=== PATIENT | female | born 1945 | race Caucasian/White ===

== ENCOUNTER → 2018-04-24 07:31 | Outpatient (CLI) | payer MEDICARE, SELFPAY ==
--- NOTE | 2018-04-24 | DI.MG.S_ITS ---
BILATERAL DIGITAL SCREENING MAMMOGRAM 3D/2D WITH CAD: 04/24/2018 CLINICAL: Routine screening. Family history of breast cancer. Comparison is made to exams dated: 02/18/2017 mammogram, 11/20/2015 mammogram, and 10/17/2014 mammogram - [facility]. The tissue of both breasts is heterogeneously dense. This may lower the sensitivity of mammography. Current study was also evaluated with a Computer Aided Detection (CAD) system. There is a mass in the left breast at 3 o'clock anterior depth. No other significant masses, calcifications, or other findings are seen in either breast. IMPRESSION: INCOMPLETE: NEEDS ADDITIONAL IMAGING EVALUATION The mass in the left breast is indeterminate. Additional views with possible ultrasound are recommended. This exam was interpreted at Station ID: [id number]. NOTE: For mammograms, a report in lay terms will be sent to the patient. Approximately 15% of breast malignancies will not be visualized mammographically. In the management of a palpable breast mass, a negative mammogram must not discourage biopsy of a clinically suspicious lesion. Electronically Signed By: Home cano/sushila:04/24/2018 12:40:04 copy to: Brittany Doherty letter sent: Additional Imaging Needed ACR BI-RADS Category 0: Incomplete [id number]
== END ==
PROVIDERS: PCP Family Medicine; Visit Provider Family Medicine
DX: Z12.31 Encounter for screening mammogram for malignant neoplasm of breast (principal); Z80.3 Family history of malignant neoplasm of breast
CPT/HCPCS: 77063; 77067

== ENCOUNTER → 2018-04-28 09:59 | Outpatient (CLI) | payer MEDICARE, SELFPAY ==
--- NOTE | 2018-04-28 10:02 | DI.MG.S_ITS ---
UNILATERAL LEFT DIGITAL DIAGNOSTIC MAMMOGRAM 3D/2D WITH ADDITIONAL VIEWS: 04/28/2018 CLINICAL: Additional evaluation requested from prior study. Comparison is made to exams dated: 04/24/2018 mammogram, 02/18/2017 mammogram, and 11/20/2015 mammogram - [facility]. The tissue of the left breast is heterogeneously dense. This may lower the sensitivity of mammography. There is a 1.2 cm irregular high density mass with a spiculated margin in the left breast at 3 o'clock anterior depth. No other significant masses or calcifications are seen in the breast. IMPRESSION: INCOMPLETE: NEEDS ADDITIONAL IMAGING EVALUATION The 1.2 cm irregular high density mass in the left breast is indeterminate. An ultrasound is recommended. This exam was interpreted at Station ID: [id number]. NOTE: For mammograms, a report in lay terms will be sent to the patient. Approximately 15% of breast malignancies will not be visualized mammographically. In the management of a palpable breast mass, a negative mammogram must not discourage biopsy of a clinically suspicious lesion. Electronically Signed By: Home cano/sushila:04/28/2018 10:47:16 copy to: Brittany Doherty ACR BI-RADS Category 0: Incomplete [id number]
--- NOTE | 2018-04-28 10:02 | DI.US.S_ITS ---
ULTRASOUND OF LEFT BREAST: 04/28/2018 CLINICAL: Patient returns for additional imaging over a suspected mass in the left breast. Comparison is made to exams dated: 04/28/2018 mammogram, 04/24/2018 mammogram, and 02/18/2017 mammogram - [facility]. Color flow ultrasound of the left breast was performed. Hitchcock scale images of the real-time examination were reviewed. There is a 1.5 cm x 1 cm x 1.7 cm irregular mass with a spiculated margin in the left breast at 3 o'clock middle depth 7 cm from the nipple. This correlates with mammography findings. IMPRESSION: HIGHLY SUGGESTIVE OF MALIGNANCY - FOLLOW-UP RECOMMENDED The 1.5 cm x 1 cm x 1.7 cm irregular mass in the left breast is highly suggestive of malignancy. An ultrasound guided biopsy is recommended. Findings discussed in person with the patient by Dr. Dallas of the department of radiology at the time of evaluation. This exam was interpreted at Station ID: [id number]. Electronically Signed By: Home Noland M.D. cj/:04/28/2018 10:49:45 copy to: Brittany Doherty letter sent: Biopsy Required Ultrasound BI-RADS: 5 Highly suggestive of malignancy
== END ==
PROVIDERS: PCP Family Medicine; Visit Provider Family Medicine
DX: R92.8 Other abnormal and inconclusive findings on diagnostic imaging of breast (principal); N63.20 Unspecified lump in the left breast, unspecified quadrant
CPT/HCPCS: 76642; 77065; G0279

== ENCOUNTER → 2018-05-12 14:09 | Outpatient (CLI) | payer MEDICARE, SELFPAY ==
--- NOTE | 2018-05-12 | DI.MG.S_ITS ---
UNILATERAL LEFT DIGITAL DIAGNOSTIC MAMMOGRAM POST-NEEDLE BIOPSY: 05/12/2018 CLINICAL: Post clip placement. Comparison is made to exams dated: 04/28/2018 ultrasound, 04/28/2018 mammogram, and 04/24/2018 mammogram - [facility]. The tissue of the left breast is heterogeneously dense. This may lower the sensitivity of mammography. There is a marker clip in the appropriate position in the left breast at 3 o'clock middle depth. This marker clip placement is at biopsy site. IMPRESSION: POST PROCEDURE MAMMOGRAM FOR MARKER PLACEMENT There was a successful marker clip placement in the left breast middle depth. NOTE: For mammograms, a report in lay terms will be sent to the patient. Approximately 15% of breast malignancies will not be visualized mammographically. In the management of a palpable breast mass, a negative mammogram must not discourage biopsy of a clinically suspicious lesion. Electronically Signed By: Frank morgan/:05/12/2018 16:50:18 copy to: Brittany Doherty ACR BI-RADS Category Post-procedure mammogram for marker placement
--- NOTE | 2018-05-12 | PATH_ITS ---
[facility] Accession Number: [id number] . 01 Material submitted: . LEFT BREAST MASS . 01 Clinical history: . LEFT BREAST MASS 3:00 7CM FROM NIPPLE . 02 Diagnosis: Left Breast Needle Core Biopsy: Infiltrating ductal carcinoma with the following features: 1. Tumor size: Single greatest linear dimension 0.7 cm as measured on the slide (all cores involved with tumor). 2. Tumor grade: William grade 2 of 3 (score 6 of 9). Nuclear score: 2 of 3. Mitotic rate score: 2 of 3. Tubular differentiation score: 2 of 3. 3. In-situ carcinoma: not identified. 4. Vascular/lymphatic invasion: not identified. 5. Hormone receptor studies: pending, to be reported by addendum. . . . . I/05/15/2018 . 02 Electronically signed: . Leonidas Kovacs MD, Pathologist NPI- [id number] . 01 Gross description: . Received one formalin-filled container labeled with the patient's name and designated left breast mass 3 o'clock 7 cm from nipple. The specimen is received with a plastic filter, sample loose in container. The specimen consists of multiple 0.1 cm in diameter, cylindrical-shaped portions of tissue which range in length from 0.1 cm to 0.7 cm. The specimen is filtered and entirely submitted in one cassette. Collection date: 05/12/2018. Collection time per container: 3:32 PM. Total fixation time: 12 hours, up to 24. ([id number]) /FRR . 02 Pathologist provided ICD-10: C50.912 . 02 CPT . 746898, 816932, [id number], [id number] Performed at: 01 [facility] [address] [place] [address], [place], [place] [id number] MD Case Jose MD Phone: [phone] Performed at: 02 [facility] [id number] [place] [id number] MD Prasanth Hubbard MD Phone: [phone]
--- NOTE | 2018-05-12 11:08 | DI.US.S_ITS ---
Patient Name: EILEEN SANTA date: 1945 Sex: F Attending Physician: Link Indications: Date: 05/12/2018 16:06 At the request of: SHARRON HURLEY Procedure: US bx breast perc w vac device ULTRASOUND GUIDED BIOPSY LEFT BREAST USING VACUUM DEVICE WITH MARKING DEVICE INSERTED: 05/12/2018 CLINICAL: Left breast mass. PATIENT CONSENT: Risks (minor bleeding, infection, vasovagal reaction and repeat procedure), benefits and alternatives were explained to the patient and written informed consent was obtained. Correlation is made to exams dated: 05/12/2018 mammogram, 04/28/2018 ultrasound, mammogram, and 04/24/2018 mammogram - [facility]. An ultrasound guided biopsy using real-time ultrasound was performed for the 1.5 cm x 1 cm x 1.7 cm mass located in the left breast at 3 o'clock middle depth 7 cm from the nipple. The skin was prepped in the usual manner. Local anesthetic was administered to the access site. A small incision was made in the breast. The abnormality was approached from the lateral aspect. A biopsy needle was placed adjacent to the abnormality under ultrasound guidance. Once the needle was documented to be in the correct location, five specimens were obtained using the Mammotome biopsy system. A clip was inserted into the biopsy cavity. The specimens were sent to the laboratory for pathological analysis. IMPRESSION: ULTRASOUND GUIDED BIOPSY MALIGNANT Ultrasound guided biopsy of the 1.5 cm x 1 cm x 1.7 cm mass in the left breast at 3 o'clock middle depth 7 cm from the nipple was successful. Pathology results demonstrate infiltrating ductal carcinoma, which is concordant with imaging. Frank morgan,dean/:05/19/2018 09:55:46 copy to: Brittany Doherty
== END ==
PROVIDERS: PCP Family Medicine; Visit Provider Family Medicine
DX: C50.912 Malignant neoplasm of unspecified site of left female breast (principal)
CPT/HCPCS: 19083; 77065; 88305; 88360

== ENCOUNTER → 2018-06-27 07:38 | Outpatient (CLI) | payer MEDICARE, SELFPAY ==
--- NOTE | 2018-06-27 | DI.MG.S_ITS ---
SPECIMEN LEFT BREAST: 06/27/2018 CLINICAL: Left breast cancer. Correlation is made to exams dated: 06/27/2018 localization, 05/12/2018 ultrasound biopsy, and 05/12/2018 mammogram [facility]. A surgical specimen from the left breast at 3 o'clock was imaged. The localizatin wire and biopsy clip are within the surgical specimen. The targed mass itself is not well seen. IMPRESSION: SPECIMEN The imaged specimen includes the targeted abnormality. This exam was interpreted at Station ID: [id number]. Simba Chatman M.D. fx/:06/27/2018 13:48:22 copy to: Brittany Doherty
--- NOTE | 2018-06-27 | DI.MG.S_ITS ---
MAMMOGRAPHY GUIDED WIRE LOCALIZATION LEFT BREAST WITH POST DIGITAL MAMMOGRAPHIC IMAGIN06/27/2018 CLINICAL: Left breast cancer. Correlation is made to exams dated: 05/12/2018 mammogram, 04/28/2018 mammogram, and 04/24/2018 mammogram - [facility]. A wire localization using mammography guidance was performed for the mass located in the left breast at 3 o'clock middle depth. The skin was prepped in the usual manner. Local anesthetic was administered to the access site. The localization was approached from the lateral aspect. A wire was inserted into the targeted area under mammography guidance. Post placement digital mammographic imaging was obtained. IMPRESSION: WIRE LOCALIZATION Wire localization for the mass in the left breast at 3 o'clock middle depth was successful. This exam was interpreted at Station ID: [id number]. Simba Chatman M.D. fx/:06/27/2018 13:38:05 copy to: Brittany Doherty
--- NOTE | 2018-06-27 | DI.NM.S_ITS ---
PROCEDURE: NM SENTINEL NODE W IMAGING RADIOPHARMACEUTICAL: 0.50 mCi Millipore filtered Tc-99m sulfur colloid. INDICATIONS: LEFT BREAST WIRE LOC TECHNIQUE: Written informed consent was obtained. The area around the region of concern on the left was prepped and draped in a sterile fashion. Tc-99m sulfur colloid was injected intra-dermally and subcutaneously around the biopsy scar. Images were obtained approximately 60 minutes after tracer injection. FINDINGS: [place] node identified at the junction of the upper outer left breast and anterior left axilla. IMPRESSION: Administration of subdermal radiotracer around the site of melanoma for intra-operative sentinel lymph node localization. Dictated by: Fani Herr MD, PhD on 06/27/2018 at 8:20 Approved by: Fani Herr MD, PhD on 06/27/2018 at 8:32
== END ==
PROVIDERS: PCP Physician Assistant; Visit Provider Surgery
DX: C50.912 Malignant neoplasm of unspecified site of left female breast (principal)
CPT/HCPCS: 19281; 76098; 78195; A9541

== ENCOUNTER 2018-06-27 07:55 | Day surgery (SDC) | payer MEDICARE, SELFPAY ==
[2018-06-21 10:57] VITALS: BMI 40.7
[2018-06-27] VITALS (11 sets, daily range): BP systolic 105–141; BP diastolic 59–81; PULSE 55–67; RESP 10–16; TEMP 36.1–36.8; O2SAT 92–97; BMI 40.1
--- NOTE | 2018-06-27 | PATH_ITS ---
[facility] Accession Number: [id number] . 01 Material submitted: . PART A: LEFT AXILLARY SENTINEL LYMPH NODE PART B: LEFT AXILLARY SENTINEL LYMPH NODE PART C: LEFT BREAST . 02 Diagnosis: A. Left Axillary [place] Lymph Node, Excisional Biopsy: One lymph node positive for metastatic carcinoma by immunohistochemistry studies (1/). Please see [facility] Cancer Case Summary, below. . B. Left Axillary [place] Lymph Node, Excisional Biopsy: One lymph node negative for metastatic carcinoma by immunohistochemistry studies (0/1). Please see [facility] Cancer Case Summary, below. . C. [facility] CANCER CASE SUMMARY Invasive carcinoma of the breast: . Procedure: Left axillary sentinel lymph excisional biopsies and left breast wire localization lumpectomy. Specimen Laterality: Left. . Tumor site: Central-medial lumpectomy breast tissue, NOS. Tumor size: 2.4 cm (slices 3-10, 0.3 cm in thickness per slice). Histologic type: Infiltrating ductal carcinoma. Histologic grade: William histologic score 7 of 9 Glandular/Tubular differentiation: Score 2 of 3. Nuclear Pleomorphism: Score 3 of 3. Mitotic Rate: Score 2 of 3. Overall Grade: Grade 2 of 3. Tumor focality: Unifocal. Ductal carcinoma in situ: Size (Extent) of DCIS: Overall size 3.0 cm (multiple, patchy foci in slices 2-11, 0.3 cm in thickness per slice). Architectural patterns: Solid, cribriform, micropapillary, and solid papillary. Nuclear grade: Grade 2 of 3. Necrosis: Focally present. Lobular carcinoma in situ: Not identified. . Macroscopic and microscopic extent of tumor Skin: Not applicable. Nipple: Not applicable. Skeletal muscle: Not applicable. . Margins Invasive carcinoma: Anterior: 6 mm. Posterior: 8 mm. Superior: Greater than 10 mm. Inferior: 9 mm. Medial: 6 mm. Lateral: Greater than 10 mm. Ductal carcinoma in situ: Anterior: 8 mm. Posterior: 1 mm. Superior: Greater than 10 mm. Inferior: 2 mm. Medial: 1 mm. Lateral: Greater than 10 mm. . Lymph nodes Total number of lymph nodes examined: 2. Number of sentinel lymph nodes examined: 2. Lymph Node Involvement: Number of lymph nodes with macrometastases: 0. Number of lymph nodes with micrometastases: 1. Number of lymph nodes with isolated tumor cells: 0. Extranodal Extension: Not identified. Method of Evaluation of [place] Lymph Nodes: H/E stained slides and immunohistochemistry studies. . Treatment effect: Response to Presurgical Therapy Breast: Not identified. Lymph nodes: Not applicable/not identified. . Lymph-vascular invasion: Not identified. Dermal lymph-vascular invasion: Not applicable. Pathologic staging: AJCC, 8th ed., 2017 Primary tumor: pT2 Regional lymph nodes: pN1mi . Additional pathologic findings: Microcalcifications are present and are associated with both ductal carcinoma in situ and with benign ductal epithelium; changes consistent with previous instrumentaton are present; biopsy marker present. Fibrocystic changes consisting of cystic dilatation of terminal ductules, apocrine metaplasia, ductal hyperplasia without atypia, and focal papillomatosis. . Ancillary studies: Biomarkers Performed Previously on Case: [facility], [id number]; 05/13/2018. Estrogen Receptor (ER) Status: Positive with 50% of cells staining with strong intensity. Progesterone Receptor (PgR) Status: Positive with approximately 20% of cells staining with strong intensity. HER2 (by immunohistochemistry): Negative, with a few cells showing 1+ staining. HER2 (ERBB2) (by in situ hybridization): Not applicable. [facility]/06/30/2018 . 02 Electronically signed: . Nory Blancas MD, Pathologist NPI- [id number] . 01 Gross description: . (A) Received in formalin, labeled left axillary sentinel lymph node, count 24,796, is a lymph node (1.9 x 1.1 x 0.6 cm). Serially sectioned and entirely submitted in cassettes A1-A2. (B) Received in formalin, labeled left axillary sentinel lymph node with count of 906, is a lymph node (0.9 x 0.7 x 0.4 cm). Serially sectioned and entirely submitted in cassette B1. (C) Received in formalin, labeled L breast lumpectomy, SS superior, LS lateral, D.S.-deep margins, is a piece of breast tissue (2.7 cm AP, 5.5 cm SI, 5.6 cm ML) with no overlying skin. The specimen is oriented with three black sutures (short-superior, long-lateral, double-deep). A localization wire enters the anterior inferomedial aspect. The specimen is serially sectioned ML into seventeen slices with the medial and lateral resection margins as slices #1 and #17, respectively. The breast tissue is fatty and contains a mcpherson-white solid firm irregular mass (1.9 x 1.8 x 1.4 cm) within slices #4-9. The mass is 1.0 cm from the anterior, 0.7 cm from the posterior, 1.4 cm from the superior, 1.5 cm from the inferior, 1.0 cm from the medial, and 2.7 cm from the lateral resection margins. A biopsy marker is identified in the middle of the mass within slice #7. The localization wire ends within the fatty tissue of slice #12. No other nodules, masses or lesions are identified. Ink code: purple-anterior; yellow-posterior; black-superior; orange-inferior; green-medial; blue-lateral. Section code: (C1) medial resection margin, perpendicularly sectioned, entirely submitted; (C2) slice #2, entirely submitted; (C3-C4) slice #3, tissue adjacent to mass, bisected and entirely submitted SI; (C5-C6) slice #4, bisected and entirely submitted SI; (C7-C9) slice #5, trisected and entirely submitted SI; (C10) slice #6, customer service representative; (C11) slice #7, customer service representative; (C12) slice #8, customer service representative; (C13-C14) slice #9, bisected and entirely submitted SI; (C15-C17) slice #10, tissue adjacent to mass, entirely submitted; (C18) slice #11, customer service representative; (C19) slice #16, customer service representative; (C20) lateral resection margin, perpendicularly sectioned, entirely submitted. Note: This specimen has been reviewed by Dr. Monty Obregon. . . Note: Approximate total fixation time in formalin for all specimens-31 hours and 30 minutes calculated using a collection date of 06/27/2018 with no collection time given. ([id number]) /[facility] . 02 Microscopic: . Immunohistochemical stains were performed to further evaluate the cells of interest. Control stains showed appropriate reactivity. . Results: Block C15 p63: Absent in region of interest. SMMS: Absent in region of interest. . The absence of p63 and SMMS immunostaining in the region of interest supports a diagnosis of invasive carcinoma in slice 10. . Block C2 and C18: CK5/6: Diminished, mosaic staining present. ER: Strong, diffuse staining present. . The diminished CK5/6 immunostaining and strong ER nuclear staining supports a diagnosis of ductal carcinoma in situ in the regions of interest. . * This test was developed and its performance characteristics determined by [employer]. It has not been cleared or approved by the U.S. Food and Drug Administration. The FDA has determined that such clearance or approval is not necessary. This test is used for clinical purposes. It should not be regarded as investigational or for research. . 02 Pathologist provided ICD-10: C50.912 . 02 CPT . 858630, [id number], P85393 Performed at: 01 [facility] [address] [id number] MD Case Jose MD Phone: [phone] Performed at: 02 [facility] [id number] [place] [address] [address] [place], [place] [id number] MD Cande Dey MD Phone: [phone]
[2018-06-27] MEDS: LACTATED RINGERS 1,000 ML 21 ML IV ×2 (10:14→13:01)
--- NOTE | 2018-06-27 10:35 | PM.PREOP ---
Pre-operative Note Interval Note Pre-op Check: Yes History & Physical Reviewed by Physician and Yes Exam Performed Changes: No H&P completed within 30 days and has changed as indicated here:: Patient seen and examined in the preoperative area. Surgical site marked. History and physical examination documented within the last 2 weeks approximately has not changed. I have personally reviewed her lymphoscintigraphy and needle localization left breast x-rays today. We will proceed with left breast lumpectomy and left axillary sentinel lymph node biopsy today as planned.
[2018-06-27] MEDS: VANCOMYCIN 1,000 MG/200 ML FROZ.PIGGY 200 MG IV (11:05)
--- NOTE | 2018-06-27 11:57 | SUR.OPER ---
Supine on padded OR bed, head on pillow, arms secured on padded arm boards at <90 degrees abduction, legs uncrossed, safety belt at thigh, tape over blanket over lower legs
[2018-06-27] MEDS: BUPIVACAINE 0.5% (PF) VIAL 30 ML INJ (12:11)
[2018-06-27] MEDS: LIDOCAINE 1% W/EPI INJ 20 ML INJ (12:12)
--- NOTE | 2018-06-27 13:44 | PM.OP.1 ---
Operative Date/Time/Diagnoses Date of procedure: 06/27/18 Time of procedure: 13:44 Pre-op diagnosis: Left breast infiltrating ductal carcinoma Post-op diagnosis: same Procedure & Clinicians Procedure: 1. Left axillary sentinel lymph node excisional biopsies 2. Left breast wire localization lumpectomy Same procedure as scheduled: Yes Indications: 72-year-old female who presented recently with palpable breast mass on the left side. Radiographic analysis revealed suspicious lesion which was confirmed as cancer on needle biopsy. She was recommended to undergo lumpectomy with wire localization and concurrent left axillary sentinel lymph node excisional biopsies. Surgeon: Federico Davis Click Yes if Unassisted: Yes Anesthesia Type: General Operative Notes Findings: 1. Two left axillary sentinel lymph nodes. [place] lymph node 1 had 10 sec radioactive count of 24,796 and sentinel lymph node 2 had 10 sec radioactive count of 906. 2. No evidence of any other residual obvious abnormal lymph nodes or radioactive lymph nodes following excision of the above sentinel lymph nodes. 3. Lumpectomy specimen containing wire localization device in its entirety as well as previously placed biopsy marker clip Closure Type: primary Specimen(s): other (1. Left axillary sentinel lymph node 1 2. Left axillary sentinel lymph node 2 3. Left breast lumpectomy) Implants & Drains: None Estimated Blood Loss (mL): 25 Blood products transfused: none Procedure in detail: After obtaining informed consent the patient was brought to the operating room and placed supine on the table. Preoperative lymphoscintigraphy and wire localization breast images had been reviewed prior to surgery. Axillary bump was placed. The wire localization device was cut to appropriate length with wire cutters in the entire left breast, chest, and axilla were prepped and draped in usual sterile fashion by oh personally. Left axillary oblique skin incision was designed with the skin marker as well as a curvilinear lateral left breast incision parallel to the areola. Areas were infiltrated with a 1-1 mixture 1% lidocaine with 1 :100,000 epinephrine and 0.5% plain Marcaine for postoperative analgesia. Attention was turned initially to the left axillary sentinel lymph node biopsies. Gamma probe was used to identify the maximum radioactive counts at the primary injection site on the breast. Skin incision was created with 15 scalpel blade followed by the Bovie for hemostasis. Self-retaining retractor was used to provide exposure. Bovie was used to carry the dissection through the subcutaneous tissue the left axillary fat pad. Gamma probe was used to direct focused dissection with a combination of the Metzenbaum scissors and Bovie to identify a moderately enlarged lymph node with significant radioactive counts. Lymph node was excised sharply and hemostasis was achieved with hemoclips. Specimen was sent for permanent section. A 2nd sentinel lymph node was identified deeper in the fat pad and excised in a similar fashion. Specimen was sent for permanent section. Further meticulous examination of the axilla with the gamma probe revealed no further radioactive lymph nodes or other activity. Therefore the axillary wound was irrigated with copious amounts of sterile saline solution and noted be hemostatic. Subcutaneous tissue was reapproximated with interrupted 3 0 Vicryl suture. Skin was closed in a running subcuticular fashion with 4 0 Monocryl suture. Attention was then turned to the lumpectomy of the left breast. Skin incision was created with 10 scalpel blade followed by the Bovie for hemostasis. Meticulous sharp dissection along the lateral skin flap revealed the insertion site of the localization wire which was gently brought under the skin flap into the operative field to exit the skin incision. Wire was secured to the underlying breast tissue using an Allis clamp. Generous lumpectomy was then performed with the Bovie. Hemostasis was achieved with a combination of hemoclips, 3 O Vicryl ties, and the Bovie. Specimen was oriented, completely excise, and return to Radiology Department. Specimen radiograph revealed the above findings. Wound was irrigated with copious amount sterile saline solution and hemostasis was achieved with the Bovie. After verifying hemostasis hemoclips were placed around the lumpectomy site for potential targeted radiation to the area. Again hemostasis was verified in the subcutaneous tissue was reapproximated with interrupted 3 0 Vicryl suture. Skin was closed in a running subcuticular fashion with a 4 0 Monocryl suture. Dermal adhesive was applied to the skin of both incisions. Anesthesia was reversed and patient extubated in the operating room. She was taken recovery in stable condition. Complications: none Condition: stable Disposition: PACU Plan for aftercare: 1. Discharge home 2. Follow up in surgery Clinic in 2 weeks 3. Await pathology
[2018-06-27] MEDS: fentaNYL 100 MCG/2 ML INJ 50 MCG IV ×2 (13:49→14:02)
[2018-06-27] MEDS: OXYCODONE IR 5 MG TABLET PO (14:22)
[2018-06-27] MEDS: ONDANSETRON 4 MG/2 ML INJ IV (14:56)
--- NOTE | 2018-06-27 15:00 | SUR.PHASEII ---
patient c/o mild nausea. medicated per orders.
--- NOTE | 2018-06-27 15:12 | SUR.PHASEII ---
patient states she is feeling much better, nausea resolved. pain decreased to tolerable level.
== END 2018-06-27 15:56 | disposition home or self-care (01) ==
PROVIDERS: PCP Physician Assistant; Visit Provider Surgery
PROC: (CPT 19301; principal; 2018-06-27 11:30)
DX: C50.912 Malignant neoplasm of unspecified site of left female breast (principal); E66.9 Obesity, unspecified; E78.5 Hyperlipidemia, unspecified; Z80.3 Family history of malignant neoplasm of breast; I10 Essential (primary) hypertension
CPT/HCPCS: 19301; 38500; 19281; 76098; 78195; 87070; 87075; 87205; 88307; 88341; 88342; A9541; J2250; J2405; J2704; J3010; J3370

== ENCOUNTER 2018-07-17 06:49 | Day surgery (SDC) | payer MEDICARE, SELFPAY ==
--- NOTE | 2018-07-17 | PATH_ITS ---
[facility] Accession Number: [id number] . 01 Material submitted: . PART A: TRANSVERSE COLON POLYP @ 65CM PART B: SIGMOID POLYP @ 25CM . 02 Diagnosis: A. Transverse Colon Polyp at 65 cm: Tubular adenoma. . B. Sigmoid Colon Polyp at 25 cm: Granulation tissue, consistent with inflammatory polyp. Negative for dysplasia or malignancy. MRV/07/19/2018 . 02 Electronically signed: . Dane Stone MD, PhD, Pathologist NPI- [id number] . 01 Gross description: . Received two formalin-filled containers, both labeled with the patient's name: . A. In a container labeled transverse colon polyp at 65 cm, the specimen consists of a 0.3 cm portion of tissue, entirely submitted in cassette A. B. In a container labeled sigmoid polyp at 25 cm, the specimen consists of three less than 0.1 cm to 0.3 cm portions of tissue, entirely submitted in cassette B. ([id number]) /FRR . 02 Pathologist provided ICD-10: D12.3, K51.40 . 02 CPT . 612625, 396207 Performed at: 01 [facility] [address], [place], [place] [id number] MD Case Jose MD Phone: [phone] Performed at: 02 [facility] [address] [place], [place] [id number] MD Cande Dey MD Phone: [phone]
[2018-07-17 07:07] VITALS: BP 139/90; PULSE 88; RESP 16; TEMP 36.8; O2SAT 95; BMI 39.6
[2018-07-17] MEDS: SODIUM CHLORIDE 0.9% 1,000 ML 200 ML IV (07:22)
--- NOTE | 2018-07-17 07:37 | PM.HP.1 ---
History of Present Illness Date Patient Seen: 07/17/18 Time Patient Seen: 07:37 Chief complaint: [id number] Narrative: 72-year-old female well on to me from recent treatment for breast cancer who presents now for colorectal screening. Her last endoscopy was a number of years ago. She is having no current gastrointestinal symptoms such as nausea, vomiting, change in bowel habits, loss of appetite, unexplained weight loss, abdominal pain, diarrhea, constipation, melena, hematochezia, or bright red blood per rectum. Patient History Medical History Family history of breast cancer (Acute) Morbid obesity with BMI of 40.0-44.9, adult (Acute) Herpes (Chronic 1977) Hyperlipemia (Chronic) Hypertension (Chronic) Knee pain (Chronic ~01/2017) Tinnitus of both ears (Chronic 2012) Cataracts, bilateral (Resolved 2012) Chickenpox (Resolved 1946) Colon polyps (Resolved 2014) Foot pain (Resolved 2014) Irregular menstrual cycle (Resolved 1958) Measles (Resolved) Migraines (Resolved 1958) Mumps (Resolved) Ovarian cyst (Resolved 1975) Painful menstrual periods (Resolved 1958) Shoulder pain (Resolved) Stress incontinence (Resolved ~2016) Surgical History Hx of surgical procedure (Resolved 1973) History of cataract removal with insertion of prosthetic lens (2012) History of elective History of tonsillectomy (1966) Status post breast lumpectomy (1994) Status post cholecystectomy (1990) Status post colonoscopy (1996) Status post colonoscopy (2013) Status post ovarian cystectomy (1975) Family & Social History Social History: household members none Tobacco & Substance use: Smoking Status Never smoker alcohol intake current Substance Use Type does not use Meds Home Medications Medication Instructions Recorded Confirmed Type Aleve See Label Instructions .ROUTE 05/08/18 07/13/18 History .COMPLEX acyclovir 400 mg tablet 400 mg PO 5XD #50 tab 05/08/18 07/13/18 Rx acyclovir 400 mg tablet 400 mg PO DIRECTED PRN 05/08/18 07/13/18 History cyanocobalamin (vit B-12) 1,000 1,000 mcg PO Q OTHER DAY 05/08/18 07/13/18 History mcg tablet fish, borage, flaxseed oils-omega 1,000 mg PO Q OTHER DAY 05/08/18 07/13/18 History 3,6,9 comb no.1 1,200 mg capsule docusate sodium [Colace] 100 mg PO BID #14 cap 06/27/18 07/13/18 Rx oxycodone 5 mg PO Q4-6H PRN #20 tab 06/27/18 07/13/18 Rx sennosides [Senokot] 8.6 mg PO BEDTIME #10 tab 06/27/18 07/13/18 Rx lisinopril 20 mg tablet 20 mg PO QDAY #90 tab 07/04/18 07/13/18 Rx Allergies Allergy/AdvReac Type Severity Reaction Status Date / Time iodine [IODINE] Allergy Intermediate Skin rash Verified 07/17/18 07:11 coconut [COCONUT] AdvReac Intermediate Nausea Verified 07/17/18 07:11 and I just felt ill. Sulfa (Sulfonamide AdvReac Intermediate GI upset Verified 07/17/18 07:11 Antibiotics) [SULFA (SULFONAMIDE ANTIBIOTICS)] Penicillins AdvReac Unknown Ill Verified 07/17/18 07:11 physically Review of Systems Review of Systems All systems reviewed & are unremarkable except as noted in HPI and below Exam Vital Signs (past 8 hours): - 07/17/18 07:07 Temperature 98.3 F Pulse Rate 88 Respiratory Rate 16 Blood Pressure 139/90 Pulse Oximetry 95 Oxygen Delivery Method Room Air Narrative Exam Narrative: Well-nourished well-developed female in no acute distress. Alert oriented x3 Sclera nonicteric Chest clear to auscultation bilaterally Abdomen soft, nondistended, nontender, no masses Extremities show no clubbing, cyanosis, or significant edema Objective Labs Labs: Breast cancer pathology is already been reviewed with the patient. She has no other imaging or other abdominal studies for review. Assessment & Plan Plan: Assessment/Plan Narrative: 72-year-old female with recent diagnosis and surgical management of breast cancer now requiring colorectal screening. I recommend colonoscopy. Technical details of the procedure were reviewed. Risks, benefits, alternatives were explained. Risks including but not limited to sedation, aspiration, bleeding, pain, missed lesion, incomplete examination, need for further radiographic studies, colonic perforation, need for major abdominal surgery, and all attendant risks of major surgery were discussed at length. All questions were answered to her satisfaction, and she voiced understanding. Consent was placed on the chart. We will proceed as above.
--- NOTE | 2018-07-17 07:41 | PM.PREOP ---
Pre-operative Note Interval Note Pre-op Check: Yes History & Physical Reviewed by Physician, Yes Exam Performed and Yes History & Physical exam performed today by Physician Changes: No H&P completed within 30 days and has changed as indicated here:: Patient seen and examined today. History and physical examination documented and placed on the chart. Proceed with colonoscopy today as planned. ASA Class (for procedural sedation): II
[2018-07-17] MEDS: fentaNYL 250 MCG/5 ML INJ IV (07:54)
[2018-07-17] MEDS: MIDAZOLAM 5 MG/5 ML VIAL IV (07:55)
--- NOTE | 2018-07-17 08:20 | PM.OP.ENDO ---
Operative Date/Time/Diagnoses Date of procedure: 07/17/18 Time of procedure: 08:20 Pre-op diagnosis: History of colon polyps Post-op diagnosis: other (Colon polyps and pandiverticulosis) Procedure & Clinicians Study performed: 1. Sedation per surgeon 2. Colonoscopy with cold forceps polypectomy and Marisela ink tattoo Same procedure as scheduled: Yes Indications: 72-year-old female who presented for colorectal screening with history of polyps. Colonoscopy is recommended. Surgeon: Federico Davis Procedure Notes SCOAP/Timeout: Yes Procedure in detail: After obtaining informed consent, the patient was brought to the GI suite and placed in the left lateral decubitus position on the examination table. After placement of appropriate monitors, the patient was given incremental doses of Versed and Fentanyl until an appropriate level of sedation was achieved. A time out was held per SCOAP protocol. A digital rectal examination was performed and did not reveal any masses or obstructing lesions. The colonoscope was gently passed into the patient's anus and the entire colon navigated to the level of the cecum with minimal difficulty. Terminal ileum was intubated and noted to be grossly normal. Once in the cecum, the scope was withdrawn being sure to go before and beyond all mucosal folds and prominences and get an excellent examination. The findings are noted above. At the level of the rectal vault, the scope was retroflexed and the internal anal canal was examined. The scope was straightened and air aspirated from the colon. The instrument was removed from the patient's body and the procedure was concluded. The patient was allowed to awaken from sedation without difficulty and taken to the post-anesthesia care unit in good condition. Scope withdrawal time: 18:43 min Sedation minutes: 26 Findings: diverticulosis and polyp Specimen(s): other (1. Transverse colon polyp at 65 cm 2. Sigmoid colon polyp at 25 cm marked with Marisela ink) Complications: none Recommendations: Colonscopy in 5 years (Pending biopsy results), High fiber diet and Will call with biopsy results Plan for aftercare: 1. Discharge to home Follow up: as needed Disposition: PACU
[2018-07-17 09:10] VITALS: BP 121/70; PULSE 77; RESP 16; TEMP 36.7; O2SAT 96
--- NOTE | 2018-07-17 09:23 | SUR.PHASEII ---
pt bypassed pacu due to wakefulness, pt awake on arrival vss, wanted to stay before friend notified, friend arrived, pt ready to go pt left in stable condition
== END 2018-07-17 09:16 ==
LOC: ENDO 06:49
PROVIDERS: PCP Family Medicine; Visit Provider Surgery
PROC: 0DJD8ZZ Inspection of Lower Intestinal Tract, Via Natural or Artificial Opening Endoscopic (ICD-10-PCS; CPT 45378; principal; 2018-07-17 07:45)
DX: Z86.010 Personal history of colon polyps (principal); K57.30 Diverticulosis of large intestine without perforation or abscess without bleeding; E66.9 Obesity, unspecified; Z68.41 Body mass index [BMI] 40.0-44.9, adult; E78.5 Hyperlipidemia, unspecified; I10 Essential (primary) hypertension; D12.3 Benign neoplasm of transverse colon; K51.40 Inflammatory polyps of colon without complications
CPT/HCPCS: 45381; 45380; 88305; 99152; 99153; J2250; J3010

== ENCOUNTER → 2018-08-28 08:15 | Outpatient (CLI) | payer MEDICARE, SELFPAY ==
[2018-08-28 09:03] LABS: Add Manual Diff / Slide Review NO; Basophils Percent Auto 0.3 % (0-2); Eosinophils Percent Auto 1.2 % (2-4); Hematocrit 46.3 % (36-46); Hemoglobin 15.3 g/dL (12.0-16.0); Lymphocytes Percent Auto 27.6 % (25-40); Mean Corpuscular Hemoglobin 27.8 PG (26-34); Mean Corpuscular Volume 84.4 fL (80-100); Monocytes Percent Auto 5.4 % (3-14); Neutrophils Absolute Auto 5000 /uL (1500-7000); Neutrophils Percent Auto 65.5 % (50-75); Platelet Count 234 X10^3/uL (150-400); Red Blood Cell Count 5.49 X10^6/uL (4.0-5.2); Red Cell Distribution Width 15.1 % (11.6-14.8); White Blood Cell Count 7.7 X10^3/uL (4.5-11.0)
[2018-08-28 09:37] LABS: Alanine Aminotransferase 17 IU/L (9-52); Albumin Globulin Ratio 1.2 (1.0-2.8); Alkaline Phosphatase 77 U/L (38-126); Aspartate Aminotransferase 27 IU/L (14-36); BUN Creatinine Ratio 31.4 (6-22); Bilirubin Total 0.6 mg/dL (0.2-1.3); Blood Urea Nitrogen 22 mg/dL (7-17); C-Reactive Protein Quant 1.4 mg/dL (<1.0); Calcium 9.3 mg/dL (8.4-10.2); Carbon Dioxide 26 mmol/L (22-32); Chloride 104 mmol/L (98-107); Estimated Glomerular Filt Rate > 60.0 mL/min (>60); Globulin 3.4 g/dL (1.7-4.1); Glucose 105 mg/dL (80-110); HEMOLYSIS 18 (0-50); Potassium 4.7 mmol/L (3.4-5.1); Sodium 139 mmol/L (137-145); Total Protein 7.4 g/dL (6.3-8.2)
[2018-08-28 09:50] LABS: Free T3, Triiodothyronine Free 3.02 pg/mL (2.77-5.27); Free T4, Direct Thyroxine 1.24 ng/dL (0.78-2.19)
[2018-08-28 10:04] LABS: Thyroid Stimulating Hormone 1.39 uIU/mL (0.47-4.68)
[2018-08-31 13:06] LABS: Thyroid Peroxidase Antibodies < 1 IU/mL (< 9)
[2018-08-31 15:21] LABS: CA 15-3 2 U/mL (< 32); Cancer Antigen 27.29 9 U/mL (< 38)
== END ==
PROVIDERS: Family Provider Naturopath; PCP Physician Assistant; Visit Provider Naturopath
DX: C50.912 Malignant neoplasm of unspecified site of left female breast (principal); E03.9 Hypothyroidism, unspecified; R53.83 Other fatigue; D63.8 Anemia in other chronic diseases classified elsewhere
CPT/HCPCS: 36415; 80053; 84439; 84443; 84481; 85025; 86140; 86300; 86376

== ENCOUNTER → 2018-12-05 07:08 | Outpatient (CLI) | payer MEDICARE, SELFPAY ==
[2018-12-05 09:08] LABS: Add Manual Diff / Slide Review NO; Basophils Absolute Auto 0 /uL (0-100); Basophils Percent Auto 0.5 % (0-2); Eosinophils Absolute Auto 100 /uL (0-450); Eosinophils Percent Auto 1.6 % (2-4); Hematocrit 44.9 % (36-46); Hemoglobin 14.9 g/dL (12.0-16.0); Lymphocytes Absolute Auto 2100 /uL (1100-4500); Lymphocytes Percent Auto 22.9 % (25-40); Mean Corpuscular HGB Conc 33.2 % (30-36); Mean Corpuscular Hemoglobin 27.9 PG (26-34); Monocytes Absolute Auto 600 /uL (0-900); Monocytes Percent Auto 6.4 % (3-14); Neutrophils Absolute Auto 6200 /uL (1500-7000); Neutrophils Percent Auto 68.6 % (50-75); Platelet Count 209 X10^3/uL (150-400); Red Blood Cell Count 5.35 X10^6/uL (4.0-5.2); Red Cell Distribution Width 15.8 % (11.6-14.8)
[2018-12-05 09:31] LABS: Alanine Aminotransferase 25 IU/L (9-52); Albumin 3.9 g/dL (3.5-5.0); Albumin Globulin Ratio 1.3 (1.0-2.8); Alkaline Phosphatase 80 U/L (38-126); Aspartate Aminotransferase 20 IU/L (14-36); BUN Creatinine Ratio 28.6 (6-22); Bilirubin Total 0.5 mg/dL (0.2-1.3); Blood Urea Nitrogen 20 mg/dL (7-17); Calcium 9.1 mg/dL (8.4-10.2); Carbon Dioxide 25 mmol/L (22-32); Chloride 103 mmol/L (98-107); Estimated Glomerular Filt Rate > 60.0 mL/min (>60); Globulin 2.9 g/dL (1.7-4.1); Glucose 95 mg/dL (80-110); HEMOLYSIS < 15 (0-50); Lactate Dehydrogenase 450 U/L (313-618); Potassium 4.2 mmol/L (3.4-5.1); Sodium 139 mmol/L (137-145); Total Protein 6.8 g/dL (6.3-8.2)
[2018-12-05 10:01] LABS: Carcinoembryonic Antigen 2.7 ng/mL (0.1-3.0)
[2018-12-07 16:31] LABS: CA 15-3 3 U/mL (< 32); Cancer Antigen 27.29 < 8 U/mL (< 38)
== END ==
PROVIDERS: Family Provider Naturopath; PCP Family Medicine; Visit Provider Internal Medicine Hematology & Oncology
DX: C50.919 Malignant neoplasm of unspecified site of unspecified female breast (principal)
CPT/HCPCS: 36415; 80053; 82378; 83615; 85025; 86300

== ENCOUNTER 2018-12-22 07:30 | Day surgery (SDC) | payer MEDICARE, SELFPAY ==
[2018-12-11 15:07] VITALS: BMI 37.0
[2018-12-22] VITALS (13 sets, daily range): BP systolic 90–153; BP diastolic 55–88; PULSE 51–68; RESP 12–19; TEMP 35.9–37.1; O2SAT 82–98; BMI 36.5
--- NOTE | 2018-12-22 | PATH_ITS ---
[facility] Accession Number: [id number] . 01 Material submitted: . endometrium - ENDOMETRIAL CURRETINGS . 02 Diagnosis: Endometrial Curettings: Scant portions of endometrial tissue and strips of endometrial glandular epithelium. Please see comment. Small fragments of metaplastic squamous mucosa; negative for squamous dysplasia and malignancy. [facility]/12/25/2018 . 02 Comment: Due to the scant nature of this biopsy, it may not be entirely sales utility representative of this patient's endometrium. Additional sampling could be considered, if clinically appropriate. There is no evidence of atypia or malignancy in these very small tissue fragments. . 02 Electronically signed: . Nory Blancas MD, Pathologist NPI- [id number] . 01 Gross description: . ENDOMETRIAL CURRETINGS: Received in formalin are minute fragments of mucoid and hemorrhagic material measuring 0.5 x 0.5 x 0.2 cm in aggregate. Submitted in toto in 1 cassette. /DM /DM . 02 Pathologist provided ICD-10: N85.00 . 02 CPT . 296397 Performed at: 01 [facility] [address], [place], [place] [id number] MD Case Jose MD Phone: [phone] Performed at: 02 [facility] [address] [place], [place] [id number] MD Cande Dey MD Phone: [phone]
[2018-12-22] MEDS: LACTATED RINGERS 1,000 ML 42 ML IV (08:18)
--- NOTE | 2018-12-22 09:02 | SUR.OPER ---
Lithotomy on padded OR bed, head on pillow, arms secured on padded arm boards at <90 degrees abduction. Legs secured in padded yellow fins stirrups.
--- NOTE | 2018-12-22 09:13 | PM.PREOP ---
Pre-operative Note Interval Note History & Physical reviewed/Exam performed by Physician: Yes Changes to H&P: No
--- NOTE | 2018-12-22 09:17 | PM.HP.1 ---
History of Present Illness Date Patient Seen: 12/22/18 Time Patient Seen: 09:17 Chief complaint: [id number] D&C Hysteroscopy Narrative: Patient is a 73-year-old 4 para 3 with postmenopausal bleeding here for a D&C hysteroscopy Patient History Medical History (Updated 12/04/18 @ 11:34 by Liane Weiner MD) Obesity (BMI 30-39.9) (Chronic) Breast cancer (Acute) Essential hypertension (Chronic 09/05/15) Hyperlipidemia, unspecified (Chronic 08/31/04) Essential tremor (Chronic 09/20/17) Peripheral edema (Chronic 12/30/03) Chronic venous insufficiency (Chronic 09/20/17) Iron deficiency anemia, unspecified (Inactive 04/13/02) Vitamin B12 deficiency (Chronic 04/19/02) Chronic pain of right knee (Chronic 10/19/16) Stress incontinence of urine (Chronic 10/19/16) Menopause present (Inactive 09/11/02) History of adenomatous polyp of colon (Inactive) Herpes (Chronic 1977) Tinnitus of both ears (Chronic 2012) Cataracts, bilateral (Resolved 2012) Chickenpox (Resolved 1946) Colon polyps (Resolved 2014) Foot pain (Resolved 2014) Irregular menstrual cycle (Resolved 1958) Knee pain (Resolved ~01/2017) Measles (Resolved) Migraines (Resolved 1958) Morbid obesity with BMI of 40.0-44.9, adult (Resolved) Mumps (Resolved) Ovarian cyst (Resolved 1975) Painful menstrual periods (Resolved 1958) Shoulder pain (Resolved) Stress incontinence (Resolved ~2016) Surgical History (Updated 12/04/18 @ 11:34 by Liane Weiner MD) Anesthesia (Resolved) Hx of surgical procedure (Resolved 1973) History of cataract removal with insertion of prosthetic lens (Inactive 2012) History of elective (Inactive) History of tonsillectomy (Inactive 1966) Status post breast lumpectomy (Inactive 1994) Status post cholecystectomy (Inactive 1990) Status post colonoscopy (Inactive 1996) Status post colonoscopy (Inactive 2013) Status post ovarian cystectomy (Inactive 1975) Family History Father Parkinson's disease Mother Cancer Brother Parkinson's disease Grandfather No problems noted. Grandmother Cancer Grandfather No problems noted. Grandmother No problems noted. 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.) alcohol intake: current substance use type: does not use Family & Social History Social History: household members none Tobacco & Substance use: Smoking Status Never smoker alcohol intake current Substance Use Type does not use Meds Home Medications Medication Instructions Recorded Confirmed Type acyclovir 400 mg tablet 400 mg PO 5XD #50 tab 05/08/18 12/22/18 Rx acyclovir 400 mg tablet 400 mg PO DIRECTED PRN 05/08/18 12/22/18 History cyanocobalamin (vit B-12) 1,000 1,000 mcg PO DAILY 05/08/18 12/22/18 History mcg tablet naproxen sodium 220 mg capsule 220 mg PO BID #0 05/08/18 12/22/18 History Artemisinin 400 mg PO DAILY 11/16/18 11/23/18 History Boswellia 800 mg PO DAILY 11/16/18 11/23/18 History DIM Complex 1 tab PO DAILY 11/16/18 11/23/18 History Glucosamine Chondoilin w/MSM 3,600 mg PO DAILY 11/16/18 11/23/18 History Green Tea Extract 800 mg PO DAILY 11/16/18 11/23/18 History Modified Stanley Pectin 1.5 mg PO DAILY 11/16/18 11/23/18 History coenzyme Q10 100 mg capsule 100 mg PO BID 11/16/18 12/22/18 History grape seed extract 100 mg capsule 1 tab PO DAILY cap 11/16/18 12/22/18 History omega-3 fatty acids capsule See Rx Instructions PO DAILY cap 11/16/18 12/22/18 History turmeric root extract 1,053 mg See Rx Instructions PO .COMPLEX 11/16/18 12/22/18 History tablet tab Mistletoe Injections 2XW 12/04/18 History Allergies Allergy/AdvReac Type Severity Reaction Status Date / Time iodine [IODINE] Allergy Intermediate Skin rash Verified 12/22/18 07:58 coconut [COCONUT] AdvReac Intermediate Nausea Verified 12/22/18 07:58 and I just felt ill. Sulfa (Sulfonamide AdvReac Intermediate GI upset Verified 12/22/18 07:58 Antibiotics) [SULFA (SULFONAMIDE ANTIBIOTICS)] Penicillins AdvReac Unknown Ill Verified 12/22/18 07:58 physically Exam Vital Signs (past 8 hours): - 12/22/18 08:15 Temperature 96.8 F L Pulse Rate 68 Respiratory Rate 15 Blood Pressure 153/88 H Pulse Oximetry 95 Oxygen Delivery Method Room Air Narrative Exam Narrative: HEENT: No thyromegaly, no anterior cervical or supraclavicular lymphadenopathy. Lungs:Clear to auscultation bilaterally, no wheezes. Cardiovascular: Regular rate and rhythm, no murmurs, rubs, or gallops. Abdomen: No scars. No hepatosplenomegaly. No masses palpable. External genitalia: Normal Vagina: Normal Cervix: Normal Bimanual exam: 7 Week size uterus. Mobile. Rectal: No masses. Assessment & Plan Assessment & Plan narrative: Assessment: 73-year-old 4 para 3 with postmenopausal bleeding Active breast cancer Plan: D&C hysteroscopy The risks, benefits, and alternatives to the procedure were explained to the patient. The risks including bleeding, infection, and uterine perforation. She understands these risks and agrees to proceed. A full PAR-Q was held and consent form was signed. Time Spent With Patient Time with patient: 15-24 minutes
[2018-12-22] MEDS: ACETAMINOPHEN IV 1,000 MG/100 ML VIAL 400 MG IV (09:42)
--- NOTE | 2018-12-22 10:24 | PM.GYNOP.1 ---
Operative Date/Time/Diagnoses Date of procedure: 12/22/18 Time of procedure: 10:24 Pre-op diagnosis: Postmenopausal bleeding Active breast cancer Post-op diagnosis: same Procedure: Procedures Operation Date: 12/22/18 08:45 Actual Procedures Side Surgeon p Hysteroscopy D&C Winnie Simpson MD Indications: Postmenopausal bleeding Active breast cancer Surgeon: Winnie Simpson Anesthesia Type: General (LMA) Operative Notes Findings: 7 week size anteverted uterus Both fallopian tube ostia observed No polyps, fibroids, or intrauterine masses observed Closure Type: not applicable Specimen(s): endometrial curettings Applied: catheter (In and out) Estimated blood loss (mL): 10 Blood products transfused: none Procedure in detail: After informed consent was obtained, the patient was taken to the operating room where she was placed in the dorsal supine position. After adequate LMA general anesthesia was achieved, she was placed in the dorsal lithotomy position, and prepped and draped in the usual sterile fashion. A time-out was performed. A bivalve speculum was placed into the vagina, and the anterior lip of the cervix grasped with a single-tooth tenaculum. Cervical os was sequentially dilated to the # 8 Hegar dilator. The hysteroscope passed easily into the endometrial cavity. Both fallopian tube ostia were observed. There were no polyps, fibroids, or intrauterine masses. The hysteroscope was removed. gentle sharp curettage was performed yielding small amount of endometrial curettings. The instruments were removed from the uterus. The single-tooth tenaculum was removed from the anterior lip of the cervix. The bivalve speculum was removed from the vagina. Sponge, lap, and instrument counts were correct x2. The patient tolerated the procedure well, and was taken to PACU in stable condition. Complications: none Post-operative Condition: stable Disposition: PACU Plan for aftercare: Home after recovery
== END 2018-12-22 11:34 | disposition home or self-care (01) ==
PROVIDERS: Family Provider Naturopath; PCP Internal Medicine; Visit Provider Obstetrics & Gynecology
PROC: 0UDB8ZZ Extraction of Endometrium, Via Natural or Artificial Opening Endoscopic (ICD-10-PCS; CPT 58558; principal; 2018-12-22 08:45)
DX: N85.00 Endometrial hyperplasia, unspecified (principal); C50.919 Malignant neoplasm of unspecified site of unspecified female breast
CPT/HCPCS: 58558; 88305; J0131; J1100; J1885; J2250; J2405; J2704; J3010

== ENCOUNTER 2019-02-13 05:32 | Emergency (ER) | payer MEDICARE, SELFPAY ==
[2019-02-13 05:38] VITALS: BP 156/100; PULSE 65; RESP 17; TEMP 36.3; O2SAT 100
--- NOTE | 2019-02-13 05:38 | DI.RAD.S_ITS ---
PROCEDURE: XR KNEE RT 3V INDICATIONS: fall, right knee pain TECHNIQUE: 3 views of the knee were acquired. COMPARISON: [facility], , KNEE 3V RIGHT, 02/14/2017, 14:33. FINDINGS: Bones: No fractures or dislocations. No suspicious bony lesions. Severe right knee joint degeneration with [id number] appearance in the medial compartment. Scattered degenerative subchondral sclerosis and spurring. Soft tissues: No joint effusion. No suspicious soft tissue calcifications. IMPRESSION: No fracture. If the patient's pain or other symptoms persist, consider further evaluation with MRI Severe right knee joint degeneration. Dictated by: Frank Rosales M.D. on 02/13/2019 at 9:05 Approved by: Frank Rosales M.D. on 02/13/2019 at 9:06
--- NOTE | 2019-02-13 05:38 | DI.RAD.S_ITS ---
PROCEDURE: XR SHOULDER RT MIN 2V INDICATIONS: Fall, right shoulder pain TECHNIQUE: 2 views of the shoulder were acquired. COMPARISON: None. FINDINGS: Bones: Acute comminuted and impacted proximal humeral shaft/neck fracture is seen with fracture lines extending to greater tuberosity of humeral head. Moderate to severe glenohumeral joint osteophytic changes are seen. Moderate acromioclavicular joint osteoarthritis is also noted. No dislocation. No suspicious bony lesions. Visualized ribs appear intact. Soft tissues: No suspicious soft tissue calcifications. IMPRESSION: Acute comminuted and impacted right humeral neck fracture extending to involve greater tuberosity. 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 No dislocation. Dictated by: Fidel Jaimes M.D. on 02/13/2019 at 8:43 Approved by: Fidel Jaimes M.D. on 02/13/2019 at 8:44
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
--- NOTE | 2019-02-13 06:11 | DI.RAD.S_ITS ---
PROCEDURE: XR ELBOW RT MIN 3V INDICATIONS: pain, humerus head fracture TECHNIQUE: 3 views of the elbow were acquired. COMPARISON: None. FINDINGS: Bones: No fractures or dislocations. No suspicious bony lesions. Soft tissues: No elbow joint effusion. No suspicious soft tissue calcifications. IMPRESSION: No gross acute elbow fracture or dislocation. Dictated by: Fidel Jaimes M.D. on 02/13/2019 at 8:44 Approved by: Fidel Jaimes M.D. on 02/13/2019 at 8:45
[2019-02-13] MEDS: IBUPROFEN 400 MG TABLET 800 MG PO (06:21)
[2019-02-13] MEDS: HYDROMORPHONE 1 MG INJ 0.5 MG IM (06:51)
[2019-02-13 06:59] VITALS: BP 143/71; PULSE 62; RESP 17; O2SAT 98
[2019-02-13 07:52] VITALS: BP 154/93; PULSE 63; RESP 16; O2SAT 98
== END 2019-02-13 07:55 | disposition home or self-care (01) ==
PROVIDERS: Emergency Provider Emergency Medicine; Family Provider Naturopath; PCP Internal Medicine
DX: S42.291A Other displaced fracture of upper end of right humerus, initial encounter for closed fracture (principal); M25.561 Pain in right knee; W18.39XA Other fall on same level, initial encounter; Y93.79 Activity, other specified sports and athletics
CPT/HCPCS: 73030; 73080; 73562; 96372; 99282; 99283; J1170

== ENCOUNTER 2019-03-11 10:14 | Emergency (ER) | payer MEDICARE, SELFPAY ==
[2019-03-11 10:21] VITALS: BP 156/79; PULSE 69; RESP 16; TEMP 36.7; O2SAT 95; BMI 42.0
--- NOTE | 2019-03-11 10:54 | ED_ITS ---
HPI - Wound/Laceration General Chief Complaint: Wound/Laceration Stated Complaint: cellulitis Time Seen by Provider: 03/11/19 10:15 Source: patient Mode of arrival: ambulatory Limitations: no limitations History of Present Illness HPI narrative: Patient comes emergency department complaining of swelling and erythema of her bilateral lower extremities for somewhere between a week in 10 days. Patient states she is recovering from shoulder surgery, and has not been pain much attention to the rest of her body. Patient states her head has ?felt warm? and she thinks she may have had a fever. Patient denies chills. No body aches. Patient is not a diabetic. She has had cellulitis on her elbow once before, and states that this feels similar. Patient does not have any wounds on her feet. She states she does get periodic swelling in her lower extremities, which does go away after a night of laying down. However, she has never been diagnosed with congestive heart failure or kidney failure, and states that her physicians have not actually addressed why her swelling is occurring. Patient states that she has a primary care physician and a dolly driver, and that her dolly driver has treated her for cancer and also, has given her antibiotics for cellulitis in the past. She states that Dr. Márquez, her primary care physician, treats her for everything else. No other complaints at this time. Related Data Home Medications Medication Instructions Recorded Confirmed acyclovir 400 mg tablet 400 mg PO DIRECTED PRN 05/08/18 01/17/19 cyanocobalamin (vit B-12) 1,000 1,000 mcg PO DAILY 05/08/18 01/17/19 mcg tablet Artemisinin 400 mg PO DAILY 11/16/18 01/17/19 [place]wellia 800 mg PO DAILY 11/16/18 01/17/19 DIM Complex 1 tab PO DAILY 11/16/18 01/17/19 Glucosamine Chondoilin w/MSM 3,600 mg PO DAILY 11/16/18 01/17/19 Green Tea Extract 800 mg PO DAILY 11/16/18 01/17/19 Modified [place] Pectin 1.5 mg PO DAILY 11/16/18 01/17/19 coenzyme Q10 100 mg capsule 100 mg PO BID 11/16/18 01/17/19 grape seed extract 100 mg capsule 1 tab PO DAILY cap 11/16/18 01/17/19 omega-3 fatty acids capsule See Rx Instructions PO DAILY cap 11/16/18 01/17/19 turmeric root extract 1,053 mg See Rx Instructions PO .COMPLEX 11/16/18 01/17/19 tablet tab [place] Injections 2XW 12/04/18 01/17/19 Previous Rx's Medication Instructions Recorded hydrocodone 5 mg-acetaminophen 325 1 tab PO Q4-6H PRN #15 tab 03/05/19 mg tablet clindamycin HCl 300 mg PO Q6H #28 cap 03/11/19 Allergies Allergy/AdvReac Type Severity Reaction Status Date / Time iodine [IODINE] Allergy Intermediate Skin rash Verified 01/09/19 10:31 coconut [COCONUT] AdvReac Intermediate Nausea Verified 01/09/19 10:31 and I just felt ill. Sulfa (Sulfonamide AdvReac Intermediate GI upset Verified 01/09/19 10:31 Antibiotics) [SULFA (SULFONAMIDE ANTIBIOTICS)] Penicillins AdvReac Unknown Ill Verified 01/09/19 10:31 physically Review of Systems Constitutional Denies chills, Denies fever(s), Denies lethargy and Denies weakness Eyes Denies change in vision, Denies eye discharge, Denies irritation and Denies loss of vision ENT Ears, Nose, Mouth, and Throat: Denies change in voice, Denies neck pain and Denies sore throat Cardiovascular Denies chest pain, Denies irregular heart rhythm, Denies lightheadedness, Denies palpitations, Denies dyspnea, Denies dyspnea on exertion and Denies orthopnea Respiratory Denies cough, Denies dyspnea, Denies dyspnea on exertion and Denies wheezing Gastrointestinal Gastrointestinal: Denies abdominal pain, Denies change in bowel habits, Denies diarrhea, Denies nausea and Denies vomiting Genitourinary Denies hematuria, Denies flank pain, Denies urinary incontinence and Denies urinary urgency Musculoskeletal Denies neck pain Comments: Edema lower extremities Integumentary/Breasts Denies pruritus, Reports erythema, Denies rash and Denies wounds Neurologic Denies confusion, Denies loss of vision and Denies weakness Psychiatric Denies anxiety, Denies confusion, Denies depression, Denies homicidal ideation and Denies suicidal ideation Endocrine Denies palpitations Hematologic/Lymphatic Denies easy bruising Allergic/Immunologic Denies wheezing [employer] Medical History Obesity (BMI 30-39.9) (Chronic) Breast cancer (Chronic) Essential hypertension (Chronic 09/05/15) Hyperlipidemia, unspecified (Chronic 08/31/04) Essential tremor (Chronic 09/20/17) Peripheral edema (Chronic 12/30/03) Chronic venous insufficiency (Chronic 09/20/17) Iron deficiency anemia, unspecified (Inactive 04/13/02) Vitamin B12 deficiency (Chronic 04/19/02) Chronic pain of right knee (Chronic 10/19/16) Stress incontinence of urine (Chronic 10/19/16) Menopause present (Inactive 09/11/02) History of adenomatous polyp of colon (Inactive) Herpes (Chronic 1977) Tinnitus of both ears (Chronic 2012) Cataracts, bilateral (Resolved 2012) Chickenpox (Resolved 1946) Colon polyps (Resolved 2014) Foot pain (Resolved 2014) Irregular menstrual cycle (Resolved 1958) Knee pain (Resolved ~01/2017) Measles (Resolved) Migraines (Resolved 1958) Morbid obesity with BMI of 40.0-44.9, adult (Resolved) Mumps (Resolved) Ovarian cyst (Resolved 1975) Painful menstrual periods (Resolved 1958) Shoulder pain (Resolved) Status post hysteroscopy (Resolved 12/22/18) Stress incontinence (Resolved ~2016) Surgical History Anesthesia (Resolved) Hx of surgical procedure (Resolved 1973) History of cataract removal with insertion of prosthetic lens (Inactive 2012) History of elective (Inactive) History of tonsillectomy (Inactive 1966) Status post breast lumpectomy (Inactive 1994) Status post cholecystectomy (Inactive 1990) Status post colonoscopy (Inactive 1996) Status post colonoscopy (Inactive 2013) Status post ovarian cystectomy (Inactive 1975) Family History Father Parkinson's disease Mother Cancer Brother Parkinson's disease Grandfather No problems noted. Grandmother Cancer Grandfather No problems noted. Grandmother No problems noted. 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 Grandmother Cancer Grandfather No problems noted. Grandmother No problems noted. 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.) alcohol intake: current substance use type: does not use Exam Initial Vital Signs Initial Vital Signs: Vital Signs Temperature 98.1 F 03/11/19 10:21 Pulse Rate 69 03/11/19 10:21 Respiratory Rate 16 03/11/19 10:21 Blood Pressure 156/79 H 03/11/19 10:21 Pulse Oximetry 95 03/11/19 10:21 Const General: cooperative and well developed Nutritional Appearance: well nourished Orientation: alert, awake, oriented x3 and not confused HENOK Head: normocephalic and atraumatic Ears: external ears normal and TM's normal bilaterally Nose: external nose normal and No nasal discharge Face and sinus: sinuses nontender, face symmetric, no sinus tenderness and No dry mucous membranes Mouth: oral mucosae normal and moist mucous membranes Teeth and gingiva: dentition normal Throat: tonsils normal and uvula midline Eyes General: appearance normal, both eyes and all related structures Eyelids: eyelids normal Conjunctivae: conjunctivae normal Sclera: sclerae normal Pupils: PERRL EOM: EOM intact bilaterally Neck Neck: normal visual inspection, trachea midline, No lymphadenopathy, No midline deformity and No JVD Lymphatic: No lymphedema Chest Chest: normal inspection of the chest Resp Effort & Inspection: normal respiratory effort, able to speak in complete sentences, no respiratory distress and no use of accessory muscles Auscultation: clear to auscultation bilaterally, no rales, no rhonchi and no wheezes Cardio Rate: regular rate Rhythm: regular rhythm Heart Sounds: no click, no gallops, no murmurs and no rubs Pulses: normal peripheral pulses GI Inspection: non-distended Palpation: soft, no hepatosplenomegaly, No guarding, No pulsatile mass and No tender Auscultation: normal bowel sounds Back/Spine/Pelvis Back: No CVA tenderness Cervical Spine: cervical ROM normal and No pain with cervical ROM Thoracic/Lumbar Spine: thoracic and lumbar spine normal to inspection Skin General: no rashes or lesions noted, No jaundice and No petechiae Other: Mild erythema noted of patient's bilateral feet and symmetrically over bilateral lower legs, without clear demarcation. Faint erythema fades very gradually to normal coloration the skin around the knees. Neuro General: alert, oriented x3, gait normal and no focal motor deficits Speech: speech normal Extrem General: full ROM and edema (2+, bilateral lower extremities) Psych Appearance: well kempt Mental Status: mental status grossly normal Attitude: cooperative Thought Content: normal and suicidality Judgment: judgment good Course Course Narrative: Patient was worked up with a BNP. I discussed with her that it is possible she could have a cellulitis, although I would be very atypical to see the cellulitis arise symmetrically in 2 completely separate body parts. The patient is allergic to sulfa. Patient's BNP was normal. She was given a dose of clindamycin the emergency department and discharged with a prescription for the same. Patient instructed to help her primary care physician and has been given the usual indications for return. Orders Ordered: ED Orders 03/11/19 11:30 B Type Natriuretic Peptide Stat Discontinued Medications Clindamycin HCl (Cleocin) 300 mg PO NOW ONE Stop: 03/11/19 10:51 Last Admin: 03/11/19 11:11 Dose: 300 mg Vital Signs - 8 hr 03/11/19 12:28 Pulse Rate 67 Respiratory Rate 16 Blood Pressure [Left Arm] 156/77 H Pulse Oximetry 98 MDM - Wound/Laceration Medical Records Attestation: I reviewed the patient's medical records. Lab Data Attestation: I reviewed the patient's lab results. Lab Results 03/11/19 Range/Units 11:30 B-Natriuretic Peptide < 100 (<100) Discharge Plan Departure Patient Disposition: Home Clinical Impression: Peripheral edema Cellulitis Qualifiers: Site of cellulitis: extremity Site of cellulitis of extremity: lower extremity Laterality: unspecified laterality Qualified Code(s): L03.119 - Cellulitis of unspecified part of limb Discharge Date/Time: 03/11/19 13:18 Interventions: ED Discharge Assessment Last Done: 03/11/19 13:17 Instructions: DI for Cellulitis -- Adult, DI for Dependent Edema Activity Restrictions/Additional Instructions: Your heart lab looks good. Your symptoms are not typical of cellulitis, particularly since you have very faint redness and it is completely symmetrical in both legs. This may simply be some inflammation from the swelling itself. There is a small possibility that there is an infection, given that you do not have other risk factors, such as diabetes or wounds on your feet and legs, this is less likely. If the antibiotics do not resolve the symptoms for you, then there is most likely another cause of your symptoms. In the meantime, please be sure to elevate your legs whenever you sit down or lay down, and also, use the pressure stocking to help work the swelling out of your legs. Take all of your antibiotics, as directed. Prescriptions: New clindamycin HCl 300 mg capsule 300 mg PO Q6H Qty: 28 RF: 0 No Action cyanocobalamin (vitamin B-12) [Vitamin B-12] 1,000 mcg Tablet 1,000 mcg PO DAILY RF: 0 acyclovir 400 mg Tablet 400 mg PO DIRECTED PRN (Reason: Breakouts) RF: 0 hydrocodone-acetaminophen [[place]] 5-325 mg tablet 1 tab PO Q4-6H PRN (Reason: pain) Qty: 15 RF: 0 grape seed extract 100 mg capsule 1 tab PO DAILY RF: 0 Modified [place] Pectin 1.5 mg PO DAILY RF: 0 Artemisinin 400 mg PO DAILY RF: 0 Green Tea Extract 800 mg PO DAILY RF: 0 [place] 800 mg PO DAILY RF: 0 Glucosamine Chondoilin w/MSM 3,600 mg PO DAILY RF: 0 coenzyme Q10 100 mg capsule 100 mg PO BID RF: 0 omega-3 fatty acids capsule See Patient Comments PO DAILY RF: 0 turmeric root extract 1,053 mg tablet See Patient Comments PO .COMPLEX RF: 0 DIM Complex 1 tab PO DAILY RF: 0 [place] Injections 2XW RF: 0 Referrals: Alvarez Márquez MD [Primary Care Provider] -
[2019-03-11] MEDS: CLINDAMYCIN 150 MG CAPSULE 300 MG PO (11:11)
--- NOTE | 2019-03-11 11:18 | PC.NURSE ---
Pt with swelling and erythemia to ble. Reports feels pain in ankles up through calves and into knees
[2019-03-11 11:52] LABS: B Type Natriuretic Peptide < 100 (<100)
[2019-03-11 12:28] VITALS: BP 156/77; PULSE 67; RESP 16; O2SAT 98
== END 2019-03-11 13:18 | disposition home or self-care (01) ==
PROVIDERS: Emergency Provider Emergency Medicine; Family Provider Naturopath; PCP Internal Medicine
DX: R60.9 Edema, unspecified (principal); L03.115 Cellulitis of right lower limb; L03.116 Cellulitis of left lower limb
CPT/HCPCS: 83880; 99282; 99283

== ENCOUNTER → 2019-03-27 14:46 | Outpatient (CLI) | payer MEDICARE, SELFPAY ==
[2019-03-27 16:12] LABS: BUN Creatinine Ratio 27.1 (6-22); Blood Urea Nitrogen 19 mg/dL (7-17); Calcium 9.8 mg/dL (8.4-10.2); Carbon Dioxide 26 mmol/L (22-32); Chloride 103 mmol/L (98-107); Estimated Glomerular Filt Rate > 60.0 mL/min (>60); Glucose 105 mg/dL (80-110); HEMOLYSIS < 15 (0-50); Potassium 4.4 mmol/L (3.4-5.1); Sodium 139 mmol/L (137-145)
== END ==
PROVIDERS: Family Provider Internal Medicine; PCP Internal Medicine; Visit Provider Family Medicine
DX: E78.5 Hyperlipidemia, unspecified (principal); I10 Essential (primary) hypertension; I87.2 Venous insufficiency (chronic) (peripheral); R60.9 Edema, unspecified
CPT/HCPCS: 36415; 80048

== ENCOUNTER → 2019-06-20 12:53 | Outpatient (CLI) | payer MEDICARE, SELFPAY ==
--- NOTE | 2019-06-20 12:57 | DI.MG.S_ITS ---
BILATERAL DIGITAL DIAGNOSTIC MAMMOGRAM 3D/2D POST LUMPECTOMY: 06/20/2019 CLINICAL: New left breast mass. Comparison is made to exams dated: 10/17/2014 mammogram, 11/20/2015 mammogram, 02/18/2017 mammogram, 04/24/2018 mammogram, and 04/28/2018 mammogram - [facility]. The tissue of both breasts is heterogeneously dense. This may lower the sensitivity of mammography. There are benign post operative findings in the left breast. There is an irregular high density asymmetry in the left breast anterior depth lateral region seen on the craniocaudal view only. This likely correlates as palpated. No other significant masses, calcifications, or other findings are seen in either breast. IMPRESSION: INCOMPLETE: NEEDS ADDITIONAL IMAGING EVALUATION The irregular high density asymmetry in the left breast is indeterminate. A targeted ultrasound of the left breast is recommended and will be performed immediately following this exam. This exam was interpreted at Station ID: [id number]. NOTE: For mammograms, a report in lay terms will be sent to the patient. Approximately 15% of breast malignancies will not be visualized mammographically. In the management of a palpable breast mass, a negative mammogram must not discourage biopsy of a clinically suspicious lesion. Electronically Signed By: Patrizia Solorio M.D. lk/:06/20/2019 15:30:27 copy to: MIRNA MAURO copy to: JENNYFER Bernard LEAH, ph: [phone] copy to: LUIS ALFREDO WEST [place], [facility], ph: [phone], fax: [phone] ACR BI-RADS Category 0: Incomplete 3340F
--- NOTE | 2019-06-20 12:57 | DI.US.S_ITS ---
ULTRASOUND OF LEFT BREAST: 06/20/2019 CLINICAL: Palpable left breast lump. Comparison is made to exams dated: 06/20/2019 mammogram, 05/12/2018 mammogram, 04/28/2018 ultrasound, 04/28/2018 mammogram, 04/24/2018 mammogram, and 02/18/2017 mammogram - [facility]. Color flow and real-time ultrasound of the left breast were performed on the areas of interest. Hitchcock scale images of the real-time examination were reviewed. There is a 0.9 x 0.7 x 0.9 cm lobulated, solid mass within a duct or within a cyst at 4:00, 3 cm from the nipple which likely corresponds as palpated and with the mammography finding. Multiple small dilated ducts are located around this lobulated mass. IMPRESSION: SUSPICIOUS OF MALIGNANCY The mass in the left breast is at a low suspicion for malignancy. An ultrasound guided biopsy is recommended. This exam was interpreted at Station ID: [id number]. SUMMARY: This was discussed with the patient by the radiologist Dr Lam at the time of the exam. Electronically Signed By: Patrizia Solorio M.D. lk/:06/20/2019 15:33:58 copy to: MIRNA MAURO copy to: JENNYFER Bernard LEAH, ph: [phone] copy to: LUIS ALFREDO WEST [place], [facility], ph: [phone], fax: [phone] letter sent: Biopsy Required Ultrasound BI-RADS: 4a Low suspicion for malignancy
== END ==
PROVIDERS: PCP Internal Medicine; Visit Provider Physician Assistant
DX: R92.8 Other abnormal and inconclusive findings on diagnostic imaging of breast (principal); N63.23 Unspecified lump in the left breast, lower outer quadrant; Z85.3 Personal history of malignant neoplasm of breast
CPT/HCPCS: 76642; 77066; G0279

== ENCOUNTER 2019-06-24 07:18 | Emergency (ER) | payer MEDICARE, SELFPAY ==
[2019-06-24 07:25] VITALS: BP 143/76; PULSE 70; RESP 14; TEMP 35.8; O2SAT 96
--- NOTE | 2019-06-24 07:27 | ED_ITS ---
HPI - Extremity Problem General Chief complaint: Extremity Problem,Nontraumatic Stated complaint: Left foot pain,can barely walk Time Seen by Provider: 06/24/19 07:27 Source: patient Mode of arrival: Ambulatory Limitations: no limitations History of Present Illness HPI Narrative: This is a 73-year-old female who comes to the emergency department with complaint of foot pain. Patient states it started yesterday. S he sort sort of the ball of her foot radiating over the medial side. States it is worse with weight-bearing. Patient describes is 04/07. She did take a Tylenol last night about 1:00 a.m. in morning which allowed her to sleep. Patient states it feels warm to her. She has not noticed any redness or other skin color changes. She denies any trauma, no injuries or other potential causes that she is aware of. She states she does normally have numbness in her feet that is intermittent. She denies any diabetes. She states that is been going on for several years. Patient states she is on a diuretic, she also states she has breast cancer but she has got any nature past thick route and is only taking supplementation. Patient does typically see a litigation specialist for her feet. Related Data Home Medications Medication Instructions Recorded Confirmed acyclovir 400 mg tablet 400 mg PO DIRECTED PRN 05/08/18 06/04/19 Artemisinin 400 mg PO DAILY 11/16/18 06/04/19 Boswellia 800 mg PO DAILY 11/16/18 06/04/19 DIM Complex 1 tab PO DAILY 11/16/18 06/04/19 Glucosamine Chondoilin w/MSM 3,600 mg PO DAILY 11/16/18 06/04/19 Green Tea Extract 800 mg PO DAILY 11/16/18 06/04/19 Modified [place] Pectin 1.5 mg PO DAILY 11/16/18 06/04/19 coenzyme Q10 100 mg capsule 100 mg PO BID 11/16/18 06/04/19 grape seed extract 100 mg capsule 1 tab PO DAILY cap 11/16/18 06/04/19 omega-3 fatty acids See Rx Instructions PO DAILY cap 11/16/18 06/04/19 [place] Injections 2XW 12/04/18 06/04/19 [place] Mushroom Extract See Rx Instructions .ROUTE .COMPLEX 06/04/19 Vitamin B12 See Rx Instructions .ROUTE .COMPLEX 06/04/19 Previous Rx's Medication Instructions Recorded clindamycin HCl 300 mg PO Q6H #28 cap 03/11/19 hydrochlorothiazide 12.5 mg tablet 12.5 mg PO DAILY #90 tab 03/28/19 Allergies Allergy/AdvReac Type Severity Reaction Status Date / Time iodine [IODINE] Allergy Intermediate Skin rash Verified 06/04/19 08:46 coconut [COCONUT] AdvReac Intermediate (Processed) Verified 06/04/19 08:46 Nausea and I just felt ill. Sulfa (Sulfonamide AdvReac Intermediate GI upset Verified 06/04/19 08:46 Antibiotics) [SULFA (SULFONAMIDE ANTIBIOTICS)] Penicillins AdvReac Unknown Ill Verified 06/04/19 08:46 physically Review of Systems Review of Systems ROS Unobtainable: All systems reviewed & are unremarkable except as noted in HPI and below Patient History Medical History Breast cancer (Chronic) Cataracts, bilateral (Resolved 2012) Chickenpox (Resolved 1946) Chronic pain of right knee (Chronic 10/19/16) Chronic venous insufficiency (Chronic 09/20/17) Colon polyps (Resolved 2014) Essential hypertension (Chronic 09/05/15) Essential tremor (Chronic 09/20/17) Foot pain (Resolved 2014) Herpes (Chronic 1977) History of adenomatous polyp of colon (Inactive) Hyperlipidemia, unspecified (Chronic 08/31/04) Iron deficiency anemia, unspecified (Inactive 04/13/02) Irregular menstrual cycle (Resolved 1958) Knee pain (Resolved ~01/2017) Measles (Resolved) Menopause present (Inactive 09/11/02) Migraines (Resolved 1958) Morbid obesity with BMI of 40.0-44.9, adult (Resolved) Mumps (Resolved) Obesity (BMI 30-39.9) (Chronic) Ovarian cyst (Resolved 1975) Painful menstrual periods (Resolved 1958) Peripheral edema (Chronic 12/30/03) Shoulder pain (Resolved) Status post hysteroscopy (Resolved 12/22/18) Stress incontinence (Resolved ~2016) Stress incontinence of urine (Chronic 10/19/16) Tinnitus of both ears (Chronic 2012) Vitamin B12 deficiency (Chronic 04/19/02) Surgical History Anesthesia (Resolved) History of cataract removal with insertion of prosthetic lens (Inactive 2012) History of elective (Inactive) History of tonsillectomy (Inactive 1966) Hx of surgical procedure (Resolved 1973) Status post breast lumpectomy (Inactive 1994) Status post cholecystectomy (Inactive 1990) Status post colonoscopy (Inactive 1996) Status post colonoscopy (Inactive 2013) Status post ovarian cystectomy (Inactive 1975) Family History Father Parkinson's disease Mother Cancer Brother Parkinson's disease Grandfather No problems noted. Grandmother Cancer Grandfather No problems noted. Grandmother No problems noted. 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 RESPIRATORY: Breath sounds equal bilaterally, no wheezes rales or rhonchi. ABDOMEN: Soft, nontender. Normoactive bowel sounds all 4 quadrants. No guarding or rebound, rigidity, no mass EXTREMITIES: Normal range of motion, no clubbing or edema. Neurovascularly intact. nontender to palpation. No erythema. No cuts or laceration. Patient has calluses on the 2nd and 3rd toes in the distal and. Cap refills less 2 seconds. Patient was ambulating without much issue. Patient tenderness does not seem to be exacerbated with palpation. normal ligament testing. NEUROLOGICAL: Cranial nerves II through XII grossly intact. Moving all extremities SKIN: Warm, dry, no petechiae, no rashes or lesions. Initial Vital Signs Initial Vital Signs: Vital Signs Temperature 96.5 F L 06/24/19 07:25 Pulse Rate 70 06/24/19 07:25 Respiratory Rate 14 06/24/19 07:25 Blood Pressure 143/76 H 06/24/19 07:25 Pulse Oximetry 96 06/24/19 07:25 Course Orders Ordered: ED Orders 06/24/19 07:27 XR foot LT min 3V Stat Vital Signs Vital signs: Vital Signs - 8 hr 06/24/19 07:25 06/24/19 08:11 Temperature 96.5 F L Pulse Rate 70 59 L Respiratory Rate 14 16 Blood Pressure 143/76 H 131/71 Pulse Oximetry 96 95 MDM - Extremity (Nontraumatic) Imaging Data left foot xray: Radiologist's impression: [address] [address] XRay Report Signed Patient: May Blanca EMR#: [id number] : [id number]:[id number] Age/Sex: 73 / FDate of Service: 06/24/19 Loc: ED Accession Number: [id number] Procedure: XR foot LT min 3V Ordering Provider: Roxy Mccoy D.O. PROCEDURE: XR FOOT LT MIN 3V INDICATIONS: foot pain, denies trauma. ball along medial side TECHNIQUE: 3 views of the foot were acquired. COMPARISON: [facility], , FOOT 3V RIGHT, 01/16/2011, 10:27. FINDINGS: Bones: No fractures or dislocations. No suspicious bony lesions. Moderate hallux valgus deformity is seen, with associated focal degenerative change of the 1st metatarsophalangeal joint. Milder degenerative changes are seen elsewhere. A plantar calcaneal spur is seen. Incidental note is made of an accessory ossicle, an os tibiale externum. Toe alignment abnormalities are seen. Soft tissues: No tibiotalar joint effusion. Achilles tendon appears normal. IMPRESSION: Moderate hallux valgus deformity with associated degenerative changes. Dictated by: Benjamin Schrader M.D. on 06/24/2019 at 7:02 Approved by: Benjamin Schrader M.D. on 06/24/2019 at 7:04 [facility] Narrative Medical decision making narrative: Patient does not have any fractures, she does have some degenerative changes but nothing acute that would explain her pain exactly. Patient does not have any signs of cellulitis, her skin is normal, coloration of her foot is normal with normal cap refill and pulse. Patient I discussed plan for watchful waiting. She could potentially have a strain or even a plantar fasciitis although it is a little bit more medial than I would expect. Potentially neuropathy could be her symptoms 2. She does have a litigation specialist and I encouraged her to follow-up. Discharge Plan Departure Patient Disposition: Home Clinical Impression: Foot pain Discharge Date/Time: 06/24/19 08:13 Instructions: DI for Foot Pain Activity Restrictions/Additional Instructions: Follow up with your physician in the next 3-5 days if symptoms are not improving. Call for an appointment. Your imaging today does not show any acute changes. You may continue to take Tylenol up to 1000mg every 8 hours as needed. Return to the ER for fevers greater than 100.4F, new swelling, redness, new weakness, loss of sensation, cyanosis or pallor or other new or concerning symptoms. Prescriptions: No Action acyclovir 400 mg Tablet 400 mg PO DIRECTED PRN (Reason: Breakouts) RF: 0 hydrochlorothiazide 12.5 mg tablet 12.5 mg PO DAILY Qty: 90 RF: 1 grape seed extract 100 mg capsule 1 tab PO DAILY RF: 0 Modified [place] Pectin 1.5 mg PO DAILY RF: 0 Artemisinin 400 mg PO DAILY RF: 0 Green Tea Extract 800 mg PO DAILY RF: 0 Boswell[place] 800 mg PO DAILY RF: 0 Glucosamine Chondoilin w/MSM 3,600 mg PO DAILY RF: 0 coenzyme Q10 100 mg capsule 100 mg PO BID RF: 0 omega-3 fatty acids capsule See Rx Instructions PO DAILY RF: 0 DIM Complex 1 tab PO DAILY RF: 0 [place] Mushroom Extract See Rx Instructions .ROUTE .COMPLEX RF: 0 Vitamin B12 See Rx Instructions .ROUTE .COMPLEX RF: 0 [place] Injections 2XW RF: 0 clindamycin HCl 300 mg capsule 300 mg PO Q6H Qty: 28 RF: 0 Referrals: Dion Garcia MD [Primary Care Provider] -
[2019-06-24 08:11] VITALS: BP 131/71; PULSE 59; RESP 16; O2SAT 95
== END 2019-06-24 08:13 | disposition home or self-care (01) ==
PROVIDERS: Emergency Provider Emergency Medicine; PCP Internal Medicine
DX: M79.672 Pain in left foot (principal)
CPT/HCPCS: 73630; 99282; 99283

== ENCOUNTER → 2019-07-05 07:07 | Oncology outpatient (ONC) | payer MEDICARE, SELFPAY ==
[2018-06-02 10:33] VITALS: BP 147/80; PULSE 64; RESP 18; TEMP 36.7; O2SAT 95
--- NOTE | 2018-06-02 10:39 | ONC.CONS ---
History of Present Illness - Data of Consult Patient: new to practice (year) Consult date: 06/02/18 Requesting Physician: Regino Lezama MD Primary Care Provider: Regino Lezama MD - Consult Narrative Reason for consult: Newly diagnosed left breast ER positive NH positive HER2 negative breast ca Narrative: May Blanca is a 72 year old female with medical problems notable only for high blood pressure. Patient has been undergoing screening mammogram since her 50s. The mammogram has been fine until most recent mammogram on April 24, 2018. The mammogram showed a mass in the left breast at 3 o'clock anterior depth. On retrospective, patient said she actually felt a lump in the right breast even before the screening mammogram. It was non-tender. On November 26, 2017, the patient underwent unilateral left digital diagnostic mammogram. A 1.2 cm irregular high density mass with a spiculated margin in the left breast at 3 o'clock anterior depth was noted. Same day ultrasound study showed the 1.5 x 1 x 1.7 cm irregular mass in the left breast. On May 12, 2018 patient underwent ultrasound-guided left breast lesion biopsy. The pathology showed infiltrating ductal carcinoma, with single greatest linear dimension 0.7 cm, [place] grade 2 of 3 (score 6 of 9), without in-situ carcinoma, and without vascular/lymphatic invasion. IHC study showed ER pos ((50% of the cells staining with strong intensity), NH pos (approximately 20% of the cells staining with strong intensity) and HER2/justyna Negative (a few cells showing 1+ staining). Therefore patient was referred to here for further evaluation. Patient reported good energy good appetite. Denies any weight changes. Patient denies any musculoskeletal pain. Pain denies any nausea vomiting diarrhea or constipation. Denies any shortness of breath or chest pain. CC: Liane Weiner MD Patient reports pain?: No Home Medications and Allergies Home Medications Medication Instructions Recorded Confirmed Type lisinopril 20 mg tablet 20 mg PO QDAY #90 tab 04/13/18 05/08/18 Rx Acyclovir See Label Instructions .ROUTE 05/08/18 05/08/18 History .COMPLEX Aleve See Label Instructions .ROUTE 05/08/18 05/08/18 History .COMPLEX [place] 3-6-9 See Label Instructions .ROUTE 05/08/18 05/08/18 History .COMPLEX Vitamin B-12 See Label Instructions .ROUTE 05/08/18 05/08/18 History .COMPLEX acyclovir 400 mg tablet 400 mg PO 5XD #50 tab 05/08/18 Rx Allergies Allergy/AdvReac Type Severity Reaction Status Date / Time iodine [IODINE] Allergy Intermediate Skin rash Unverified 05/08/18 10:48 Sulfa (Sulfonamide Allergy Intermediate GI upset Unverified 05/08/18 10:48 Antibiotics) [SULFA (SULFONAMIDE ANTIBIOTICS)] Penicillins Allergy Unknown Patient Verified 05/08/18 10:48 can't remember coconut [COCONUT] AdvReac Intermediate Nausea Unverified 05/08/18 10:48 and I just felt ill. Medical History - Medical, Surgical, Family History Medical History: Medical History (Last Updated 05/04/18 @ 14:56 by Linda Vazquez LPN) Herpes Onset Date: 1977 Hyperlipemia Hypertension Knee pain Onset Date: ~01/2017 Tinnitus of both ears Onset Date: 2012 Cataracts, bilateral Onset Date: 2012 Chickenpox Onset Date: 1945 Colon polyps Onset Date: 2014 Foot pain Onset Date: 2014 Irregular menstrual cycle Onset Date: 1958 Measles Migraines Onset Date: 1958 Mumps Ovarian cyst Onset Date: 1975 Painful menstrual periods Onset Date: 1958 Shoulder pain Stress incontinence Onset Date: ~2016 Surgical History: Surgical History (Last Updated 05/04/18 @ 14:56 by Linda Vazquez LPN) Hx of surgical procedure Onset Date: 1973 History of cataract removal with insertion of prosthetic lens Onset Date: 2012 History of elective History of tonsillectomy Onset Date: 1966 Status post breast lumpectomy Onset Date: 1994 Status post cholecystectomy Onset Date: 1990 Status post colonoscopy Onset Date: 1996 Status post colonoscopy Onset Date: 2013 Status post ovarian cystectomy Onset Date: 1975 Family History: Family History Father Parkinson's disease Mother Cancer Brother Parkinson's disease Grandfather No problems noted. Grandmother Cancer Grandfather No problems noted. Grandmother No problems noted. - Social History Smoking Status: Never smoker Review of Systems - Patient Self-Reported Symptoms SR Constitution: Chills SR Cardiovascular issues: Extreme swelling SR Neuro issues: Numbness or tingling All systems PM: reviewed and no additional remarkable complaints except as stated Exam Vital signs: Temp 98.1 F 06/02/18 10:33 Pulse 64 06/02/18 10:33 Resp 18 06/02/18 10:33 BP 147/80 H 06/02/18 10:33 Pulse Ox 95 06/02/18 10:33 ECOG 1 Narrative: Constitutional: Well developed, well nourished, obese, not in any acute respiratory distress, average body habitus, well groomed, pleasant and cooperative. Accompanied by her friend to the clinic. HEENT: Normocephalic atraumatic. Extraocular muscle movement intact. Pupils are round, equal and reactive to light and accommodations. Anicteric sclera. No hearing difficulty; Oral mucus membrane moist and without ulcers. Neck: Supple, symmetrical, and tracheal midline; No palpable thyromegaly and no palpable lymph nodes. Respiratory: No use of accessory muscles. Clear to auscultation, and no wheezes or rales or rubs. Cardiovascular: Regular rate and rhythm, S1 and S2 normal, no murmurs gallops or rubs. No JVD. No pitting edema of lower extremities. Abdomen: Soft, nontender, non-distended, bowel sounds normal, no palpable organomegaly, no hernia, no palpable masses. Lower extremities: No palpable pedal edema. Lymphatic: no palpable lymph nodes in the neck, axillae, or groins. Musculoskeletal: normal gait and station, no clubbing, no cyanosis, no pitting edema. Skin: no rashes, no ulcers, no petechiae Neurological: Awake and alert and oriented x3. CN II-XII grossly intact. No focal motor or sensory deficit. Psychiatric: Good judgment, good insight, normal affect, normal thought process, cooperative, no depression, no anxiety. Breast exams: Right breast: No nipple retraction, no skin changes, no palpable masses, no palpable lymph nodes in the right axilla; left breast: No nipple retraction. At about 3 o'clock there is a palpable 1-2 cm movable nodule nontender. No palpable lymph nodes in the left axilla. All physical examinations were chaperoned. Results - Labs All the lab results were reviewed. - Imaging Additional studies: Procedures Endoscopic destruction of other lesion or tissue of large intestine (09/21/13) Endoscopic polypectomy of large intestine (09/21/13) Insertion of intraocular lens prosthesis at time of cataract extraction, one-stage (10/24/12) Phacoemulsification and aspiration of cataract (10/24/12) Assessment and Plan (1) Breast cancer, left Patient was recently diagnosed with left breast ER positive NH positive HER2 negative breast cancer. It is a screening mammographically identified. Based on the mammogram and ultrasound study, the clinical stage at this moment T1c N0 M0. I talked with the patient that for early stage invasive breast cancer, the treatment options would include surgery, w/wo chemotherapy and w/wo adjuvant radiation treatment. I talked with the patient that depending on the type of surgery, patient may not need radiation treatment. Depending on the recurrence risk, patient may not need chemotherapy. To evaluate the recurrence risk, we will send off the surgical sample after the surgery for evaluation of the 21 gene recurrence score. I have tentatively scheduled patient to come back to see me in about 4 weeks for follow-up visit and for further discussion. I will refer the patient to Dr. Alejo Davis. (2) Essential hypertension Managed by her primary care provider Jaclyn Maza. (3) Obesity Patient is aware of the issue of obesity. We will continue education.
--- NOTE | 2018-06-02 11:15 | P.CONONC_ITS ---
History of Present Illness - Data of Consult Patient: new to practice (year) Consult date: 06/02/18 Requesting Physician: Regino Lezama MD Primary Care Provider: Regino Lezama MD - Consult Narrative Reason for consult: Newly diagnosed left breast ER positive SD positive HER2 negative breast ca Narrative: May Blanca is a 72 year old female with medical problems notable only for high blood pressure. Patient has been undergoing screening mammogram since her 50s. The mammogram has been fine until most recent mammogram on April 24, 2018. The mammogram showed a mass in the left breast at 3 o'clock anterior depth. On retrospective, patient said she actually felt a lump in the right breast even before the screening mammogram. It was non-tender. On November 26, 2017, the patient underwent unilateral left digital diagnostic mammogram. A 1.2 cm irregular high density mass with a spiculated margin in the left breast at 3 o'clock anterior depth was noted. Same day ultrasound study showed the 1.5 x 1 x 1.7 cm irregular mass in the left breast. On May 12, 2018 patient underwent ultrasound-guided left breast lesion biopsy. The pathology showed infiltrating ductal carcinoma, with single greatest linear dimension 0.7 cm, [place] grade 2 of 3 (score 6 of 9), without in-situ carcinoma, and without vascular/lymphatic invasion. IHC study showed ER pos ((50% of the cells staining with strong intensity), SD pos (approximately 20% of the cells staining with strong intensity) and HER2/justyna Negative (a few cells showing 1+ staining). Therefore patient was referred to here for further evaluation. Patient reported good energy good appetite. Denies any weight changes. Patient denies any musculoskeletal pain. Pain denies any nausea vomiting diarrhea or constipation. Denies any shortness of breath or chest pain. CC: Liane Weiner MD Patient reports pain?: No Home Medications and Allergies Home Medications Medication Instructions Recorded Confirmed Type lisinopril 20 mg tablet 20 mg PO QDAY #90 tab 04/13/18 05/08/18 Rx Acyclovir See Label Instructions .ROUTE 05/08/18 05/08/18 History .COMPLEX Aleve See Label Instructions .ROUTE 05/08/18 05/08/18 History .COMPLEX [place] 3-6-9 See Label Instructions .ROUTE 05/08/18 05/08/18 History .COMPLEX Vitamin B-12 See Label Instructions .ROUTE 05/08/18 05/08/18 History .COMPLEX acyclovir 400 mg tablet 400 mg PO 5XD #50 tab 05/08/18 Rx Allergies Allergy/AdvReac Type Severity Reaction Status Date / Time iodine [IODINE] Allergy Intermediate Skin rash Unverified 05/08/18 10:48 Sulfa (Sulfonamide Allergy Intermediate GI upset Unverified 05/08/18 10:48 Antibiotics) [SULFA (SULFONAMIDE ANTIBIOTICS)] Penicillins Allergy Unknown Patient Verified 05/08/18 10:48 can't remember coconut [COCONUT] AdvReac Intermediate Nausea Unverified 05/08/18 10:48 and I just felt ill. Medical History - Medical, Surgical, Family History Medical History: Medical History (Last Updated 05/04/18 @ 14:56 by Linda Vazquez LPN) Herpes Onset Date: 1977 Hyperlipemia Hypertension Knee pain Onset Date: ~01/2017 Tinnitus of both ears Onset Date: 2012 Cataracts, bilateral Onset Date: 2012 Chickenpox Onset Date: 1945 Colon polyps Onset Date: 2014 Foot pain Onset Date: 2014 Irregular menstrual cycle Onset Date: 1958 Measles Migraines Onset Date: 1958 Mumps Ovarian cyst Onset Date: 1975 Painful menstrual periods Onset Date: 1958 Shoulder pain Stress incontinence Onset Date: ~2016 Surgical History: Surgical History (Last Updated 05/04/18 @ 14:56 by Linda Vazquez LPN) Hx of surgical procedure Onset Date: 1973 History of cataract removal with insertion of prosthetic lens Onset Date: 2012 History of elective History of tonsillectomy Onset Date: 1966 Status post breast lumpectomy Onset Date: 1994 Status post cholecystectomy Onset Date: 1990 Status post colonoscopy Onset Date: 1996 Status post colonoscopy Onset Date: 2013 Status post ovarian cystectomy Onset Date: 1975 Family History: Family History Father Parkinson's disease Mother Cancer Brother Parkinson's disease Grandfather No problems noted. Grandmother Cancer Grandfather No problems noted. Grandmother No problems noted. - Social History Smoking Status: Never smoker Review of Systems - Patient Self-Reported Symptoms SR Constitution: Chills SR Cardiovascular issues: Extreme swelling SR Neuro issues: Numbness or tingling All systems PM: reviewed and no additional remarkable complaints except as stated Exam Vital signs: 3 Temp 98.1 F 06/02/18 10:33 Pulse 64 06/02/18 10:33 Resp 18 06/02/18 10:33 BP 147/80 H 06/02/18 10:33 Pulse Ox 95 06/02/18 10:33 ECOG 1 Narrative: Constitutional: Well developed, well nourished, obese, not in any acute respiratory distress, average body habitus, well groomed, pleasant and cooperative. Accompanied by her friend to the clinic. HEENT: Normocephalic atraumatic. Extraocular muscle movement intact. Pupils are round, equal and reactive to light and accommodations. Anicteric sclera. No hearing difficulty; Oral mucus membrane moist and without ulcers. Neck: Supple, symmetrical, and tracheal midline; No palpable thyromegaly and no palpable lymph nodes. Respiratory: No use of accessory muscles. Clear to auscultation, and no wheezes or rales or rubs. Cardiovascular: Regular rate and rhythm, S1 and S2 normal, no murmurs gallops or rubs. No JVD. No pitting edema of lower extremities. Abdomen: Soft, nontender, non-distended, bowel sounds normal, no palpable organomegaly, no hernia, no palpable masses. Lower extremities: No palpable pedal edema. Lymphatic: no palpable lymph nodes in the neck, axillae, or groins. Musculoskeletal: normal gait and station, no clubbing, no cyanosis, no pitting edema. Skin: no rashes, no ulcers, no petechiae Neurological: Awake and alert and oriented x3. CN II-XII grossly intact. No focal motor or sensory deficit. Psychiatric: Good judgment, good insight, normal affect, normal thought process , cooperative, no depression, no anxiety. Breast exams: Right breast: No nipple retraction, no skin changes, no palpable masses, no palpable lymph nodes in the right axilla; left breast: No nipple retraction. At about 3 o'clock there is a palpable 1-2 cm movable nodule nontender. No palpable lymph nodes in the left axilla. All physical examinations were chaperoned. Results - Labs All the lab results were reviewed. - Imaging Additional studies: Procedures Endoscopic destruction of other lesion or tissue of large intestine (09/21/13) Endoscopic polypectomy of large intestine (09/21/13) Insertion of intraocular lens prosthesis at time of cataract extraction, one- stage (10/24/12) Phacoemulsification and aspiration of cataract (10/24/12) Assessment and Plan (1) Breast cancer, left Patient was recently diagnosed with left breast ER positive SD positive HER2 negative breast cancer. It is a screening mammographically identified. Based on the mammogram and ultrasound study, the clinical stage at this moment T1c N0 M0. I talked with the patient that for early stage invasive breast cancer, the treatment options would include surgery, w/wo chemotherapy and w/wo adjuvant radiation treatment. I talked with the patient that depending on the type of surgery, patient may not need radiation treatment. Depending on the recurrence risk, patient may not need chemotherapy. To evaluate the recurrence risk, we will send off the surgical sample after the surgery for evaluation of the 21 gene recurrence score. I have tentatively scheduled patient to come back to see me in about 4 weeks for follow-up visit and for further discussion. I will refer the patient to Dr. Alejo Davis. (2) Essential hypertension Managed by her primary care provider Jaclyn Maza. (3) Obesity Patient is aware of the issue of obesity. We will continue education.
--- NOTE | 2018-06-02 14:44 | ONC.NAV ---
Description: New Pt Intro Activity: Met with pt and her friend to introduce myself as the Pt Yogesh/BASS SINGER, offer services card, and establish initial rapport. Pt did not indicate any needs on her initial distress screen. BASS SINGER discussed the availability of resources and support, including the [employer], the [employer], and informational resources as needed. She identifies no immediate needs at this time. Plan: Will f/u with pt once a treatment plan is established, and pt returns to clinic. Ongoing assessment, assistance and support as needed.
[2018-07-10 08:41] LABS: Add Manual Diff / Slide Review NO; Basophils Percent Auto 1.5 % (0-2); Hematocrit 46.3 % (36-46); Hemoglobin 15.4 g/dL (12.0-16.0); Lymphocytes Percent Auto 27.4 % (25-40); Mean Corpuscular HGB Conc 33.3 % (30-36); Monocytes Percent Auto 6.4 % (3-14); Neutrophils Absolute Auto 5200 /uL (3000-5900); Neutrophils Percent Auto 63.7 % (50-75); Platelet Count 245 X10^3/uL (150-400); Red Blood Cell Count 5.52 X10^6/uL (4.0-5.2); Red Cell Distribution Width 14.5 % (11.6-14.8); White Blood Cell Count 8.1 X10^3/uL (4.5-11.0)
[2018-07-10 12:55] LABS: Alanine Aminotransferase 26 IU/L (9-52); Albumin 4.2 g/dL (3.5-5.0); Albumin Globulin Ratio 1.2 (1.0-2.8); Alkaline Phosphatase 79 U/L (38-126); Aspartate Aminotransferase 31 IU/L (14-36); BUN Creatinine Ratio 21.3 (6-22); Bilirubin Total 0.7 mg/dL (0.2-1.3); Blood Urea Nitrogen 17 mg/dL (7-17); Carbon Dioxide 22 mmol/L (22-32); Chloride 105 mmol/L (98-107); Estimated Glomerular Filt Rate > 60.0 mL/min (>60); Globulin 3.4 g/dL (1.7-4.1); Glucose 112 mg/dL (80-110); HEMOLYSIS 32 (0-50); Potassium 4.4 mmol/L (3.4-5.1); Sodium 138 mmol/L (137-145); Total Protein 7.6 g/dL (6.3-8.2)
--- NOTE | 2018-07-13 16:24 | P.PNONC_ITS ---
PN -Subjective Interval history: Patient underwent left breast wire localization lumpectomy, and sentinel lymph node excisional biopsy by Federico Manning on 06/27/2018. The pathology showed infiltrating ductal carcinoma, 2.4 cm in size, [place] grade 7/9, unifocal. 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 The margins were negative for invasive carcinoma. However the margins were 1 mm posteriorly and 1 mm medially as far as DCIS is concerned. Two of the excised sentinel lymph nodes were removed, one of which contains micrometastasis. No LVI. The final pathology staging was pT2 pN1mi. And she presents here today for scheduled follow-up. Postoperatively, patient was evaluated in for follow-up by Dr. Davis. Per Dr. Davis, no further surgery either for the primary tumor or for the axillary micrometastasis are necessary. Based on available data, specifically echo cycles E 0011, the patient has no indications for completion axillary lymph node dissection. Patient will need radiation treatment as well as evaluation for possible chemotherapy. Patient will need endocrine therapy. Oncology History: May Blanca is a 72 year old female with medical problems notable only for high blood pressure. Patient has been undergoing screening mammogram since her 50s. The mammogram has been fine until most recent mammogram on April 24, 2018. The mammogram showed a mass in the left breast at 3 o'clock anterior depth. On retrospective, patient said she actually felt a lump in the right breast even before the screening mammogram. It was non-tender. On November 26, 2017, the patient underwent unilateral left digital diagnostic mammogram. A 1.2 cm irregular high density mass with a spiculated margin in the left breast at 3 o'clock anterior depth was noted. Same day ultrasound study showed the 1.5 x 1 x 1.7 cm irregular mass in the left breast. On May 12, 2018 patient underwent ultrasound-guided left breast lesion biopsy. The pathology showed infiltrating ductal carcinoma, with single greatest linear dimension 0.7 cm, [place] grade 2 of 3 (score 6 of 9), without in-situ carcinoma, and without vascular/lymphatic invasion. IHC study showed ER pos ((50% of the cells staining with strong intensity), NC pos (approximately 20% of the cells staining with strong intensity) and HER2/justyna Negative (a few cells showing 1+ staining). Therefore patient was referred to here for further evaluation. Patient reported good energy good appetite. Denies any weight changes. Patient denies any musculoskeletal pain. Pain denies any nausea vomiting diarrhea or constipation. Denies any shortness of breath or chest pain. - Patient Self-Reported Symptoms SR Constitution: Chills SR Cardiovascular issues: Extreme swelling SR Neuro issues: Numbness or tingling - Additional ROS All systems PM: reviewed and no additional remarkable complaints except as stated Home Medications and Allergies Home Medications Medication Instructions Recorded Confirmed Type Aleve See Label Instructions .ROUTE 05/08/18 07/13/18 History .COMPLEX acyclovir 400 mg tablet 400 mg PO 5XD #50 tab 05/08/18 07/13/18 Rx acyclovir 400 mg tablet 400 mg PO DIRECTED PRN 05/08/18 07/13/18 History cyanocobalamin (vit B-12) 1,000 1,000 mcg PO Q OTHER DAY 05/08/18 07/13/18 History mcg tablet fish, borage, flaxseed oils-omega 1,000 mg PO Q OTHER DAY 05/08/18 07/13/18 History 3,6,9 comb no.1 1,200 mg capsule docusate sodium [Colace] 100 mg PO BID #14 cap 06/27/18 07/13/18 Rx oxycodone 5 mg PO Q4-6H PRN #20 tab 06/27/18 07/13/18 Rx sennosides [Senokot] 8.6 mg PO BEDTIME #10 tab 06/27/18 07/13/18 Rx lisinopril 20 mg tablet 20 mg PO QDAY #90 tab 07/04/18 07/13/18 Rx Allergies Allergy/AdvReac Type Severity Reaction Status Date / Time iodine [IODINE] Allergy Intermediate Skin rash Verified 07/12/18 11:10 coconut [COCONUT] AdvReac Intermediate Nausea Verified 07/12/18 11:10 and I just felt ill. Sulfa (Sulfonamide AdvReac Intermediate GI upset Verified 07/12/18 11:10 Antibiotics) [SULFA (SULFONAMIDE ANTIBIOTICS)] Penicillins AdvReac Unknown Ill Verified 07/12/18 11:10 physically Exam Vital signs: Last Vital Signs Temp 99.4 F 11/15/18 17:07 Pulse 82 07/13/18 17:07 Resp 18 07/13/18 17:07 BP 141/74 H 07/13/18 17:07 Pulse Ox 96 07/13/18 17:07 ECOG 1 - Constitutional positive no acute distress, positive obese, positive cooperative - Routine HEENT Exam Head: Present: normocephalic, atraumatic Eye: Present: EOMI, PERRL, normal accommodation. Absent: conjunctival icterus ENT: Present: mucous membranes moist - Routine Neck Exam Present: supple. Absent: lymphadenopathy, thyromegaly - Routine Respiratory Exam Present: Clear to auscultation bilaterally. Absent: wheezes - Routine Cardiovascular Exam Present: RRR, S1, S2. Absent: murmur, gallop, rubs, S3 - Routine Abdominal Exam Present: soft, normoactive bowel sounds. Absent: tenderness, distended, organomegaly, mass, hernia - Routine Extremities Exam Absent: edema - Routine Neurological Exam Present: alert, oriented X3, CN II-XII intact, normal reflexes, normal speech. Absent: sensory deficit, motor deficit - Routine Psychiatric Exam Present: normal affect, normal thought process, cooperative, good insight, good judgment Results - Labs Laboratory Last Values WBC 8.1 X10^3/uL (4.5-11.0) 07/10/18 08:24 RBC 5.52 X10^6/uL (4.0-5.2) H 07/10/18 08:24 Hgb 15.4 g/dL (12.0-16.0) 07/10/18 08:24 Hct 46.3 % (36-46) H 07/10/18 08:24 MCV 84.0 fL (80-100) 07/10/18 08:24 MCH 28.0 PG (26-34) 07/10/18 08:24 MCHC 33.3 % (30-36) 07/10/18 08:24 RDW 14.5 % (11.6-14.8) 07/10/18 08:24 Plt Count 245 X10^3/uL (150-400) 07/10/18 08:24 Neut % (Auto) 63.7 % (50-75) 07/10/18 08:24 Lymph % (Auto) 27.4 % (25-40) 07/10/18 08:24 [place] % (Auto) 6.4 % (3-14) 07/10/18 08:24 Eos % (Auto) 1.0 % (2-4) L 07/10/18 08:24 Baso % (Auto) 1.5 % (0-2) 07/10/18 08:24 Neut # (Auto) 5200 /uL (4734-1182) 07/10/18 08:24 Sodium 138 mmol/L (137-145) 07/10/18 08:24 Potassium 4.4 mmol/L (3.4-5.1) 07/10/18 08:24 Chloride 105 mmol/L (98-107) 07/10/18 08:24 Carbon Dioxide 22 mmol/L (22-32) 07/10/18 08:24 BUN 17 mg/dL (7-17) 07/10/18 08:24 Creatinine 0.80 mg/dL (0.52-1.04) 07/10/18 08:24 Estimated GFR > 60.0 mL/min (>60) 07/10/18 08:24 BUN/Creatinine Ratio 21.3 (6-22) 07/10/18 08:24 Glucose 112 mg/dL (80-110) H 07/10/18 08:24 Calcium 9.0 mg/dL (8.4-10.2) 07/10/18 08:24 Total Bilirubin 0.7 mg/dL (0.2-1.3) 07/10/18 08:24 AST 31 IU/L (14-36) 07/10/18 08:24 ALT 26 IU/L (9-52) 07/10/18 08:24 Alkaline Phosphatase 79 U/L (38-126) 07/10/18 08:24 Total Protein 7.6 g/dL (6.3-8.2) 07/10/18 08:24 Albumin 4.2 g/dL (3.5-5.0) 07/10/18 08:24 Globulin 3.4 g/dL (1.7-4.1) 07/10/18 08:24 Albumin/Globulin Ratio 1.2 (1.0-2.8) 07/10/18 08:24 - Imaging Additional studies: Procedures Endoscopic destruction of other lesion or tissue of large intestine (09/21/13) Endoscopic polypectomy of large intestine (09/21/13) Insertion of intraocular lens prosthesis at time of cataract extraction, one- stage (10/24/12) Phacoemulsification and aspiration of cataract (10/24/12) Assessment and Plan (1) Breast cancer, left Recently diagnosed left breast ER positive NC positive HER2 negative cancer. It is a screening mammographically identified. She underwent left breast lumpectomy and sn LN excisional biopsy on 06/27/2018. Path: pT2 pNmi. I had a long discussion with the patient. I agree with Dr. Davis that patient will need radiation treatment. Question at present is whether she will need chemotherapy or not. Given the positive lymph nodes and the size of the tumor, patient most likely will need adjuvant chemotherapy. I will send off the surgical sample for Oncotype DX study. I talked with the patient that if the score is higher than 25, she will need chemotherapy; otherwise I think chemotherapy may be not necessary. I talked with the patient that I will bring her back in about 2-3 weeks to review the results. We also discussed about the need for endocrine therapy with aromatase inhibitor for 5 years. Patient voiced understanding. Plan: 1. OncoType Dx study of surgical sample 2. RTC in 2 weeks for follow up of the result. (2) Essential hypertension Managed by her primary care provider Jaclyn Maza. (3) Obesity Patient is aware of the issue of obesity. We will continue education.
[2018-07-13 17:07] VITALS: BP 141/74; PULSE 82; RESP 18; TEMP 37.4; O2SAT 96
--- NOTE | 2018-07-14 09:24 | ONC.SCHED ---
Addendum entered by Jenn Laboy 07/14/18 09:43: Original Note: 07/14/18 Oncotype DX order faxed to [employer]. Items faxed include: requisition form, face sheet, copy of insurance card, pathology report for designated specimen, physician's order, and physician's dictated note referencing need for OncoType DX. Jenn Laboy,CTR
--- NOTE | 2018-07-14 09:46 | ONC.SCHED ---
OncoType DX: Faxed the following to [employer]: [facility] requisition form, patient face sheet, copy of insurance card, [facility] pathology report for designated specimen, physician order, and physician's dictated note referencing OncoType order.
--- NOTE | 2018-07-27 16:10 | ONC.SCHED ---
OncoType DX: The pathology specimen was received by [employer] on 07/24/18 and the report should be completed by 08/07/18.
--- NOTE | 2018-08-04 11:42 | ONC.NAV ---
Description: Advanced Directives, Financial Assistance Activity: Met with pt to discuss advanced directives, durable power of commercial litigation attorney and living may. Assisted pt in completing both the General DPOA and the Healthcare DPOA forms; arranged for a notary from medical records who notarized both. Pt had a POLST form already with her, however it had never been signed. Obtained signature from RAQUEL Gold. Pt also provided several receipts for reimbursement from the [facility] Medical Relief Fund. 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 No further needs indicated at this time.
--- NOTE | 2018-08-11 15:38 | ONC.PN ---
PN -Subjective Interval history: The breast cancer sample was tested for Oncotype DX. And the results showed that the DX score was 17. Patient accompanied by her friend presents today today to discuss the results and to discuss further treatment strategies. Patient during the meantime was also evaluated by Dr. Alvarez Blanco at [facility] Radiation Oncology Department. Dr. Blanco recommended adjuvant radiation treatment. Patient however has not decided yet. She came here today for further discussion. Oncology History: Mammogram-identified left breast mass 04/24/2018. US-guided left breast lesion biopsy 05/12/2018: infiltrating ductal carcinoma, NG 2/3, DCIS(-), LVI (-), ER pos ((50% of the cells staining with strong intensity), [place] pos (approximately 20% of the cells staining with strong intensity) and HER2 negative (a few cells showing 1+ staining). Patient underwent left breast wire localization lumpectomy, and sentinel lymph node excisional biopsy by Federico Manning on 06/27/2018. The pathology showed infiltrating ductal carcinoma, 2.4 cm in size, [place] grade 7/9, unifocal. 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 The margins were negative for invasive carcinoma. However the margins were 1 mm posteriorly and 1 mm medially as far as DCIS is concerned. Two of the excised sentinel lymph nodes were removed, one of which contains micrometastasis. No LVI. - Patient Self-Reported Symptoms SR Neuro issues: Numbness or tingling - Additional ROS All systems PM: reviewed and no additional remarkable complaints except as stated Home Medications and Allergies Home Medications Medication Instructions Recorded Confirmed Type Aleve See Label Instructions .ROUTE 05/08/18 07/13/18 History .COMPLEX acyclovir 400 mg tablet 400 mg PO 5XD #50 tab 05/08/18 07/13/18 Rx acyclovir 400 mg tablet 400 mg PO DIRECTED PRN 05/08/18 07/13/18 History cyanocobalamin (vit B-12) 1,000 1,000 mcg PO Q OTHER DAY 05/08/18 07/13/18 History mcg tablet fish, borage, flaxseed oils-omega 1,000 mg PO Q OTHER DAY 05/08/18 07/13/18 History 3,6,9 comb no.1 1,200 mg capsule docusate sodium [Colace] 100 mg PO BID #14 cap 06/27/18 07/13/18 Rx oxycodone 5 mg PO Q4-6H PRN #20 tab 06/27/18 07/13/18 Rx sennosides [Senokot] 8.6 mg PO BEDTIME #10 tab 06/27/18 07/13/18 Rx lisinopril 20 mg tablet 20 mg PO QDAY #90 tab 07/04/18 07/13/18 Rx Allergies Allergy/AdvReac Type Severity Reaction Status Date / Time iodine [IODINE] Allergy Intermediate Skin rash Verified 07/17/18 07:11 coconut [COCONUT] AdvReac Intermediate Nausea Verified 07/17/18 07:11 and I just felt ill. Sulfa (Sulfonamide AdvReac Intermediate GI upset Verified 07/17/18 07:11 Antibiotics) [SULFA (SULFONAMIDE ANTIBIOTICS)] Penicillins AdvReac Unknown Ill Verified 07/17/18 07:11 physically Exam Vital signs: Last Vital Signs Temp 98.2 F 08/11/18 15:47 Pulse 69 08/11/18 15:47 Resp 18 08/11/18 15:47 BP 137/69 08/11/18 15:47 Pulse Ox 98 08/11/18 15:47 ECOG 1 Narrative: - Constitutional positive no acute distress, positive obese, positive cooperative - Routine HEENT Exam Head: Present: normocephalic, atraumatic Eye: Present: EOMI, PERRL, normal accommodation. Absent: conjunctival icterus ENT: Present: mucous membranes moist - Routine Neck Exam Present: supple. Absent: lymphadenopathy, thyromegaly - Routine Respiratory Exam Present: Clear to auscultation bilaterally. Absent: wheezes - Routine Cardiovascular Exam Present: RRR, S1, S2. Absent: murmur, gallop, rubs, S3 - Routine Abdominal Exam Present: soft, normoactive bowel sounds. Absent: tenderness, distended, organomegaly, mass, hernia - Routine Extremities Exam Absent: edema - Routine Neurological Exam Present: alert, oriented X3, CN II-XII intact, normal reflexes, normal speech. Absent: sensory deficit, motor deficit - Routine Psychiatric Exam Present: normal affect, normal thought process, cooperative, good insight, good judgment Results - Labs Laboratory Last Values WBC 8.1 X10^3/uL (4.5-11.0) 07/10/18 08:24 RBC 5.52 X10^6/uL (4.0-5.2) H 07/10/18 08:24 Hgb 15.4 g/dL (12.0-16.0) 07/10/18 08:24 Hct 46.3 % (36-46) H 07/10/18 08:24 MCV 84.0 fL (80-100) 07/10/18 08:24 MCH 28.0 PG (26-34) 07/10/18 08:24 MCHC 33.3 % (30-36) 07/10/18 08:24 RDW 14.5 % (11.6-14.8) 07/10/18 08:24 Plt Count 245 X10^3/uL (150-400) 07/10/18 08:24 Neut % (Auto) 63.7 % (50-75) 07/10/18 08:24 Lymph % (Auto) 27.4 % (25-40) 07/10/18 08:24 [place] % (Auto) 6.4 % (3-14) 07/10/18 08:24 Eos % (Auto) 1.0 % (2-4) L 07/10/18 08:24 Baso % (Auto) 1.5 % (0-2) 07/10/18 08:24 Neut # (Auto) 5200 /uL (7562-8141) 07/10/18 08:24 Sodium 138 mmol/L (137-145) 07/10/18 08:24 Potassium 4.4 mmol/L (3.4-5.1) 07/10/18 08:24 Chloride 105 mmol/L (98-107) 07/10/18 08:24 Carbon Dioxide 22 mmol/L (22-32) 07/10/18 08:24 BUN 17 mg/dL (7-17) 07/10/18 08:24 Creatinine 0.80 mg/dL (0.52-1.04) 07/10/18 08:24 Estimated GFR > 60.0 mL/min (>60) 07/10/18 08:24 BUN/Creatinine Ratio 21.3 (6-22) 07/10/18 08:24 Glucose 112 mg/dL (80-110) H 07/10/18 08:24 Calcium 9.0 mg/dL (8.4-10.2) 07/10/18 08:24 Total Bilirubin 0.7 mg/dL (0.2-1.3) 07/10/18 08:24 AST 31 IU/L (14-36) 07/10/18 08:24 ALT 26 IU/L (9-52) 07/10/18 08:24 Alkaline Phosphatase 79 U/L (38-126) 07/10/18 08:24 Total Protein 7.6 g/dL (6.3-8.2) 07/10/18 08:24 Albumin 4.2 g/dL (3.5-5.0) 07/10/18 08:24 Globulin 3.4 g/dL (1.7-4.1) 07/10/18 08:24 Albumin/Globulin Ratio 1.2 (1.0-2.8) 07/10/18 08:24 - Imaging Additional studies: Procedures Endoscopic destruction of other lesion or tissue of large intestine (09/21/13) Endoscopic polypectomy of large intestine (09/21/13) Insertion of intraocular lens prosthesis at time of cataract extraction, one-stage (10/24/12) Phacoemulsification and aspiration of cataract (10/24/12) Assessment and Plan (1) Breast cancer, left Left breast ER positive, WV positive, HER2 negative cancer. It is a screening mammographically identified. She underwent left breast lumpectomy and sn LN excisional biopsy on 06/27/2018. Path: pT2 pNmi. OncoType Dx: 17. I had a long and detailed discussion with the patient. I talked with her that her cancer is T2 which means more than 2 cm in diameter, and there is 1 lymph node which was positive for micrometastasis. In addition patient has a DCIS component. I agree with Dr. Alvarez Blanco that radiation treatment is indicated in her situation. Her cancer is also hormone receptor positive. Given the low Oncotype DX score, I would not recommend adjuvant chemotherapy. However endocrine therapy is recommended. I discussed with her about aromatase inhibitor. I discussed about the potential side effects including postmenopausal like syndrome, musculoskeletal joint pain, as well as osteoporosis. I talked with her that endocrine therapy can reduce the risk of her breast cancer coming back by about 50%. I also explained to her that breast cancer comes back in different locations including from the primary location or distantly. And the distant invasive metastatic recurrence are usually fatal. Patient and patient's friend both voiced understanding. However patient said that she cannot make up her mind. I also offered her a second opinion at [facility]. However patient refused. She said she will call us with her decision. Plan: 1. Patient will call for follow up
[2018-08-11 15:47] VITALS: BP 137/69; PULSE 69; RESP 18; TEMP 36.8; O2SAT 98
--- NOTE | 2018-08-11 15:51 | P.PNONC_ITS ---
PN -Subjective Interval history: The breast cancer sample was tested for Oncotype DX. And the results showed that the DX score was 17. Patient accompanied by her friend presents today today to discuss the results and to discuss further treatment strategies. Patient during the meantime was also evaluated by Dr. Alvarez Blanco at [facility] Radiation Oncology Department. Dr. Blanco recommended adjuvant radiation treatment. Patient however has not decided yet. She came here today for further discussion. Oncology History: Mammogram-identified left breast mass 04/24/2018. US-guided left breast lesion biopsy 05/12/2018: infiltrating ductal carcinoma, NG 2/3, DCIS(-), LVI (-), ER pos ((50% of the cells staining with strong intensity), [place] pos (approximately 20 % of the cells staining with strong intensity) and HER2 negative (a few cells showing 1+ staining). Patient underwent left breast wire localization lumpectomy, and sentinel lymph node excisional biopsy by Federico Manning on 06/27/2018. The pathology showed infiltrating ductal carcinoma, 2.4 cm in size, [place] grade 7/9, unifocal. 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 The margins were negative for invasive carcinoma. However the margins were 1 mm posteriorly and 1 mm medially as far as DCIS is concerned. Two of the excised sentinel lymph nodes were removed, one of which contains micrometastasis. No LVI. - Patient Self-Reported Symptoms SR Neuro issues: Numbness or tingling - Additional ROS All systems PM: reviewed and no additional remarkable complaints except as stated Home Medications and Allergies Home Medications Medication Instructions Recorded Confirmed Type Aleve See Label Instructions .ROUTE 05/08/18 07/13/18 History .COMPLEX acyclovir 400 mg tablet 400 mg PO 5XD #50 tab 05/08/18 07/13/18 Rx acyclovir 400 mg tablet 400 mg PO DIRECTED PRN 05/08/18 07/13/18 History cyanocobalamin (vit B-12) 1,000 1,000 mcg PO Q OTHER DAY 05/08/18 07/13/18 History mcg tablet fish, borage, flaxseed oils-omega 1,000 mg PO Q OTHER DAY 05/08/18 07/13/18 History 3,6,9 comb no.1 1,200 mg capsule docusate sodium [Colace] 100 mg PO BID #14 cap 06/27/18 07/13/18 Rx oxycodone 5 mg PO Q4-6H PRN #20 tab 06/27/18 07/13/18 Rx sennosides [Senokot] 8.6 mg PO BEDTIME #10 tab 06/27/18 07/13/18 Rx lisinopril 20 mg tablet 20 mg PO QDAY #90 tab 07/04/18 07/13/18 Rx Allergies Allergy/AdvReac Type Severity Reaction Status Date / Time iodine [IODINE] Allergy Intermediate Skin rash Verified 07/17/18 07:11 coconut [COCONUT] AdvReac Intermediate Nausea Verified 07/17/18 07:11 and I just felt ill. Sulfa (Sulfonamide AdvReac Intermediate GI upset Verified 07/17/18 07:11 Antibiotics) [SULFA (SULFONAMIDE ANTIBIOTICS)] Penicillins AdvReac Unknown Ill Verified 07/17/18 07:11 physically Exam Vital signs: Last Vital Signs Temp 98.2 F 08/11/18 15:47 Pulse 69 08/11/18 15:47 Resp 18 08/11/18 15:47 BP 137/69 08/11/18 15:47 Pulse Ox 98 08/11/18 15:47 ECOG 1 Narrative: - Constitutional positive no acute distress, positive obese, positive cooperative - Routine HEENT Exam Head: Present: normocephalic, atraumatic Eye: Present: EOMI, PERRL, normal accommodation. Absent: conjunctival icterus ENT: Present: mucous membranes moist - Routine Neck Exam Present: supple. Absent: lymphadenopathy, thyromegaly - Routine Respiratory Exam Present: Clear to auscultation bilaterally. Absent: wheezes - Routine Cardiovascular Exam Present: RRR, S1, S2. Absent: murmur, gallop, rubs, S3 - Routine Abdominal Exam Present: soft, normoactive bowel sounds. Absent: tenderness, distended, organomegaly, mass, hernia - Routine Extremities Exam Absent: edema - Routine Neurological Exam Present: alert, oriented X3, CN II-XII intact, normal reflexes, normal speech. Absent: sensory deficit, motor deficit - Routine Psychiatric Exam Present: normal affect, normal thought process, cooperative, good insight, good judgment Results - Labs Laboratory Last Values WBC 8.1 X10^3/uL (4.5-11.0) 07/10/18 08:24 RBC 5.52 X10^6/uL (4.0-5.2) H 07/10/18 08:24 Hgb 15.4 g/dL (12.0-16.0) 07/10/18 08:24 Hct 46.3 % (36-46) H 07/10/18 08:24 MCV 84.0 fL (80-100) 07/10/18 08:24 MCH 28.0 PG (26-34) 07/10/18 08:24 MCHC 33.3 % (30-36) 07/10/18 08:24 RDW 14.5 % (11.6-14.8) 07/10/18 08:24 Plt Count 245 X10^3/uL (150-400) 07/10/18 08:24 Neut % (Auto) 63.7 % (50-75) 07/10/18 08:24 Lymph % (Auto) 27.4 % (25-40) 07/10/18 08:24 [place] % (Auto) 6.4 % (3-14) 07/10/18 08:24 Eos % (Auto) 1.0 % (2-4) L 07/10/18 08:24 Baso % (Auto) 1.5 % (0-2) 07/10/18 08:24 Neut # (Auto) 5200 /uL (1588-3725) 07/10/18 08:24 Sodium 138 mmol/L (137-145) 07/10/18 08:24 Potassium 4.4 mmol/L (3.4-5.1) 07/10/18 08:24 Chloride 105 mmol/L (98-107) 07/10/18 08:24 Carbon Dioxide 22 mmol/L (22-32) 07/10/18 08:24 BUN 17 mg/dL (7-17) 07/10/18 08:24 Creatinine 0.80 mg/dL (0.52-1.04) 07/10/18 08:24 Estimated GFR > 60.0 mL/min (>60) 07/10/18 08:24 BUN/Creatinine Ratio 21.3 (6-22) 07/10/18 08:24 Glucose 112 mg/dL (80-110) H 07/10/18 08:24 Calcium 9.0 mg/dL (8.4-10.2) 07/10/18 08:24 Total Bilirubin 0.7 mg/dL (0.2-1.3) 07/10/18 08:24 AST 31 IU/L (14-36) 07/10/18 08:24 ALT 26 IU/L (9-52) 07/10/18 08:24 Alkaline Phosphatase 79 U/L (38-126) 07/10/18 08:24 Total Protein 7.6 g/dL (6.3-8.2) 07/10/18 08:24 Albumin 4.2 g/dL (3.5-5.0) 07/10/18 08:24 Globulin 3.4 g/dL (1.7-4.1) 07/10/18 08:24 Albumin/Globulin Ratio 1.2 (1.0-2.8) 07/10/18 08:24 - Imaging Additional studies: Procedures Endoscopic destruction of other lesion or tissue of large intestine (09/21/13) Endoscopic polypectomy of large intestine (09/21/13) Insertion of intraocular lens prosthesis at time of cataract extraction, one- stage (10/24/12) Phacoemulsification and aspiration of cataract (10/24/12) Assessment and Plan (1) Breast cancer, left Left breast ER positive, [place] positive, HER2 negative cancer. It is a screening mammographically identified. She underwent left breast lumpectomy and sn LN excisional biopsy on 06/27/2018. Path: pT2 pNmi. OncoType Dx: 17. I had a long and detailed discussion with the patient. I talked with her that her cancer is T2 which means more than 2 cm in diameter, and there is 1 lymph node which was positive for micrometastasis. In addition patient has a DCIS component. I agree with Dr. Alvarez Blanco that radiation treatment is indicated in her situation. Her cancer is also hormone receptor positive. Given the low Oncotype DX score, I would not recommend adjuvant chemotherapy. However endocrine therapy is recommended. I discussed with her about aromatase inhibitor. I discussed about the potential side effects including postmenopausal like syndrome, musculoskeletal joint pain, as well as osteoporosis. I talked with her that endocrine therapy can reduce the risk of her breast cancer coming back by about 50%. I also explained to her that breast cancer comes back in different locations including from the primary location or distantly. And the distant invasive metastatic recurrence are usually fatal. Patient and patient's friend both voiced understanding. However patient said that she cannot make up her mind. I also offered her a second opinion at [facility]. However patient refused. She said she will call us with her decision. Plan: 1. Patient will call for follow up
--- NOTE | 2018-09-08 10:56 | ONC.NAV ---
Description: Financial Assistance, Resources, Care Coordination Activity: Met wit patient to discuss questions that she had re: the [employer] Fund and resources that she is exploring to support herself nutritionally. She has decided not to pursue endocrine therapy and radiation. She feels that her risk of recurrence is low, and that she wants instead to focus on quality of life, travelling and spending time with family. ANIMAL ECOLOGIST offered support and encouragement in her decisions and choices. Will f/u with obtaining signature for a check reimbursement from the [facility] for $39.00, which will then be sent to pt once this is ready. Pt is planning to attend the upcoming Women's Cancer Support Group starting next week. No further needs indicated at this time.
[2018-12-04 10:45] VITALS: BP 133/74; PULSE 60; RESP 16; TEMP 36.2; O2SAT 98
--- NOTE | 2018-12-04 10:55 | P.PNONC_ITS ---
PN -Subjective Interval history: During her previous visit, we discussed about adjuvant radiotherapy as well as adjuvant endocrine therapy. Patient ultimately opted not to receive radiation and not to receive endocrine therapy. Instead patient pursue alternative medicine and is under the care of Sakina Hobson. Patient said that she is now getting subQ mistletoe twice weekly. She is also taking other natural medicines. She feels good. She feels only knees and shoulder joint pain both of them are bone on bone. She is getting shots once a year. No new bone pain. No shortness of breath, no chest pain. No nausea. She has healthy appetite. Her weight is going down intentionally. She is on an eating program. She has appointment with Dr. Villafuerte in 3 months. She is going to call at the end of December to set it up. She presents here today for scheduled follow-up visit and to discuss about scans to find out if the alternative medicines are helpful. Oncology History: Mammogram-identified left breast mass 04/24/2018. US-guided left breast lesion biopsy 05/12/2018: infiltrating ductal carcinoma, NG 2/3, DCIS(-), LVI (-), ER pos ((50% of the cells staining with strong intensity), NE pos (approximately 20% of the cells staining with strong intensity) and HER2 negative (a few cells showing 1+ staining). Patient underwent left breast wire localization lumpectomy, and sentinel lymph node excisional biopsy by Federico Manning on 06/27/2018. The pathology showed infiltrating ductal carcinoma, 2.4 cm in size, [place] grade 7/9, unifocal. 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 The margins were negative for invasive carcinoma. However the margins were 1 mm posteriorly and 1 mm medially as far as DCIS is concerned. Two of the excised sentinel lymph nodes were removed, one of which contains micrometastasis. No LVI. The breast cancer sample was tested for Oncotype DX. And the results showed that the DX score was 17. Patient accompanied by her friend presents today today to discuss the results and to discuss further treatment strategies. Patient during the meantime was also evaluated by Dr. Alvarez Blanco at [facility] Radiation Oncology Department. Dr. Blanco recommended adjuvant radiation treatment. - Patient Self-Reported Symptoms SR Constitution: Chills SR Cardiovascular issues: Extreme swelling SR Neuro issues: Numbness or tingling - Additional ROS All systems PM: reviewed and no additional remarkable complaints except as stated Home Medications and Allergies Home Medications Medication Instructions Recorded Confirmed Type Aleve See Rx Instructions .ROUTE .COMPLEX 05/08/18 11/23/18 History acyclovir 400 mg tablet 400 mg PO 5XD #50 tab 05/08/18 11/23/18 Rx acyclovir 400 mg tablet 400 mg PO DIRECTED PRN 05/08/18 11/23/18 History cyanocobalamin (vit B-12) 1,000 1,000 mcg PO Q OTHER DAY 05/08/18 11/23/18 Hi story mcg tablet fish, borage, flaxseed oils-omega 1,000 mg PO Q OTHER DAY 05/08/18 11/23/18 History 3,6,9 comb no.1 1,200 mg capsule Artemisinin 400 mg PO 11/16/18 11/23/18 History Boswellia 800 mg PO 11/16/18 11/23/18 History DIM Complex PO 11/16/18 11/23/18 History Glucosamine Chondoilin w/MSM 3,600 mg PO 11/16/18 11/23/18 History Green Tea Extract 800 mg PO 11/16/18 11/23/18 History Modified Alcorn Pectin 1.5 mg PO 11/16/18 11/23/18 History coenzyme Q10 100 mg capsule 100 mg PO DAILY 11/16/18 11/23/18 History grape seed extract 100 mg capsule mg PO cap 11/16/18 11/23/18 History omega-3 fatty acids capsule See Rx Instructions PO DAILY cap 11/16/18 11/23/18 History turmeric root extract 1,053 mg See Rx Instructions PO .COMPLEX 11/16/18 11/23/18 History tablet tab Mistletoe Injections 2XW 12/04/18 History Allergies Allergy/AdvReac Type Severity Reaction Status Date / Time iodine [IODINE] Allergy Intermediate Skin rash Verified 11/23/18 09:05 coconut [COCONUT] AdvReac Intermediate Nausea Verified 11/23/18 09:05 and I just felt ill. Sulfa (Sulfonamide AdvReac Intermediate GI upset Verified 11/23/18 09:05 Antibiotics) [SULFA (SULFONAMIDE ANTIBIOTICS)] Penicillins AdvReac Unknown Ill Verified 11/23/18 09:05 physically Exam Vital signs: Last Vital Signs Temp 97.2 F L 12/04/18 10:45 Pulse 60 12/04/18 10:45 Resp 16 12/04/18 10:45 BP 133/74 12/04/18 10:45 Pulse Ox 98 12/04/18 10:45 ECOG 1 Narrative: Gen: WDWN, NAD, pleasant and cooperative. accompanied by her friend. HEENT: NCAT, EOMI, PERRLA, anicteric sclera. Neck: Supple, No palpable thyromegaly or lymphadenopathy. Respiratory: CTAB, no wheezes audible. No JVD Cardiovascular: RRR, S1 and S2 normal, no M/G/R. Abdomen: Soft, NTND, BS normal, no palpable organomegaly Extremities: No LE pitting edema. Lymphatic: no palpable lymph nodes in the neck, axillae, or groins. Neurological: AOx3, CN II-XII grossly intact. No focal motor or sensory deficit. Psychiatric: Good judgment and insight; normal affect; normal thought process; cooperative, no depression, no anxiety. Breast Exams: deferred. Results - Labs Laboratory Last Values WBC 8.1 X10^3/uL (4.5-11.0) 07/10/18 08:24 RBC 5.52 X10^6/uL (4.0-5.2) H 07/10/18 08:24 Hgb 15.4 g/dL (12.0-16.0) 07/10/18 08:24 Hct 46.3 % (36-46) H 07/10/18 08:24 MCV 84.0 fL (80-100) 07/10/18 08:24 MCH 28.0 PG (26-34) 07/10/18 08:24 MCHC 33.3 % (30-36) 07/10/18 08:24 RDW 14.5 % (11.6-14.8) 07/10/18 08:24 Plt Count 245 X10^3/uL (150-400) 07/10/18 08:24 Neut % (Auto) 63.7 % (50-75) 07/10/18 08:24 Lymph % (Auto) 27.4 % (25-40) 07/10/18 08:24 Cannon % (Auto) 6.4 % (3-14) 07/10/18 08:24 Eos % (Auto) 1.0 % (2-4) L 07/10/18 08:24 Baso % (Auto) 1.5 % (0-2) 07/10/18 08:24 Neut # (Auto) 5200 /uL (1108-1394) 07/10/18 08:24 Sodium 138 mmol/L (137-145) 07/10/18 08:24 Potassium 4.4 mmol/L (3.4-5.1) 07/10/18 08:24 Chloride 105 mmol/L (98-107) 07/10/18 08:24 Carbon Dioxide 22 mmol/L (22-32) 07/10/18 08:24 BUN 17 mg/dL (7-17) 07/10/18 08:24 Creatinine 0.80 mg/dL (0.52-1.04) 07/10/18 08:24 Estimated GFR > 60.0 mL/min (>60) 07/10/18 08:24 BUN/Creatinine Ratio 21.3 (6-22) 07/10/18 08:24 Glucose 112 mg/dL (80-110) H 07/10/18 08:24 Calcium 9.0 mg/dL (8.4-10.2) 07/10/18 08:24 Total Bilirubin 0.7 mg/dL (0.2-1.3) 07/10/18 08:24 AST 31 IU/L (14-36) 07/10/18 08:24 ALT 26 IU/L (9-52) 07/10/18 08:24 Alkaline Phosphatase 79 U/L (38-126) 07/10/18 08:24 Total Protein 7.6 g/dL (6.3-8.2) 07/10/18 08:24 Albumin 4.2 g/dL (3.5-5.0) 07/10/18 08:24 Globulin 3.4 g/dL (1.7-4.1) 07/10/18 08:24 Albumin/Globulin Ratio 1.2 (1.0-2.8) 07/10/18 08:24 - Imaging Additional studies: Procedures Endoscopic destruction of other lesion or tissue of large intestine (09/21/13) Endoscopic polypectomy of large intestine (09/21/13) Insertion of intraocular lens prosthesis at time of cataract extraction, one- stage (10/24/12) Phacoemulsification and aspiration of cataract (10/24/12) Assessment and Plan (1) Breast cancer, left Left breast ER positive, NE positive, HER2 negative cancer. It is a screening mammographically identified. She underwent left breast lumpectomy and sn LN excisional biopsy on 06/27/2018. Path: pT2 pNmi. OncoType Dx: 17. During her previous visit in end of last year, we discussed about the need adjuvant radiotherapy and adjuvant endocrine therapy. However patient decided and refused adjuvant radiotherapy and refused adjuvant endocrine therapy. She went on and is currently under the care of Sakina Hobson. Patient said that she is now getting subQ mistletoe twice weekly. Today I talked with her that I do not know naturopathic or alternative medicine that well. And I do not know if the treatments are effective or not. There have been no clinical trials that have examined the effect of naturopathic medicines. It may or may not be working. I do not think that anyone can tell for sure. Patient said that she understands and she said that she feels good and the quality of life is better than traditional treatments. Today once again I talked with the patient that for stage T2 disease, I highly recommend that patient undergo radiation therapy as well as endocrine therapy. White once again I emphasized that the treatments can reduce the risk of recurrence significantly. I told the patient that for T2 disease, I estimated that the distant and long-term recurrence of her underlying breast cancer probably is about 20-30%. And the endocrine therapy can reduce the risk by 50%. In addition the radiation treatment probably also can reduce the risk by 50%. However patient is adamant that she will not receive any radiotherapy or endocrine therapy. Then I talked with the patient that for follow-up, we usually do not recommend CT scan as a routine unless patient clinically presents with signs or symptoms. We usually do physical examination as well as laboratory tests. We also usually would do mammogram once a year. Patient voiced understanding. Plan: 1. CBC CMP, CA125, CA15-3, CA27-29, LDH, and will follow up on the results. 2. Mammogram screening in Apr 2019 3. RTC after mammogram, and I will repeat the above labs.
[2019-07-05 08:20] LABS: Add Manual Diff / Slide Review NO; Basophils Absolute Auto 100 /uL (0-100); Basophils Percent Auto 1.1 % (0-2); Eosinophils Absolute Auto 200 /uL (0-450); Eosinophils Percent Auto 2.2 % (2-4); Hematocrit 44.7 % (36-46); Hemoglobin 14.9 g/dL (12.0-16.0); Lymphocytes Absolute Auto 1800 /uL (1100-4500); Mean Corpuscular HGB Conc 33.2 % (30-36); Mean Corpuscular Hemoglobin 28.5 PG (26-34); Mean Corpuscular Volume 85.8 fL (80-100); Monocytes Absolute Auto 500 /uL (0-900); Monocytes Percent Auto 7.2 % (3-14); Neutrophils Absolute Auto 4700 /uL (1500-7000); Neutrophils Percent Auto 64.5 % (50-75); Platelet Count 199 X10^3/uL (150-400); Red Blood Cell Count 5.21 X10^6/uL (4.0-5.2); Red Cell Distribution Width 15.9 % (11.6-14.8); White Blood Cell Count 7.4 X10^3/uL (4.5-11.0)
[2019-07-05 08:34] LABS: Alanine Aminotransferase 19 IU/L (<35); Albumin 3.8 g/dL (3.5-5.0); Albumin Globulin Ratio 1.4 (1.0-2.8); Alkaline Phosphatase 65 U/L (38-126); Aspartate Aminotransferase 22 IU/L (14-36); Bilirubin Total 0.5 mg/dL (0.2-1.3); Blood Urea Nitrogen 21 mg/dL (7-17); Calcium 8.9 mg/dL (8.4-10.2); Carbon Dioxide 27 mmol/L (22-32); Chloride 104 mmol/L (98-107); Estimated Glomerular Filt Rate > 60.0 mL/min (>60); Globulin 2.7 g/dL (1.7-4.1); Glucose 87 mg/dL (80-110); HEMOLYSIS < 15 (0-50); Potassium 3.8 mmol/L (3.4-5.1); Sodium 140 mmol/L (137-145); Total Protein 6.5 g/dL (6.3-8.2)
[2019-07-05 09:02] LABS: Carcinoembryonic Antigen 2.8 ng/mL (0.1-3.0)
[2019-07-07 17:54] LABS: Cancer Antigen 27.29 < 8 U/mL (< 38)
[2019-07-07 18:21] LABS: CA 15-3 1 U/mL (< 32)
--- NOTE | 2020-07-02 10:27 | ONC.MSW ---
Description: New Referral Navigation T/C Reason for Referral: Metastatic Breast Cancer-new recurrence Activity: Called pt to confirm that we've received her referral from [facility], assessed medical status/acuity/immediate needs. Pt is a former pt of Dr. Weiner, last seen here in 2019. She had localized breast cancer at the time, had a lumpectomy, but refused radiation and endocrine therapy due to feeling that her chance of recurrence was low. She now has a lesion on her right central parietal scalp that pathology identified as metastatic breast cancer. She is firmly requesting Dr. Whipple. [facility] confirmed her appt. time for Sunday 07/15 at 11:00am. No immediate needs were identified at this time.
== END ==
PROVIDERS: Internal Medicine Hematology & Oncology; PCP Family Medicine; Visit Provider Internal Medicine
DX: C50.812 Malignant neoplasm of overlapping sites of left female breast (principal); Z17.0 Estrogen receptor positive status [ER+]
CPT/HCPCS: 36415; 80053; 82378; 85025; 86300; 99205; 99214; 99215

== ENCOUNTER → 2020-02-13 14:04 | Outpatient (CLI) | payer MEDICARE, SELFPAY ==
[2020-02-13 15:07] LABS: Add Manual Diff / Slide Review NO; Basophils Absolute Auto 0 /uL (0-100); Basophils Percent Auto 0.2 % (0-2); Eosinophils Absolute Auto 200 /uL (0-450); Eosinophils Percent Auto 2.3 % (2-4); Hematocrit 44.7 % (36-46); Lymphocytes Absolute Auto 2400 /uL (1100-4500); Lymphocytes Percent Auto 26.2 % (25-40); Mean Corpuscular HGB Conc 33.5 % (30-36); Mean Corpuscular Hemoglobin 28.3 PG (26-34); Mean Corpuscular Volume 84.5 fL (80-100); Monocytes Absolute Auto 400 /uL (0-900); Monocytes Percent Auto 4.4 % (3-14); Neutrophils Absolute Auto 6000 /uL (1500-7000); Neutrophils Percent Auto 66.9 % (50-75); Platelet Count 278 X10^3/uL (150-400); Red Blood Cell Count 5.29 X10^6/uL (4.0-5.2); Red Cell Distribution Width 15.9 % (11.6-14.8)
[2020-02-13 15:44] LABS: Alanine Aminotransferase 26 IU/L (<35); Albumin 4.2 g/dL (3.5-5.0); Albumin Globulin Ratio 1.3 (1.0-2.8); Alkaline Phosphatase 106 U/L (38-126); Aspartate Aminotransferase 33 IU/L (14-36); BUN Creatinine Ratio 25.4 (6-22); Bilirubin Total 0.5 mg/dL (0.2-1.3); Blood Urea Nitrogen 17 mg/dL (7-17); Calcium 9.4 mg/dL (8.4-10.2); Carbon Dioxide 24 mmol/L (22-32); Chloride 107 mmol/L (98-107); Estimated Glomerular Filt Rate > 60.0 mL/min (>60); Globulin 3.3 g/dL (1.7-4.1); Glucose 137 mg/dL (80-110); HEMOLYSIS 37 (0-50); Sodium 139 mmol/L (137-145); Total Protein 7.5 g/dL (6.3-8.2); Uric Acid 7.1 mg/dL (2.5-6.2)
== END ==
PROVIDERS: PCP Internal Medicine; Referring Provider Internal Medicine; Visit Provider Internal Medicine
DX: I10 Essential (primary) hypertension (principal); M10.9 Gout, unspecified; Z85.3 Personal history of malignant neoplasm of breast
CPT/HCPCS: 36415; 80053; 84550; 85025

== ENCOUNTER 2020-06-06 09:43 | Emergency (ER) | payer MEDICARE, SELFPAY ==
--- NOTE | 2020-06-06 09:50 | DI.RAD.S_ITS ---
PROCEDURE: XR SHOULDER LT MIN 2V INDICATIONS: FALL TECHNIQUE: 3 views of the shoulder were acquired. COMPARISON: [facility], CR, XR SHOULDER RT MIN 2V, 02/13/2019, 5:41. FINDINGS: Bones: There is severe humeral head deformity secondary to advanced osteoarthritis. A comminuted, displaced fracture is present at left humeral head. This likely involves the surgical neck. There is moderate degenerative change of acromioclavicular joint. Soft tissues: No suspicious soft tissue calcifications. IMPRESSION: 1. Comminuted displaced humeral head fracture. 2. Severe glenohumeral osteoarthritis. Dictated by: Patrizia Solorio M.D. on 06/06/2020 at 10:37 Approved by: Patrizia Solorio M.D. on 06/06/2020 at 10:38
[2020-06-06 10:15] VITALS: BP 161/74; PULSE 66; RESP 20; TEMP 36.3; O2SAT 96
--- NOTE | 2020-06-06 10:19 | ED.FALL ---
HPI - Fall General Chief Complaint: Fall Stated Complaint: GLF Time Seen by Provider: 06/06/20 09:57 Source: EMS Mode of arrival: Wheelchair Limitations: no limitations History of Present Illness HPI Narrative: Patient is 74-year-old female. Not on anticoagulation who was walking into the hospital today and tripped over a crack on the sidewalk. She fell forward. Landing on her left shoulder and also hitting left side of her head. There was no loss of consciousness. She was coming to the hospital today to have a ophthalmology appointment for some redness in her left eye. She reports left shoulder pain. No other injuries from the event except for a small abrasion to her left forehead. Denies any headaches. EMS was called and the patient was brought to the emergency department by wheelchair. She was also in a triangle sling for her left arm. Related Data Home Medications Medication Instructions Recorded Confirmed acyclovir 400 mg tablet 400 mg PO DIRECTED PRN 05/08/18 06/04/19 Artemisinin 400 mg PO DAILY 11/16/18 06/04/19 Boswellia 800 mg PO DAILY 11/16/18 06/04/19 DIM Complex 1 tab PO DAILY 11/16/18 06/04/19 Glucosamine Chondoilin w/MSM 3,600 mg PO DAILY 11/16/18 06/04/19 Green Tea Extract 800 mg PO DAILY 11/16/18 06/04/19 Modified Bogard Pectin 1.5 mg PO DAILY 11/16/18 06/04/19 coenzyme Q10 100 mg capsule 100 mg PO BID 11/16/18 06/04/19 grape seed extract 100 mg capsule 1 tab PO DAILY cap 11/16/18 06/04/19 omega-3 fatty acids See Rx Instructions PO DAILY cap 11/16/18 06/04/19 [place] Injections 2XW 12/04/18 06/04/19 [place] Tail Mushroom Extract See Rx Instructions .ROUTE .COMPLEX 06/04/19 Vitamin B12 See Rx Instructions .ROUTE .COMPLEX 06/04/19 Previous Rx's Medication Instructions Recorded clindamycin HCl 300 mg PO Q6H #28 cap 03/11/19 hydrochlorothiazide 12.5 mg tablet 12.5 mg PO DAILY #90 tab 03/28/19 hydrocodone-acetaminophen [[place]] 1 tab PO Q4-6H PRN #14 tab 06/06/20 Allergies Allergy/AdvReac Type Severity Reaction Status Date / Time iodine [IODINE] Allergy Intermediate Skin rash Verified 06/04/19 08:46 coconut [COCONUT] AdvReac Intermediate (Processed) Verified 06/04/19 08:46 Nausea and I just felt ill. Sulfa (Sulfonamide AdvReac Intermediate GI upset Verified 06/04/19 08:46 Antibiotics) [SULFA (SULFONAMIDE ANTIBIOTICS)] Penicillins AdvReac Unknown Ill Verified 06/04/19 08:46 physically Review of Systems Constitutional Constitutional: Denies fever(s) and Denies headache(s) Eyes Comments: Redness in her left eye which is why she was coming to the hospital ENT Ears, Nose, Mouth, and Throat: Denies headache(s) Comments: Contusion of forehead Cardiovascular Cardiovascular: Denies chest pain and Denies dyspnea Respiratory Respiratory: Denies dyspnea Gastrointestinal Gastrointestinal: Denies abdominal pain, Denies nausea and Denies vomiting Musculoskeletal Comments: Left shoulder pain Integumentary/Breasts Comments: Contusion of forehead Neurologic Neurologic: Denies behavioral changes and Denies headache(s) Psychiatric Psychiatric: Denies behavioral changes Hematologic/Lymphatic Hematologic/Lymphatic: Denies easy bleeding and Denies easy bruising Allergic/Immunologic Allergic/Immunologic: Denies urticaria Patient History Medical History Breast cancer (Chronic) Cataracts, bilateral (Resolved 2012) Chickenpox (Resolved 1946) Chronic pain of right knee (Chronic 10/19/16) Chronic venous insufficiency (Chronic 09/20/17) Colon polyps (Resolved 2014) Essential hypertension (Chronic 09/05/15) Essential tremor (Chronic 09/20/17) Foot pain (Resolved 2014) Herpes (Chronic 1977) History of adenomatous polyp of colon (Inactive) Hyperlipidemia, unspecified (Chronic 08/31/04) Iron deficiency anemia, unspecified (Inactive 04/13/02) Irregular menstrual cycle (Resolved 1958) Knee pain (Resolved ~01/2017) Measles (Resolved) Menopause present (Inactive 09/11/02) Migraines (Resolved 1958) Morbid obesity with BMI of 40.0-44.9, adult (Resolved) Mumps (Resolved) Obesity (BMI 30-39.9) (Chronic) Ovarian cyst (Resolved 1975) Painful menstrual periods (Resolved 1958) Peripheral edema (Chronic 12/30/03) Shoulder pain (Resolved) Status post hysteroscopy (Resolved 12/22/18) Stress incontinence (Resolved ~2016) Stress incontinence of urine (Chronic 10/19/16) Tinnitus of both ears (Chronic 2012) Vitamin B12 deficiency (Chronic 04/19/02) Surgical History Anesthesia (Resolved) History of cataract removal with insertion of prosthetic lens (Inactive 2012) History of elective (Inactive) History of tonsillectomy (Inactive 1966) Hx of surgical procedure (Resolved 1973) Status post breast lumpectomy (Inactive 1994) Status post cholecystectomy (Inactive 1990) Status post colonoscopy (Inactive 1996) Status post colonoscopy (Inactive 2013) Status post ovarian cystectomy (Inactive 1975) Family History Father Parkinson's disease Mother Cancer Brother Parkinson's disease Grandfather No problems noted. Grandmother Cancer Grandfather No problems noted. Grandmother No problems noted. 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.) alcohol intake: current substance use type: does not use Smoking Status: Never smoker alcohol intake frequency: 0-2 drinks per day Substance Use Type: does not use Exam Initial Vital Signs Initial Vital Signs: Vital Signs Temperature 97.3 F L 06/06/20 10:15 Pulse Rate 66 06/06/20 10:15 Respiratory Rate 20 06/06/20 10:15 Blood Pressure 161/74 H 06/06/20 10:15 Pulse Oximetry 96 06/06/20 10:15 Const General: cooperative and comfortable Limitations: mental status not altered HENIL Head: contusion (2 cm contusion left for and no active bleeding) Eyes Alignment and Position: alignment normal Periorbital: periorbital findings normal Eyelids: eyelids normal Sclera: scleral abnormality left hemorrhage Cornea: corneas normal Pupils: PERRL EOM: EOM intact bilaterally Chest Chest: No tenderness Resp Effort & Inspection: normal respiratory effort Auscultation: clear to auscultation bilaterally Cardio Rate: regular rate Rhythm: regular rhythm Pulses: radial pulses present on the left Back/Spine/Pelvis Cervical Spine: No collar present and No cervical spinal tenderness Thoracic/Lumbar Spine: No thoracic spinal tenderness Skin Other: 2 cm contusion left forehead Neuro General: patient alert, patient awake and patient oriented x3 Cranial Nerves: CN's II-XI intact bilaterally Cognition: normal cognition Speech: speech normal Sensory Exam: no sensory deficits noted Extrem Other: Left wrist and left elbow unremarkable. Patient tender to palpation proximal left humerus/shoulder. Unable to move secondary to pain Psych Appearance: grossly normal and well kempt Procedures Orthopedic Splinting/Casting Injury #1: Side: left Upper Extremity Injury Location: upper arm Upper Extremity Immobilizer: sling/shoulder immobilizer Post splinting neuro exam: no change Post splinting vascular exam: no change Placed by: Nursing Scores GCS [place] coma scale eye opening: Spontaneous [place]aina coma scale verbal response: Orientated Faina coma scale motor response: Obey commands [place] coma scale total score: 15 Nexus Score for C-Spine Focal Neurologic deficit present: No Midline spinal tenderness present: No Altered level of conciousness present: No Intoxication present: No Distracting Injury Present: No (I do not feel the left shoulder injury is distracting) Nexus Criteria for C-spine: 0 Course Orders Ordered: ED Orders 06/06/20 09:50 XR shoulder LT min 2V Stat Discontinued Medications Acetaminophen (Tylenol) 650 mg PO NOW ONE Stop: 06/06/20 10:32 Last Admin: 06/06/20 10:35 Dose: 650 mg Documented by: LILY Vital Signs Vital signs: Vital Signs - 8 hr 06/06/20 10:15 06/06/20 10:43 06/06/20 11:57 Temperature 97.3 F L Pulse Rate 66 78 78 Respiratory Rate 20 18 18 Blood Pressure 161/74 H 161/74 H 163/89 H Pulse Oximetry 96 99 97 MDM - Fall Imaging Data Extremity x-ray #1: Radiologist's Impression: [address] [address] XRay Report Signed Patient: May Blanca EMR#: [id number] : 6Acct:[id number] Age/Sex: 74 / FDate of Service: 06/06/20 Loc: ED Accession Number: [id number] Procedure: XR shoulder LT min 2V Ordering Provider: Ralph Garcia D.O. PROCEDURE: XR SHOULDER LT MIN 2V INDICATIONS: FALL TECHNIQUE: 3 views of the shoulder were acquired. COMPARISON: [facility], CR, XR SHOULDER RT MIN 2V, 02/13/2019, 5:41. FINDINGS: Bones: There is severe humeral head deformity secondary to advanced osteoarthritis. A comminuted, displaced fracture is present at left humeral head. This likely involves the surgical neck. There is moderate degenerative change of acromioclavicular joint. Soft tissues: No suspicious soft tissue calcifications. IMPRESSION: 1. Comminuted displaced humeral head fracture. 2. Severe glenohumeral osteoarthritis. Dictated by: Patrizia Solorio M.D. on 06/06/2020 at 10:37 Approved by: Patrizia Solorio M.D. on 06/06/2020 at 10:38 MDM Narrative Medical decision making narrative: Patient is neurovascularly intact distal. She has a left proximal humerus fracture. She was placed in a sling. Other than the contusion on her left forehead which needs no intervention no other injuries reported or found on the exam. She is not on anticoagulation. We can hold on further imaging studies for now. She already has a orthopedic provider that she sees and has a scheduled appointment with him next week for her knees. She stated that she would just talk with him about her left shoulder at that time. She had a very similar injury to her right shoulder in the past. We did discuss the injury. Discussed use the sling. She expressed understanding and agreement. Discharge Plan Departure Patient Disposition: Home Clinical Impression: Hx of subconjunctival hemorrhage Fall Qualifiers: Encounter type: initial encounter Qualified Code(s): W19.XXXA - Unspecified fall, initial encounter Contusion of forehead Qualifiers: Encounter type: initial encounter Qualified Code(s): S00.83XA - Contusion of other part of head, initial encounter Fracture of proximal end of humerus Qualifiers: Encounter type: initial encounter Fracture type: closed Fracture morphology: other fracture Fracture alignment: displaced Laterality: left Qualified Code(s): S42.292A - Other displaced fracture of upper end of left humerus, initial encounter for closed fracture Discharge Date/Time: 06/06/20 11:58 Instructions: How to Use a Sling, DI for Subconjunctival Hemorrhage, Humeral Shaft Fracture Activity Restrictions/Additional Instructions: The sling is for your comfort. You can take it off to dress and to wash your hands in to take a shower. Recommend you contact your orthopedic provider at the beginning of next week to state that during your visit you would like to discuss your shoulder injury. The subconjunctival hemorrhage in your left eye should resolve on its own. Sometimes this can take several days to occur. If you start to have vision changes or pain in that eye then you do need to be re-evaluated. Return to the emergency department for any new or worsening symptoms Prescriptions: New hydrocodone-acetaminophen [[place]] 5-325 mg tablet 1 tab PO Q4-6H PRN (Reason: pain) Qty: 14 RF: 0 No Action acyclovir 400 mg Tablet 400 mg PO DIRECTED PRN (Reason: Breakouts) RF: 0 hydrochlorothiazide 12.5 mg tablet 12.5 mg PO DAILY Qty: 90 RF: 1 grape seed extract 100 mg capsule 1 tab PO DAILY RF: 0 Modified [place] Pectin 1.5 mg PO DAILY RF: 0 Artemisinin 400 mg PO DAILY RF: 0 Green Tea Extract 800 mg PO DAILY RF: 0 [place] 800 mg PO DAILY RF: 0 Glucosamine Chondoilin w/MSM 3,600 mg PO DAILY RF: 0 coenzyme Q10 100 mg capsule 100 mg PO BID RF: 0 omega-3 fatty acids capsule See Rx Instructions PO DAILY RF: 0 DIM Complex 1 tab PO DAILY RF: 0 [place] Tail Mushroom Extract See Rx Instructions .ROUTE .COMPLEX RF: 0 Vitamin B12 See Rx Instructions .ROUTE .COMPLEX RF: 0 [place] Injections 2XW RF: 0 clindamycin HCl 300 mg capsule 300 mg PO Q6H Qty: 28 RF: 0 Referrals: Dion Garcia MD [Primary Care Provider] -
[2020-06-06] MEDS: ACETAMINOPHEN 325 MG TABLET 650 MG PO (10:35)
[2020-06-06 10:43] VITALS: BP 161/74; PULSE 78; RESP 18; O2SAT 99
[2020-06-06 11:57] VITALS: BP 163/89; PULSE 78; RESP 18; O2SAT 97
== END 2020-06-06 11:58 | disposition home or self-care (01) ==
PROVIDERS: Emergency Provider Emergency Medicine; PCP Internal Medicine; Referring Provider Emergency Medicine
DX: S00.83XA Contusion of other part of head, initial encounter (principal); S42.292A Other displaced fracture of upper end of left humerus, initial encounter for closed fracture; W19.XXXA Unspecified fall, initial encounter; Z86.69 Personal history of other diseases of the nervous system and sense organs
CPT/HCPCS: 73030; 99283; 99284

== ENCOUNTER 2020-06-08 13:42 | Emergency (ER) | payer MEDICARE, SELFPAY ==
[2020-06-08 13:47] VITALS: BMI 38.3
[2020-06-08 13:53] VITALS: BP 178/86; PULSE 76; RESP 14; TEMP 36.8; O2SAT 96; BMI 38.3
[2020-06-08 15:44] VITALS: BP 163/81; PULSE 67; RESP 14; O2SAT 97
--- NOTE | 2020-06-09 01:14 | ED.RECABL ---
HPI - Recheck/Abnormal Lab/Rx <RAQUEL Rincon - Last Filed: 06/09/20 01:31> General Chief Complaint: Recheck/Abnormal Lab/Rx Stated Complaint: Broken shoulder, out of oxycodone Time Seen by Provider: 06/08/20 13:59 Source: patient Mode of arrival: Wheelchair Limitations: no limitations History of Present Illness HPI narrative: General appearance: well developed, well nourished, in no acute distress. Head: normocephalic, atraumatic, no scalp lesions, non-tender. ENT: Bilateral auditory canals and tympanic membranes clear. Hearing grossly intact. Nose without bleeding, purulent discharge, septal hematoma or deviation. Turbinate without erythema or swelling. Facial sinuses nontender to palpate. Mucous membrane moist, no mucosal lesion. Throat without erythema, tonsillar hypertrophy or exudate. Uvula in midline, airway patent. Neck/Thyroid: neck supple, full range of motion, no visible masses or meningeal signs. No JVD, non-tender without lymphadenopathy. Skin: no suspicious rashes, lesions over visible areas. Warm and dry and appropriate color for ethnicity. Heart: no clubbing, no cyanosis, no edema. S1 and S2 normal. RRR w/o murmurs, clicks, or bruits. Lungs: Breathing even and unlabored. No stridor. No accessory muscles used. Able to speak in full sentences. Chest: normal shape and expansion. Abdomen: non-obese, non-distended. Neurologic: alert and oriented. Cognitive exam, [employer] and PNS grossly intact on informal exam. Psych: good eye contact, normal affect. This is a 74-year-old female, nonsmoker, who was diagnosed with a severe humeral head comminuted displaced fracture with severe glenohumeral arthritis from a fall 2 days ago presents to ED with a friend with request of pain medication refill. Patient right dominant hand. Patient reports intact sensation and mobility distally. Patient reports she has been taking 1 [place] every 4 hours mild to relieve for about 2 hours and she has 2 pills left. She has not taken additional Tylenol or ibuprofen for pain. She has been using a shoulder immobilizer for fracture stabilization. Patient reports pain as 8/10 most of the time. Patient denies problem with constipation. Patient reports she actually has a follow-up appointment with Dr. Ardon tomorrow to follow-up on knee and she will discuss of her new fracture on left humerus. Related Data Home Medications Medication Instructions Recorded Confirmed acyclovir 400 mg tablet 400 mg PO DIRECTED PRN 05/08/18 06/04/19 Artemisinin 400 mg PO DAILY 11/16/18 06/04/19 Boswellia 800 mg PO DAILY 11/16/18 06/04/19 DIM Complex 1 tab PO DAILY 11/16/18 06/04/19 Glucosamine Chondoilin w/MSM 3,600 mg PO DAILY 11/16/18 06/04/19 Green Tea Extract 800 mg PO DAILY 11/16/18 06/04/19 Modified Juab Pectin 1.5 mg PO DAILY 11/16/18 06/04/19 coenzyme Q10 100 mg capsule 100 mg PO BID 11/16/18 06/04/19 grape seed extract 100 mg capsule 1 tab PO DAILY cap 11/16/18 06/04/19 omega-3 fatty acids See Rx Instructions PO DAILY cap 11/16/18 06/04/19 [place] Injections 2XW 12/04/18 06/04/19 [place] Tail Mushroom Extract See Rx Instructions .ROUTE .COMPLEX 06/04/19 Vitamin B12 See Rx Instructions .ROUTE .COMPLEX 06/04/19 Previous Rx's Medication Instructions Recorded clindamycin HCl 300 mg PO Q6H #28 cap 03/11/19 hydrochlorothiazide 12.5 mg tablet 12.5 mg PO DAILY #90 tab 03/28/19 hydrocodone-acetaminophen [[place]] 1 tab PO Q4-6H PRN #14 tab 06/06/20 hydrocodone-acetaminophen [[place]] 1 tab PO Q6H PRN #14 tab 06/08/20 Allergies Allergy/AdvReac Type Severity Reaction Status Date / Time iodine [IODINE] Allergy Intermediate Skin rash Verified 06/04/19 08:46 coconut [COCONUT] AdvReac Intermediate (Processed) Verified 06/04/19 08:46 Nausea and I just felt ill. Sulfa (Sulfonamide AdvReac Intermediate GI upset Verified 06/04/19 08:46 Antibiotics) [SULFA (SULFONAMIDE ANTIBIOTICS)] Penicillins AdvReac Unknown Ill Verified 06/04/19 08:46 physically Review of Systems <Akira RAQUEL Ortiz - Last Filed: 06/09/20 01:31> Review of Systems Narrative: General: Denies fever, chills, fatigue, malaise, sweats. Respiratory: Denies dyspnea, cough, wheezing, hemoptysis, sputum. Cardiovascular: Denies chest pain, palpitations, orthopnea, edema. Gastrointestinal: Denies nausea, vomiting, abdominal pain, diarrhea, constipation, melena. Musculoskeletal: See HPI Patient History <RAQUEL Rincon - Last Filed: 06/09/20 01:31> Medical History Breast cancer (Chronic) Cataracts, bilateral (Resolved 2012) Chickenpox (Resolved 1946) Chronic pain of right knee (Chronic 10/19/16) Chronic venous insufficiency (Chronic 09/20/17) Colon polyps (Resolved 2014) Essential hypertension (Chronic 09/05/15) Essential tremor (Chronic 09/20/17) Foot pain (Resolved 2014) Herpes (Chronic 1977) History of adenomatous polyp of colon (Inactive) Hyperlipidemia, unspecified (Chronic 08/31/04) Iron deficiency anemia, unspecified (Inactive 04/13/02) Irregular menstrual cycle (Resolved 1958) Knee pain (Resolved ~01/2017) Measles (Resolved) Menopause present (Inactive 09/11/02) Migraines (Resolved 1958) Morbid obesity with BMI of 40.0-44.9, adult (Resolved) Mumps (Resolved) Obesity (BMI 30-39.9) (Chronic) Ovarian cyst (Resolved 1975) Painful menstrual periods (Resolved 1958) Peripheral edema (Chronic 12/30/03) Shoulder pain (Resolved) Status post hysteroscopy (Resolved 12/22/18) Stress incontinence (Resolved ~2016) Stress incontinence of urine (Chronic 10/19/16) Tinnitus of both ears (Chronic 2012) Vitamin B12 deficiency (Chronic 04/19/02) Surgical History Anesthesia (Resolved) History of cataract removal with insertion of prosthetic lens (Inactive 2012) History of elective (Inactive) History of tonsillectomy (Inactive 1966) Hx of surgical procedure (Resolved 1973) Status post breast lumpectomy (Inactive 1994) Status post cholecystectomy (Inactive 1990) Status post colonoscopy (Inactive 1996) Status post colonoscopy (Inactive 2013) Status post ovarian cystectomy (Inactive 1975) Family History Father Parkinson's disease Mother Cancer Brother Parkinson's disease Grandfather No problems noted. Grandmother Cancer Grandfather No problems noted. Grandmother No problems noted. 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 Head: normocephalic, atraumatic, no scalp lesions, non-tender. ENT: Hearing grossly intact. Airway patent. Neck/Thyroid: neck supple, full range of motion, no visible masses or meningeal signs. No JVD, non-tender without lymphadenopathy. Skin: no suspicious rashes, lesions over visible areas. Warm and dry and appropriate color for ethnicity. Heart: no clubbing, no cyanosis, no edema. Lungs: Breathing even and unlabored. No stridor. No accessory muscles used. Able to speak in full sentences. Chest: normal shape and expansion. Abdomen: non-obese, non-distended. Neurologic: alert and oriented. Cognitive exam, [employer] and PNS grossly intact on informal exam. Psych: good eye contact, normal affect. Initial Vital Signs Initial Vital Signs: Vital Signs Temperature 98.3 F 06/08/20 13:53 Pulse Rate 76 06/08/20 13:53 Respiratory Rate 14 06/08/20 13:53 Blood Pressure 178/86 H 06/08/20 13:53 Pulse Oximetry 96 06/08/20 13:53 Extrem Left upper extremity: shoulder/upper arm Details: abnormal to inspection (Has a shoulder immobilizer on affected arm), tenderness Location: of the proximal humerus and abnormal ROM Details: held in an abnormal fashion Details: in internal rotation (In a sling) and pain with passive ROM and hand Details: normal to inspection, normal capillary refill, neuromotor exam normal, neurosensory exam normal, vascular exam Details: radial pulse present and normal capillary refill and normal ROM of fingers <Roxy Mccoy DO - Last Filed: 06/14/20 17:24> Initial Vital Signs Initial Vital Signs: Vital Signs Temperature 98.3 F 06/08/20 13:53 Pulse Rate 76 06/08/20 13:53 Respiratory Rate 14 06/08/20 13:53 Blood Pressure 178/86 H 06/08/20 13:53 Pulse Oximetry 96 06/08/20 13:53 Scores <RAQUEL Rincon - Last Filed: 06/09/20 01:31> GCS Serafina coma scale eye opening: Spontaneous Faina coma scale verbal response: Orientated Faina coma scale motor response: Obey commands Faina coma scale total score: 15 MDM - Recheck/Abnormal Lab/Rx <RAQUEL Rincon - Last Filed: 06/09/20 01:31> Differential Diagnosis Differential diagnosis: Likely encounter for medication refill Medical Records Attestation: I reviewed the patient's medical records. [facility] Narrative Medical decision making narrative: This is a 74-year-old female who has left proximal humeral head comminuted displaced fracture from a fall 2 days ago presents to ED with request for pain medication refill. Patient states she has been taking [place] 1 tab every 4 hours without additional Tylenol or Motrin use and has only 2 tabs left. She has a follow-up appointment with orthopedist Dr. Ardon tomorrow. Patient reports intact sensation and mobility distally. Pain is mildly improved after the pain medication for good 2 hours. Considered sending patient home with 7.5 mg hydrocodone with Tylenol but patient states she is afraid of fall and current strength/dose keeps her mildly drowsy and relaxed. Will renew 5 mg hydrocodone/APAP 325mg strength and advised to follow up with orthopedist tomorrow as scheduled. Patient advised to take [id number] Motrin to prolonged medication effect of hydrocodone. Patient declined taking additional Tylenol with San [place] stating is difficulty calculating total allowed Tyelenol product usage per 24 hr period. Return precautions were discussed with patient and patient verbalized understanding and agreement with the treatment plan. Discharge Plan Departure Patient Disposition: Home Clinical Impression: Encounter for medication refill Fracture, humerus closed Qualifiers: Encounter type: subsequent encounter Humerus Location: proximal Fracture morphology: other fracture Fracture alignment: displaced Laterality: left Fracture healing: with routine healing Qualified Code(s): S42.292D - Other displaced fracture of upper end of left humerus, subsequent encounter for fracture with routine healing Discharge Date/Time: 06/08/20 15:48 Instructions: DI for Humeral Fracture Activity Restrictions/Additional Instructions: You have been diagnosed with [known left humerus fracture and encounter for pain medication refill today]. What to do: *Take your medications as directed. You can take [place] 1 tab every 6 hours as needed for discomfort. Add Aleve as needed for pain with food to decrease GI irritation. This may help you spacing San Juan little longer. San Juan has been transmitted to [facility] in [facility]. *Follow up with your Dr. Ardon tomorrow as scheduled. Let them know you were seen in the ED and that we asked you to be seen in follow up. *Return to ED if you have any new, worsening, or concerning symptoms, such as [worsening pain, breathing difficulty, chest pain, unable to tolerate fluids, tingling/numbness on affected hand or any acute concerns]. Prescriptions: New hydrocodone-acetaminophen [[place]] 5-325 mg tablet 1 tab PO Q6H PRN (Reason: pain) Qty: 14 RF: 0 No Action acyclovir 400 mg Tablet 400 mg PO DIRECTED PRN (Reason: Breakouts) RF: 0 hydrochlorothiazide 12.5 mg tablet 12.5 mg PO DAILY Qty: 90 RF: 1 grape seed extract 100 mg capsule 1 tab PO DAILY RF: 0 Modified Juab Pectin 1.5 mg PO DAILY RF: 0 Artemisinin 400 mg PO DAILY RF: 0 Green Tea Extract 800 mg PO DAILY RF: 0 Boswellia 800 mg PO DAILY RF: 0 Glucosamine Chondoilin w/MSM 3,600 mg PO DAILY RF: 0 coenzyme Q10 100 mg capsule 100 mg PO BID RF: 0 omega-3 fatty acids capsule See Rx Instructions PO DAILY RF: 0 DIM Complex 1 tab PO DAILY RF: 0 [place] Tail Mushroom Extract See Rx Instructions .ROUTE .COMPLEX RF: 0 Vitamin B12 See Rx Instructions .ROUTE .COMPLEX RF: 0 [place] Injections 2XW RF: 0 hydrocodone-acetaminophen [[place]] 5-325 mg tablet 1 tab PO Q4-6H PRN (Reason: pain) Qty: 14 RF: 0 clindamycin HCl 300 mg capsule 300 mg PO Q6H Qty: 28 RF: 0 Referrals: [facility] [Provider Group]
== END 2020-06-08 15:48 | disposition home or self-care (01) ==
PROVIDERS: Emergency Provider Nurse Practitioner Family
DX: Z76.0 Encounter for issue of repeat prescription (principal); S42.292D Other displaced fracture of upper end of left humerus, subsequent encounter for fracture with routine healing; W19.XXXA Unspecified fall, initial encounter
CPT/HCPCS: 99281

== ENCOUNTER → 2020-07-30 07:08 | Outpatient (CLI) | payer MEDICARE, OTHER, SELFPAY ==
[2020-07-30 07:56] LABS: Alanine Aminotransferase 24 IU/L (<35); Albumin 4.1 g/dL (3.5-5.0); Albumin Globulin Ratio 1.3 (1.0-2.8); Alkaline Phosphatase 93 U/L (38-126); Aspartate Aminotransferase 29 IU/L (14-36); BUN Creatinine Ratio 33.3 (6-22); Bilirubin Total 0.6 mg/dL (0.2-1.3); Blood Urea Nitrogen 21 mg/dL (7-17); Calcium 9.1 mg/dL (8.4-10.2); Carbon Dioxide 26 mmol/L (22-32); Chloride 107 mmol/L (98-107); Cholesterol 236 mg/dL (140-199); Estimated Glomerular Filt Rate > 60.0 mL/min (>60); Globulin 3.2 g/dL (1.7-4.1); Glucose 105 mg/dL (80-110); HDL Cholesterol 48 mg/dL (40-60); HEMOLYSIS 22 (0-50); LDL Cholesterol Calculated 133 mg/dL (<100); Potassium 4.4 mmol/L (3.4-5.1); Sodium 138 mmol/L (137-145); Total Protein 7.3 g/dL (6.3-8.2); Triglycerides 277 mg/dL (35-150)
[2020-07-30 09:02] LABS: Creatinine Urine Random 136.6 mg/dL
[2020-07-30 09:04] LABS: Microalbumi Creatinin Ratio Ur 5.8 ug/mg CR (<30); Microalbumin Urine Random 0.8 mg/dL (0-1.6)
== END ==
PROVIDERS: PCP Family Medicine; Referring Provider Family Medicine; Visit Provider Family Medicine
DX: E78.5 Hyperlipidemia, unspecified (principal); R73.9 Hyperglycemia, unspecified; I10 Essential (primary) hypertension
CPT/HCPCS: 36415; 80053; 80061; 82043; 82570; 83036

== ENCOUNTER → 2021-08-20 11:40 | Outpatient (CLI) | payer MEDICARE, OTHER, SELFPAY ==
[2021-08-20 13:22] LABS: Add Manual Diff / Slide Review NO; Basophils Absolute Auto 100 /uL (0-100); Basophils Percent Auto 1.2 % (0-2); Eosinophils Absolute Auto 0 /uL (0-450); Eosinophils Percent Auto 0.5 % (2-4); Hematocrit 41.9 % (36-46); Hemoglobin 14.3 g/dL (12.0-16.0); Lymphocytes Absolute Auto 1300 /uL (1100-4500); Lymphocytes Percent Auto 30.4 % (25-40); Mean Corpuscular HGB Conc 34.1 % (30-36); Mean Corpuscular Hemoglobin 32.5 PG (26-34); Mean Corpuscular Volume 95.4 fL (80-100); Monocytes Absolute Auto 300 /uL (0-900); Monocytes Percent Auto 6.2 % (3-14); Neutrophils Absolute Auto 2500 /uL (1500-7000); Neutrophils Percent Auto 61.7 % (50-75); Platelet Count 174 X10^3/uL (150-400); Red Cell Distribution Width 15.6 % (11.6-14.8); White Blood Cell Count 4.1 X10^3/uL (4.5-11.0)
[2021-08-20 13:34] LABS: BUN Creatinine Ratio 19.4 (6-22); Blood Urea Nitrogen 18 mg/dL (7-17); Calcium 9.4 mg/dL (8.4-10.2); Carbon Dioxide 23 mmol/L (22-32); Chloride 107 mmol/L (98-107); Estimated Glomerular Filt Rate 58.9 mL/min (>60); Glucose 97 mg/dL (80-110); HEMOLYSIS < 15 (0-50); Hemoglobin A1C% w Est Avg Glu 5.5 % (4.0-6.0); Potassium 4.4 mmol/L (3.4-5.1); Sodium 138 mmol/L (137-145)
== END ==
PROVIDERS: PCP Family Medicine; Referring Provider Orthopaedic Surgery; Visit Provider Orthopaedic Surgery
DX: Z01.818 Encounter for other preprocedural examination (principal); R73.9 Hyperglycemia, unspecified; Z01.812 Encounter for preprocedural laboratory examination
CPT/HCPCS: 36415; 80048; 83036; 85025; 93005

== ENCOUNTER → 2021-09-14 11:35 | Outpatient (CLI) | payer MEDICARE, OTHER, SELFPAY ==
[2021-09-14 14:11] LABS: COVID19 -Nasal RAPID Negative (Negative)
== END ==
PROVIDERS: PCP Family Medicine; Visit Provider Orthopaedic Surgery
DX: Z20.822 Contact with and (suspected) exposure to COVID-19 (principal)
CPT/HCPCS: 87635; C9803

== ENCOUNTER → 2021-10-16 11:33 | Outpatient (CLI) | payer MEDICARE, OTHER, SELFPAY ==
[2021-10-16 12:49] LABS: COVID19 -Nasal RAPID Negative (Negative)
== END ==
PROVIDERS: PCP Family Medicine; Visit Provider Family Medicine Sleep Medicine
DX: Z20.822 Contact with and (suspected) exposure to COVID-19 (principal)
CPT/HCPCS: 87635; C9803

== ENCOUNTER 2021-10-20 15:23 | Observation (INO) | payer MEDICARE, OTHER, SELFPAY ==
[2021-09-09 13:35] VITALS: BMI 37.0
[2021-10-19] VITALS (11 sets, daily range): BP systolic 106–178; BP diastolic 52–82; PULSE 54–74; RESP 13–72; TEMP 36.2–36.6; O2SAT 91–96; BMI 37.0
--- NOTE | 2021-10-19 06:00 | DI.RAD.S_ITS ---
PROCEDURE: XR KNEE LT 1TO2V INDICATIONS: tka TECHNIQUE: 2 view(s) of the knee acquired. COMPARISON: [facility], CR, XR KNEE RT 3V, 02/13/2019, 5:41. FINDINGS: Bones: Patient is status post knee joint arthroplasty. Hardware components are in expected positions. Visualized bony structures are intact. Soft tissues: Overlying postoperative changes are noted. IMPRESSION: Expected immediate postoperative appearance, status post total left knee arthroplasty. Dictated by: Everett Hernandez M.D. on 10/19/2021 at 21:17 Approved by: Everett Hernandez M.D. on 10/19/2021 at 21:18
[2021-10-19] MEDS: LACTATED RINGERS 1,000 ML 84 ML IV ×2 (12:10→16:25)
[2021-10-19] MEDS: ACETAMINOPHEN 325 MG TABLET 975 MG PO (12:11)
[2021-10-19] MEDS: CELECOXIB 200 MG CAPSULE PO (12:16)
[2021-10-19] MEDS: PREGABALIN 75 MG CAPSULE PO (12:18)
--- NOTE | 2021-10-19 14:25 | PM.HP.1 ---
History of Present Illness History of Present Illness Date Patient Seen: 10/19/21 Time Patient Seen: 14:25 Chief complaint: LT TKA *OPB* Narrative: The patient is a 76-year-old woman who was planned to have total knee replacement on the left in August however this was delayed by the [place] [id number] mandate. There is a complete history and physical in the chart but it has outdated this is an interim history and physical. The patient reports no new medical problems and no major changes in the symptoms in her left knee. Patient History Medical History Bilateral primary osteoarthritis of knee Breast cancer (~2017) Cataracts, bilateral (2012) Chickenpox (194) Chronic pain of right knee (10/19/16) Chronic venous insufficiency (09/20/17) Colon polyps (2014) Essential hypertension (09/05/15) Essential tremor (09/20/17) Foot pain (2014) Fractures Herpes (1977) History of adenomatous polyp of colon Hyperglycemia Hyperlipidemia, unspecified (08/31/04) Iron deficiency anemia, unspecified (04/13/02) Irregular menstrual cycle (1958) Knee pain (~01/2017) Large mass of left breast Measles Menopause present (09/11/02) Migraines (1958) Morbid obesity with BMI of 40.0-44.9, adult Mumps Obesity (BMI 30-39.9) Ovarian cyst (1975) Painful menstrual periods (1958) Peripheral edema (12/30/03) Shoulder fracture, left (05/2020) Shoulder fracture, right (2018) Shoulder pain Status post hysteroscopy (12/22/18) Stress incontinence (~2016) Stress incontinence of urine (10/19/16) Tinnitus of both ears (2012) Vitamin B12 deficiency (04/19/02) Surgical History Anesthesia History of cataract removal with insertion of prosthetic lens (2012) History of elective History of hysteroscopy (12/22/18) History of lumpectomy of left breast (06/27/18) History of tonsillectomy (1966) Hx of surgical procedure (1973) Status post breast lumpectomy (1994) Status post cholecystectomy (1990) Status post colonoscopy (1996) Status post colonoscopy (2013) Status post ovarian cystectomy (1975) Family & Social History Family History Father Parkinson's disease Mother Cancer Brother Parkinson's disease Grandfather No problems noted. Grandmother Cancer Grandfather No problems noted. Grandmother No problems noted. Social History: household members none Prior Living Arrangements House Safety & Behavioral: Feels Safe in Current Yes Environment Been Physically Hurt or No Threatened By a Person Suicidal Ideation Description None Suicide Plan Description No Plan Tobacco & Substance use: Smoking Status Never smoker alcohol intake current alcohol intake frequency holiday/special occasion Substance Use Type does not use Meds Home Medications and Allergies Home Medications Medication Instructions Recorded Confirmed Type acyclovir 400 mg tablet 200 mg PO DIRECTED PRN 05/08/18 09/09/21 History Modified Laura Pectin 1.5 mg PO DAILY 11/16/18 09/09/21 History Vitamin B12 See Rx Instructions .ROUTE .COMPLEX 06/04/19 09/09/21 History anastrozole 1 mg tablet 1 mg PO DAILY 07/28/20 09/09/21 History palbociclib 100 mg capsule 100 mg PO DAILY 07/28/20 09/09/21 History (Ibrance) calcium carb,cit 300 mg-D3 200 1 tab PO DAILY 06/08/21 09/09/21 History unit-min no.34-genistein 13.5 mg tablet (Citracal Plus Bone Density Builder) cholecalciferol (vitamin D3) 25 10,000 unit PO DAILY 06/08/21 09/09/21 History mcg (1,000 unit) capsule C2C [employer] 06/08/21 History hydrocodone 5 mg-acetaminophen 325 1 tab PO Q4-6H PRN 06/08/21 09/09/21 History mg tablet magnesium glycinate-mag oxide 120 mg PO DAILY 06/08/21 09/09/21 History melatonin 5 mg-pyridoxine (vitamin 1 tab PO BEDTIME PRN 06/08/21 09/09/21 History B6) 1 mg tablet methylsulfonylmethane 1,000 mg 1,000 mg PO BID tab 06/08/21 09/09/21 History tablet naproxen sodium 220 mg tablet 220 mg PO BID PRN 06/08/21 09/09/21 History (Flanax (naproxen)) zinc amino acid chelate 50 mg 50 mg PO DAILY 06/08/21 09/09/21 History tablet acyclovir 200 mg capsule 200 mg PO QID PRN 09/09/21 09/09/21 History Allergies Allergy/AdvReac Type Severity Reaction Status Date / Time adhesive tape Allergy Severe Rash, Verified 10/19/21 12:09 pulls my skin off iodine [IODINE] Allergy Intermediate Skin rash Verified 10/19/21 12:09 coconut [COCONUT] AdvReac Intermediate (Processed) Verified 10/19/21 12:09 Nausea and I just felt ill. Sulfa (Sulfonamide AdvReac Intermediate GI upset Verified 10/19/21 12:09 Antibiotics) [SULFA (SULFONAMIDE ANTIBIOTICS)] Penicillins AdvReac Unknown Ill Verified 10/19/21 12:09 physically Review of Systems Review of Systems Narrative: The patient reports she has been in her normal state of health. Exam Vital Signs (past 8 hours): - 10/19/21 12:21 Temperature 97.4 F L Pulse Rate 64 Respiratory Rate 16 Blood Pressure 178/82 H Pulse Oximetry 96 Oxygen Delivery Method Room Air Narrative Exam Narrative: Chest is clear to auscultation. Cardiac is regular rate rhythm abdomen is obese soft nontender. Left knee examination is as noted in history and physical previously dictated. Assessment & Plan Assessment & Plan narrative: The patient has left knee osteoarthritis that has not responded to non operative measures. After discussion the risks benefits and alternatives she has agreed to total knee replacement. Risks discussed included but were not limited to: Failure to improve, stiffness, infection, nerve damage, deep venous thrombosis, pulmonary embolism, stroke, myocardial infarction, permanent paralysis, aspiration pneumonia and . COVID-19 COVID-19 status: Negative Result date/Date tested (Pos, Neg/Pending): 10/16/21 Time Spent With Patient Critical Care time: I spent a total of [] minutes of critical care time on this patient's care today; this time is exclusive of procedural time.
--- NOTE | 2021-10-19 14:39 | P.OP_ITS ---
Operative Date/Time/Diagnoses Date of procedure: 10/19/21 Time of procedure: 16:36 Pre-op diagnosis: Left knee osteoarthritis Post-op diagnosis: same Procedure & Clinicians Procedure: Left total knee replacement Same procedure as scheduled: Yes Indications: The patient has had progressively worsening left knee pain with radiographic changes consistent with arthritis. Non-operative management has failed and the patient has requested total knee replacement. The risks, benefits and alternatives to surgery were discussed with the patient prior to proceeding. Risks discussed included, but were not limited to, failure to relieve pain, stiffness, infection, nerve damage, deep venous thrombosis, pulmonary embolism, stroke, coma, heart attack, permanent paralysis and , as well as the potential need for eventual revision of the prosthetic. Surgeon: Silvino Mohr Claims Service Adjustor: Antoine Hernandez Click Yes if Unassisted: No Anesthesia Type: General, Spinal and Local Operative Notes Findings: Severe tricompartmental osteoarthritis Closure Type: primary Specimen(s): none sent Prosthetic devices, grafts, tissues, transplants, or devices: Implants used in this procedure were manufactured by the [employer] and [employer] and included the BCS II Journey total knee replacement with a size 4 left cobalt chromium femur, a size 3 non porous tibial base plate, and 11 m cross-linked polyethylene tibial insert and a 32 mm oval Cheri II patella. Applied: implant(s) Estimated Blood Loss (mL): 25 Blood products transfused: none Tourniquet time (min): 51 Procedure in detail: The patient was seen in the pre-operative area, where the left knee was identified as the operative site and this was marked with my initials. The patient received pre-operative antibiotics, and was taken to the operating room and placed on the operative table in the supine position. After satisfactory anesthesia, a full time staff interpreter out was performed. The left leg was encircled with a tourniquet about the proximal thigh, and the leg was prepared from the toes to the tourniquet with ChloroPrep in the usual fashion and draped through sterile drapes. The leg was elevated and exsanguinated with Eschmark bandage and the tourniquet inflated to 250 mmHg pressure. The knee was approached through an approximately 18 cm incision centered over the patella and carried into the knee through a medial parapatellar arthrotomy. The anterior osteophytes and soft tissues were removed. The rotational landmarks of [place]'s line and the transepicondylar axis were marked on the femur with electrocautery, and intramedullary guide holes for the femur and tibia were created. The distal femoral cut was made in 6 degrees of valgus using the intramedullary guide at the primary cut setting. The proximal tibial cut was then made using the intramedullary guide, taking 9 mm of bone off the less involved side. The extension gap was checked and the rotation of the femoral component confirmed with the gap balancing blocks. The anterior, posterior and chamfer cuts were then made. The posterior osteophytes and soft tissues were then removed. The posterior capsule was injected with part of a mixture of 60 ml 0.25% Marcaine mixed with 20 ml Exparel and 4 mg of morphine for post-operative pain control. The remainder of this mixture was injected into the capsule and gaines bcutaneous tissues during cement curing. The tibia was prepared with the rotation set by an extra medullary guide. Trial tibial and femoral components were then placed and the intercondylar notch cut through the femoral trial. Range of motion was 0-130 degrees, with good stability throughout the range. The patella was then cut to accommodate the patellar prosthetic. There was no need for a lateral release. The trials were then removed, and the femoral hole plugged with a bone plug. The bone was prepared with pulsatile lavage, and dried with a sponge. Cement was applied and the final prosthetics placed. Excess cement was removed during and after cement curing. After confirming there was no extruded cement posteriorly, the final tibial insert was placed. The knee was copiously irrigated and the tourniquet deflated. Hemostasis was obtained. The capsule was closed with interrupted # 2 polyester sutures. The subcutaneous layer was closed with 3-0 Vicryl, and the skin with a running 3-0 V-Lock suture and Dermabond. An Aquacel Ag dressing was applied and the patient was taken to recovery having tolerated the procedure well. Complications: none Post-operative Condition: stable Disposition: PACU Plan for aftercare: The patient will be maintained on a standard total knee replacement protocol with weight bearing as tolerated. The patient will receive aspirin and sequential compression devices for DVT prophylaxis. The patient will be disch arged home when safe for the home environment.
[2021-10-19] MEDS: CEFAZOLIN 2 GM/20 ML SYRINGE IV (15:15)
[2021-10-19] MEDS: TRANEXAMIC ACID 1,000 MG VIAL 2000 MG INJ ×2 (15:20→16:17)
--- NOTE | 2021-10-19 15:28 | SUR.OPER ---
Supine on padded OR bed. Pillow under head, arms secured on padded armboards <90 degree abduction. Safety belt across torso. Non-operative leg secured with tape over blanket over lower leg. Operative leg secured in [place].
[2021-10-19] MEDS: MORPHINE 4 MG/ML INJ INJ (15:32)
[2021-10-19] MEDS: BUPIVACAINE 0.25% W/ EPI 30 ML VIAL 60 ML INJ (15:34)
[2021-10-19] MEDS: BUPIVACAINE LIPOSOME 266 MG/20 ML VIAL INJ (15:35)
[2021-10-19] MEDS: LACTATED RINGERS 1,000 ML 100 ML IV (18:30)
[2021-10-19] MEDS: ASPIRIN EC 81 MG TABLET PO (21:03)
[2021-10-19] MEDS: ACETAMINOPHEN 325 MG TABLET 650 MG PO (21:03)
[2021-10-19] MEDS: OXYCODONE IR 5 MG TABLET PO (21:03)
[2021-10-20] VITALS: BP 112/52; PULSE 57; RESP 18; TEMP 36.6; O2SAT 93
[2021-10-20] MEDS: OXYCODONE IR 5 MG TABLET PO ×2 (01:02→06:01)
[2021-10-20 04:00] VITALS: BP 113/51; PULSE 50; RESP 18; TEMP 37.1; O2SAT 93
[2021-10-20 05:24] LABS: Hematocrit 39.2 % (36-46); Hemoglobin 12.9 g/dL (12.0-16.0)
--- NOTE | 2021-10-20 07:32 | P.DS_ITS ---
History of Present Illness History of Present Illness Date Patient Seen: 10/20/21 Time Patient Seen: 07:32 Chief complaint: LT TKA *OPB* Narrative: The patient is a 76-year-old woman who was planned to have total knee replacement on the left in August however this was delayed by the [place] [id number] mandate. There is a complete history and physical in the chart but it has outdated this is an interim history and physical. The patient reports no new medical problems and no major changes in the symptoms in her left knee. Discharge Providers Provider Date of admission: October 19, 2021 Discharge Date: 10/20/21 Primary care physician: Taco Garcia MD Consults: 10/19/21 17:45 Consult to Discharge Planning Routine Comment: Consult to Physical Therapy Evaluate & Treat Comment: Physician Instructions: postop TKA protocol Discharge provider: Silvino Mohr MD Summary Hospital Course Discharge Diagnosis: 1. Left knee osteoarthritis Hospital Course: The patient was admitted to the hospital and taken directly to the operating room on October 19, 2021 where she underwent a left total knee replacement without complication. She was able to get out of bed independently several times on the night of surgery. She is walker dependent preoperatively and has good experience using a walker. At this time it is felt she will likely be ready for discharge home in the same condition. Status at Discharge Cognitive/behavioral status at discharge: at baseline, oriented Functional status at discharge: uses cane/walker Overall status at discharge: patient is progressing back to baseline Time Spent with Patient Time spent: Less than 30 minutes Exam Vital Signs (past 8 hours): - 10/20/21 00:00 10/20/21 04:00 Temperature 97.8 F 98.7 F Pulse Rate 57 L 50 L Respiratory Rate 18 18 Blood Pressure 112/52 L 113/51 L Pulse Oximetry 93 93 Oxygen Delivery Method Room Air Oxygen Flow Rate 0 Narrative Exam Narrative: Left knee wound is dressed with no drainage on the bandage. Calf is soft. Light touch and motion are intact in the left lower extremity. Objective Labs Result Diagrams: 10/20/21 05:12 Labs: Laboratory Results - last 24 hr 10/20/21 05:12 Hgb 12.9 Hct 39.2 PFSH Medical History Bilateral primary osteoarthritis of knee Breast cancer (~2018) Cataracts, bilateral (2012) Chickenpox (194) Chronic pain of right knee (10/19/16) Chronic venous insufficiency (09/20/17) Colon polyps (2014) Essential hypertension (09/05/15) Essential tremor (09/20/17) Foot pain (2014) Fractures Herpes (1977) History of adenomatous polyp of colon Hyperglycemia Hyperlipidemia, unspecified (08/31/04) Iron deficiency anemia, unspecified (04/13/02) Irregular menstrual cycle (1958) Knee pain (~01/2017) Large mass of left breast Measles Menopause present (09/11/02) Migraines (1958) Morbid obesity with BMI of 40.0-44.9, adult [place] Obesity (BMI 30-39.9) Ovarian cyst (1975) Painful menstrual periods (1958) Peripheral edema (12/30/03) Shoulder fracture, left (05/2020) Shoulder fracture, right (2018) Shoulder pain Status post hysteroscopy (12/22/18) Stress incontinence (~2016) Stress incontinence of urine (10/19/16) Tinnitus of both ears (2012) Vitamin B12 deficiency (04/19/02) Surgical History Anesthesia History of cataract removal with insertion of prosthetic lens (2012) History of elective History of hysteroscopy (12/22/18) History of lumpectomy of left breast (06/27/18) History of tonsillectomy (1966) Hx of surgical procedure (1973) Status post breast lumpectomy (1994) Status post cholecystectomy (1990) Status post colonoscopy (1996) Status post colonoscopy (2013) Status post ovarian cystectomy (1975) Family History Father Parkinson's disease Mother Cancer Brother Parkinson's disease Grandfather No problems noted. Grandmother Cancer Grandfather No problems noted. Grandmother No problems noted. 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 As noted above she uses a walker at baseline. She is independently been able to get in and out of bed several times over the evening. It is possible she will be able to go home today. Plan of Treatment: Discharge home provided she satisfactorily passes physical therapy. She will be admitted to the hospital if she does not clear therapy requirements. Follow-up in my office in 10-14 days. Discharge prescription for oxycodone has been ca lled in. She uses Naprosyn as needed for pain relief as well and has been instructed to use Tylenol for additional pain relief and low-dose aspirin for DVT prophylaxis. Discharge Plan Discharge Plan Patient Disposition: Home Discharge orders & Medications Discharge Orders: Discharge (Order); Ordered 10/20/21 Ordered By: Silvino Mohr Prescriptions: New acetaminophen 325 mg Tablet 650 mg PO TID 30 Days Qty: 180 0RF aspirin 81 mg Tablet,Delayed Release (Dr/Ec) 81 mg PO BID 42 Days Qty: 84 0RF oxycodone 5 mg Tablet 5 mg PO Q4H PRN (Reason: Pain, Moderate (4-6)) Qty: 40 0RF Continued Citracal Plus Bone Density 300-200-13.5 mg-unit-mg tablet 1 tab PO DAILY 0RF cholecalciferol (vitamin D3) 25 mcg (1,000 unit) capsule 10,000 unit PO DAILY 0RF (DME) community mushrooms 0 .ROUTE .MEDSUPPLY 0RF Label Comments: Pt states takes pill form for health, not pain and last taken 7 days ago magnesium glycinate-mag oxide 120 mg magnesium capsule 120 mg PO DAILY 0RF melatonin-pyridoxine (vit B6) 5-1 mg tablet 1 tab PO BEDTIME PRN (Reason: Sleep) 0RF methylsulfonylmethane 1,000 mg tablet 1,000 mg PO BID 0RF naproxen sodium [Flanax (naproxen)] 220 mg tablet 220 mg PO BID PRN (Reason: Pain) 0RF Label Comments: pt states she does not take it with the hydrocodone zinc amino acid chelate 50 mg tablet 50 mg PO DAILY 0RF hydrocodone-acetaminophen 5-325 mg tablet 1 tab PO Q4-6H PRN (Reason: Pain) 0RF Modified Ziebach Pectin 1.5 mg PO DAILY 0RF Vitamin B12 See Rx Instructions .ROUTE .COMPLEX 0RF Rx Instructions: 1 dropperful PO DAILY Ibrance 100 mg capsule 100 mg PO DAILY 0RF Label Comments: 09/09/21 Pt states currently not taking prior to surgery but plans to restart after surgery Rx Instructions: administer on days 1 through 21 of a 28-day treatment cycle anastrozole 1 mg tablet 1 mg PO DAILY 0RF acyclovir 200 mg Capsule 200 mg PO QID PRN (Reason: Herpes flare) 0RF Follow up/Referrals: Taco Garcia MD [Primary Care Provider] - Silvino Mohr MD [Physician] - 2 Weeks Diet/Activity/Treatments Diet: Diet as Tolerated and Regular Activity: You may bear weight as tolerated on your left leg. Cold/Heat Therapy: You may apply ice to the left knee for 15 minutes every hour as needed for pain control. Skin/Wound/Dressing Care Report to your healthcare provider any signs of infection, such as:: chills, fever, night sweats, increased pain, unusual drainage and unusual redness Dressing: You may remove the Tim wrap 3 days after surgery and shower normally with the deeper dressing in place. If the central strip of the deeper dressing becomes saturated with either water or blood, please call the office to have it evaluated. Visit Report/Discharge Packet Instructions: DI for Knee Replacement Stand Alone Forms: Surgery Discharge Discharge Data Primary Care Provider: Taco Garcia Attending Provider: Silvino Mohr
[2021-10-20 09:09] VITALS: BP 136/61; PULSE 65; RESP 14; TEMP 36.3; O2SAT 94
--- NOTE | 2021-10-20 09:31 | CM.DANOTE ---
Discharge Assessment Note: Patient is 76yo Female admitted overnight post knee replacement performed by Dr. Mohr. Patient is pending PT evaluation. Patient is noted in EMR as having fair mobility in/out of bed and to bathroom post surgery. Patient has breast cancer and [facility]. Patient, depending on PT evaluation, would like HH PT to transition to outpatient PT as she can. Patient reported her bathroom is 15ft from her bed and she would like to be able to ambulate that distance prior to discharge. Patient resides at home alone in [place]. Patient has 6 steps from her home into garage and a slanted/angled driveway that may pose fall risk. Patient has a son who resides locally who helps her with garbage cans and cat litter clean up. Patient has no history with SNF, HH. Patient has 4WW with seat available for use as needed. Patient does not use home O2. Patient reported she is fully independent at baseline with exception of what her son assists with. INS: Medicare PCP: Radha Plan: Patient is anticipated to discharge home to outpatient PT or HH PT (pending PT eval). Patient has friend and [id number] arranged to be home with her for the six days post discharge. Care management will continue to follow throughout clinical course of admission for discharge planning needs. Kai HEBERTSW Discharge Planning/Care Management CM Discharge Assessment Start: 10/20/21 09:26 Freq: Status: Active Protocol: Document 10/20/21 09:26 SHERRY (Rec: 10/20/21 09:31 FJ [id number]) Discharge Planning Assessment Assigned Heel Coverer Kai Corcoran [facility] Advance Directives? Yes: POLST Advance Directives on File No History Provided By Patient,Medical Record Has Patient been admitted in last 30 No days? Prior Living Arrangements House Household Members none Comment has local son that assists with garbage cans and cat litter Type of transporation used prior to Drives own vehicle admit Independent with ADL's Yes Is patient alert and oriented? Yes Comment independent at baseline Caregiver for Another No Community Services used prior to IV Therapy admission: [facility] [place] ([facility]), needs to restart now that surgery has occurred DME Already Rented / Owned FWW / Walker,Cane Patient/Family Preference Home with Home Health,OP PT Therapy Barriers to Discharge No Discharge Plan Home with Home Health Community Services Physical Therapy Transportation Arrangement patient's friend Gina Referrals Initiated Home Health Additional Comment if necessary If patient plan is home with home health Yes : Has signed face to face form been completed? Whiteboard Updated in Patient Room with Yes name and ext. # of Heel Coverer Review Status In Process Next Review Type Continued Stay Review Pre-Anesthesia Assessment Start: 09/09/21 13:35 Freq: Status: Active Protocol: Document 09/09/21 13:35 CAB (Rec: 09/09/21 14:34 CAB [id number]) Pre-Anesthesia Assessment Patient Information Reviewed Via Phone Assessment Assessment Completed With Patient Diagnostic Results BMP/CMP,CBC,EKG Comment Labs/EKG @ [facility] 08/20/21, COVID screen @ 09/14 Primary Care Provider Taco Garcia Seen Specialist in Last 12 Months Yes Specialist Seen Database Operator,Emergency, Oncologist,Orthopedist Primary Language Georgian Office Assistant Required No Height 170.18 cm Weight 107.501 kg Body Mass Index (BMI) 37.0 Hearing Ability Normal Visual Assist Magnifying Glass Dentition Type Teeth, Natural Present Barriers to Learning None Hx Anesthesia Reactions No Hx Family Anesthesia Reaction No Hx Malignant Hyperthermia No Hx Blood Transfusions No Hx Blood Transfusion Reaction No Anesthesia Review Requested Yes: PAC courtesy re: Abnormal pre-op EKG. Automobile Dealer No alcohol intake current alcohol intake frequency holidays/special occasions only Smoking Status Never smoker Substance Use Type does not use Pain Present Pain Reported Musculoskeletal Symptoms Abnormal Gait,Difficulty Walking,Joint Pain History of Falling (Recent or History of Yes ) Patient is completely paralyzed or No completely immobile Prosthesis or Orthotic Device Cane,Front Wheel Walker Mental Status Oriented to own ability Is patient on oxygen? No Does patient have HOFFMANN/SOB No Hx Sleep Apnea No CPAP/BIPAP use not prescribed Suspected Sleep Apnea No Currently Taking a Beta Shawna No Can You Climb a Flight of Stairs Without No SOB Hx Chest Pain No Hx SOB No Hx Syncope or Dizziness No Anti-Coagulant Therapy No Has a Rehabilitation Therapy Technician No Cardiac Testing No Hx Pacemaker/ICD No Pacemaker Rep Required? No Diet Type At Home Regular dysphagia No Bladder Pattern Incontinent Urinary Catheter Present No Hx Urinary Self Catheterization No Diabetes No HgbA1C 5.5 Date 08/20/21 Patient No Lactating No Hx Drug Resistant Organism No Presence of External or Internal Medical Yes: Bilat eye IOLs Devices Have you had any close contact with No someone diagnosed with COVID-19? Received a COVID vaccine? No Marital Status Single Lives With none Prior Living Arrangements House Number of Floors (Floors) Two Floors Support System Child/Children,Friend(s) Does the Patient Have Assistance After Yes: Son will check on pt, Surgery friend will stay w/pt at DC Patient Discharge Plan Description Return Home Comment Pt advised 2 day length of stay per surgeon Feels Safe in Current Environment Yes Been Physically Hurt or Threatened By a No Person in Current Environment Do you have thoughts of harming yourself None or others? Are you currently considering suicide? No Do you have a plan to hurt yourself or No Plan others? Do You Have Any Spiritual Beliefs That No May Affect Your HC Choices? Do You Have Any Cultural Practices That No May Affect Your HC Choices? Comment Ramsey Who Can We Speak to About Patient's Care Family, friends Identifying Code for Release of Patient Declines to issue Information Health Care Proxy/Next of Kin Gina (friend) Health Care Proxy Emergency Contact Name Alvarez (son) Emergency Contact Advance Directives? Yes: POLST Advance Directives on File No Requested Patient Bring Advanced Yes Directives DOS Power of Hotel Staff Member No PAC Instructions Do not shave/clip surgical site,Durable medical equipment ,Medications to take/avoid, Nasal antibiotic,No ETOH/ petroleum product on skin DOS, NPO,Pre-surgical wash,Sturdy shoes/comfortable clothes,Do not bring valuables and remove jewelry
[2021-10-20] MEDS: CHOLECALCIFEROL (VITAMIN D3) 5,000 UNIT TABLET 10000 UNIT PO (09:47)
[2021-10-20] MEDS: ASPIRIN EC 81 MG TABLET PO ×2 (09:47→20:26)
[2021-10-20] MEDS: ANASTROZOLE 1 MG TABLET PO (09:47)
[2021-10-20] MEDS: OXYCODONE IR 10 MG TABLET PO ×3 (09:47→20:27)
[2021-10-20] MEDS: ACETAMINOPHEN 325 MG TABLET 650 MG PO ×3 (09:51→20:26)
--- NOTE | 2021-10-20 10:30 | PT.IIE ---
Current Diagnoses Unilateral primary osteoarthritis, left knee (10/19/21) Surgery Performed Operation Date: 10/19/21 14:30 Actual Procedures p Total Knee Arthroplasty(Left) - Silvino Mohr MD Surgical History (Last Reviewed 10/19/21 @ 14:26 by Silvino Mohr MD) Anesthesia History of cataract removal with insertion of prosthetic lens (2012) History of elective History of tonsillectomy (1966) Status post breast lumpectomy (1994) Status post cholecystectomy (1990) Status post colonoscopy (1996) Status post colonoscopy (2013) Status post ovarian cystectomy (1975) Medical History (Last Reviewed 10/19/21 @ 14:26 by Silvino Mohr MD) Bilateral primary osteoarthritis of knee Breast cancer (~2017) Cataracts, bilateral (2012) Chickenpox (194) Chronic pain of right knee (10/19/16) Chronic venous insufficiency (09/20/17) Colon polyps (2014) Essential hypertension (09/05/15) Essential tremor (09/20/17) Foot pain (2014) Fractures Herpes (1977) History of adenomatous polyp of colon Hyperglycemia Hyperlipidemia, unspecified (08/31/04) Iron deficiency anemia, unspecified (04/13/02) Irregular menstrual cycle (1958) Knee pain (~01/2017) Large mass of left breast Measles Menopause present (09/11/02) Migraines (1958) Morbid obesity with BMI of 40.0-44.9, adult Mumps Obesity (BMI 30-39.9) Ovarian cyst (1975) Painful menstrual periods (1958) Peripheral edema (12/30/03) Shoulder fracture, left (05/2020) Shoulder fracture, right (2018) Shoulder pain Status post hysteroscopy (12/22/18) Stress incontinence (~2017) Stress incontinence of urine (10/19/16) Tinnitus of both ears (2012) Vitamin B12 deficiency (04/19/02) Physical Therapy Inpatient Evaluation/Re-Eval M1 PT/OT-IP Prior Functional Status Start: 10/20/21 12:36 Freq: NEEDED Status: Active Protocol: Document 10/20/21 10:30 AB (Rec: 10/20/21 12:51 AB [email or web address]) Medical Review Prior Functional Status Medical History Reviewed Yes Communication able to make needs known Mobility and Gait pt stated that she is modified independent with all mobilities and ambulation using a4WW indoors and 2 hurrycanes for outdoor mobility Social History Household Members none Living Arrangements House Number of Floors (Floors) Two Floors Number of Stairs To Enter/Railing? 6 steps B rails from the garage pt stays on main level of the house Home Environment High Toilet,Tub/Shower Doors Home Equipment Four Wheel Walker,Bedside Commode,Raised Toilet Seat w/ Armrests,Shower Seat with Backrest,Hand Held Shower,Grab Bars In Shower Additional Social History Comment pt stated that she has a caregiver Gina who will stay with her for the first 2 days and then her sister-in- law will then stay with her afterwards for 4 days. has 2 hurrycanes pt has an adjustable bed M2 PT-IP Current Condition Start: 10/20/21 12:36 Freq: NEEDED Status: Active Protocol: Document 10/20/21 10:30 AB (Rec: 10/20/21 12:51 AB [email or web address]) Physical Therapy Current Condition Current Condition Evaluation Date 10/20/21 Treatment Diagnosis s/p L TKA; difficulty in walking Onset Date 10/19/21 M3 PT-IP Subjective Start: 10/20/21 12:36 Freq: NEEDED Status: Active Protocol: Document 10/20/21 10:30 AB (Rec: 10/20/21 12:51 AB [id number]) Subjective Physical Therapy Visit Type Type Initial Evaluation Visit Start Time 10:30 Visit Stop Time 11:20 Total Visit Minutes 50 Number of MULTI DISCIPLINED LANGUAGE ANALYST Visits 0 Physical Therapy Visit Comments Patient Comments initially stated that she is not ready but then after education agreed to do PT Therapy Pain Assessment Pain When Pain Assessed At Rest Pain Present Pain Present Pain Reported Location Left Knee Intensity 5 Scale Used Numeric (0 - 10) Pain Behaviors Guarding Pain Management Techniques Apply Cold,Elevation, Modification of Treatment,Re- positioning,Timing of Activity with Medications M4 PT-IP Mobility and Gait Start: 10/20/21 12:36 Freq: NEEDED Status: Active Protocol: Document 10/20/21 10:30 AB (Rec: 10/20/21 12:51 AB [email or web address]) PT-Bed Mobility Assessment Supine to Sit Supine to Sit Standby Assistance Sit to Supine Sit to Supine Minimal Assistance,1 Person Assistance PT-Transfer Assessment Sit to and From Stand Sit to and from Stand Minimal Assistance,1 Person Assistance,Use of Upper Extremities Equipment Transfer Assistive Device Gait Belt,Front Wheeled Walker Orthotic/Prosthetic Devices or Brace: No Transfers Transfer Destination Toilet Transfer Technique ambulated Transfer Ability Level of Assist Minimal Assistance,1 Person Assistance,Use of Upper Extremities Comments Mobility Comments pt completed supine to sit SBA . requires increase time to complete task. completed sit to stand min A and cues. pt requested to use the toilet and ambulated using fWW min A and cues. completed toileting SBA. completed sit to stand from the toilet using grab bar min A and cues. pt ambulated in room ~ 40 ft using FWW and requested to go back to bed. stated that she did not sleep last night. pt refused to do stair climbing training and stated that she is not ready to go home. pt completed sit to supine min A for LE elevation. positioned in bed. call light and table placed within reach. informed pt to obtain a FWW and stated that her friend works for the [employer] and will be able to get her one. caregiver training set up for tomorrow at ~ 1030 am. pt stated that she will inform her caregiver. will f/u. Gait Assessment Gait Gait Assistance Required: Minimum Assistance Distance (Feet) 40 Able to Maintain Weight Bearing Status Yes During Gait Assistive Devices Assistive Device Gait Belt,Front Wheeled Walker Orthotic/Prosthetic Devices or Brace: No Gait Deviations General Gait Pattern Antalgic,Decreased Stride Length,Decreased Feet Clearance,Step-to Gait Factors Limiting Gait Function Factors Limiting Gait Function Decreased Activity Tolerance, Decreased Strength,Limited Range of Motion,Pain,Poor Balance,Poor Safety Awareness PT-Balance Assessment Sitting Balance and Reactions Static Sitting Balance Ability Good Dynamic Sitting Balance Ability Good Standing Balance and Reactions Static Standing Balance Ability Fair Dynamic Standing Balance Ability Fair Device Used FWW M5 PT-IP Objective Assessments Start: 10/20/21 12:36 Freq: NEEDED Status: Active Protocol: Document 10/20/21 10:30 AB (Rec: 10/20/21 12:51 AB [email or web address]) Orientation Orientation/Cognition Level of Alertness Alert Orientation Name,Place,Situation Language Function Ability No Deficits Noted Safety Awareness Decreased Safety Awareness Memory Description No Deficits Noted Gross Range of Motion Lower Extremity ROM Impairments L knee flexion: ~70 deg L knee extension: ~20 deg less to 0 Strength Lower Extremity Strength Assessment Left Impaired Hip 4-/5 Knee 3+/5 Coordination Assessment Gross Coordination Gross Coordination WNL Sensation Assessment Sensation Gross Sensation WNL Muscle Tone Muscle Tone WNL Yes M6 PT-IP Treatment Start: 10/20/21 12:36 Freq: NEEDED Status: Active Protocol: Document 10/20/21 10:30 AB (Rec: 10/20/21 12:51 AB [email or web address]) Physical Therapy Treatment Exercises Exercises Quad Sets,Passive Knee Extension Hang Education Education Provided Precautions,Weight Bearing Status,Post-Op Packet,Safety M7 PT-IP Assessment and Plan Start: 10/20/21 12:36 Freq: NEEDED Status: Active Protocol: Document 10/20/21 10:30 AB (Rec: 10/20/21 12:51 AB [email or web address]) PT Summary Assessment and Plan Potential Rehabilitation Potential Good Status of Condition at Evaluation Stable Summary Impairments Pain,ROM,Strength,Balance, Coordination,Sensation,Tone, Cognition,Bed Mobility, Transfers,Gait,Activity Tolerance Assessment Summary pt requiring min A with mobility. Pt lives alone but will have somebody to assist her for ~ 1 weeks and she will be by herself afterwards. caregiver training set up and pt will call her caregiver if she can come in tomorrow at 1030 am. will f/u. pt has 6 steps to enter the house and needs to complete stair climbing training prior to d/c . will continue to assess progress. Goals Bed Mobility Goal Independent Transfer Goal Independent,Front Wheeled Walker Gait Goal Independent,Front Wheel Walker Gait Distance 150 Other Goals up/down 6 steps B rails SBA Days to Meet Goals 5 Frequency of Treatment Frequency Of Treatment Twice a Day Treatment Plan Physical Therapy Treatment Plan Bed Mobility Training,Transfer Training,Gait Training, Therapeutic Exercise,Balance Retraining,Post Op Education, Discharge Planning,Hot or Cold Pack,Neuromuscular Re-ed, Coordination Retraining,Manual Therapy Other Recommendations and Next Treatment Caregiver trainin/23 Wed: Focus 1030 am Weight Bearing Status Weight Bearing Status Weight Bear as Tolerated Allowed Weight Bearing Amount (enter % LLE WBAT or #) (%) Recommendations To Nursing Amount of Assist Needed 1 Person Assist Discharge Recommendations PT Discharge Recommendations Home with 21/03 Assist Available,Home Health Equipment Needed for Home Before FWW Discharge Transportation Needs at Discharge Private Vehicle
[2021-10-20 11:35] VITALS: BP 116/46; PULSE 58; RESP 16; TEMP 36.4; O2SAT 95
--- NOTE | 2021-10-20 13:50 | PT.IPTN ---
Current Diagnoses Unilateral primary osteoarthritis, left knee (10/19/21) Surgery Performed Operation Date: 10/19/21 14:30 Actual Procedures p Total Knee Arthroplasty(Left) - Silvino Mohr MD Physical Therapy Treatment Note M2 PT-IP Current Condition Start: 10/20/21 12:36 Freq: NEEDED Status: Active Protocol: Document 10/20/21 10:30 AB (Rec: 10/20/21 12:51 AB [email or web address]) Physical Therapy Current Condition Current Condition Evaluation Date 10/20/21 Treatment Diagnosis s/p L TKA; difficulty in walking Onset Date 10/19/21 M3 PT-IP Subjective Start: 10/20/21 12:36 Freq: NEEDED Status: Active Protocol: Document 10/20/21 13:19 KS (Rec: 10/20/21 14:06 KS [id number]) Subjective Physical Therapy Visit Type Type Treatment Note Visit Start Time 13:19 Visit Stop Time 13:50 Total Visit Minutes 31 Number of BUTTER LIQUEFIER Visits 1 Physical Therapy Visit Comments Patient Comments Pt agreeable to work w/ therapy. Therapy Pain Assessment Pain When Pain Assessed During Mobility Pain Present Pain Present Pain Reported M4 PT-IP Mobility and Gait Start: 10/20/21 12:36 Freq: NEEDED Status: Active Protocol: Document 10/20/21 13:19 KS (Rec: 10/20/21 14:06 KS [id number]) PT-Bed Mobility Assessment Supine to Sit Supine to Sit Standby Assistance Sit to Supine Sit to Supine Standby Assistance PT-Transfer Assessment Sit to and From Stand Sit to and from Stand Contact Guard Assistance,1 Person Assistance,Use of Upper Extremities Equipment Transfer Assistive Device Gait Belt,Front Wheeled Walker Orthotic/Prosthetic Devices or Brace: No Transfers Transfer Destination Bed,Toilet Transfer Technique ambulated w/ FWW Transfer Ability Level of Assist Contact Guard Assistance,1 Person Assistance,Use of Upper Extremities Comments Mobility Comments Pt in bed upon arrival from therapy and requesting to use toilet. SBA for sup<>sit from flat bed however pt reports adjustable bed at home. SBA for scooting EOB, CGA and cues for sit<>stand w/ FWW. Pt then ambulated ~10 ft to bathroom, CGA for stand<>sit on toilet, pt able to perform her own pericare and then ambulated additional 35 ft around room and back to bed. CGA and cues for hand placement and controlled descent when sitting. SBA for sit<>sup. Pt reports doing exercises in bed throughout the day. Left in bed w/ SCDs on and all needs in reach. Gait Assessment Gait Gait Assistance Required: Minimum Assistance Distance (Feet) 45 Able to Maintain Weight Bearing Status Yes During Gait Assistive Devices Assistive Device Gait Belt,Front Wheeled Walker Orthotic/Prosthetic Devices or Brace: No Gait Deviations General Gait Pattern Antalgic,Decreased Stride Length,Decreased Feet Clearance,Step-to Gait Factors Limiting Gait Function Factors Limiting Gait Function Decreased Activity Tolerance, Decreased Strength,Limited Range of Motion,Pain,Poor Balance,Poor Safety Awareness Comments Gait Comments Pt w/ step to pattern using FWW SBA to CGA w/ cues. Able to tolerate 45 ft total, but reports fatgiue following. PT-Balance Assessment Sitting Balance and Reactions Static Sitting Balance Ability Good Dynamic Sitting Balance Ability Good Standing Balance and Reactions Static Standing Balance Ability Fair Dynamic Standing Balance Ability Fair Device Used FWW M5 PT-IP Objective Assessments Start: 10/20/21 12:36 Freq: NEEDED Status: Active Protocol: Document 10/20/21 10:30 AB (Rec: 10/20/21 12:51 AB [email or web address]) Orientation Orientation/Cognition Level of Alertness Alert Orientation Name,Place,Situation Language Function Ability No Deficits Noted Safety Awareness Decreased Safety Awareness Memory Description No Deficits Noted Gross Range of Motion Lower Extremity ROM Impairments L knee flexion: ~70 deg L knee extension: ~20 deg less to 0 Strength Lower Extremity Strength Assessment Left Impaired Hip 4-/5 Knee 3+/5 Coordination Assessment Gross Coordination Gross Coordination WNL Sensation Assessment Sensation Gross Sensation WNL Muscle Tone Muscle Tone WNL Yes M6 PT-IP Treatment Start: 10/20/21 12:36 Freq: NEEDED Status: Active Protocol: Document 10/20/21 13:19 KS (Rec: 10/20/21 14:06 KS [id number]) Physical Therapy Treatment Exercises Exercises Ankle Pumps,Passive Knee Extension Hang Education Education Provided Precautions,Weight Bearing Status,Post-Op Packet,Safety Other Treatments Other Treatment Performed Caregiver training 10:30 tomorrow M7 PT-IP Assessment and Plan Start: 10/20/21 12:36 Freq: NEEDED Status: Active Protocol: Document 10/20/21 13:19 KS (Rec: 10/20/21 14:06 KS [id number]) PT Summary Assessment and Plan Potential Rehabilitation Potential Good Status of Condition at Evaluation Stable Summary Impairments Pain,ROM,Strength,Balance, Coordination,Sensation,Tone, Cognition,Bed Mobility, Transfers,Gait,Activity Tolerance Assessment Summary Pt showed improvement w/ mobility this PM, bed mobility SBA, transfers and ambulation CGA. Remains limited by low activity tolerance and weakness, but able to ambulate 45 ft total w/ FWW. Poor eccentric control when sitting , however improved w/ cues for hand placement and weight shift. She will need to ascend /descend 6 steps and complete caregiver training prior to d/ c if going home. Caregiver training scheduled for 10:30 tomorrow AM 10/21. Goals Bed Mobility Goal Independent Transfer Goal Independent,Front Wheeled Walker Gait Goal Independent,Front Wheel Walker Gait Distance 150 Other Goals up/down 6 steps B rails SBA Days to Meet Goals 5 Frequency of Treatment Frequency Of Treatment Twice a Day Treatment Plan Physical Therapy Treatment Plan Bed Mobility Training,Transfer Training,Gait Training, Therapeutic Exercise,Balance Retraining,Post Op Education, Discharge Planning,Hot or Cold Pack,Neuromuscular Re-ed, Coordination Retraining,Manual Therapy Other Recommendations and Next Treatment Caregiver trainin/23 Wed: Focus 1030 am Weight Bearing Status Weight Bearing Status Weight Bear as Tolerated Allowed Weight Bearing Amount (enter % LLE WBAT or #) (%) Recommendations To Nursing Amount of Assist Needed 1 Person Assist Discharge Recommendations PT Discharge Recommendations Home with 21/03 Assist Available,Home Health Equipment Needed for Home Before FWW - pts friend may be [facility] Transportation Needs at Discharge Private Vehicle
[2021-10-20 15:35] VITALS: BP 127/53; PULSE 68; RESP 14; TEMP 36.6; O2SAT 94
[2021-10-20] MEDS: HYDROMORPHONE 2 MG TABLET PO (16:36)
[2021-10-20 19:55] VITALS: BP 129/55; PULSE 60; RESP 18; TEMP 36.2; O2SAT 95
[2021-10-20] MEDS: SODIUM CHLORIDE 0.9% FLUSH 10 ML IV (20:26)
--- NOTE | 2021-10-20 22:20 | PC.NURSE ---
Patient is alert and oriented. Breath sounds CTA with RA sat of 95%. HRR. Denied nausea. BT present and is passing flatus. Denied dysuria, frequency or urgency with urination. Is able to move self in bed. Gait not assessed as not out of bed yet this shift but reportedly gets up with walker and 1 assist. Aquacel dressing to left knee is CDI; dressing is covered with katina bandage. Complained earlier of 7/10 left knee pain and was medicated with oxycodone and ice packs applied and is currently asleep. Is only able to lift left leg slightly off bed and states she has intermittent numbness in bilateral feet. Wearing bilateral calf SCD's. Fall risk score is moderate but patient calls appropriately and verbalizes understanding to call for assistance when needing to get out of bed so alarm is not currently activated.
[2021-10-21] VITALS (7 sets, daily range): BP systolic 129–151; BP diastolic 64–90; PULSE 57–65; RESP 16–18; TEMP 35.8–36.9; O2SAT 93–98
[2021-10-21] MEDS: OXYCODONE IR 10 MG TABLET PO ×5 (00:14→19:20)
--- NOTE | 2021-10-21 07:36 | PM.PNPO.1 ---
Subjective Subjective Date Patient Seen: 10/21/21 Time Patient Seen: 07:36 Interval history: Pain 7.5/10. No fever or chills. No nausea or vomiting. Exam Vital Signs (past 8 hours): - 10/21/21 00:18 10/21/21 04:45 Temperature 97.4 F L 97.2 F L Pulse Rate 59 L 58 L Respiratory Rate 18 18 Blood Pressure 139/69 149/68 H Pulse Oximetry 95 95 Oxygen Delivery Method Room Air Oxygen Flow Rate 0 Narrative Exam Narrative: 76-year-old female resting comfortably in bed in no apparent distress. BMI 37. Dressing is intact. Motor functions intact bilateral lower extremities. Sensation grossly intact to light touch bilateral lower extremities. Const General: cooperative Nutritional Appearance: obese Orientation: alert Objective Labs Result Diagrams: 10/20/21 05:12 [facility] Medical History Bilateral primary osteoarthritis of knee Breast cancer (~2017) Cataracts, bilateral (2012) Chickenpox (194) Chronic pain of right knee (10/19/16) Chronic venous insufficiency (09/20/17) Colon polyps (2014) Essential hypertension (09/05/15) Essential tremor (09/20/17) Foot pain (2014) Fractures Herpes (1977) History of adenomatous polyp of colon Hyperglycemia Hyperlipidemia, unspecified (08/31/04) Iron deficiency anemia, unspecified (04/13/02) Irregular menstrual cycle (1958) Knee pain (~01/2017) Large mass of left breast Measles Menopause present (09/11/02) Migraines (1958) Morbid obesity with BMI of 40.0-44.9, adult [place] Obesity (BMI 30-39.9) Ovarian cyst (1975) Painful menstrual periods (1958) Peripheral edema (12/30/03) Shoulder fracture, left (05/2020) Shoulder fracture, right (2018) Shoulder pain Status post hysteroscopy (12/22/18) Stress incontinence (~2016) Stress incontinence of urine (10/19/16) Tinnitus of both ears (2012) Vitamin B12 deficiency (04/19/02) Surgical History Anesthesia History of cataract removal with insertion of prosthetic lens (2012) History of elective History of hysteroscopy (12/22/18) History of lumpectomy of left breast (06/27/18) History of tonsillectomy (1966) Hx of surgical procedure (1973) Status post breast lumpectomy (1994) Status post cholecystectomy (1990) Status post colonoscopy (1996) Status post colonoscopy (2013) Status post ovarian cystectomy (1975) Family History Father Parkinson's disease Mother Cancer Brother Parkinson's disease Grandfather No problems noted. Grandmother Cancer Grandfather No problems noted. Grandmother No problems noted. 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 Patient will be maintained on standard total knee replacement protocol with weight-bearing as tolerated Multimodal pain management Aspirin and SCDs for DVT prophylaxis Disposition likely home today physical therapy if safe for home environment.
[2021-10-21] MEDS: CHOLECALCIFEROL (VITAMIN D3) 5,000 UNIT TABLET 10000 UNIT PO (09:07)
[2021-10-21] MEDS: ACETAMINOPHEN 325 MG TABLET 650 MG PO ×3 (09:07→20:30)
[2021-10-21] MEDS: ASPIRIN EC 81 MG TABLET PO ×2 (09:07→20:30)
[2021-10-21] MEDS: ANASTROZOLE 1 MG TABLET PO (09:08)
[2021-10-21] MEDS: HYDROMORPHONE 2 MG TABLET PO ×3 (10:59→17:13)
[2021-10-21] MEDS: SODIUM CHLORIDE 0.9% FLUSH 10 ML IV ×2 (11:00→20:30)
--- NOTE | 2021-10-21 11:12 | PT.IPTN ---
Current Diagnoses Unilateral primary osteoarthritis, left knee (10/20/21) Surgery Performed Operation Date: 10/19/21 14:30 Actual Procedures p Total Knee Arthroplasty(Left) - Silvino Mohr MD Physical Therapy Treatment Note M2 PT-IP Current Condition Start: 10/20/21 12:36 Freq: NEEDED Status: Active Protocol: Document 10/21/21 10:40 SP (Rec: 10/21/21 13:06 SP [id number]) Physical Therapy Current Condition Current Condition Evaluation Date 10/20/21 Treatment Diagnosis s/p L TKA; difficulty in walking Onset Date 10/19/21 M3 PT-IP Subjective Start: 10/20/21 12:36 Freq: NEEDED Status: Active Protocol: Document 10/21/21 10:40 SP (Rec: 10/21/21 13:06 SP [id number]) Subjective Physical Therapy Visit Type Type Treatment Note Visit Start Time 10:40 Visit Stop Time 11:12 Total Visit Minutes 32 Notes Friend was in room when arrived for caregiver training , was able to get FWW from Soroptomist in room to use: unable to assist due to pt in amt pain, observed tx only. AUDITOR MEDICAL CLAIMS provided 2nd person assist needed throughout tx. VItals taken during tx: seated in chair: BP 148/70 HR 65 SaO2 98% on RA. supine, +SOB: BP 198/89 HR 59 8/10 pain -premedicated. Number of DIGITAL FORENSIC EXAMINER Visits 2 Physical Therapy Visit Comments Patient Comments Pt reported in alot of pain seated in chair when arrived. Pt stated I am not going to be able to do stairs and get into my house. Patient Goals Agreeable to going to SNF to get stronger before going home . Pt stated and friend varified: has 1 curb step onto uneven grass 25 ft then 30 ft sidewalk to front 3 step porch or 6 stairs in garage B HR. Also elevated bed needs to get onto at home. Therapy Pain Assessment Pain When Pain Assessed At Rest Pain Present Pain Present Pain Reported Location Left Knee Intensity 8 Scale Used at rest reclined in chair Description Acute,Pressure Pain Behaviors Facial Grimacing,Holding Area, Moaning,Restlessness,Wincing Pain Management Techniques Apply Cold,Distraction, Modification of Treatment,Re- positioning,Timing of Activity with Medications M4 PT-IP Mobility and Gait Start: 02/22/22 12:36 Freq: NEEDED Status: Active Protocol: Document 10/21/21 10:40 SP (Rec: 10/21/21 13:06 SP [id number]) PT-Bed Mobility Assessment Sit to Supine Sit to Supine Standby Assistance PT-Transfer Assessment Sit to and From Stand Sit to and from Stand Contact Guard Assistance, Maximum Assistance,2 Person Assistance,Use of Upper Extremities Equipment Transfer Assistive Device Gait Belt,Front Wheeled Walker Orthotic/Prosthetic Devices or Brace: No Transfers Transfer Destination Bed Transfer Technique ambulated w/ FWW Transfer Ability Level of Assist Moderate Assistance,1 Person Assistance,Use of Upper Extremities Comments Mobility Comments Pt reclined in chair increased L knee pain unable to bed only AP able to perform. DIGITAL FORENSIC EXAMINER assisted lower leg rest of chair with full support LLE to floor, unable to support self . Scoot to EOchair CGA. Sit> stand Max A x1, CGA x1 of AUDITOR MEDICAL CLAIMS for safety, Heavy WB BUE on FWW, cued L quad facilitation during midstance for safety. step pivot cued each LE and FWW sequencing, spacial awareness back up to bed, Stand>sit cued reaching back slow descent. Mod A x1. Sit> Supine SBA with support of strap on LLE, strap placement by DIGITAL FORENSIC EXAMINER, able get self into bed and scoot up via BUE and RLE scooting. Reminded nothing under L knee to allow extension ROM. Donned SCDs, armed bed and provided call light and all needs before left. DIGITAL FORENSIC EXAMINER discussed decrease in mobility, recommending SNF due to not ableto walk and mange stairs at this time, pt agreed. Nurse was notified of pain and stated will consult physician regarding medication assist if needed. Will assess pm tx progress. Gait Assessment Comments Gait Comments SPT only chair>bed, see details, step to 2 ft, heavy BUE WB on FWW, cued L quad facilitation during WB prevent buckling, not tolerate full WB on LLE with UE support. Stair Climbing Assessment Comments Stair Climbing Comments Unable at this time, decrease WB on LLE and elevated pain and BP. Will need to assess 1 curb onto uneven grass 25 ft then 30 ft sidewalk w/ fWW to front enterance vs 6 stairs B HR for garage enterance. PT-Balance Assessment Sitting Balance and Reactions Static Sitting Balance Ability Good Dynamic Sitting Balance Ability Fair Standing Balance and Reactions Static Standing Balance Ability Fair Dynamic Standing Balance Ability Poor Device Used FWW M5 PT-IP Objective Assessments Start: 10/20/21 12:36 Freq: NEEDED Status: Active Protocol: Document 10/20/21 10:30 AB (Rec: 10/20/21 12:51 AB [id number]) Orientation Orientation/Cognition Level of Alertness Alert Orientation Name,Place,Situation Language Function Ability No Deficits Noted Safety Awareness Decreased Safety Awareness Memory Description No Deficits Noted Gross Range of Motion Lower Extremity ROM Impairments L knee flexion: ~70 deg L knee extension: ~20 deg less to 0 Strength Lower Extremity Strength Assessment Left Impaired Hip 4-/5 Knee 3+/5 Coordination Assessment Gross Coordination Gross Coordination WNL Sensation Assessment Sensation Gross Sensation WNL Muscle Tone Muscle Tone WNL Yes M6 PT-IP Treatment Start: 10/20/21 12:36 Freq: NEEDED Status: Active Protocol: Document 10/21/21 10:40 SP (Rec: 10/21/21 13:06 SP [id number]) Physical Therapy Treatment Exercises Exercises Ankle Pumps,Quad Sets Education Education Provided Precautions,Weight Bearing Status,Post-Op Packet,Safety M7 PT-IP Assessment and Plan Start: 10/20/21 12:36 Freq: NEEDED Status: Active Protocol: Document 10/21/21 10:40 SP (Rec: 10/21/21 13:06 SP [id number]) PT Summary Assessment and Plan Potential Rehabilitation Potential Good Status of Condition at Evaluation Stable Summary Impairments Pain,ROM,Strength,Balance, Coordination,Sensation,Tone, Cognition,Bed Mobility, Transfers,Gait,Activity Tolerance Progress Towards Goals Slow Progress due to Pain,Slow Progress due to Activity Tolerance,Slow Progress - Other Assessment Summary Pt unable to complete caregiver training due to pain and increased assist required Max x1, CGA x1 w/ FWW SPT chair> bed decrease LLE WB and knee pain elevated 8/10 premedicated. sit>supine SBA with strap on LLE self mob. Nursing assisting pain control . At this time recommending SNF for progress strength and WB w/ FWW progression in functional mobility vs HHPT due to increase support required. Will assess progress in pm. If improved, can revisit CGT. Goals Bed Mobility Goal Independent Transfer Goal Independent,Front Wheeled Walker Gait Goal Independent,Front Wheel Walker Gait Distance 150 Other Goals up/down 6 steps B rails SBA Days to Meet Goals 5 Frequency of Treatment Frequency Of Treatment Twice a Day Treatment Plan Physical Therapy Treatment Plan Bed Mobility Training,Transfer Training,Gait Training, Therapeutic Exercise,Balance Retraining,Post Op Education, Discharge Planning,Hot or Cold Pack,Neuromuscular Re-ed, Coordination Retraining,Manual Therapy Other Recommendations and Next Treatment transfers, distance gait w/ Focus fWW, stair mgt, CGT when safe and able. Weight Bearing Status Weight Bearing Status Weight Bear as Tolerated Allowed Weight Bearing Amount (enter % LLE WBAT or #) (%) Recommendations To Nursing Amount of Assist Needed 2 Person Assist Discharge Recommendations PT Discharge Recommendations Home with 21/03 Assist Available,Home Health,SNF Rehab,Home vs SNF Equipment Needed for Home Before Friend acquired FWW from Discharge Soroptomist, in hospital room/ labeled. Transportation Needs at Discharge Private Vehicle
--- NOTE | 2021-10-21 13:55 | CM.DPC ---
SNF vs HH Per Ortho PA, pt may be stable for d/c home with friend today after PT. Per PT, CG training was set up for 1030 and attempted to work with pt but due to Orthostatics pt was dizzy, nauseous and unable to ambulate or complete stairs for safe d/c home today and discharge was cancelled when RN updated Ortho. Per SWING TENDER, if pt does not improve and cannot complete stairs then recommend SNF and pt would be agreeable. SW met bedside with pt and explained role and pt laying in bed with eyes closed and sweaty and clearly not feeling well or able to sit up at this time. SW discussed options of home with friend to stay and HH vs SNF. Pt currently feels SNF is needed and SW explained that currently she is OBS Status and would need to be Skillable for SNF for Medicare to cover and would need COVID waiver for SNF. Pt agreeable currently to referral to any SNF that could accept and if improves would be agreeable to HH. Pt confirms that she was getting Chemo for breast cancer but has been off her oral chemo since Aug 23 2021 while awaiting her knee surgery and plan is to remain off oral chemo Ibrance for at least 2 weeks post op but has remained on her oral hormone medication that she has a 90 day supply of at home that should could bring to SNF if needed. Pt also is UNVACCINATED for COVID due to Oncologist recommendation at this time. SW updated her that she would likely be in quarantine/isolation for at least a few days at SNF and pt acknowledges understanding and still agreeable. [facility] unfortunately cannot accept pt at this time as they do not have space to accommodate a private room for isolation at admission. CAMMY called [facility] and they could likely accommodate unvaccinated admission and updated on oral chemo plan and info above and willing to review and MALIHA Tuttle kindly faxed referral. CAMMY also called [facility] admissions and left [facility] and requested [facility] Marry fax referral. Plan: SW to follow closely for further PT to determine home with friend assist and new HH referral vs SNF tomorrow. ARNALDO Chun
--- NOTE | 2021-10-21 14:16 | CM.DPNOTE ---
Emailed snf referral per Sandi to [facility] & Petros at [place]. Marry Pimentel CM Assist.
--- NOTE | 2021-10-21 15:05 | PT.IPTN ---
Current Diagnoses Unilateral primary osteoarthritis, left knee (10/20/21) Surgery Performed Operation Date: 10/19/21 14:30 Actual Procedures p Total Knee Arthroplasty(Left) - Silvino Mohr MD Physical Therapy Treatment Note M2 PT-IP Current Condition Start: 10/20/21 12:36 Freq: NEEDED Status: Active Protocol: Document 10/21/21 10:40 SP (Rec: 10/21/21 13:06 SP [id number]) Physical Therapy Current Condition Current Condition Evaluation Date 10/20/21 Treatment Diagnosis s/p L TKA; difficulty in walking Onset Date 10/19/21 M3 PT-IP Subjective Start: 10/20/21 12:36 Freq: NEEDED Status: Active Protocol: Document 10/21/21 14:42 SP (Rec: 10/21/21 17:26 SP [id number]) Subjective Physical Therapy Visit Type Type Treatment Note Visit Start Time 14:42 Visit Stop Time 15:05 Total Visit Minutes 23 Notes ROTARY SOIL STABILIZER OPERATOR in room when arrived, assisting pt back to bed from use of bathroom. Number of MANAGER INVENTORY CONTROL Visits 3 Physical Therapy Visit Comments Patient Comments Pt reported in pain but agreeable to working with therapy. Patient Goals Agreeable to going to SNF to get stronger before going home . Therapy Pain Assessment Pain When Pain Assessed At Rest Pain Present Pain Present Pain Reported Location Left Knee Intensity 6 Scale Used at rest in bed, 7/10 with mobility Description Aching Pain Behaviors Facial Grimacing,Moaning, Restlessness,Wincing Pain Management Techniques Apply Cold,Distraction, Modification of Treatment,Re- positioning,Timing of Activity with Medications M4 PT-IP Mobility and Gait Start: 10/20/21 12:36 Freq: NEEDED Status: Active Protocol: Document 10/21/21 14:42 SP (Rec: 10/21/21 17:26 SP [id number]) PT-Bed Mobility Assessment Supine to Sit Supine to Sit Contact Guard Assistance, Minimal Assistance,1 Person Assistance,Head of Bed Elevated,Bedrails Sit to Supine Sit to Supine Contact Guard Assistance, Minimal Assistance,1 Person Assistance,Bedrails Scooting Scooting to Edge of Bed Contact Guard Assistance PT-Transfer Assessment Sit to and From Stand Sit to and from Stand Minimal Assistance,1 Person Assistance,Use of Upper Extremities Equipment Transfer Assistive Device Gait Belt,Front Wheeled Walker Orthotic/Prosthetic Devices or Brace: No Transfers Transfer Destination Bed Transfer Technique ambulated w/ FWW Transfer Ability Level of Assist Minimal Assistance,1 Person Assistance,Use of Upper Extremities Comments Mobility Comments Pt supine in bed when arrived. Instructed post op ex: Heel slide AAROM Mod A approx 40 degree flexion. Discussed use of strap on foot for self assist for progression in ROM. Elevated supine>sit w/ bed rail, min A for LLE support to EOB, CGA to scoot to EOB. Pt Sit>stand and forward gait Min A w/ FWW to room bench and back step to patterning heavy BUE WB on FWW, cued L quad facilitation. Pt returned to bed, Min A slow descent and LE support into bed. Pt able self lateral scoot using LLE and BUE onbed rails. Pt had CP and SCDs donned, all needs including call light in reach before left. Will continue to assess progress in am. Gait Assessment Gait Gait Assistance Required: Minimum Assistance Distance (Feet) 20 Able to Maintain Weight Bearing Status Yes During Gait Assistive Devices Assistive Device Gait Belt,Front Wheeled Walker Orthotic/Prosthetic Devices or Brace: No Gait Deviations General Gait Pattern Antalgic,Decreased Stride Length,Decreased Feet Clearance,Step-to Gait Factors Limiting Gait Function Factors Limiting Gait Function Decreased Activity Tolerance, Decreased Strength,Limited Range of Motion,Pain,Poor Balance,Poor Safety Awareness Comments Gait Comments see mobility comments Stair Climbing Assessment Comments Stair Climbing Comments Unable to assess due to pain, decrease LLE WB stancet time, Heavy BUE WB on FWW, not safe at this time. PT-Balance Assessment Sitting Balance and Reactions Static Sitting Balance Ability Good Dynamic Sitting Balance Ability Fair Standing Balance and Reactions Static Standing Balance Ability Fair Dynamic Standing Balance Ability Poor Device Used FWW M5 PT-IP Objective Assessments Start: 10/20/21 12:36 Freq: NEEDED Status: Active Protocol: Document 10/20/21 10:30 AB (Rec: 10/20/21 12:51 AB [id number]) Orientation Orientation/Cognition Level of Alertness Alert Orientation Name,Place,Situation Language Function Ability No Deficits Noted Safety Awareness Decreased Safety Awareness Memory Description No Deficits Noted Gross Range of Motion Lower Extremity ROM Impairments L knee flexion: ~70 deg L knee extension: ~20 deg less to 0 Strength Lower Extremity Strength Assessment Left Impaired Hip 4-/5 Knee 3+/5 Coordination Assessment Gross Coordination Gross Coordination WNL Sensation Assessment Sensation Gross Sensation WNL Muscle Tone Muscle Tone WNL Yes M6 PT-IP Treatment Start: 10/20/21 12:36 Freq: NEEDED Status: Active Protocol: Document 10/21/21 14:42 SP (Rec: 10/21/21 17:26 SP [id number]) Physical Therapy Treatment Exercises Exercises Ankle Pumps,Quad Sets,Heel Slides,Supine Hip Abduction Knee ROM Measurement approx 40 deg L knee flexion Education Education Provided Precautions,Weight Bearing Status,Post-Op Packet,Safety M7 PT-IP Assessment and Plan Start: 10/20/21 12:36 Freq: NEEDED Status: Active Protocol: Document 10/21/21 14:42 SP (Rec: 10/21/21 17:26 SP [id number]) PT Summary Assessment and Plan Potential Rehabilitation Potential Good Status of Condition at Evaluation Stable Summary Impairments Pain,ROM,Strength,Balance, Coordination,Sensation,Tone, Cognition,Bed Mobility, Transfers,Gait,Activity Tolerance Progress Towards Goals Slow Progress due to Pain,Slow Progress due to Activity Tolerance,Slow Progress - Other Assessment Summary Pt is motivated, requires Min A for most of mobility with bed support for transfers and FWW BUE heavily support in standing due to pain (with premedication) and decrease LLE stability in standing using FWW. Pt would benefit from skilled PT to progress ROM, strength for functional mobility before returning home . She lives alone and unsure if cargiver and sister can provide assiste needed at this time. Goals Bed Mobility Goal Independent Transfer Goal Independent,Front Wheeled Walker Gait Goal Independent,Front Wheel Walker Gait Distance 150 Other Goals up/down 6 steps B rails SBA Days to Meet Goals 5 Frequency of Treatment Frequency Of Treatment Twice a Day Treatment Plan Physical Therapy Treatment Plan Bed Mobility Training,Transfer Training,Gait Training, Therapeutic Exercise,Balance Retraining,Post Op Education, Discharge Planning,Hot or Cold Pack,Neuromuscular Re-ed, Coordination Retraining,Manual Therapy Other Recommendations and Next Treatment transfers, distance gait w/ Focus fWW, stair mgt if able, CGT for safe DC home. Weight Bearing Status Weight Bearing Status Weight Bear as Tolerated Allowed Weight Bearing Amount (enter % LLE WBAT or #) (%) Recommendations To Nursing Amount of Assist Needed 1 Person Assist Discharge Recommendations PT Discharge Recommendations SNF Rehab Equipment Needed for Home Before Friend acquired FWW from Discharge Soroptomist, in hospital room/ labeled. Transportation Needs at Discharge Private Vehicle
--- NOTE | 2021-10-21 22:02 | PC.NURSE ---
Patient is alert and oriented. Breath sounds CTA with RA sat of 97%. HRR but bradycardic with rate of 57 bpm. Denies nausea. BT present and is passing flatus but reports only a very small stool earlier this morning. Denies dysuria, frequency or urgency with urination. Is getting out of bed with walker and 1 assist to BSC to void. Having lots of pain with movement so is using prn Dilaudid and oxycodone as well as scheduled Tylenol; ice packs also in use. Aquacel dressing to left knee intact and covered with katina wrap. Left LE is swollen. Intermittent, chronic numbness in bilateral feet. Is unable to lift left leg off bed tonight. Wearing bilateral calf SCD's. Fall risk score is moderate but patient is oriented and calls for assistance appropriately so bed alarm is not activated at this time.
[2021-10-21] MEDS: OXYCODONE IR 5 MG TABLET PO (23:43)
[2021-10-22] MEDS: OXYCODONE IR 5 MG TABLET PO (03:08)
[2021-10-22] MEDS: HYDROMORPHONE 2 MG TABLET PO ×3 (04:26→11:26)
[2021-10-22 04:27] VITALS: BP 145/74; PULSE 58; RESP 17; TEMP 36.2; O2SAT 95
[2021-10-22] MEDS: CHOLECALCIFEROL (VITAMIN D3) 5,000 UNIT TABLET 10000 UNIT PO (08:12)
[2021-10-22] MEDS: ACETAMINOPHEN 325 MG TABLET 650 MG PO (08:12)
[2021-10-22] MEDS: ANASTROZOLE 1 MG TABLET PO (08:13)
[2021-10-22] MEDS: DOCUSATE 100 MG CAPSULE PO (08:13)
[2021-10-22] MEDS: ASPIRIN EC 81 MG TABLET PO (08:13)
--- NOTE | 2021-10-22 08:44 | DI.RAD.S_ITS ---
PROCEDURE: XR KNEE LT 1TO2V INDICATIONS: Severe knee pain w WB s/p left TKA TECHNIQUE: 2 views of the knee were acquired. COMPARISON: [facility], [facility], XR KNEE ARTHRITIC SERIES BI, 06/22/2021, 14:57. [facility], [facility], XR KNEE LT 1TO2V, 10/19/2021, 16:46. [facility], [facility], XR KNEE RT 3V, 02/13/2019, 5:41. FINDINGS: Bones: The left knee arthroplasty is unchanged. No periprosthetic lucency to suggest loosening or infection. No fractures or dislocations. No suspicious bony lesions. Soft tissues: No joint effusion. No suspicious soft tissue calcifications. IMPRESSION: Stable appearance of the left knee arthroplasty. Dictated by: Osmani Baird M.D. on 10/22/2021 at 9:04 Approved by: Osmani Baird M.D. on 10/22/2021 at 9:06
--- NOTE | 2021-10-22 08:51 | PM.DS.1 ---
History of Present Illness History of Present Illness Date Patient Seen: 10/22/21 Time Patient Seen: 08:52 Chief complaint: Left knee pain s/p left TKA Narrative: Patient is complaining of severe to excruciating pain when not at rest, especially with weight-bearing. She denies any chest pain or shortness of breath, no new numbness or tingling. The patient feels she is unable to unsafe to go home as she has multiple stairs and lives alone. She has generalized deconditioning and is morbidly obese. She is a good candidate for an SNF today. Discharge Providers Provider Date of admission: 10/20/21 15:23 Discharge Date: 10/22/21 Primary care physician: Taco Garcia MD Consults: 10/19/21 17:45 Consult to Discharge Planning Routine Comment: Consult to Physical Therapy Evaluate & Treat Comment: Physician Instructions: postop TKA protocol Discharge provider: Petra Calvert PA-C Summary Hospital Course Discharge Diagnosis: -left knee osteoarthritis -morbid obesity -generalized deconditioning, history of cancer Hospital Course: Operative Date/Time/Diagnoses Date of procedure: 10/19/21 Time of procedure: 16:36 Procedure & Clinicians Procedure: Left total knee replacement Same procedure as scheduled: Yes Indications: The patient has had progressively worsening left knee pain with radiographic changes consistent with arthritis. Non-operative management has failed and the patient has requested total knee replacement. The risks, benefits and alternatives to surgery were discussed with the patient prior to proceeding. Risks discussed included, but were not limited to, failure to relieve pain, stiffness, infection, nerve damage, deep venous thrombosis, pulmonary embolism, stroke, coma, heart attack, permanent paralysis and , as well as the potential need for eventual revision of the prosthetic. Surgeon: Silvino Mohr Councilor: Antoine Hernandez Click Yes if Unassisted: No Anesthesia Type: General, Spinal and Local Operative Notes Findings: Severe tricompartmental osteoarthritis Closure Type: primary Specimen(s): none sent Prosthetic devices, grafts, tissues, transplants, or devices: Implants used in this procedure were manufactured by the [employer] and [employer] and included the BCS II Journey total knee replacement with a size 4 left cobalt chromium femur, a size 3 non porous tibial base plate, and 11 m cross-linked polyethylene tibial insert and a 32 mm oval Cheri II patella. Applied: implant(s) Estimated Blood Loss (mL): 25 Blood products transfused: none Tourniquet time (min): 51 Status at Discharge Cognitive/behavioral status at discharge: oriented Functional status at discharge: uses cane/walker Overall status at discharge: patient is progressing back to baseline Exam Vital Signs (past 8 hours): - 10/22/21 04:27 Temperature 97.1 F L Pulse Rate 58 L Respiratory Rate 17 Blood Pressure 145/74 H Pulse Oximetry 95 Oxygen Delivery Method Room Air Oxygen Flow Rate 0 Narrative Exam Narrative: Pleasant 76-year-old female, resting comfortably in her chair, no acute distress. Dressing is clean, dry, intact. Lower extremity: Motor functions are grossly intact, sensation is grossly intact to light touch, calves are soft and nontender to palpation. Objective Labs Result Diagrams: 10/20/21 05:12 PENDING SALE TO [facility] Medical History Bilateral primary osteoarthritis of knee Breast cancer (~2017) Cataracts, bilateral (2012) Chickenpox (194) Chronic pain of right knee (10/19/16) Chronic venous insufficiency (09/20/17) Colon polyps (2014) Essential hypertension (09/05/15) Essential tremor (09/20/17) Foot pain (2014) Fractures Herpes (1977) History of adenomatous polyp of colon Hyperglycemia Hyperlipidemia, unspecified (08/31/04) Iron deficiency anemia, unspecified (04/13/02) Irregular menstrual cycle (1958) Knee pain (~01/2017) Large mass of left breast Measles Menopause present (09/11/02) Migraines (1958) Morbid obesity with BMI of 40.0-44.9, adult [place] Obesity (BMI 30-39.9) Ovarian cyst (1975) Painful menstrual periods (1958) Peripheral edema (12/30/03) Shoulder fracture, left (05/2020) Shoulder fracture, right (2018) Shoulder pain Status post hysteroscopy (12/22/18) Stress incontinence (~2016) Stress incontinence of urine (10/19/16) Tinnitus of both ears (2012) Vitamin B12 deficiency (04/19/02) Surgical History Anesthesia History of cataract removal with insertion of prosthetic lens (2012) History of elective History of hysteroscopy (12/22/18) History of lumpectomy of left breast (06/27/18) History of tonsillectomy (1966) Hx of surgical procedure (1973) Status post breast lumpectomy (1994) Status post cholecystectomy (1990) Status post colonoscopy (1996) Status post colonoscopy (2013) Status post ovarian cystectomy (1975) Family History Father Parkinson's disease Mother Cancer Brother Parkinson's disease Grandfather No problems noted. Grandmother Cancer Grandfather No problems noted. Grandmother No problems noted. 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 As noted above she uses a walker at baseline. She is independently been able to get in and out of bed several times over the evening. Plan of Treatment: -mobilize with PT. Weightbearing as tolerated with front wheel walker -AP lateral left knee x-ray was ordered today, and given her severe pain with weight-bearing. I suspect this pain is likely due to dependent edema and have educated her about ankle pumps and elevating toes above the nose. -aspirin 81 mg twice daily x6 weeks for DVT prophylaxis -multimodal pain management, including oral Dilaudid for severe pain, oxy code own 5-10 mg for moderate pain, and Tylenol 500 mg q.4 hours -DC to SNF today, as long as x-rays within normal limits. The Patient is unsafe to do stairs alone and has generalized deconditioning, with a history of cancer. She is also having issues with pain management Discharge Plan Discharge Plan Patient Disposition: SNF I certify the postop hospital chcf care is medically necessary on a continuing basis for any conditions for which he/ she received care during this hospitalization.: Yes The receiving facility has agreed to accept transfer and provide medical treatment.: Yes Discharge orders & Medications Prescriptions: New acetaminophen 325 mg Tablet 650 mg PO TID 30 Days Qty: 180 0RF aspirin 81 mg Tablet,Delayed Release (Dr/Ec) 81 mg PO BID 42 Days Qty: 84 0RF hydromorphone 2 mg Tablet 2 mg PO Q3H PRN (Reason: Pain, Severe (7-10)) Qty: 20 0RF polyethylene glycol 3350 17 gram Powder In Packet 17 g PO DAILY PRN (Reason: Constipation) Qty: 30 0RF oxycodone 5 mg tablet 5 mg PO Q4H PRN (Reason: Moderate postop pain) Qty: 40 0RF Continued Citracal Plus Bone Density 300-200-13.5 mg-unit-mg tablet 1 tab PO DAILY 0RF cholecalciferol (vitamin D3) 25 mcg (1,000 unit) capsule 10,000 unit PO DAILY 0RF (DME) community mushrooms 0 .ROUTE .MEDSUPPLY 0RF Label Comments: Pt states takes pill form for health, not pain and last taken 7 days ago magnesium glycinate-mag oxide 120 mg magnesium capsule 120 mg PO DAILY 0RF melatonin-pyridoxine (vit B6) 5-1 mg tablet 1 tab PO BEDTIME PRN (Reason: Sleep) 0RF methylsulfonylmethane 1,000 mg tablet 1,000 mg PO BID 0RF naproxen sodium [Flanax (naproxen)] 220 mg tablet 220 mg PO BID PRN (Reason: Pain) 0RF Label Comments: pt states she does not take it with the hydrocodone zinc amino acid chelate 50 mg tablet 50 mg PO DAILY 0RF Modified Dixie Pectin 1.5 mg PO DAILY 0RF Vitamin B12 See Rx Instructions .ROUTE .COMPLEX 0RF Rx Instructions: 1 dropperful PO DAILY Ibrance 100 mg capsule 100 mg PO DAILY 0RF Label Comments: 09/09/21 Pt states currently not taking prior to surgery but plans to restart after surgery Rx Instructions: administer on days 1 through 21 of a 28-day treatment cycle anastrozole 1 mg tablet 1 mg PO DAILY 0RF acyclovir 200 mg Capsule 200 mg PO QID PRN (Reason: Herpes flare) 0RF Discontinued hydrocodone-acetaminophen 5-325 mg tablet 1 tab PO Q4-6H PRN (Reason: Pain) 0RF Follow up/Referrals: Taco Garcia MD [Primary Care Provider] - Silvino Mohr MD [Physician] - 2 Weeks Diet/Activity/Treatments Diet: Diet as Tolerated and Regular Activity: You may bear weight as tolerated on your left leg. Cold/Heat Therapy: You may apply ice to the left knee for 15 minutes every hour as needed for pain control. Other treatments: Dressing/Wound care: -Keep Aquacell dressing in place until postoperative follow-up office visit. -Okay to shower. Keep wound out of direct water stream. No soaking or submerging until all the scabs fall off (approximately 6 weeks). -Please call the office if dressing becomes wet, soiled, or saturated. Activities: -Weight-bearing as tolerated. Use front wheeled walker, and progress to cane when safe. -Continue with home exercises as directed by your physical therapist. -Elevate ?toes above the nose if you have significant swelling in your lower leg. (A wedge pillow is easiest.) -Ice your incision as needed for pain/inflammation/swelling. Protect your skin with a folded pillowcase. Follow-up: -Follow-up with your surgeon or PA in the office in 10-14 days after surgery. -Follow-up with your surgeon 6 weeks postoperatively. Call the office if you have chest pain, shortness of breath, significant swelling that will not resolve with elevating, fever over 101?, significantly worsening pain. [facility]: [phone] Skin/Wound/Dressing Care Report to your healthcare provider any signs of infection, such as:: chills, fever, night sweats, increased pain, unusual drainage and unusual redness Dressing: You may remove the Tim wrap 3 days after surgery and shower normally with the deeper dressing in place. If the central strip of the deeper dressing becomes saturated with either water or blood, please call the office to have it evaluated. [facility] Reason for rehabilitation: Post-operative therapy Rehab type: Physical therapy and Occupational therapy Visit Report/Discharge Packet Instructions: DI for Knee Replacement, DI for Prescription Opioid Use Stand Alone Forms: Surgery Discharge Discharge Data Primary Care Provider: Taco Garcia Attending Provider: Silvino Mohr
[2021-10-22 09:15] VITALS: BP 134/60; PULSE 67; RESP 16; TEMP 36.3; O2SAT 98
--- NOTE | 2021-10-22 09:30 | CM.DPC ---
Addendum entered by Haley Subramanian R.N. 10/22/21 11:20: Marie at [facility] confirmed that they can accept patient today, and can pharmacy picking tech patient at noon. Updated nurse, Chel and Alejo, and updated white board. All orders have already been faxed over to [facility]. Original Note: DCP Cont: Patient has discharge orders for [facility]. Marlena Soliz had been sent referral. Spoke to Susy, let her know ankit this would be a COVID waiver, and patient is unvaccinated, would need to be quarantined. Susy indicated, she can't accept today, possibly tomorrow, has to move some beds around. Her concern also is the cost of her chemo meds, unless she can supply. Confirmed with patient that she does have her medications, but will be off of them for the next 2 weeks, post surgery. Called Marie at [facility]. She indicated, she may be able to accept patient today, they have beds. Having Marry fax [facility], completed waiver, had Petra Calvert sign them, she already signed medication sheets. Patient is ok with being quarantined, and aware that [facility] may be able to accept today. Nurse, Chel, will get rapid COVID on her. P: Patient has discharge orders for today. Will follow up with Marie at [facility] after she reviews, sent referral, also sending DC Summary, PASSR, and signed med sheets. Haley Subramanian RN/Deputy Sheriff Lieutenant
--- NOTE | 2021-10-22 09:38 | PT.IPTN ---
Current Diagnoses Unilateral primary osteoarthritis, left knee (10/20/21) Surgery Performed Operation Date: 10/19/21 14:30 Actual Procedures p Total Knee Arthroplasty(Left) - Silvino Mohr MD Physical Therapy Treatment Note M2 PT-IP Current Condition Start: 10/20/21 12:36 Freq: NEEDED Status: Active Protocol: Document 10/22/21 09:08 SP (Rec: 10/22/21 10:28 SP [id number]) Physical Therapy Current Condition Current Condition Evaluation Date 10/20/21 Treatment Diagnosis s/p L TKA; difficulty in walking Onset Date 10/19/21 M3 PT-IP Subjective Start: 10/20/21 12:36 Freq: NEEDED Status: Active Protocol: Document 10/22/21 09:08 SP (Rec: 10/22/21 10:28 SP [id number]) Subjective Physical Therapy Visit Type Type Treatment Note Visit Start Time 09:03 Visit Stop Time 09:38 Total Visit Minutes 35 Number of POT PUNCHER Visits 4 Physical Therapy Visit Comments Patient Comments Pt reported in pain but agreeable to working with therapy. Patient Goals Use toilet and possible get to sink wash hands. Self motivated to go to SNF to get stronger before going home. Therapy Pain Assessment Pain When Pain Assessed At Rest Pain Present Pain Present Pain Reported Location Left Knee Intensity 6 Scale Used Numeric (0 - 10) Description Aching,Pressure,Spasm,With Movement Pain Behaviors Facial Grimacing,Moaning, Restlessness Pain Management Techniques Apply Cold,Distraction, Modification of Treatment,Re- positioning,Timing of Activity with Medications M4 PT-IP Mobility and Gait Start: 10/20/21 12:36 Freq: NEEDED Status: Active Protocol: Document 10/22/21 09:08 SP (Rec: 10/22/21 10:28 SP [id number]) PT-Transfer Assessment Sit to and From Stand Sit to and from Stand Minimal Assistance,Moderate Assistance,1 Person Assistance ,Use of Upper Extremities Equipment Transfer Assistive Device Gait Belt,Front Wheeled Walker Orthotic/Prosthetic Devices or Brace: No Transfers Transfer Destination Chair,Toilet Transfer Technique ambulated w/ FWW Transfer Ability Level of Assist Minimal Assistance,Moderate Assistance,1 Person Assistance ,Use of Upper Extremities Comments Mobility Comments Pt up in chair when arrived. Instructed post op exercises seated and discussed supine w/ strap as needed over LLE self assist ROM. Scoot to EOchair, sit>stand Mod A x1 to FWW. Ambulated to toilet 10 ft Min A w/ FWW step to patterning. Min A for under garment mgt in standing 1 side, pt did other while holding grab bar. Mod A slowly decent toilet w/ L grab bar and RUE on toilet. Self pericare sitting. Sit> stand Mod A BUE on L grab bar assimulate at home, LLE positioned out front. Self undergarment mgt CGA w/ fWW. Ambulated to sink 1 stop rest CG- Min A 15 ft, good FWW facing sink, Mod UE support on sink CG- Min A trunk balance . Ambulated back to chair CG- Min A, Min- Mod A slow descent to chair with UE support. Reviewed seated LLE knee flexion/ext with RLE assist, provided covered bench cushion under LLE for support and able to push out front to do exercises and able RLE reposition back under LLE. Discussed calling nursing for assist elevated chair leg rest as needed for extension support and circulation with verbal understanding. Will continue to assess progress. Gait Assessment Gait Gait Assistance Required: Contact Guard Assist,Minimum Assistance,1 Person Assist Distance (Feet) 25 Able to Maintain Weight Bearing Status Yes During Gait Assistive Devices Assistive Device Gait Belt,Front Wheeled Walker Orthotic/Prosthetic Devices or Brace: No Gait Deviations General Gait Pattern Antalgic,Decreased Stride Length,Decreased Feet Clearance,Step-to Gait Factors Limiting Gait Function Factors Limiting Gait Function Decreased Activity Tolerance, Decreased Strength,Limited Range of Motion,Pain,Poor Balance Comments Gait Comments Step to gait patterning, cued L knee flexion to allow foot clearance during swing through and encourage ROM, quad facilitation during WB and allow WBAT. Stair Climbing Assessment Comments Stair Climbing Comments Unable to assess due to pain, decrease LLE WB stancet time, Heavy BUE WB on FWW, not safe at this time. PT-Balance Assessment Sitting Balance and Reactions Static Sitting Balance Ability Good Dynamic Sitting Balance Ability Fair Standing Balance and Reactions Static Standing Balance Ability Fair Dynamic Standing Balance Ability Poor Device Used FWW M5 PT-IP Objective Assessments Start: 10/20/21 12:36 Freq: NEEDED Status: Active Protocol: Document 10/20/21 10:30 AB (Rec: 10/20/21 12:51 AB [id number]) Orientation Orientation/Cognition Level of Alertness Alert Orientation Name,Place,Situation Language Function Ability No Deficits Noted Safety Awareness Decreased Safety Awareness Memory Description No Deficits Noted Gross Range of Motion Lower Extremity ROM Impairments L knee flexion: ~70 deg L knee extension: ~20 deg less to 0 Strength Lower Extremity Strength Assessment Left Impaired Hip 4-/5 Knee 3+/5 Coordination Assessment Gross Coordination Gross Coordination WNL Sensation Assessment Sensation Gross Sensation WNL Muscle Tone Muscle Tone WNL Yes M6 PT-IP Treatment Start: 10/20/21 12:36 Freq: NEEDED Status: Active Protocol: Document 10/22/21 09:08 SP (Rec: 10/22/21 10:28 SP [id number]) Physical Therapy Treatment Exercises Exercises Ankle Pumps,Quad Sets,Seated Knee Flexion/Extension Education Education Provided Precautions,Weight Bearing Status,Post-Op Packet,Safety M7 PT-IP Assessment and Plan Start: 10/20/21 12:36 Freq: NEEDED Status: Active Protocol: Document 10/22/21 09:08 SP (Rec: 10/22/21 10:28 SP [id number]) PT Summary Assessment and Plan Potential Rehabilitation Potential Good Status of Condition at Evaluation Stable Summary Impairments Pain,ROM,Strength,Balance, Coordination,Sensation,Tone, Cognition,Bed Mobility, Transfers,Gait,Activity Tolerance Progress Towards Goals Progressing Toward Goals,Slow Progress due to Pain,Slow Progress due to Activity Tolerance Assessment Summary Pt motiviated to work with therapy with improved pain control premedicated). Min- Mod STS from chair/ toilet w/ armrests/ BUE on grab bar. Mod >Min<> CGA during gait w/ FWW approx 15 ft furthest distance this tx. Pt still limited due to pain, encouraged ROM self between PT tx, better understanding. Goals Bed Mobility Goal Independent Transfer Goal Independent,Front Wheeled Walker Gait Goal Independent,Front Wheel Walker Gait Distance 150 Other Goals up/down 6 steps B rails SBA Days to Meet Goals 5 Frequency of Treatment Frequency Of Treatment Twice a Day Treatment Plan Physical Therapy Treatment Plan Bed Mobility Training,Transfer Training,Gait Training, Therapeutic Exercise,Balance Retraining,Post Op Education, Discharge Planning,Hot or Cold Pack,Neuromuscular Re-ed, Coordination Retraining,Manual Therapy Other Recommendations and Next Treatment transfers, gait distance w/ Focus FWW, ROM, postop ex. Weight Bearing Status Weight Bearing Status Weight Bear as Tolerated Allowed Weight Bearing Amount (enter % LLE WBAT or #) (%) Recommendations To Nursing Amount of Assist Needed 1 Person Assist Discharge Recommendations PT Discharge Recommendations SNF Rehab Equipment Needed for Home Before Friend acquired FWW from Discharge Soroptomist, in hospital room/ labeled. Transportation Needs at Discharge Private Vehicle
[2021-10-22 10:26] LABS: COVID19 -Nasal RAPID Negative (Negative)
--- NOTE | 2021-10-22 11:31 | CM.DPNOTE ---
[facility] and final[facility] per Priscilla and received conf. Marry Pimentel CM Assist.
--- NOTE | 2021-10-22 12:35 | PC.NURSE ---
Day Shift - Pt left unit via SNF personnel w/ all belongings. Pt was 2mg dilaudid prior to departure and she vocalized her pain being lowered and 4/10. Pt was peing well and had good output as well as a BM today on 10/22. D/C INFO WAS PUT IN PACKET FOR SNF. Pt was calm and understanding of where she was going and what was happening. O took IV out and all looked well.
== END 2021-10-22 12:00 ==
LOC: OR 10-21 06:45 → AC 10-21 06:45
PROVIDERS: Physician Assistant; Admitting Provider Orthopaedic Surgery; PCP Family Medicine; Referring Provider Orthopaedic Surgery; Visit Provider Orthopaedic Surgery
PROC: 0SRD0JZ Replacement of Left Knee Joint with Synthetic Substitute, Open Approach (ICD-10-PCS; CPT 27447; principal; 2021-10-19 14:30)
DX: M17.12 Unilateral primary osteoarthritis, left knee (principal); C50.919 Malignant neoplasm of unspecified site of unspecified female breast; I10 Essential (primary) hypertension; E66.9 Obesity, unspecified; Z68.38 Body mass index [BMI] 38.0-38.9, adult; Z20.822 Contact with and (suspected) exposure to COVID-19
CPT/HCPCS: 27447; 36415; 73560; 85014; 85018; 87635; 97110; 97116; 97161; 97530; C1776; C9803; G0378; C9290; J0690; J1100; J2250; J2270; J2274; J2405; J2704; J3010

== ENCOUNTER → 2022-05-13 10:27 | Outpatient (CLI) | payer MEDICARE, OTHER, SELFPAY ==
[2021-10-19 18:12] VITALS: BMI 37.0
[2022-05-13 12:32] LABS: Add Manual Diff / Slide Review NO; Basophils Absolute Auto 100 /uL (0-100); Basophils Percent Auto 1.9 % (0-2); Eosinophils Absolute Auto 0 /uL (0-450); Eosinophils Percent Auto 1.1 % (2-4); Hematocrit 39.1 % (36-46); Hemoglobin 13.5 g/dL (12.0-16.0); Lymphocytes Absolute Auto 1200 /uL (1100-4500); Lymphocytes Percent Auto 42.6 % (25-40); Mean Corpuscular HGB Conc 34.6 % (30-36); Mean Corpuscular Hemoglobin 33.9 PG (26-34); Monocytes Absolute Auto 200 /uL (0-900); Monocytes Percent Auto 5.2 % (3-14); Neutrophils Absolute Auto 1400 /uL (1500-7000); Neutrophils Percent Auto 49.2 % (50-75); Platelet Count 163 X10^3/uL (150-400); Red Blood Cell Count 3.99 X10^6/uL (4.0-5.2); Red Cell Distribution Width 14.8 % (11.6-14.8); White Blood Cell Count 2.9 X10^3/uL (4.5-11.0)
[2022-05-13 12:36] LABS: Hemoglobin A1C% w Est Avg Glu 5.3 % (4.0-6.0)
[2022-05-13 13:03] LABS: BUN Creatinine Ratio 23.5 (6-22); Blood Urea Nitrogen 20 mg/dL (7-17); Calcium 9.1 mg/dL (8.4-10.2); Carbon Dioxide 21 mmol/L (22-32); Chloride 106 mmol/L (98-107); Estimated Glomerular Filt Rate > 60 mL/min (>60); Glucose 92 mg/dL (80-110); HEMOLYSIS < 15 (0-50); Potassium 4.1 mmol/L (3.4-5.1); Sodium 140 mmol/L (137-145)
== END ==
PROVIDERS: PCP Family Medicine; Referring Provider Orthopaedic Surgery; Visit Provider Orthopaedic Surgery
DX: Z01.818 Encounter for other preprocedural examination (principal); R73.9 Hyperglycemia, unspecified; Z01.812 Encounter for preprocedural laboratory examination
CPT/HCPCS: 36415; 80048; 83036; 85025; 93005

== ENCOUNTER 2022-05-22 00:01 | Emergency (ER) | payer MEDICARE, OTHER, SELFPAY ==
[2021-10-19 18:12] VITALS: BMI 37.0
[2022-05-22] VITALS (13 sets, daily range): BP systolic 144–158; BP diastolic 69–95; PULSE 51–57; RESP 17–22; TEMP 36.9; O2SAT 95–98; BMI 35.5
--- NOTE | 2022-05-22 00:36 | ED_ITS ---
HPI - Syncope General Chief Complaint: Dizziness Stated Complaint: DEHYDRATED, DIZZY, HEADACHE Time Seen by Provider: 05/22/22 00:25 Source: patient Mode of arrival: Ambulatory Limitations: no limitations History of Present Illness HPI narrative: Patient is a 76-year-old female with history of breast cancer and renal cancer on anastrozole, presenting with dizziness and lightheadedness. She says every time she stands up she is very dizzy and lightheaded. She denies chest pain or palpitations no shortness of breath. Denies any fever chills. Has been going on for about the last 2 days. She thought about going to the grocery store today to get Gatorade however she was worried about passing out. She denies fever or chills. She has no abdominal pain nausea vomiting. She has chronic ongoing knee pain. Related Data Home Medications Medication Instructions Recorded Confirmed Modified [place] Pectin 1.5 mg PO DAILY 11/16/18 09/09/21 Vitamin B12 See Rx Instructions .Route .COMPLEX 06/04/19 10/19/21 anastrozole 1 mg tablet 1 mg PO DAILY 07/28/20 10/19/21 palbociclib 100 mg capsule 100 mg PO DAILY 07/28/20 09/09/21 (Ibrance) calcium carb,cit 300 mg-D3 200 1 tab PO DAILY 06/08/21 10/19/21 unit-min no.34-genistein 13.5 mg tablet (Citracal Plus Bone Density Builder) cholecalciferol (vitamin D3) 25 10,000 unit PO DAILY 06/08/21 10/19/21 mcg (1,000 unit) capsule Zilikos 06/08/21 10/19/21 magnesium glycinate-mag oxide 120 mg PO DAILY 06/08/21 10/19/21 melatonin 5 mg-pyridoxine (vitamin 1 tab PO BEDTIME PRN Sleep 06/08/21 10/19/21 B6) 1 mg tablet methylsulfonylmethane 1,000 mg 1,000 mg PO BID 06/08/21 09/09/21 tablet naproxen sodium 220 mg tablet 220 mg PO BID PRN Pain 06/08/21 10/19/21 (Flanax (naproxen)) zinc amino acid chelate 50 mg 50 mg PO DAILY 06/08/21 10/19/21 tablet acyclovir 200 mg capsule 200 mg PO QID PRN Herpes flare 09/09/21 09/09/21 Previous Rx's Medication Instructions Recorded hydromorphone 2 mg tablet 2 mg PO Q3H PRN Pain, Severe 10/22/21 (7-10) #20 tabs oxycodone 5 mg tablet 5 mg PO Q4H PRN Moderate postop 10/22/21 pain #40 tabs polyethylene glycol 3350 17 gram 17 g PO DAILY PRN Constipation #30 10/22/21 oral powder packet ea Allergies Allergy/AdvReac Type Severity Reaction Status Date / Time adhesive tape Allergy Severe Rash, Verified 10/19/21 12:09 pulls my skin off iodine [IODINE] Allergy Intermediate Skin rash Verified 10/19/21 12:09 coconut [COCONUT] AdvReac Intermediate (Processed) Verified 10/19/21 12:09 Nausea and I just felt ill. Sulfa (Sulfonamide AdvReac Intermediate GI upset Verified 10/19/21 12:09 Antibiotics) [SULFA (SULFONAMIDE ANTIBIOTICS)] Penicillins AdvReac Unknown Ill Verified 10/19/21 12:09 physically Review of Systems Review of Systems Narrative: GENERAL: Denies chills, fatigue, malaise, fever, sweats, travel HEENT: Denies sinus pain, ear pain, sore throat, difficulty swallowing, neck pain RESPIRATORY: Denies dyspnea, cough, wheezing, hemoptysis, sputum. CARDIOVASCULAR: Denies chest pain, palpitations, orthopnea, edema GASTROINTESTINAL: Denies nausea, vomiting, abdominal pain, diarrhea, constipation, melena. : Denies dysuria, frequency, incontinence, hematuria, urinary retention, flank pain. MUSCULOSKELETAL: Denies weakness, joint pain, or bony pain SKIN: No rash, no erythema, no pruritus NEUROLOGIC: See HPI PSYCHIATRIC: No concerning psychosocial issues. 12 point review of systems is negative except for those stated above and HPI Patient History Medical History Bilateral primary osteoarthritis of knee Breast cancer (~2018) Cataracts, bilateral (2012) Chickenpox (1947) Chronic pain of right knee (10/19/16) Chronic venous insufficiency (09/20/17) Colon polyps (2014) Essential hypertension (09/05/15) Essential tremor (09/20/17) Foot pain (2014) Fractures Herpes (1977) History of adenomatous polyp of colon Hyperglycemia Hyperlipidemia, unspecified (08/31/04) Iron deficiency anemia, unspecified (04/13/02) Irregular menstrual cycle (1958) Knee pain (~01/2017) Large mass of left breast Measles Menopause present (09/11/02) Migraines (1958) Morbid obesity with BMI of 40.0-44.9, adult [place] Obesity (BMI 30-39.9) Ovarian cyst (1975) Painful menstrual periods (1958) Peripheral edema (12/30/03) Shoulder fracture, left (05/2020) Shoulder fracture, right (2018) Shoulder pain Status post hysteroscopy (12/22/18) Stress incontinence (~2016) Stress incontinence of urine (10/19/16) Tinnitus of both ears (2012) Vitamin B12 deficiency (04/19/02) Surgical History Anesthesia History of cataract removal with insertion of prosthetic lens (2012) History of elective History of hysteroscopy (12/22/18) History of lumpectomy of left breast (06/27/18) History of tonsillectomy (1966) Hx of surgical procedure (1973) Status post breast lumpectomy (1994) Status post cholecystectomy (1990) Status post colonoscopy (1996) Status post colonoscopy (2013) Status post ovarian cystectomy (1975) Family History Father Parkinson's disease Mother Cancer Brother Parkinson's disease Grandfather No problems noted. Grandmother Cancer Grandfather No problems noted. Grandmother No problems noted. 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 HEENT: Head atraumatic,EOMI, pupils reactive, face symmetric, moist mucous membranes CARDIOVASCULAR: Regular rate and rhythm without murmurs, rubs or gallops. RESPIRATORY: Breath sounds equal bilaterally, no wheezes rales or rhonchi. ABDOMEN: Soft, nontender. Normoactive bowel sounds all 4 quadrants. No guarding or rebound. EXTREMITIES: Normal range of motion, no clubbing or edema. Neurovascularly intact NEUROLOGICAL: Alert and oriented x4.Normal gait and speech. 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 Course Orders Ordered: ED Orders 05/22/22 00:43 XR chest 1V Stat EKG-12 Lead Stat 05/22/22 00:50 COVID19 -Nasal RAPID/Pre-Proc Stat 05/22/22 01:20 Urinalysis and Microscopic Stat Urine Culture Stat 05/22/22 01:30 Complete Blood Count AUTO DIFF Stat Comprehensive Metabolic Panel Stat D Dimer Stat Lipase Stat Troponin & CK Cardiac Panel Stat 05/22/22 02:04 CT angio chest PE protocol Stat Discontinued Medications Sodium Chloride (Normal Saline 0.9%) 1,000 mls @ 1,000 mls/hr IV CONT GIO Last Infusion: 05/22/22 02:58 Dose: 0 mls/hr Documented By: Admin: 05/22/22 01:44 Dose: 1,000 mls/hr Documented By: RUDDY Vital Signs Vital signs: Vital Signs - 8 hr 05/22/22 00:15 05/22/22 00:21 05/22/22 00:29 Temperature 98.4 F Pulse Rate 56 L 51 L Respiratory Rate 17 Blood Pressure 156/95 H 144/75 H Pulse Oximetry 95 96 Oxygen Delivery Method Room Air 05/22/22 00:29 05/22/22 00:30 05/22/22 01:00 Temperature Pulse Rate 55 L 55 L Respiratory Rate Blood Pressure 144/69 H Pulse Oximetry 95 97 Oxygen Delivery Method 05/22/22 01:00 05/22/22 01:30 05/22/22 02:00 Temperature Pulse Rate 52 L 52 L 52 L Respiratory Rate 22 Blood Pressure Pulse Oximetry 97 98 96 Oxygen Delivery Method 05/22/22 02:54 05/22/22 02:56 05/22/22 02:56 Temperature Pulse Rate 53 L Respiratory Rate Blood Pressure 153/70 H Pulse Oximetry 98 97 Oxygen Delivery Method 05/22/22 03:00 05/22/22 03:30 05/22/22 04:00 Temperature Pulse Rate 54 L 57 L 53 L Respiratory Rate Blood Pressure Pulse Oximetry 98 97 97 Oxygen Delivery Method 05/22/22 04:15 Temperature 98.5 F Pulse Rate 54 L Respiratory Rate 18 Blood Pressure 158/70 H Pulse Oximetry 96 Oxygen Delivery Method Room Air MDM - Syncope Differential Diagnosis Differential diagnosis: Likely syncope due to orthostatic hypotension, vasovagal syncope and other (sepsis, cva) Lab Data Result diagrams: 05/22/22 01:30 05/22/22 01:30 Labs: Lab Results 05/22/22 05/22/22 05/22/22 Range/Units 00:50 01:20 01:30 WBC (4.5-11.0) X10^3/uL RBC (4.0-5.2) X10^6/uL Hgb (12.0-16.0) g/dL Hct (36-46) % MCV (80-100) fL MCH (26-34) PG MCHC (30-36) % RDW (11.6-14.8) % Plt Count (150-400) X10^3/uL Neut % (Auto) (50-75) % Lymph % (Auto) (25-40) % Dawson % (Auto) (3-14) % Eos % (Auto) (2-4) % Baso % (Auto) (0-2) % Neut # (Auto) (7160-3038) /uL Lymph # (Auto) (8148-2820) /uL Dawson # (Auto) (0-900) /uL Eos # (Auto) (0-450) /uL Baso # (Auto) (0-100) /uL D-Dimer 1539 H (<500) ng/ml Sodium (137-145) mmol/L Potassium (3.4-5.1) mmol/L Chloride (98-107) mmol/L Carbon Dioxide (22-32) mmol/L BUN (7-17) mg/dL Creatinine (0.52-1.04) mg/dL Estimated GFR (>60) mL/min BUN/Creatinine Ratio (6-22) Glucose (80-110) mg/dL Calcium (8.4-10.2) mg/dL Total Bilirubin (0.2-1.3) mg/dL AST (14-36) IU/L ALT (<35) IU/L Alkaline Phosphatase (38-126) U/L Total Creatine Kinase (30-135) U/L CK-MB (CK-2) CK-MB (CK-2) Rel Index Troponin I (0.01-0.034) ng/mL Total Protein (6.3-8.2) g/dL Albumin (3.5-5.0) g/dL Globulin (1.7-4.1) g/dL Albumin/Globulin Ratio (1.0-2.8) Lipase (23-300) U/L Urine Color Yellow Urine Appearance Clear Urine pH 6.5 (4.5-8.0) Ur Specific [place] <=1.005 (1.000-1.035) Urine Protein Negative (Negative) Urine Glucose (UA) Negative (Negative) g/dL Urine Ketones Negative (NEGATIVE) Urine Occult Blood Negative (Negative) Urine Nitrate Negative (Negative) Urine Bilirubin Negative (NEGATIVE) Urine Urobilinogen 0.2 (0.2) E.U./dL Ur Leukocyte Esterase 1+ H (NEGATIVE) Urine RBC None seen (0-5/HPF) Urine WBC 0-1/hpf (0-5/HPF) Urine Bacteria None seen (None) Ur Culture Indicated? Specimen cultured SARS-CoV-2 (PCR) Negative (Negative) 05/22/22 05/22/22 Range/Units 01:30 01:30 WBC 3.4 L (4.5-11.0) X10^3/uL RBC 4.11 (4.0-5.2) X10^6/uL Hgb 13.7 (12.0-16.0) g/dL Hct 40.6 (36-46) % MCV 98.8 (80-100) fL MCH 33.3 (26-34) PG MCHC 33.7 (30-36) % RDW 14.8 (11.6-14.8) % Plt Count 185 (150-400) X10^3/uL Neut % (Auto) 43.9 L (50-75) % Lymph % (Auto) 46.9 H (25-40) % Dawson % (Auto) 5.8 (3-14) % Eos % (Auto) 1.7 L (2-4) % Baso % (Auto) 1.7 (0-2) % Neut # (Auto) 1500 (8498-2825) /uL Lymph # (Auto) 1600 (9462-1485) /uL Dawson # (Auto) 200 (0-900) /uL Eos # (Auto) 100 (0-450) /uL Baso # (Auto) 100 (0-100) /uL D-Dimer (<500) ng/ml Sodium 138 (137-145) mmol/L Potassium 4.0 (3.4-5.1) mmol/L Chloride 106 (98-107) mmol/L Carbon Dioxide 25 (22-32) mmol/L BUN 17 (7-17) mg/dL Creatinine 0.76 (0.52-1.04) mg/dL Estimated GFR > 60 (>60) mL/min BUN/Creatinine Ratio 22.4 H (6-22) Glucose 103 (80-110) mg/dL Calcium 8.8 (8.4-10.2) mg/dL Total Bilirubin 0.7 (0.2-1.3) mg/dL AST 24 (14-36) IU/L ALT 15 (<35) IU/L Alkaline Phosphatase 69 (38-126) U/L Total Creatine Kinase 44 (30-135) U/L CK-MB (CK-2) TNP CK-MB (CK-2) Rel Index TNP Troponin I < 0.012 (0.01-0.034) ng/mL Total Protein 7.2 (6.3-8.2) g/dL Albumin 4.1 (3.5-5.0) g/dL Globulin 3.1 (1.7-4.1) g/dL Albumin/Globulin Ratio 1.3 (1.0-2.8) Lipase 106 (23-300) U/L Urine Color Urine Appearance Urine pH (4.5-8.0) Ur Specific [place] (1.000-1.035) Urine Protein (Negative) Urine Glucose (UA) (Negative) g/dL Urine Ketones (NEGATIVE) Urine Occult Blood (Negative) Urine Nitrate (Negative) Urine Bilirubin (NEGATIVE) Urine Urobilinogen (0.2) E.U./dL Ur Leukocyte Esterase (NEGATIVE) Urine RBC (0-5/HPF) Urine WBC (0-5/HPF) Urine Bacteria (None) Ur Culture Indicated? SARS-CoV-2 (PCR) (Negative) Imaging Data CT scan - chest: Radiologist's Impression: Preliminary report no pulmonary embolism. In large right pulmonary artery which can be seen with pulmonary arterial hypertension. Small right pulmonary nodules are scattered of atelectasis or scarring. Indeterminate mixed sclerotic and lytic lesion of T10 ECG Data Interpretation: Normal sinus rhythm rate 53 KS interval 142 QRS [address] changes no T- wave inversions Q-wave noted in lead 3 V2, AVF similar to prior MDM Narrative Medical decision making narrative: Patient is found to be dizzy and lightheaded every time she stands up. However she has gone to the restroom at least 3 times in the emergency department by herself unassisted without any and she is. Blood work is over reassuring. D- dimer was elevated at 1500 she does have cancer CT angio is negative. Urine does show 1+ leukocytes, but asymptomatic will wait for culture and sensitivity. Overall patient feels better and ready and able to go home Discharge Plan Departure Patient Disposition: Home Clinical Impression: Dizziness Activity Restrictions/Additional Instructions: *You have been diagnosed with dizzy *What to do: At this time blood work is overall reassuring. He has been up to the restroom multiple times. CT is negative *Continue to take medications as directed *Follow up with your primary care provider in 2-3 days or call [phone] *Return to ER if you should have increased dizziness lightheadedness passing out or any new, worsening or concerning symptoms Prescriptions: No Action Citracal Plus Bone Density 300-200-13.5 mg-unit-mg tablet 1 tab PO DAILY cholecalciferol (vitamin D3) 25 mcg (1,000 unit) capsule 10,000 unit PO DAILY (DME) community mushrooms 0 .ROUTE .MEDSUPPLY Label Comments: Pt states takes pill form for health, not pain and last taken 7 days ago magnesium glycinate-mag oxide 120 mg magnesium capsule 120 mg PO DAILY melatonin-pyridoxine (vit B6) 5-1 mg tablet 1 tab PO BEDTIME PRN (Reason: Sleep) methylsulfonylmethane 1,000 mg tablet 1,000 mg PO BID naproxen sodium [Flanax (naproxen)] 220 mg tablet 220 mg PO BID PRN (Reason: Pain) Label Comments: pt states she does not take it with the hydrocodone zinc amino acid chelate 50 mg tablet 50 mg PO DAILY Modified [place] Pectin 1.5 mg PO DAILY Vitamin B12 See Rx Instructions .ROUTE .COMPLEX Rx Instructions: 1 dropperful PO DAILY Ibrance 100 mg capsule 100 mg PO DAILY Label Comments: 09/09/21 Pt states currently not taking prior to surgery but plans to restart after surgery Rx Instructions: administer on days 1 through 21 of a 28-day treatment cycle anastrozole 1 mg tablet 1 mg PO DAILY acyclovir 200 mg Capsule 200 mg PO QID PRN (Reason: Herpes flare) hydromorphone 2 mg Tablet 2 mg PO Q3H PRN (Reason: Pain, Severe (7-10)) Qty: 20 0RF polyethylene glycol 3350 17 gram Powder In Packet 17 g PO DAILY PRN (Reason: Constipation) Qty: 30 0RF oxycodone 5 mg tablet 5 mg PO Q4H PRN (Reason: Moderate postop pain) Qty: 40 0RF Referrals: Taco Garcia MD [Primary Care Provider] - Visit Report Forms: Patient Portal/API
--- NOTE | 2022-05-22 00:43 | DI.RAD.S_ITS ---
PROCEDURE: XR CHEST 1V INDICATIONS: syncope TECHNIQUE: One view of the chest was acquired. COMPARISON: Outside Film, CT, CT CHEST WITH CONTRAST, 07/17/2021, 11:12. FINDINGS: Surgical changes and devices: None. Lungs and pleura: Lungs are clear. No pleural effusions or pneumothorax. Mediastinum: Mediastinal contours appear normal. Heart size is borderline enlarged. Bones and chest wall: No suspicious bony lesions. Overlying soft tissues appear unremarkable. IMPRESSION: 1. No acute cardiopulmonary disease. Dictated by: Case Lopes M.D. on 05/22/2022 at 1:11 Approved by: Case Lopes M.D. on 05/22/2022 at 1:12
[2022-05-22 01:28] LABS: COVID19 -Nasal RAPID Negative (Negative)
[2022-05-22] MEDS: SODIUM CHLORIDE 0.9% 1,000 ML 1000 ML IV (01:44)
[2022-05-22 01:49] LABS: Add Manual Diff / Slide Review NO; Basophils Absolute Auto 100 /uL (0-100); Basophils Percent Auto 1.7 % (0-2); Eosinophils Absolute Auto 100 /uL (0-450); Eosinophils Percent Auto 1.7 % (2-4); Hematocrit 40.6 % (36-46); Hemoglobin 13.7 g/dL (12.0-16.0); Lymphocytes Absolute Auto 1600 /uL (1100-4500); Lymphocytes Percent Auto 46.9 % (25-40); Mean Corpuscular HGB Conc 33.7 % (30-36); Mean Corpuscular Hemoglobin 33.3 PG (26-34); Mean Corpuscular Volume 98.8 fL (80-100); Monocytes Absolute Auto 200 /uL (0-900); Monocytes Percent Auto 5.8 % (3-14); Neutrophils Absolute Auto 1500 /uL (1500-7000); Neutrophils Percent Auto 43.9 % (50-75); Platelet Count 185 X10^3/uL (150-400); Red Blood Cell Count 4.11 X10^6/uL (4.0-5.2); Red Cell Distribution Width 14.8 % (11.6-14.8); White Blood Cell Count 3.4 X10^3/uL (4.5-11.0)
--- NOTE | 2022-05-22 01:52 | PC.NURSE ---
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 The longer they stay on the more they hurt. Explained to patient that we are watching her heart. Wants them off.
[2022-05-22 01:55] LABS: D Dimer 1539 ng/ml (<500)
[2022-05-22 01:57] LABS: Alanine Aminotransferase 15 IU/L (<35); Albumin 4.1 g/dL (3.5-5.0); Albumin Globulin Ratio 1.3 (1.0-2.8); Alkaline Phosphatase 69 U/L (38-126); Aspartate Aminotransferase 24 IU/L (14-36); BUN Creatinine Ratio 22.4 (6-22); Bilirubin Total 0.7 mg/dL (0.2-1.3); Blood Urea Nitrogen 17 mg/dL (7-17); Calcium 8.8 mg/dL (8.4-10.2); Carbon Dioxide 25 mmol/L (22-32); Chloride 106 mmol/L (98-107); Creatine Kinase 44 U/L (30-135); Estimated Glomerular Filt Rate > 60 mL/min (>60); Globulin 3.1 g/dL (1.7-4.1); Glucose 103 mg/dL (80-110); HEMOLYSIS 25 (0-50); Lipase 106 U/L (23-300); Sodium 138 mmol/L (137-145); Total Protein 7.2 g/dL (6.3-8.2)
--- NOTE | 2022-05-22 02:04 | DI.CT.S_ITS ---
PROCEDURE: CT ANGIO CHEST PE PROTOCOL INDICATIONS: dizzy with high dimer and cancer TECHNIQUE: After the administration of intravenous contrast, 2 mm thick sections acquired from the pulmonary apices to the posterior costophrenic angles. 3-dimensional maximum intensity projection (MIP) coronal and sagittal reformats were then acquired through the thorax. For radiation dose reduction, the following was used: automated exposure control, adjustment of mA and/or kV according to patient size. COMPARISON: Outside Film, CT, CT CHEST WITH CONTRAST, 07/17/2021, 11:12 (images only, no report). [facility], CR, XR CHEST 1V, 05/22/2022, 0:58. FINDINGS: Image quality: Excellent. Pulmonary arteries: Pulmonary arteries are normal in size, and demonstrate no intraluminal filling defects to suggest central pulmonary embolism. Lungs and pleura: No focal infiltrates are seen. Tiny right lung nodules are seen that measure up to 4 mm. No pleural effusions or pneumothorax. Central and peripheral airways are patent. Mediastinum: Heart size is normal, without pericardial effusion. No mediastinal or hilar adenopathy. Thoracic aorta is normal in caliber and enhancement. Esophagus is normal in caliber. There is a small hiatal hernia. Incidental note is made of medialization of the common carotid arteries, as on series 4, image 5 and on series 6, image 48. Bones and chest wall: There is a faintly seen sclerotic lesion within the posterior superior aspect of T6, as on series 7, image 75. Within T12, there is an irregular lesion, which is largely sclerotic. These foci are similar to the 07/17/2021 examination. Accentuated thoracic kyphosis is seen. Ribs and thoracic spine appear intact throughout. Thyroid gland demonstrates no significant abnormality. No axillary or supraclavicular adenopathy. Abdomen: Cholecystectomy clips are seen. Visualized upper abdominal solid organs appear normal in the early arterial phase of enhancement. IMPRESSION: Negative for pulmonary embolism. Stable T6 and T12 sclerotic lesions are seen, which are attributed to metastatic disease. Tiny non-specific right lung nodules are seen that measure up to 4 mm Incidental note is made of: Medialized common carotid arteries Small hiatal hernia Cholecystectomy Note: No significant discrepancy from the preliminary report. Dictated by: Benjamin Schrader M.D. on 05/22/2022 at 7:12 Approved by: Benjamin Schrader M.D. on 05/22/2022 at 7:18
[2022-05-22 02:08] LABS: Troponin I < 0.012 ng/mL (0.01-0.034)
[2022-05-22 03:41] LABS: Appearance Urine UA CLEAR; Bilirubin Urine UA NEGATIVE (NEGATIVE); Color Urine UA YELLOW; Glucose Urine UA NEGATIVE (Negative); Ketones Urine UA NEGATIVE (NEGATIVE); Leukocyte Esterase Urine UA 1+ (NEGATIVE); Nitrite Urine UA NEGATIVE (Negative); Occult Blood Urine UA NEGATIVE (Negative); Protein Urine UA NEGATIVE (Negative); Specific Gravity Urine UA <=1.005 (1.000-1.035); Urobilinogen Urine UA 0.2 E.U./dL (0.2)
[2022-05-22 03:43] LABS: pH Urine UA 6.5 (4.5-8.0)
[2022-05-22 04:02] LABS: Bacteria Urine None Seen; Culture Indicated Urine Specimen Cultured; RBC Urine None Seen (0-5/HPF); WBC Urine 0-1/HPF (0-5/HPF)
== END 2022-05-22 04:23 | disposition home or self-care (01) ==
PROVIDERS: Emergency Provider Emergency Medicine; PCP Family Medicine
DX: R42 Dizziness and giddiness (principal); Z20.822 Contact with and (suspected) exposure to COVID-19
CPT/HCPCS: 36415; 71045; 71275; 80053; 81001; 82550; 83690; 84484; 85025; 85379; 87086; 87635; 93005; 96360; 99284; C9803; Q9967

== ENCOUNTER → 2022-06-21 10:22 | Outpatient (CLI) | payer MEDICARE, OTHER, SELFPAY ==
[2021-10-19 18:12] VITALS: BMI 37.0
[2022-06-21 11:53] LABS: COVID19 -Nasal RAPID Negative (Negative)
== END ==
PROVIDERS: PCP Family Medicine; Referring Provider Orthopaedic Surgery; Visit Provider Orthopaedic Surgery
DX: Z20.822 Contact with and (suspected) exposure to COVID-19 (principal)
CPT/HCPCS: 87635; C9803

== ENCOUNTER 2022-06-24 10:30 | Observation (INO) | payer MEDICARE, OTHER, SELFPAY ==
[2021-10-19 18:12] VITALS: BMI 37.0
[2022-06-14 09:52] VITALS: BMI 35.5
[2022-06-23] VITALS (12 sets, daily range): BP systolic 105–155; BP diastolic 52–73; PULSE 57–81; RESP 12–22; TEMP 35.9–36.4; O2SAT 90–96; BMI 35.0
--- NOTE | 2022-06-23 06:00 | DI.RAD.S_ITS ---
PROCEDURE: XR KNEE RT 1TO2V INDICATIONS: Prosthesis placement TECHNIQUE: 2 view(s) of the knee acquired. COMPARISON: [facility], CR, XR KNEE LT 1TO2V, 10/22/2021, 8:46. FINDINGS: Bones: Patient is status post knee joint arthroplasty. Hardware components are in expected positions. Visualized bony structures are intact. Soft tissues: Overlying postoperative changes are noted. IMPRESSION: Expected immediate postoperative appearance, status post total right knee arthroplasty. Dictated by: Everett Hernandez M.D. on 06/23/2022 at 10:03 Approved by: Everett Hernandez M.D. on 06/23/2022 at 10:03
[2022-06-23] MEDS: LACTATED RINGERS 1,000 ML 42 ML IV (07:22)
[2022-06-23] MEDS: PREGABALIN 75 MG CAPSULE PO (07:23)
[2022-06-23] MEDS: CELECOXIB 200 MG CAPSULE PO (07:23)
[2022-06-23] MEDS: ACETAMINOPHEN 325 MG TABLET 975 MG PO (07:23)
--- NOTE | 2022-06-23 07:32 | PM.PREOP ---
Pre-operative Note COVID-19 COVID-19 status: Negative Result date/Date tested (Pos, Neg/Pending): 06/21/22 Interval Note History & Physical reviewed/Exam performed by Physician: Yes Changes to H&P: No
[2022-06-23] MEDS: CEFAZOLIN 2 GM/100 ML PREMIX 100 ML IV ×2 (08:00→15:44)
--- NOTE | 2022-06-23 08:26 | SUR.OPER ---
Supine on padded OR bed. Pillow under head, arms secured on padded armboards <90 degree abduction. Safety belt across torso. Non-operative leg secured with tape over blanket over lower leg. Operative leg secured in [employer] positioner.
[2022-06-23] MEDS: BUPIVACAINE 0.25% (PF) 60 ML, EPINEPHrine 0.3 MG INJ (08:34)
[2022-06-23] MEDS: BUPIVACAINE LIPOSOME 266 MG/20 ML VIAL INJ (08:34)
[2022-06-23] MEDS: MORPHINE 4 MG/ML INJ INJ (08:35)
--- NOTE | 2022-06-23 09:49 | P.OP_ITS ---
Operative Date/Time/Diagnoses Date of procedure: 06/23/22 Time of procedure: 09:15 Pre-op diagnosis: Right knee osteoarthritis Post-op diagnosis: same Procedure & Clinicians Procedure: Right total knee replacement Same procedure as scheduled: Yes Indications: The patient has had progressively worsening right knee pain with radiographic changes consistent with arthritis. Non-operative management has failed and the patient has requested total knee replacement. The risks, benefits and alternatives to surgery were discussed with the patient prior to proceeding. Risks discussed included, but were not limited to, failure to relieve pain, stiffness, infection, nerve damage, deep venous thrombosis, pulmonary embolism, stroke, coma, heart attack, permanent paralysis and , as well as the potential need for eventual revision of the prosthetic. Surgeon: Silvino Mohr Nursing Informatics Clinical Analyst: Linda Ayala Yes if Unassisted: Yes Anesthesia Type: General, Spinal and Local Operative Notes Findings: Severe medial and significant patellofemoral osteoarthritis with relative preservation of the lateral compartment. Closure Type: primary Specimen(s): none sent Prosthetic devices, grafts, tissues, transplants, or devices: Implants used in this procedure were manufactured by the [employer] and [employer] and included the BCS II Journey total knee replacement with a size 4 cobalt chromium femoral component, size 3 non porous tibial base plate, a 12 mm cross-linked polyethylene tibial insert and a 32 mm oval Cheri II patellar component. Applied: implant(s) Estimated Blood Loss (mL): 25 Blood products transfused: none Tourniquet time (min): 50 Procedure in detail: The patient was seen in the pre-operative area, where the patient identified the right knee as the operative site and this was marked with my initials. The patient received pre-operative antibiotics, and was taken to the operating room and placed on the operative table in the supine position. After satisfactory anesthesia, a real time trader out was performed. The right leg was encircled with a tourniquet about the proximal thigh, and the leg was prepared from the toes to the tourniquet with ChloroPrep in the usual fashion and draped through sterile drapes. The leg was elevated and exsanguinated with Eschmark bandage and the tourniquet inflated to 250 mmHg pressure. The knee was approached through an approximately 18 cm incision centered over the patella and carried into the knee through a medial parapatellar arthrotomy. The anterior osteophytes and soft tissues were removed. The rotational landmarks of Sonoma's line and the transepicondylar axis were marked on the femur with electrocautery, and intramedullary guide holes for the femur and tibia were created. The distal femoral cut was made in 6 degrees of valgus using the intramedullary guide at the primary cut setting. The proximal tibial cut was then made using the intramedullary guide, taking 9 mm of bone off the less involved side. The extension gap was checked and the rotation of the femoral component confirmed with the gap balancing system. The anterior, posterior and chamfer cuts were then made. The posterior osteophytes and soft tissues were then removed. The posterior capsule was injected with part of a mixture of 60 ml 0.25% Marcaine mixed with 20 ml Exparel and 4 mg of morphine for post-operative pain control. The remainder of this mixture was injected into the capsule and subcutaneous tissues during cement curing. The tibia was prepared with the rotation set by an extra medullary guide. Trial tibial and femoral components were then placed and the intercondylar notch cut through the femoral trial. Range of motion was 0-135 degrees, with good stability throughout the range. The patella was then cut to accommodate the patellar prosthetic. There was no need for a lateral release. The trials were then removed, and the femoral hole plugged with a bone plug. The bone was prepared with pulsatile lavage, and dried with a sponge. Cement was applied and the final prosthetics placed. Excess cement was removed during and after cement curing. After confirming there was no extruded cement posteriorly, the final tibial insert was placed. The knee was copiously irrigated and the tourniquet deflated. Hemostasis was obtained. The capsule was closed with interrupted # 2 polyester suture. The subcutaneous layer was closed with 3-0 Vicryl, and the skin with a running 3-0 V-Lock suture and Dermabond. An Aquacel Ag dressing was applied and the patient was taken to recovery having tolerated the procedure well. The services of a skilled investment sales assistant were necessary during this procedure to provide appropriate retraction, suction and positioning of the limb to facilitate expedient surgical care. The surgery could not proceeded in an expedient manner without the services of Ms. Pena. Complications: none Post-operative Condition: stable Disposition: PACU Plan for aftercare: The patient will be maintained on a standard total knee replacement protocol with weight bearing as tolerated. The patient will receive aspirin and sequential compression devices for DVT prophylaxis. The patient will be discharged home when safe for the home environment.
[2022-06-23] MEDS: LACTATED RINGERS 1,000 ML 100 ML IV ×2 (11:50→23:02)
[2022-06-23] MEDS: ACETAMINOPHEN 325 MG TABLET 650 MG PO ×2 (11:59→19:13)
[2022-06-23] MEDS: IBUPROFEN 400 MG TABLET PO ×2 (13:06→19:14)
--- NOTE | 2022-06-23 14:15 | PT.IIE ---
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) Hx of surgical procedure (1973) Status post breast lumpectomy (1994) Status post cholecystectomy (1990) Status post colonoscopy (1996) Status post colonoscopy (2013) Status post ovarian cystectomy (1975) Medical History (Last Reviewed 05/22/22 @ 00:50 by Juany Bird DO) Bilateral primary osteoarthritis of knee Breast cancer (~2017) Cataracts, bilateral (2012) Chickenpox (194) Chronic pain of right knee (10/19/16) Chronic venous insufficiency (09/20/17) Colon polyps (2014) Essential hypertension (09/05/15) Essential tremor (09/20/17) Foot pain (2014) Fractures Herpes (1977) History of adenomatous polyp of colon Hyperglycemia Hyperlipidemia, unspecified (08/31/04) Iron deficiency anemia, unspecified (04/13/02) Irregular menstrual cycle (1958) Knee pain (~01/2017) Large mass of left breast Measles Menopause present (09/11/02) Migraines (1958) Morbid obesity with BMI of 40.0-44.9, adult Mumps Obesity (BMI 30-39.9) Ovarian cyst (1975) Painful menstrual periods (1958) Peripheral edema (12/30/03) Shoulder fracture, left (05/2020) Shoulder fracture, right (2018) Shoulder pain Status post hysteroscopy (12/22/18) Stress incontinence (~2016) Stress incontinence of urine (10/19/16) Tinnitus of both ears (2012) Vitamin B12 deficiency (04/19/02) Physical Therapy Inpatient Evaluation/Re-Eval M1 PT/OT-IP Prior Functional Status Start: 06/23/22 15:05 Freq: NEEDED Status: Active Protocol: Document 06/23/22 14:15 AB (Rec: 06/23/22 15:18 AB [id number]) Medical Review Prior Functional Status Medical History Reviewed Yes Communication able to make needs known Mobility and Gait pt stated that she is modified indepednent with all mobilities and ambulation using a hurrycane Social History Household Members none Living Arrangements House Number of Floors (Floors) Two Floors Number of Stairs To Enter/Railing? pt stays on the main level of the house 6 steps with B rails from the garage 3 steps B rails from the front door Home Environment High Toilet,Walk in Shower Home Equipment Front Wheel Walker,Four Wheel Walker,Raised Toilet Seat w/ Armrests,Shower Seat with Backrest,Hand Held Shower,Grab Bars In Shower Additional Social History Comment pt has a hurrycane M2 PT-IP Current Condition Start: 06/23/22 15:05 Freq: NEEDED Status: Active Protocol: Document 06/23/22 14:15 AB (Rec: 06/23/22 15:18 AB [id number]) Physical Therapy Current Condition Current Condition Evaluation Date 06/23/22 Treatment Diagnosis s/p R TKA; difficulty in walking Onset Date 06/23/22 M3 PT-IP Subjective Start: 06/23/22 15:05 Freq: NEEDED Status: Active Protocol: Document 06/23/22 14:15 AB (Rec: 06/23/22 15:18 AB [id number]) Subjective Physical Therapy Visit Type Type Initial Evaluation Visit Start Time 14:15 Visit Stop Time 15:02 Total Visit Minutes 47 Number of KITCHEN WORKER Visits 0 Physical Therapy Visit Comments Patient Comments agreeable to do PT Therapy Pain Assessment Pain When Pain Assessed At Rest Pain Present Pain Present Pain Reported Location right knee Intensity 2 Scale Used increases to 5/10 with mobility Pain Management Techniques Apply Cold,Distraction, Modification of Treatment,Re- positioning,Timing of Activity with Medications M4 PT-IP Mobility and Gait Start: 06/23/22 15:05 Freq: NEEDED Status: Active Protocol: Document 06/23/22 14:15 AB (Rec: 06/23/22 15:18 AB [id number]) PT-Bed Mobility Assessment Supine to Sit Supine to Sit Standby Assistance,Head of Bed Elevated,Bedrails Sit to Supine Sit to Supine Standby Assistance,Bedrails PT-Transfer Assessment Sit to and From Stand Sit to and from Stand Maximum Assistance,1 Person Assistance,Use of Upper Extremities Equipment Transfer Assistive Device Gait Belt,Front Wheeled Walker Orthotic/Prosthetic Devices or Brace: No Transfers Transfer Destination Toilet Transfer Technique ambulated Transfer Ability Level of Assist Minimal Assistance,Moderate Assistance,1 Person Assistance ,Use of Upper Extremities Comments Mobility Comments completed supine to sit SBA with use of bedrail and HOB elevated. pt requesting to use the toilet. pt completed sit to stand x 2 attempts requiring max a and max cues. max A for initial standing balance using FWW. pt ambulated to the toilet using FWW mod A and cues for R quads activation. slight knee buckling during late stance. pt needs assistance with brief management. completed sit to stand from the toilet using grab bar max A and max cues. pt ambulated back to bed using fWW min to mod A and cues for R quads activiation. max A for controlled descent. completed sit to supine SBa with use of bed rail. positioned pt in bed. call light and table placed within reach. ice pack provided. Gait Assessment Gait Gait Assistance Required: Minimum Assistance,Moderate Assistance Distance (Feet) 10 Able to Maintain Weight Bearing Status Yes During Gait Assistive Devices Assistive Device Gait Belt,Front Wheeled Walker Orthotic/Prosthetic Devices or Brace: No Gait Deviations General Gait Pattern Antalgic,Decreased Stride Length,Decreased Feet Clearance,Step-to Gait Factors Limiting Gait Function Factors Limiting Gait Function Decreased Activity Tolerance, Decreased Strength,Difficulty Following Directions,Limited Range of Motion,Pain,Poor Balance,Poor Safety Awareness PT-Balance Assessment Sitting Balance and Reactions Static Sitting Balance Ability Normal Dynamic Sitting Balance Ability Good Standing Balance and Reactions Static Standing Balance Ability Fair Dynamic Standing Balance Ability Poor Device Used FWW M5 PT-IP Objective Assessments Start: 06/23/22 15:05 Freq: NEEDED Status: Active Protocol: Document 06/23/22 14:15 AB (Rec: 06/23/22 15:18 AB [id number]) Orientation Orientation/Cognition Level of Alertness Alert Orientation Name,Place,Situation Language Function Ability No Deficits Noted Safety Awareness Understands Safety Issues Memory Description No Deficits Noted Gross Range of Motion Lower Extremity ROM Impairments R knee flexion: ~ 40 deg Strength Lower Extremity Strength Assessment Right Impaired Hip 4-/5 Knee 3+/5 Coordination Assessment Gross Coordination Gross Coordination WNL Sensation Assessment Sensation Gross Sensation WNL Muscle Tone Muscle Tone WNL Yes M6 PT-IP Treatment Start: 06/23/22 15:05 Freq: NEEDED Status: Active Protocol: Document 06/23/22 14:15 AB (Rec: 06/23/22 15:18 AB [id number]) Physical Therapy Treatment Education Education Provided Precautions,Weight Bearing Status,Post-Op Packet,Safety M7 PT-IP Assessment and Plan Start: 06/23/22 15:05 Freq: NEEDED Status: Active Protocol: Document 06/23/22 14:15 AB (Rec: 06/23/22 15:18 AB [email or web address]) PT Summary Assessment and Plan Potential Rehabilitation Potential Fair Status of Condition at Evaluation Evolving Summary Impairments Pain,ROM,Strength,Balance, Coordination,Sensation,Tone, Cognition,Bed Mobility, Transfers,Gait,Activity Tolerance Assessment Summary pt requiring max A for sit to stand and min to mod A for ambulation using FWW. pt will need to be more independent to safely go home and at this time will require SNF rehab to improve functional mobility. Goals Bed Mobility Goal Independent Transfer Goal Independent,Front Wheeled Walker Gait Goal Independent,Front Wheel Walker Gait Distance 150 Other Goals up/down 3 steps B rails SBA Days to Meet Goals 5 Frequency of Treatment Frequency Of Treatment Twice a Day Treatment Plan Physical Therapy Treatment Plan Bed Mobility Training,Transfer Training,Gait Training, Therapeutic Exercise,Balance Retraining,Post Op Education, Discharge Planning,Hot or Cold Pack,Neuromuscular Re-ed, Coordination Retraining,Manual Therapy Weight Bearing Status Weight Bearing Status Weight Bear as Tolerated Allowed Weight Bearing Amount (enter % RLE WBAT or #) (%) Recommendations To Nursing Amount of Assist Needed 1 Person Assist Discharge Recommendations PT Discharge Recommendations SNF Rehab Transportation Needs at Discharge Private Vehicle,Wheelchair/ Cabulance
--- NOTE | 2022-06-23 14:43 | CM.DANOTE ---
Addendum entered by ARNALDO Atkins 06/23/22 14:57: ADD: Patient meets criteria for COVID waiver; In the case of limited bed capacity due to a potential COVID 19 surge, expedient discharge to appropriate post surgery rehab needed. IFEANYI Original Note: Initial DCP Assessment Note Pt is a 76 yo female, resident of [place], patient POD 0 from Right TKA by Dr Mohr this morning, therapy pending this afternoon. PCP: Taco Garcia Payer: [facility]/[place] Reviewed chart, patient hoping for [facility] upon discharge, just as she did upon discharge after her left TKA in September 2021. Met w/patient, introduced self and role. Patient in good spirits, states she is very hopeful to discharge to [facility] before returning home because she has no one available to assist her once home. Patient has 4 adult children and numerous grandchildren, none of whom are available to assist her at this time, according to patient Explained general SNF benefit with [facility] and reviewed observation vs inpatient; that patient will likely be considered observation status tomorrow (MTC today) and so COVID waiver will be required for [facility] reimbursement for SNF. Patient stated understanding and hopeful this will work out. Patient states she does not have a back up plan at this time. Spoke w/Marie at [facility], reviewed this referral. Marie requested referral w/therapy notes when available so she can review for potential COVID waiver. Plan: Patient hopeful for DC to [facility] on COVID waiver, no assistance available at home at this time. PASRR completed. If [facility] cannot do COVID waiver, may need to discuss w/another SNF vs additional days in the hospital then home w/ HH services, possibly a friend or family member over the weekend (?) CM team will need to follow closely for coordination of the safest DCP available to patient ARNALDO Murillo Discharge Planning/Care Management CM Discharge Assessment Start: 06/23/22 14:41 Freq: Status: Active Protocol: Document 06/23/22 14:41 IFEANYI (Rec: 06/23/22 14:43 IFEANYI [id number]) Discharge Planning Assessment Assigned Television Equipment Operator ARNALDO Ayoub DPOA/Assigned Designee Name Neisha Damon dtr Contact Information [phone] Advance Directives? Yes: POLST Advance Directives on File Yes History Provided By Patient,Medical Record Prior Living Arrangements House Household Members none Type of transporation used prior to Drives own vehicle admit Independent with ADL's Yes Is patient alert and oriented? 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
[2022-06-23] MEDS: OXYCODONE/ACETAMINOPHEN 5/325 TABLET 1 TAB PO (15:44)
[2022-06-23] MEDS: ONDANSETRON 4 MG/2 ML INJ IV (17:46)
--- NOTE | 2022-06-23 18:10 | PC.NURSE ---
Pt arrived to Room 204 at 1030 this a.m. VSS, afebrile weaned to RA 95% 02 sats on RA. She initially reports numbness to B lower extremities, with gradual increasing sensation and movement. Auacel with katina wrap C/D/I to R knee. +CMS. PT at bedside evaluating patient. She ambulates to the BR using FWW x1 SBA. She is able to void without difficulty. She is able to tolerate lunch without nausea. She states after working with PT her pain increased and is given x1 percocet per request. She later reports she thinks this medication medication made her nauseated. IV PRN zofran given with good effect. Continuous monitoring.
[2022-06-23] MEDS: ASPIRIN EC 81 MG TABLET PO (21:48)
[2022-06-23] MEDS: ACYCLOVIR 200 MG CAPSULE PO (21:53)
[2022-06-24] MEDS: ACETAMINOPHEN 325 MG TABLET 650 MG PO ×4 (00:06→23:41)
[2022-06-24] MEDS: CEFAZOLIN 2 GM/100 ML PREMIX 100 ML IV (00:07)
[2022-06-24] MEDS: IBUPROFEN 400 MG TABLET PO ×6 (00:07→21:24)
[2022-06-24 00:44] VITALS: BP 111/51; PULSE 60; RESP 17; TEMP 35.6; O2SAT 94
[2022-06-24] MEDS: ACYCLOVIR 200 MG CAPSULE PO (04:06)
[2022-06-24 04:32] VITALS: BP 114/48; PULSE 61; RESP 17; TEMP 35.9; O2SAT 94
--- NOTE | 2022-06-24 07:37 | P.PN_ITS ---
Subjective Subjective Date Patient Seen: 06/24/22 Time Patient Seen: 07:37 Interval history: The patient reports good pain control postoperative day 1 after right total knee replacement. She says it hurts much less than when she had her left side done. Exam Vital Signs (past 8 hours): - 06/24/22 00:44 06/24/22 04:32 Temperature 96.1 F L 96.6 F L Pulse Rate 60 61 Respiratory Rate 17 17 Blood Pressure 111/51 L 114/48 L Pulse Oximetry 94 94 Oxygen Flow Rate 0 0 Oxygen Delivery Method Room Air Oxygen Flow Rate 0 Narrative Exam Narrative: The patient is seated comfortably in her recliner in her room. Right leg wound is dressed with no drainage on the bandage. Calf is soft. Light touch and motion are intact in the right lower extremity. The knee is at full extension. Objective Labs Result Diagrams: 06/24/22 07:24 [facility] Medical History (Updated 06/06/22 @ 00:01 by ) Bilateral primary osteoarthritis of knee Breast cancer (~2017) Cataracts, bilateral (2012) Chickenpox (194) Chronic pain of right knee (10/19/16) Chronic venous insufficiency (09/20/17) Colon polyps (2014) Essential hypertension (09/05/15) Essential tremor (09/20/17) Foot pain (2014) Fractures Herpes (1977) History of adenomatous polyp of colon Hyperglycemia Hyperlipidemia, unspecified (08/31/04) Iron deficiency anemia, unspecified (04/13/02) Irregular menstrual cycle (1958) Knee pain (~01/2017) Large mass of left breast Measles Menopause present (09/11/02) Migraines (1958) Morbid obesity with BMI of 40.0-44.9, adult [place]umps Obesity (BMI 30-39.9) Ovarian cyst (1975) Painful menstrual periods (1958) Peripheral edema (12/30/03) Shoulder fracture, left (05/2020) Shoulder fracture, right (2018) Shoulder pain Status post hysteroscopy (12/22/18) Stress incontinence (~2016) Stress incontinence of urine (10/19/16) Tinnitus of both ears (2012) Vitamin B12 deficiency (04/19/02) Surgical History (Updated 06/14/22 @ 09:59 by Em Johnson RN) Anesthesia History of cataract removal with insertion of prosthetic lens (2012) History of elective History of hysteroscopy (12/22/18) History of lumpectomy of left breast (06/27/18) History of tonsillectomy (1966) History of total right knee replacement (10/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 Grandmother Cancer Grandfather No problems noted. Grandmother No problems noted. 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 She lives alone and has set up preoperatively a stay in a jail facility. We talked about the fact that if she does well enough with physical therapy she can be discharged home with home health. She will need several physical therapies before going home so she will be staying for at least 1 more evening. If she does not make enough progress she eventually will need the the half-way that has been arranged. Postoperative plan narrative: Physical therapy today. Potential discharge home with home health versus jail facility depending on progress with physical therapy over the next 24-48 hours.
[2022-06-24 07:39] LABS: Hematocrit 34.3 % (36-46); Hemoglobin 11.7 g/dL (12.0-16.0)
[2022-06-24 09:00] VITALS: BP 110/48; PULSE 64; RESP 19; TEMP 36.3; O2SAT 94
[2022-06-24] MEDS: ANASTROZOLE 1 MG TABLET PO (09:00)
[2022-06-24] MEDS: CHOLECALCIFEROL (VITAMIN D3) 5,000 UNIT TABLET 10000 UNIT PO (09:00)
[2022-06-24] MEDS: ASPIRIN EC 81 MG TABLET PO ×2 (09:00→21:24)
--- NOTE | 2022-06-24 09:40 | PT.IPTN ---
Addendum entered and electronically signed by Rupal Newman PTA 06/24/22 11:45: SPTA Asad lead treatment with direct supervision and guidence as needed by MATILDE Goldsmith throughout tx. Original Note: Current Diagnoses Unilateral primary osteoarthritis, right knee (06/23/22) Surgery Performed Operation Date: 06/23/22 07:45 Actual Procedures p Right Total Knee Arthroplasty(Right) - Silvino Mohr MD Physical Therapy Treatment Note M2 PT-IP Current Condition Start: 06/23/22 15:05 Freq: NEEDED Status: Active Protocol: Document 06/24/22 09:22 TS (Rec: 06/24/22 10:24 TS [id number]) Physical Therapy Current Condition Current Condition Evaluation Date 06/24/22 Treatment Diagnosis s/p R TKA; difficulty in walking Onset Date 06/23/22 M3 PT-IP Subjective Start: 06/23/22 15:05 Freq: NEEDED Status: Active Protocol: Document 06/24/22 09:22 TS (Rec: 06/24/22 10:24 TS [id number]) Subjective Physical Therapy Visit Type Type Treatment Note Visit Start Time 09:22 Visit Stop Time 09:40 Total Visit Minutes 18 Notes Pt found standing up with nurisng staff in FWW. Number of DIRECTOR OF PARKS AND RECREATION Visits 1 Physical Therapy Visit Comments Patient Comments Pt reports she is feeling stronger and walking more. She is still having some pain at surgical site, rates 5-6/10. Therapy Pain Assessment Pain When Pain Assessed During Mobility Pain Present Pain Present Pain Reported Location right knee Intensity 6 Scale Used Numeric (0 - 10) Pain Behaviors Facial Grimacing,Holding Area Pain Management Techniques Timing of Activity with Medications M4 PT-IP Mobility and Gait Start: 06/23/22 15:05 Freq: NEEDED Status: Active Protocol: Document 06/24/22 09:22 TS (Rec: 06/24/22 10:24 TS [id number]) PT-Bed Mobility Assessment Sit to Supine Sit to Supine Standby Assistance,Bedrails Scooting Scooting Up and Down in Bed Standby Assistance PT-Transfer Assessment Sit to and From Stand Sit to and from Stand Standby Assistance Equipment Transfer Assistive Device Gait Belt,Front Wheeled Walker Orthotic/Prosthetic Devices or Brace: No Transfers Transfer Destination Bed Transfer Ability Level of Assist Standby Assistance,Use of Upper Extremities Comments Mobility Comments Pt demonstrated good bed mobility requiring SBA, required cues for sitting fully back on bed. SPTA provided instruciton for post op exercises x5 reps demonstrating lag ~10 deg, importance quad extension. Gait Assessment Gait Gait Assistance Required: Standby Assistance Distance (Feet) 170 Able to Maintain Weight Bearing Status Yes During Gait Assistive Devices Assistive Device Gait Belt,Front Wheeled Walker Orthotic/Prosthetic Devices or Brace: No Gait Deviations General Gait Pattern Antalgic,Decreased Stride Length,Decreased Feet Clearance Factors Limiting Gait Function Factors Limiting Gait Function Decreased Strength,Limited Range of Motion,Pain Comments Gait Comments Pt demonstrated a step thru gait with good FWW management. Demonstrated good quad facilitation knee and gait phase of RLE. Stair Climbing Assessment Comments Stair Climbing Comments Pt declined use of stairs due to lack of strength, will assess tomorrow, will need to complete 3 stairs by level handrails. PT-Balance Assessment Sitting Balance and Reactions Static Sitting Balance Ability Normal Dynamic Sitting Balance Ability Good Standing Balance and Reactions Static Standing Balance Ability Good Dynamic Standing Balance Ability Good Device Used FWW M5 PT-IP Objective Assessments Start: 06/23/22 15:05 Freq: NEEDED Status: Active Protocol: Document 06/24/22 09:55 TS (Rec: 06/24/22 10:24 TS [id number]) Orientation Orientation/Cognition Level of Alertness Alert Language Function Ability No Deficits Noted Safety Awareness Understands Safety Issues Gross Range of Motion Lower Extremity ROM Assessment Right Impaired Impairments R knee flexion: ~ 90D with heel slides in bed. M6 PT-IP Treatment Start: 06/23/22 15:05 Freq: NEEDED Status: Active Protocol: Document 06/24/22 09:22 TS (Rec: 06/24/22 10:24 TS [id number]) Physical Therapy Treatment Exercises Exercises Quad Sets,Heel Slides,Straight Leg Raises,Short Arc Quads, Seated Knee Flexion/Extension Education Education Provided Precautions,Weight Bearing Status,Post-Op Packet,Safety Other Treatments Other Treatment Performed Pt peformed marches and heel raises x7 with no buckling and increased ROM. Heavily wbers through UEs ezpecially during RLE wbing. M7 PT-IP Assessment and Plan Start: 06/23/22 15:05 Freq: NEEDED Status: Active Protocol: Document 06/24/22 09:22 TS (Rec: 06/24/22 10:24 TS [id number]) PT Summary Assessment and Plan Potential Rehabilitation Potential Good Status of Condition at Evaluation Evolving Summary Impairments Pain,ROM,Strength,Balance, Coordination,Sensation,Tone, Cognition,Bed Mobility, Transfers,Gait,Activity Tolerance Progress Towards Goals Progressing Toward Goals Assessment Summary Pt progressed her amublation distance significantly this session and is requiring less assist during activity. She demonstrated good carryover of bed exercises but required education on the importance of quad sets to straighten knee into full extension during wbing for stability. She did not feel comfortable performing stairs at this time . She was left in bed, call light nearby and all needs before left. PT is recommending SNF vs home, recommending assistance during mobility, pt does not have this at home, will continue to assess progress. Goals Bed Mobility Goal Independent Transfer Goal Independent,Front Wheeled Walker Gait Goal Independent,Front Wheel Walker Gait Distance 150 Other Goals up/down 3 steps B rails SBA Days to Meet Goals 5 Frequency of Treatment Frequency Of Treatment Twice a Day Treatment Plan Physical Therapy Treatment Plan Bed Mobility Training,Transfer Training,Gait Training, Therapeutic Exercise,Balance Retraining,Post Op Education, Discharge Planning,Hot or Cold Pack,Neuromuscular Re-ed, Coordination Retraining,Manual Therapy Other Recommendations and Next Treatment transfers, gait distance w/ Focus FWW, ROM, postop ex. Weight Bearing Status Weight Bearing Status Weight Bear as Tolerated Allowed Weight Bearing Amount (enter % RLE WBAT or #) (%) Recommendations To Nursing Amount of Assist Needed Standby Assistance Discharge Recommendations PT Discharge Recommendations SNF Rehab Equipment Needed for Home Before Friend acquired FWW from Discharge Soroptomist, in hospital room/ labeled. Transportation Needs at Discharge Private Vehicle,Wheelchair/ Cabulance
[2022-06-24 12:05] VITALS: BP 114/60; PULSE 61; RESP 18; TEMP 36.6; O2SAT 94
[2022-06-24] MEDS: MAGNESIUM OXIDE 400 MG TABLET 200 MG PO (12:19)
[2022-06-24] MEDS: OXYCODONE IR 5 MG TABLET PO ×2 (13:32→21:25)
--- NOTE | 2022-06-24 14:06 | CM.DPNOTE ---
Discharge Planning Note: Met with patient and discussed SNF plans, since Medicare would have to be here 3 midnights so that would mean a discharge to SNF on Tuesday. Patient says she may be feeling better tomorrow and in such case would want to go home vs SNF. Discussed this with Marie at [facility]. We will confer in morning with Marie after ortho makes rounds, PT does morning visit and then discuss with patient. Discussed using possible Covid waiver to get her in sooner, possibly tomorrow, but the fact that patient may want to go home confuses the issue. (See Covid waiver info sent by Marie in back of face sheet) Plan: See patient in morning and discuss discharge plan. Touch base with Marie at [facility]. Johanna Caldera RN/DCP
--- NOTE | 2022-06-24 15:28 | PT.IPTN ---
Current Diagnoses Unilateral primary osteoarthritis, right knee (06/24/22) Surgery Performed Operation Date: 06/23/22 07:45 Actual Procedures p Right Total Knee Arthroplasty(Right) - Silvino Mohr MD Physical Therapy Treatment Note M2 PT-IP Current Condition Start: 06/23/22 15:05 Freq: NEEDED Status: Active Protocol: Document 06/24/22 09:22 TS (Rec: 06/24/22 10:24 TS [id number]) Physical Therapy Current Condition Current Condition Evaluation Date 06/24/22 Treatment Diagnosis s/p R TKA; difficulty in walking Onset Date 06/23/22 M3 PT-IP Subjective Start: 06/23/22 15:05 Freq: NEEDED Status: Active Protocol: Document 06/24/22 15:04 KS (Rec: 06/24/22 15:47 KS [id number]) Subjective Physical Therapy Visit Type Type Treatment Note Visit Start Time 15:04 Visit Stop Time 15:28 Total Visit Minutes 24 Number of FORGER HELPER Visits 2 M4 PT-IP Mobility and Gait Start: 06/23/22 15:05 Freq: NEEDED Status: Active Protocol: Document 06/24/22 15:04 KS (Rec: 06/24/22 15:47 KS [id number]) PT-Bed Mobility Assessment Sit to Supine Sit to Supine Standby Assistance,Bedrails Scooting Scooting to Edge of Bed Contact Guard Assistance PT-Transfer Assessment Sit to and From Stand Sit to and from Stand Contact Guard Assistance,1 Person Assistance,Use of Upper Extremities Equipment Transfer Assistive Device Gait Belt,Front Wheeled Walker Orthotic/Prosthetic Devices or Brace: No Transfers Transfer Destination Bed,Toilet Transfer Technique ambulated Transfer Ability Level of Assist Contact Guard Assistance Comments Mobility Comments Pt in bed upon arrival and agreeable to ambulate. SBA for bed mobility w/ increased time to complete. CGA for sit< >Stand w/ FWW. Pt requires safety cues for hand placement to avoid tipping FWW. She ambulated ~15 ft to toilet w/ FWW CGA and had poor control when descending. She ambulated additional 20 ft after voiding and returned to bed CGA. Pt limited by weakness and pain. Left in bed w/ all needs in reach. Gait Assessment Gait Gait Assistance Required: Contact Guard Assist,1 Person Assist Distance (Feet) 35 Able to Maintain Weight Bearing Status Yes During Gait Assistive Devices Assistive Device Gait Belt,Front Wheeled Walker Orthotic/Prosthetic Devices or Brace: No Gait Deviations General Gait Pattern Antalgic,Decreased Stride Length,Decreased Feet Clearance Factors Limiting Gait Function Factors Limiting Gait Function Decreased Strength,Limited Range of Motion,Pain Comments Gait Comments Pt reporting increased pain and fatigue from further ambulation this AM. Stair Climbing Assessment Comments Stair Climbing Comments Declined stair training due to pain and fatigue. PT-Balance Assessment Sitting Balance and Reactions Static Sitting Balance Ability Normal Dynamic Sitting Balance Ability Good Standing Balance and Reactions Static Standing Balance Ability Good Dynamic Standing Balance Ability Fair Device Used FWW M5 PT-IP Objective Assessments Start: 06/23/22 15:05 Freq: NEEDED Status: Active Protocol: Document 06/24/22 09:55 TS (Rec: 06/24/22 10:24 TS [id number]) Orientation Orientation/Cognition Level of Alertness Alert Language Function Ability No Deficits Noted Safety Awareness Understands Safety Issues Gross Range of Motion Lower Extremity ROM Assessment Right Impaired Impairments R knee flexion: ~ 90D with heel slides in bed. M6 PT-IP Treatment Start: 06/23/22 15:05 Freq: NEEDED Status: Active Protocol: Document 06/24/22 15:04 KS (Rec: 06/24/22 15:47 KS [id number]) Physical Therapy Treatment Exercises Exercises Ankle Pumps,Gluteal Sets,Quad Sets,Heel Slides,Straight Leg Raises Education Education Provided Precautions,Weight Bearing Status,Post-Op Packet,Safety M7 PT-IP Assessment and Plan Start: 06/23/22 15:05 Freq: NEEDED Status: Active Protocol: Document 06/24/22 15:04 KS (Rec: 06/24/22 15:47 KS [id number]) PT Summary Assessment and Plan Potential Rehabilitation Potential Good Summary Impairments Pain,ROM,Strength,Balance, Coordination,Sensation,Tone, Cognition,Bed Mobility, Transfers,Gait,Activity Tolerance Progress Towards Goals Progressing Toward Goals Assessment Summary Pt slowly progressing towards goals and overall doing well however needs cues for safe technique when sitting and standing and for FWW use. Pt has poor eccentric control when sitting and relies heavily on FWW. Pt lives alone and currently presents w/ increased fall risk and difficulty mobilizing therefore would benefit from SNF to improve safety, strength and mobility independence. Goals Bed Mobility Goal Independent Transfer Goal Independent,Front Wheeled Walker Gait Goal Independent,Front Wheel Walker Gait Distance 150 Other Goals up/down 3 steps B rails SBA Days to Meet Goals 5 Frequency of Treatment Frequency Of Treatment Twice a Day Treatment Plan Physical Therapy Treatment Plan Bed Mobility Training,Transfer Training,Gait Training, Therapeutic Exercise,Balance Retraining,Post Op Education, Discharge Planning,Hot or Cold Pack,Neuromuscular Re-ed, Coordination Retraining,Manual Therapy Other Recommendations and Next Treatment transfers, gait distance w/ Focus FWW, ROM, postop ex. Weight Bearing Status Weight Bearing Status Weight Bear as Tolerated Allowed Weight Bearing Amount (enter % RLE WBAT or #) (%) Recommendations To Nursing Amount of Assist Needed Standby Assistance,1 Person Assist Discharge Recommendations PT Discharge Recommendations SNF Rehab Equipment Needed for Home Before Friend acquired FWW from Discharge Soroptomist, in hospital room/ labeled. Transportation Needs at Discharge Private Vehicle,Wheelchair/ Cabulance
[2022-06-24 16:00] VITALS: BP 117/62; PULSE 62; RESP 17; TEMP 36.3; O2SAT 95
[2022-06-24 20:00] VITALS: BP 137/60; PULSE 60; RESP 18; TEMP 36.4; O2SAT 96
[2022-06-24] MEDS: DOCUSATE 100 MG CAPSULE PO (21:24)
[2022-06-24] MEDS: MELATONIN 3 MG TABLET 6 MG PO (23:33)
[2022-06-25] VITALS: BP 125/65; PULSE 62; RESP 18; TEMP 36.6; O2SAT 98
[2022-06-25] MEDS: IBUPROFEN 400 MG TABLET PO ×6 (00:44→20:10)
[2022-06-25 04:00] VITALS: BP 141/60; PULSE 58; RESP 16; TEMP 36.2; O2SAT 96
[2022-06-25] MEDS: ACETAMINOPHEN 325 MG TABLET 650 MG PO ×3 (05:04→17:20)
[2022-06-25 07:52] VITALS: BP 138/58; PULSE 55; RESP 16; TEMP 36.3; O2SAT 97
--- NOTE | 2022-06-25 08:20 | P.DS_ITS ---
History of Present Illness History of Present Illness Date Patient Seen: 06/25/22 Time Patient Seen: 08:20 Chief complaint: Right TKA Narrative: Operative Date/Time/Diagnoses Date of procedure: 06/23/22 Time of procedure: 09:15 Pre-op diagnosis: Right knee osteoarthritis Post-op diagnosis: same Procedure & Clinicians Procedure: Right total knee replacement Same procedure as scheduled: Yes Indications: The patient has had progressively worsening right knee pain with radiographic changes consistent with arthritis. Non-operative management has failed and the patient has requested total knee replacement. The risks, benefits and alternatives to surgery were discussed with the patient prior to proceeding. Risks discussed included, but were not limited to, failure to relieve pain, stiffness, infection, nerve damage, deep venous thrombosis, pulmonary embolism, stroke, coma, heart attack, permanent paralysis and , as well as the potential need for eventual revision of the prosthetic. Surgeon: Silvino Mohr Newspaper Stuffer: Linda Pena Click Yes if Unassisted: Yes Anesthesia Type: General, Spinal and Local Operative Notes Findings: Severe medial and significant patellofemoral osteoarthritis with relative preservation of the lateral compartment. Closure Type: primary Specimen(s): none sent Prosthetic devices, grafts, tissues, transplants, or devices: Implants used in this procedure were manufactured by the [employer] and included the BCS II Journey total knee replacement with a size 4 cobalt chromium femoral component, size 3 non porous tibial base plate, a 12 mm cross-linked polyethylene tibial insert and a 32 mm oval Cheri II patellar component. Applied: implant(s) Estimated Blood Loss (mL): 25 Blood products transfused: none Tourniquet time (min): 50 Discharge Providers Provider Date of admission: 06/24/22 10:30 Discharge Date: 06/26/22 Primary care physician: Taco Garcia MD Consults: 06/23/22 10:25 Consult to Discharge Planning Routine Comment: Consult to Physical Therapy Evaluate & Treat Comment: Physician Instructions: postop TKA protocol Consult to Respiratory Therapy Evaluate & Treat Comment: Physician Instructions: Evaluate and treat Discharge provider: Linda Pena PA-C Summary Hospital Course Discharge Diagnosis: Right knee osteoarthritis, s/p right total knee arthroplasty. Hospital Course: On POD# 1, pt was debating between going home w/ HH or going to SNF. On POD# 2, pt 'absolutely' wanted to go to SNF. She was evaluated by PT throughout her stay, and they also felt she was appropriate for SNF. She was voiding and eating without difficulty and her pain was well-controlled with oral medication. Exam Vital Signs (past 8 hours): - 06/25/22 04:00 06/25/22 07:52 Temperature 97.2 F L 97.3 F L Pulse Rate 58 L 55 L Respiratory Rate 16 16 Blood Pressure 141/60 H 138/58 L Pulse Oximetry 96 97 Oxygen Flow Rate 0 Oxygen Delivery Method Room Air Oxygen Flow Rate 0 Narrative Exam Narrative: 4/5 strength in right hip flexors, quadriceps, hamstrings, DF, PF, EHL. Sensation to light touch intact throughout RLE. Calves soft, compressible, nontender and without palpable cords or masses. Objective Labs Result Diagrams: 06/24/22 07:24 [facility] Medical History (Updated 06/06/22 @ 00:01 by ) Bilateral primary osteoarthritis of knee Breast cancer (~2017) Cataracts, bilateral (2012) Chickenpox (194) Chronic pain of right knee (10/19/16) Chronic venous insufficiency (09/20/17) Colon polyps (2014) Essential hypertension (09/05/15) Essential tremor (09/20/17) Foot pain (2014) Fractures Herpes (1977) History of adenomatous polyp of colon Hyperglycemia Hyperlipidemia, unspecified (08/31/04) Iron deficiency anemia, unspecified (04/13/02) Irregular menstrual cycle (1958) Knee pain (~01/2017) Large mass of left breast Measles Menopause present (09/11/02) Migraines (1958) Morbid obesity with BMI of 40.0-44.9, adult [place] Obesity (BMI 30-39.9) Ovarian cyst (1975) Painful menstrual periods (1958) Peripheral edema (12/30/03) Shoulder fracture, left (05/2020) Shoulder fracture, right (2018) Shoulder pain Status post hysteroscopy (12/22/18) Stress incontinence (~2016) Stress incontinence of urine (10/19/16) Tinnitus of both ears (2012) Vitamin B12 deficiency (04/19/02) Surgical History (Updated 06/14/22 @ 09:59 by Em Johnson RN) Anesthesia History of cataract removal with insertion of prosthetic lens (2012) History of elective History of hysteroscopy (12/22/18) History of lumpectomy of left breast (06/27/18) History of tonsillectomy (1966) History of total right knee replacement (10/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 Grandmother Cancer Grandfather No problems noted. Grandmother No problems noted. 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 ASA 81 mg BID x 6 weeks for VTE prophylaxis, multimodal pain control, f/u w/ ortho in 2 weeks. Discharge Plan Discharge Plan Patient Disposition: SNF Transfer to: [facility] Transportation: Facility vehicle I certify the postop hospital fci care is medically necessary on a continuing basis for any conditions for which he/ she received care during this hospitalization.: Yes The receiving facility has agreed to accept transfer and provide medical treatme nt.: Yes Discharge orders & Medications Prescriptions: New oxycodone 5 mg Tablet 5 mg PO Q3HR PRN (Reason: Pain, Moderate (4-6)) Qty: 60 0RF aspirin 81 mg Tablet,Delayed Release (Dr/Ec) 81 mg PO BID Qty: 90 0RF docusate sodium 100 mg Capsule 100 mg PO BID PRN (Reason: constipation) Qty: 60 2RF acetaminophen 325 mg Tablet 650 mg PO Q6HR PRN (Reason: fever or pain) Qty: 240 0RF ibuprofen 400 mg Tablet 400 mg PO Q4HR PRN (Reason: fever or pain) Qty: 120 0RF Continued acyclovir 200 mg capsule 200 mg PO QID PRN (Reason: Herpes flare) Qty: 60 0RF cholecalciferol (vitamin D3) 25 mcg (1,000 unit) capsule 10,000 unit PO DAILY magnesium glycinate-mag oxide 120 mg magnesium capsule 120 mg PO DAILY melatonin-pyridoxine (vit B6) 5-1 mg tablet 1 tab PO BEDTIME PRN (Reason: Sleep) methylsulfonylmethane 1,000 mg tablet 1,000 mg PO BID zinc amino acid chelate 50 mg tablet 50 mg PO DAILY Modified [place] Pectin 1.5 mg PO DAILY Vitamin B12 See Rx Instructions .ROUTE .COMPLEX Rx Instructions: 1 dropperful PO DAILY Ibrance 100 mg capsule 125 mg PO DAILY Label Comments: 06/14/22 Pt states currently not taking prior to surgery 06/23/22 but plans to restart after surgery Rx Instructions: administer on days 1 through 21 of a 28-day treatment cycle anastrozole 1 mg tablet 1 mg PO DAILY Discontinued (DME) community mushrooms 0 .ROUTE .MEDSUPPLY Label Comments: Pt states takes pill form for health, not pain and last taken 7 days ago hydrocodone-acetaminophen 5-325 mg Tablet 1 tab PO TID PRN (Reason: Pain) Follow up/Referrals: Taco Garcia MD [Primary Care Provider] - Silvino Mohr MD [Physician] - As previously scheduled (Follow up with Dr Mohr on 07/08/2022 @ 9:30 am at [facility].) Diet/Activity/Treatments Diet: Diet as Tolerated Activity: Walk frequently! Cold/Heat Therapy: Ice to knee as needed for pain. Skin/Wound/Dressing Care Report to your healthcare provider any signs of infection, such as:: chills, fever, night sweats, unusual drainage and unusual redness Dressing: May remove NAREN wrap and shower on 06/26/2022. Leave Aquacel dressing in place until follow up visit in office. Visit Report/Discharge Packet Instructions: DI for Knee Replacement, DI for Prescription Opioid Use Stand Alone Forms: Surgery Discharge Discharge Data Primary Care Provider: Taco Garcia Attending Provider: Silvino Mohr
[2022-06-25] MEDS: MAGNESIUM OXIDE 400 MG TABLET 200 MG PO (08:59)
[2022-06-25] MEDS: CHOLECALCIFEROL (VITAMIN D3) 5,000 UNIT TABLET 10000 UNIT PO (08:59)
[2022-06-25] MEDS: ANASTROZOLE 1 MG TABLET PO (09:00)
[2022-06-25] MEDS: ASPIRIN EC 81 MG TABLET PO ×2 (09:01→20:10)
[2022-06-25] MEDS: OXYCODONE IR 5 MG TABLET PO ×2 (09:07→15:52)
[2022-06-25] MEDS: ACYCLOVIR 200 MG CAPSULE PO ×2 (09:59→18:22)
--- NOTE | 2022-06-25 10:42 | CM.DPNOTE ---
DCP Note Working on this DCP w/patient, Ortho PA and [facility] MV/Marie. Patient reiterates no assist at home and anxious to begin therapy at [facility] before return home Patient meets COVID Waiver Criteria; [facility] a critical bed access hospital [facility]. In order to have bed capacity to meet community needs during the COVID-19 public health emergency, [facility] is discharging patients to the next appropriate level of care once medical stability has been achieved, consistent with the CMS blanket waiver of the 3-day qualifying inpatient stay for Medicare beneficiaries. This patient would have traditionally required a 3-day qualifying stay DC to [facility] expected tomorrow. This ROOM SERVICE WAITER/WAITRESS following closely to coordinate this plan JW
--- NOTE | 2022-06-25 11:45 | PT.IPTN ---
Current Diagnoses Unilateral primary osteoarthritis, right knee (06/24/22) Surgery Performed Operation Date: 06/23/22 07:45 Actual Procedures p Right Total Knee Arthroplasty(Right) - Silvino Mohr MD Physical Therapy Treatment Note M2 PT-IP Current Condition Start: 06/23/22 15:05 Freq: NEEDED Status: Active Protocol: Document 06/24/22 09:22 TS (Rec: 06/24/22 10:24 TS [id number]) Physical Therapy Current Condition Current Condition Evaluation Date 06/24/22 Treatment Diagnosis s/p R TKA; difficulty in walking Onset Date 06/23/22 M3 PT-IP Subjective Start: 06/23/22 15:05 Freq: NEEDED Status: Active Protocol: Document 06/25/22 11:35 KS (Rec: 06/25/22 13:09 KS [id number]) Subjective Physical Therapy Visit Type Type Treatment Note Visit Start Time 11:35 Visit Stop Time 11:45 Total Visit Minutes 10 Number of APPRENTICESH[employer] CONSULTANT Visits 3 Physical Therapy Visit Comments Patient Comments Pt fatigued Therapy Pain Assessment Pain When Pain Assessed During Mobility Pain Present Pain Present Pain Reported M4 PT-IP Mobility and Gait Start: 06/23/22 15:05 Freq: NEEDED Status: Active Protocol: Document 06/25/22 11:35 KS (Rec: 06/25/22 13:09 KS [id number]) PT-Bed Mobility Assessment Sit to Supine Sit to Supine Minimal Assistance,1 Person Assistance Scooting Scooting to Edge of Bed Contact Guard Assistance PT-Transfer Assessment Sit to and From Stand Sit to and from Stand Contact Guard Assistance,1 Person Assistance,Use of Upper Extremities Equipment Transfer Assistive Device Gait Belt,Front Wheeled Walker Orthotic/Prosthetic Devices or Brace: No Transfers Transfer Destination Bed Transfer Technique ambulated Transfer Ability Level of Assist Contact Guard Assistance, Minimal Assistance Comments Mobility Comments Pt in bathroom upon arrival and just wanting to return to bed, c/o increased pain, fatigue, and nausea. Pt CGA for ambulation w/ FWW and Min A for sit<>sup/repositioning in bed. Pt continues to have poor eccentric control when sitting. Left in bed w/ all needs in reach. Gait Assessment Gait Gait Assistance Required: Contact Guard Assist,1 Person Assist Distance (Feet) 15 Able to Maintain Weight Bearing Status Yes During Gait Assistive Devices Assistive Device Gait Belt,Front Wheeled Walker Orthotic/Prosthetic Devices or Brace: No Gait Deviations General Gait Pattern Antalgic,Decreased Stride Length,Decreased Feet Clearance Factors Limiting Gait Function Factors Limiting Gait Function Decreased Strength,Limited Range of Motion,Pain Comments Gait Comments Pt reporting increased pain and fatigue, unable to tolerate further ambulation this AM. Stair Climbing Assessment Comments Stair Climbing Comments Unable to assess due to pt high level of fatigue. PT-Balance Assessment Sitting Balance and Reactions Static Sitting Balance Ability Normal Dynamic Sitting Balance Ability Good Standing Balance and Reactions Static Standing Balance Ability Fair Dynamic Standing Balance Ability Fair Device Used FWW M5 PT-IP Objective Assessments Start: 06/23/22 15:05 Freq: NEEDED Status: Active Protocol: Document 06/24/22 09:55 TS (Rec: 06/24/22 10:24 TS [id number]) Orientation Orientation/Cognition Level of Alertness Alert Language Function Ability No Deficits Noted Safety Awareness Understands Safety Issues Gross Range of Motion Lower Extremity ROM Assessment Right Impaired Impairments R knee flexion: ~ 90D with heel slides in bed. M6 PT-IP Treatment Start: 06/23/22 15:05 Freq: NEEDED Status: Active Protocol: Document 06/25/22 11:35 KS (Rec: 06/25/22 13:09 KS [id number]) Physical Therapy Treatment Education Education Provided Precautions,Weight Bearing Status,Post-Op Packet,Safety M7 PT-IP Assessment and Plan Start: 06/23/22 15:05 Freq: NEEDED Status: Active Protocol: Document 06/25/22 11:35 KS (Rec: 06/25/22 13:09 KS [id number]) PT Summary Assessment and Plan Potential Rehabilitation Potential Good Summary Impairments Pain,ROM,Strength,Balance, Coordination,Sensation,Tone, Cognition,Bed Mobility, Transfers,Gait,Activity Tolerance Progress Towards Goals Slow Progress due to Pain,Slow Progress due to Activity Tolerance Assessment Summary Unable to progress pt this AM due to high level of fatigue and pain. CGA for ambulation w / FWW and Min A for bed mobility. Pt demonstrates increased difficulty w/ sit<> sup/LE elevation today and has poor eccentric control when sitting due to weakness. She requires frequent safety cues and presents w/ increased fall risk and difficulty mobilizing therefore would benefit from SNF to improve safety, strength and mobility independence. Unable to tolerate stair training at this time. Goals Bed Mobility Goal Independent Transfer Goal Independent,Front Wheeled Walker Gait Goal Independent,Front Wheel Walker Gait Distance 150 Other Goals up/down 3 steps B rails SBA Days to Meet Goals 5 Frequency of Treatment Frequency Of Treatment Twice a Day Treatment Plan Physical Therapy Treatment Plan Bed Mobility Training,Transfer Training,Gait Training, Therapeutic Exercise,Balance Retraining,Post Op Education, Discharge Planning,Hot or Cold Pack,Neuromuscular Re-ed, Coordination Retraining,Manual Therapy Other Recommendations and Next Treatment transfers, gait distance w/ Focus FWW, ROM, postop ex. Weight Bearing Status Weight Bearing Status Weight Bear as Tolerated Allowed Weight Bearing Amount (enter % RLE WBAT or #) (%) Recommendations To Nursing Amount of Assist Needed 1 Person Assist Discharge Recommendations PT Discharge Recommendations SNF Rehab Transportation Needs at Discharge Private Vehicle,Wheelchair/ Cabulance
[2022-06-25 11:50] VITALS: BP 131/45; PULSE 60; RESP 16; TEMP 36.4; O2SAT 94
[2022-06-25] MEDS: ONDANSETRON 4 MG/2 ML INJ IV (15:35)
--- NOTE | 2022-06-25 16:20 | PT-IP ANOTE ---
Pt experiencing nausea and requesting to rest this PM. Has been up to the bathroom w/ nursing staff. Will check back in AM.
[2022-06-25 16:36] VITALS: BP 126/44; PULSE 75; RESP 18; TEMP 36.2; O2SAT 96
[2022-06-25] MEDS: HYDROMORPHONE 2 MG TABLET PO ×2 (18:23→21:13)
[2022-06-25 19:56] VITALS: BP 136/63; PULSE 58; RESP 16; TEMP 36.5; O2SAT 96
[2022-06-26 00:07] VITALS: BP 131/62; PULSE 62; RESP 20; TEMP 35.9; O2SAT 94
[2022-06-26] MEDS: ACETAMINOPHEN 325 MG TABLET 650 MG PO ×2 (00:14→05:13)
[2022-06-26] MEDS: IBUPROFEN 400 MG TABLET PO ×3 (00:14→09:03)
[2022-06-26] MEDS: ACYCLOVIR 200 MG CAPSULE PO ×2 (00:15→09:49)
--- NOTE | 2022-06-26 03:28 | PC.NURSE ---
Pt is AxOx4, needs 1 person assistance and cooperative. VSS, c/o pain on R knee and recieved PRN PO Dilaudid 2mg around 9 pm with good effect. Otherwise, pt's pain is controlled well with her routine Tylenol and Ibuprofen. No other changes. Pt slepw well. Continue monitor.
[2022-06-26 05:32] VITALS: BP 154/72; PULSE 62; RESP 20; TEMP 36.2; O2SAT 95
[2022-06-26 08:47] VITALS: BP 138/51; PULSE 65; RESP 16; TEMP 36.6; O2SAT 96
[2022-06-26] MEDS: ANASTROZOLE 1 MG TABLET PO (09:03)
[2022-06-26] MEDS: DOCUSATE 100 MG CAPSULE PO (09:04)
[2022-06-26] MEDS: CHOLECALCIFEROL (VITAMIN D3) 5,000 UNIT TABLET 10000 UNIT PO (09:04)
[2022-06-26] MEDS: HYDROMORPHONE 2 MG TABLET PO (09:04)
[2022-06-26] MEDS: MAGNESIUM OXIDE 400 MG TABLET 200 MG PO (09:04)
[2022-06-26] MEDS: ASPIRIN EC 81 MG TABLET PO (09:04)
--- NOTE | 2022-06-26 10:27 | CM.DPNOTE ---
DC Note DC to [facility] today, p/u at 1030 via cabulance. [facility] utilizing the COVID waiver, patient remains observation. Patient pleased Faxed completed and signed DC ppk, DC Summary, signed med list and PASRR to [facility] Report goes through Ana argueta. COVID PCR pending JW
[2022-06-26] MEDS: OXYCODONE IR 5 MG TABLET PO (10:35)
--- NOTE | 2022-06-26 11:10 | PT-IP ANOTE ---
Attempted to see pt at 11:02, however pt already d/c to SNF.
[2022-06-26 11:23] LABS: COVID19 -Nasal RAPID Negative (Negative)
== END 2022-06-26 10:45 ==
LOC: OR 14:30 → AC 14:30
PROVIDERS: Admitting Provider Orthopaedic Surgery; PCP Family Medicine; Referring Provider Orthopaedic Surgery; Visit Provider Orthopaedic Surgery
PROC: 0SRC0JZ Replacement of Right Knee Joint with Synthetic Substitute, Open Approach (ICD-10-PCS; CPT 27447; principal; 2022-06-23 07:45)
DX: M17.11 Unilateral primary osteoarthritis, right knee (principal); E66.9 Obesity, unspecified; Z68.38 Body mass index [BMI] 38.0-38.9, adult; Z20.822 Contact with and (suspected) exposure to COVID-19
CPT/HCPCS: 27447; 36415; 73560; 85014; 85018; 87635; 97116; 97162; 97530; C1776; C9803; G0378; C1713; C9290; J0171; J0690; J1100; J2250; J2270; J2274; J2405; J2704; J3010

== ENCOUNTER → 2022-08-05 09:53 | Outpatient (CLI) | payer MEDICARE, OTHER, SELFPAY ==
[2022-06-23 12:21] VITALS: BMI 35.0
[2022-08-05 10:22] LABS: Estimated Glomerular Filt Rate > 60 mL/min (>60)
== END ==
PROVIDERS: PCP Family Medicine; Referring Provider Specialist; Visit Provider Specialist
DX: C50.919 Malignant neoplasm of unspecified site of unspecified female breast (principal)
CPT/HCPCS: 36415; 82565

== ENCOUNTER → 2022-08-12 08:39 | Outpatient (CLI) | payer MEDICARE, OTHER, SELFPAY ==
[2022-06-23 12:21] VITALS: BMI 35.0
--- NOTE | 2022-08-12 | DI.NM.S_ITS ---
PROCEDURE: [place] BONE SCAN WHOLE BODY RADIOPHARMACEUTICAL: 20.7 mCi Tc-99m MDP IV. INDICATIONS: METASTATIC BREAST CANCER TECHNIQUE: Delayed whole-body scintigrams were obtained approximately 3-4 hours after intravenous injection of radiotracer. Anterior and posterior views were acquired from vertex to feet. Additional oblique images of the thorax were obtained. COMPARISON: [facility], CT, CT ANGIO CHEST PE PROTOCOL, 05/22/2022, 2:18. [facility], CT, CT CHEST ABD PEL W CON, 08/12/2022, 9:35. FINDINGS: Abnormal uptake in T12 correlating with lytic bone lesion, consistent with metastasis. There are foci of increased activity in the left iliac bone, proximal right humeral shaft suspicious for metastasis. There are foci of increased uptake in cervical, thoracic and lumbar spine most likely secondary to degenerative disc and facet disease; early metastasis to spine could be obscured by degenerative changes. There are foci of increased periarticular activity involving shoulders, sternoclavicular joints and feet, compatible with degenerative/arthritic changes. Note is made of bilateral knee arthroplasties. Mild diffusion increased uptake in the femurs and tibia is seen bilaterally, indeterminate. IMPRESSION: 1. Abnormal uptake in T12, left iliac bone, and the right proximal femoral shaft are consistent with metastasis. Dictated by: Simba Chatman M.D. on 08/12/2022 at 14:51 Approved by: Simba Chatman M.D. on 08/12/2022 at 15:08
--- NOTE | 2022-08-12 | DI.CT.S_ITS ---
PROCEDURE: CT CHEST ABD PEL W CON INDICATIONS: METASTATIC BREAST CANCER TECHNIQUE: After the administration of oral and intravenous contrast, axial sections acquired from the supraclavicular neck to the pubic symphysis. Coronal and sagittal reformats were performed. For radiation dose reduction, the following was used: automated exposure control, adjustment of mA and/or kV according to patient size. COMPARISON: [facility], CT, CT CHEST WITH CONTRAST, 07/17/2021, 11:12. [facility], CT, CT ABDOMEN PELVIS WITH CONTRAST, 07/17/2021, 11:12. [facility], MR, MR ABDOMEN WITH/WITHOUT CONTRAST, 08/31/2021, 13:43. [facility], CT, CT ANGIO CHEST PE PROTOCOL, 05/22/2022, 2:18. [facility], [place], [place] BONE SCAN WHOLE BODY, 08/12/2022, 11:23. FINDINGS: Image quality: Adequate. CHEST: Lower Neck: No enlarged lymph nodes. Axillae: No enlarged lymph nodes. Metal clips present in the left axilla. Chest Wall: Metallic markers present in the left breast. The breasts are not well evaluated by CT. Lungs and Airways: A few small nodules are present as before, not significantly changed, for example a 3 mm right upper lobe nodule (5/89) and a 4 mm right lower lobe nodule (5/184). Pleura: No pneumothorax or pleural effusions. Heart:. No pericardial effusion. Thoracic Vessels: The aorta and pulmonary arteries demonstrate normal size. Mediastinum and Argelia: No enlarged lymph nodes. Esophagus: No wall thickening. ABDOMEN: Liver: 9 mm hypodensity present at the inferior liver, likely segment 5 or 4B (2/73) not definitively present previously. This is too small to characterize. Gallbladder: Absent. Biliary ducts: Unremarkable. Pancreas: Unremarkable. Spleen: Unremarkable. Adrenal Glands: Unremarkable. Kidneys and Ureters: No hydronephrosis Stomach and Bowel: No bowel obstruction. Severe predominantly sigmoid colonic diverticulosis without evidence of acute diverticulitis. Peritoneum: No abnormal intraperitoneal fluid. No free air. Abdominal Nodes: No retroperitoneal or mesenteric adenopathy by size criteria. Vessels: Aorta and inferior vena cava are normal in size. PELVIS: Pelvic Organs: Unremarkable. Bladder: Unremarkable. Pelvic Nodes: No enlarged lymph nodes. Bones: Redemonstrated T12 vertebral body metastasis. Possible soft tissue component encroaching on the central canal (2/56) without definite mass effect on the spinal cord visualized. Similar subtle nonspecific sclerosis superior posterior T6. Redemonstrated left iliac wing metastasis. IMPRESSION: 1. Multiple bony metastases are present as before. At the T12 vertebral body metastasis, there is a possible soft tissue component projecting posteriorly that may narrow the central canal without definite mass effect on the spinal cord visualized at this time. MRI may be helpful for better visualization if indicated. 2. A subcentimeter hypodensity is present at the inferior liver, not definitively seen previously. This is too small to characterize and differential considerations include but are not limited to a cyst, hemangioma, or early metastasis. Attention on follow-up is recommended. 3. No significant change in a few small nonspecific pulmonary nodules. Attention on follow-up is recommended. No thoracic adenopathy visualized. Dictated by: Carlos Kunz M.D. on 08/12/2022 at 17:46 Approved by: Carlos Kunz M.D. on 08/12/2022 at 18:28
== END ==
PROVIDERS: PCP Family Medicine; Referring Provider Internal Medicine Hematology & Oncology; Visit Provider Internal Medicine Hematology & Oncology
DX: C50.912 Malignant neoplasm of unspecified site of left female breast (principal); C64.1 Malignant neoplasm of right kidney, except renal pelvis; C79.51 Secondary malignant neoplasm of bone; C79.2 Secondary malignant neoplasm of skin; R91.8 Other nonspecific abnormal finding of lung field
CPT/HCPCS: 71260; 74177; 78306; A9503; Q9967

== ENCOUNTER → 2022-12-06 08:41 | Outpatient (CLI) | payer MEDICARE, OTHER, SELFPAY ==
[2022-06-23 12:21] VITALS: BMI 35.0
--- NOTE | 2022-12-06 | DI.NM.S_ITS ---
PROCEDURE: [place] BONE SCAN WHOLE BODY RADIOPHARMACEUTICAL: 20.7 mCi Tc-99m MDP IV. INDICATIONS: METS BREAST CANCER TECHNIQUE: Delayed whole-body scintigrams were obtained approximately 3-4 hours after intravenous injection of radiotracer. Anterior and posterior views were acquired from vertex to feet. COMPARISON: [facility], [place], [place] BONE SCAN WHOLE BODY, 08/12/2022, 11:23. [facility], CT, CT CHEST ABD PEL W CON, 08/12/2022, 9:35. FINDINGS: There is normal expected radiotracer excretion into the urinary system. There is urinary contamination. Overall similar radiotracer accumulation in the T12 vertebral body, corresponding to previously seen metastatic lesion. Similar degree of uptake also seen in the left iliac wing, compatible with metastasis. Similar mild radiotracer accumulation right proximal humerus, also suspicious. Knee arthroplasties. Scattered degenerative changes. Mild, more diffuse uptake is seen in the long bones of the lower extremities, greater on the right side. Slightly heterogeneous, nonspecific uptake in the calvarium. IMPRESSION: Similar degree and distribution of osseous metastases as described above. Dictated by: Tra Miner M.D. on 12/06/2022 at 13:16 Approved by: Tra Miner M.D. on 12/06/2022 at 13:21
== END ==
PROVIDERS: PCP Family Medicine; Referring Provider Internal Medicine Hematology & Oncology; Visit Provider Internal Medicine Hematology & Oncology
DX: C50.919 Malignant neoplasm of unspecified site of unspecified female breast (principal); C79.51 Secondary malignant neoplasm of bone
CPT/HCPCS: 78306; A9503

== ENCOUNTER → 2023-04-04 10:00 | Outpatient (CLI) | payer MEDICARE, OTHER, SELFPAY ==
[2022-06-23 12:21] VITALS: BMI 35.0
--- NOTE | 2023-04-04 | DI.NM.S_ITS ---
PROCEDURE: [place] BONE SCAN WHOLE BODY RADIOPHARMACEUTICAL: 20.1 mCi Tc-99m MDP IV. INDICATIONS: METASTATIC BREAST CANCER TECHNIQUE: Delayed whole-body scintigrams were obtained approximately 3-4 hours after intravenous injection of radiotracer. Anterior and posterior views were acquired from vertex to feet. COMPARISON: [place], [place], [place] BONE SCAN WHOLE BODY, 12/06/2022, 11:56. FINDINGS: Radiotracer excretion is seen in the urinary system. Scattered degenerative changes in the upper and lower extremities again seen. Heterogeneous uptake is again seen at the calvarium, unchanged. Unchanged metastatic focus in T12. Other milder foci of uptake, for example in the left iliac region and right humerus are relatively unchanged. A mild focus is increased in the right lateral 11th rib. IMPRESSION: Generally unchanged burden of metastatic disease, most notably at T12. A mildly increased focus is seen in the right 11th rib, which may be an additional focus of disease versus recent trauma. Dictated by: Tra Miner M.D. on 04/04/2023 at 15:18 Approved by: Tra Miner M.D. on 04/04/2023 at 15:22
== END ==
PROVIDERS: PCP Family Medicine; Referring Provider Internal Medicine Hematology & Oncology; Visit Provider Internal Medicine Hematology & Oncology
DX: C50.912 Malignant neoplasm of unspecified site of left female breast (principal); C79.51 Secondary malignant neoplasm of bone; Z17.0 Estrogen receptor positive status [ER+]
CPT/HCPCS: 78306; A9503

== ENCOUNTER 2023-04-20 11:51 | Emergency (ER) | payer MEDICARE, OTHER, SELFPAY ==
[2022-06-23 12:21] VITALS: BMI 35.0
[2023-04-20] VITALS (8 sets, daily range): BP systolic 111–127; BP diastolic 58–66; PULSE 66–80; RESP 20; TEMP 36.9–37.8; O2SAT 92–95; BMI 39.1
[2023-04-20 13:06] LABS: COVID-19 CEPHEID 4-PLEX PCR Negative (Negative); Influenza A - CEPHEID Flu A NEGATIVE (NEGATIVE); Influenza B - CEPHEID Flu B NEGATIVE (NEGATIVE); Respiratory Syncytial Virus Negative (Negative)
[2023-04-20 15:00] LABS: Appearance Urine UA CLOUDY; Bilirubin Urine UA NEGATIVE (NEGATIVE); Color Urine UA YELLOW; Glucose Urine UA NEGATIVE (Negative); Ketones Urine UA NEGATIVE (NEGATIVE); Leukocyte Esterase Urine UA 3+ (NEGATIVE); Nitrite Urine UA POSITIVE (Negative); Occult Blood Urine UA 2+ (Negative); Protein Urine UA 2+ (Negative); Specific Gravity Urine UA <=1.005 (1.000-1.035); Urobilinogen Urine UA 0.2 E.U./dL (0.2)
[2023-04-20 15:01] LABS: Hematocrit 37.5 % (36-46); Hemoglobin 12.9 g/dL (12.0-16.0); Mean Corpuscular HGB Conc 34.3 % (30-36); Mean Corpuscular Hemoglobin 33.6 PG (26-34); Mean Corpuscular Volume 97.9 fL (80-100); Platelet Count 176 X10^3/uL (150-400); Red Blood Cell Count 3.83 X10^6/uL (4.0-5.2); Red Cell Distribution Width 15.5 % (11.6-14.8); White Blood Cell Count 4.5 X10^3/uL (4.5-11.0)
[2023-04-20 15:03] LABS: Add Manual Diff / Slide Review YES
[2023-04-20 15:05] LABS: pH Urine UA 6.5 (4.5-8.0)
[2023-04-20 15:09] LABS: Alanine Aminotransferase 39 IU/L (<35); Albumin 3.6 g/dL (3.5-5.0); Alkaline Phosphatase 153 U/L (38-126); Aspartate Aminotransferase 67 IU/L (14-36); BUN Creatinine Ratio 10.1 (6-22); Bilirubin Total 1.2 mg/dL (0.2-1.3); Blood Urea Nitrogen 10 mg/dL (7-17); Calcium 8.3 mg/dL (8.4-10.2); Carbon Dioxide 23 mmol/L (22-32); Chloride 101 mmol/L (98-107); Estimated Glomerular Filt Rate 59 mL/min (>60); Globulin 3.5 g/dL (1.7-4.1); Glucose 146 mg/dL (80-110); HEMOLYSIS < 15 (0-50); Lipase 30 U/L (23-300); Potassium 3.9 mmol/L (3.4-5.1); Sodium 132 mmol/L (137-145); Total Protein 7.1 g/dL (6.3-8.2)
[2023-04-20 15:12] LABS: Bacteria Urine Many (>30); RBC Urine 30-100/HPF (0-5/HPF); Squamous Epithelial Cell Urine 1-5 /HPF (0-5/HPF); WBC Urine >100/HPF (0-5/HPF)
[2023-04-20 15:12] LABS: INR 1.2 (0.9-1.3); Prothrombin Time 13.2 SECONDS (10.1-12.7)
[2023-04-20 15:13] LABS: Culture Indicated Urine Specimen Cultured
--- NOTE | 2023-04-20 15:17 | DI.CT.S_ITS ---
PROCEDURE: CT CHEST ABD PEL W CON INDICATIONS: chest/epigastric pain, fullness, kidney/liver CA, can't swal TECHNIQUE: After the administration of oral and intravenous contrast, axial sections acquired from the supraclavicular neck to the pubic symphysis. Coronal and sagittal reformats were performed. For radiation dose reduction, the following was used: automated exposure control, adjustment of mA and/or kV according to patient size. This patient was pre-medicated prior to this study. No immediate contrast reaction was experienced. COMPARISON: [facility], [place], [place] BONE SCAN WHOLE BODY, 04/04/2023, 14:13. [facility], CT, CT CHEST ABD PEL W CON, 08/12/2022, 9:35. FINDINGS: Image quality: Excellent. CHEST: Lower Neck: No enlarged lymph nodes. Thyroid: Within normal limits. Axillae: No enlarged lymph nodes. Chest Wall: Degenerative changes are seen throughout, including prominent bilateral shoulder degenerative change. Left breast postoperative change can be seen. Lungs and Airways: No consolidation or suspicious nodules. Pleura: No pneumothorax or pleural effusions. Heart: Heart size is normal. No pericardial effusion. Thoracic Vessels: The aorta and pulmonary arteries demonstrate normal size. The descending thoracic aorta is tortuous. Mediastinum and Argelia: No enlarged lymph nodes. Esophagus: No wall thickening. No significant hiatal hernia. ABDOMEN: Liver: Extensive poorly defined, poorly enhancing lesions can be seen within the liver, which are clearly worse on the current study than on the 08/12/2022 CT. Gallbladder: Removed. Biliary ducts: Unremarkable. Pancreas: Unremarkable. Spleen: Unremarkable. Adrenal Glands: Unremarkable. Kidneys and Ureters: Unremarkable. Stomach and Bowel: Stomach, small bowel loops, and colon are unremarkable. Colonic diverticulosis is seen, without findings of active diverticulitis. Peritoneum: No abnormal intraperitoneal fluid. No free air. Ventral Wall: A mild periumbilical hernia is seen, containing fat. Abdominal Nodes: No retroperitoneal or mesenteric adenopathy by size criteria. Vessels: Aorta and inferior vena cava are normal in size. Incidental note is made of a circumaortic left renal vein. PELVIS: Pelvic Organs: The uterus appears normal for age. No adnexal masses are seen. Bladder: Unremarkable. Pelvic Nodes: No enlarged lymph nodes. Miscellaneous: No inguinal hernias are seen. Bones: Mild sclerosis can be seen within the superior T6 level, which is worse than on the prior examination. Mixed lysis and sclerosis can be seen within the T12 level, with an associated pathologic fracture, with approximately 30% loss of height anteriorly. Mild bowing of the posterior cortex can be seen. This appears slightly worse on the current study than on the prior. There is a lytic lesion seen involving the left iliac wing. Mild dextroconvex scoliotic curvature is seen. Age-appropriate bony degenerative changes are seen. IMPRESSION: Clear interval worsening of metastatic disease to the liver. Worsening sclerotic metastatic disease at the T6 level. Pathologic fracture at T12, which appears slightly worse on the current study than on the prior. Abnormal lysis seen involving the left iliac wing, which also appears worse on the current study than on the prior. No overt pulmonary metastases can be seen. No dilated loops of small bowel are seen. No significant ascites is seen. Left breast postoperative change. Additional findings: Advanced degenerative changes, including involving the shoulders Cholecystectomy Circumaortic left renal vein Mild fat containing periumbilical hernia Dextroconvex scoliotic curvature Diverticulosis, without active diverticulitis Dictated by: Benjamin Schrader M.D. on 04/20/2023 at 16:12 Approved by: Benjamin Schrader M.D. on 04/20/2023 at 16:20
[2023-04-20 15:20] LABS: Neutrophils Absolute Manual 3690 /uL (3000-5900); RBC Morphology Normal Morphology; Total Cells Counted 100
--- NOTE | 2023-04-20 15:20 | ED.GENADULT ---
HPI - General Adult General Chief complaint: Weakness Stated complaint: sick T-5/ trouble swallowing, weak feeling Time Seen by Provider: 04/20/23 14:36 Source: patient Mode of arrival: Wheelchair History of Present Illness HPI narrative: 77F non smoker with the history of breast cancer, liver cancer, renal cancer presents with a chief complaint of 4-5 days of feeling generally weak, lightheaded and unwell. She states that she has no appetite and when she does eat she feels like something is getting stuck in her chest. She denies fever or chills. She denies any shortness of breath. She is nauseated but denies vomiting. She denies abdominal pain or loose stools. She states that she recently had a CT of her abdomen and pelvis with oral and IV contrast which she did not tolerate all that well and has not really felt herself since. Related Data Home Medications Medication Instructions Recorded Confirmed Modified [place] Pectin 1.5 mg PO DAILY 11/16/18 09/09/22 Vitamin B12 See Rx Instructions .Route .COMPLEX 06/04/19 09/09/22 anastrozole 1 mg tablet 1 mg PO DAILY 07/28/20 09/09/22 palbociclib 100 mg capsule 125 mg PO DAILY 07/28/20 09/09/22 (Ibrance) cholecalciferol (vitamin D3) 25 10,000 unit PO DAILY 06/08/21 09/09/22 mcg (1,000 unit) capsule magnesium glycinate-mag oxide 120 mg PO DAILY 06/08/21 09/09/22 melatonin 5 mg-pyridoxine (vitamin 1 tab PO BEDTIME PRN Sleep 06/08/21 09/09/22 B6) 1 mg tablet methylsulfonylmethane 1,000 mg 1,000 mg PO BID 06/08/21 09/09/22 tablet zinc amino acid chelate 50 mg 50 mg PO DAILY 06/08/21 09/09/22 tablet Previous Rx's Medication Instructions Recorded acetaminophen 325 mg tablet 650 mg PO Q6HR PRN fever or pain 06/25/22 #240 tabs aspirin 81 mg tablet,delayed 81 mg PO BID #90 tabs 06/25/22 release docusate sodium 100 mg capsule 100 mg PO BID PRN constipation #60 06/25/22 caps ibuprofen 400 mg tablet 400 mg PO Q4HR PRN fever or pain 06/25/22 #120 tabs oxycodone 5 mg tablet 5 mg PO Q3HR PRN Pain, Moderate 06/25/22 (4-6) #60 tabs acyclovir 200 mg capsule 200 mg PO QID PRN Herpes flare #60 03/03/23 caps benzonatate 100 mg capsule 100 mg PO TID PRN cough #20 caps 04/01/23 cefdinir 300 mg capsule 300 mg PO BID #14 caps 04/01/23 cephalexin 500 mg capsule 500 mg PO Q6H 7 days #28 caps 04/20/23 ondansetron 4 mg disintegrating 4 mg PO TID-QID PRN nausea and 04/20/23 tablet vomiting #10 tabs pantoprazole 40 mg tablet,delayed 40 mg PO DAILY #30 tabs 04/20/23 release (Protonix) Allergies Allergy/AdvReac Type Severity Reaction Status Date / Time adhesive tape Allergy Severe Rash, Verified 09/09/22 10:39 pulls my skin off iodine [IODINE] Allergy Intermediate Skin rash Verified 09/09/22 10:39 coconut [COCONUT] AdvReac Intermediate (Processed) Verified 09/09/22 10:39 Nausea and I just felt ill. Sulfa (Sulfonamide AdvReac Intermediate GI upset Verified 09/09/22 10:39 Antibiotics) [SULFA (SULFONAMIDE ANTIBIOTICS)] Penicillins AdvReac Unknown Ill Verified 09/09/22 10:39 physically, not feeling good Review of Systems Review of Systems Narrative: GENERAL: Denies chills, fatigue, malaise, fever, sweats. HEENT: Denies sinus pain, ear pain, sore throat, difficulty swallowing, dizziness. RESPIRATORY: Denies dyspnea, cough, wheezing, hemoptysis, sputum. CARDIOVASCULAR: See HPI GASTROINTESTINAL: See HPI : Denies dysuria, frequency, incontinence, hematuria, urinary retention. MUSCULOSKELETAL: denies weakness, joint pain, or bony pain SKIN: Denies rash, skin lesions, or other NEUROLOGIC: Denies weakness, headache, numbness, change in speech, confusion, seizures, incoordination. PSYCHIATRIC: No concerning psychosocial issues. 12 point review of systems is negative except for those stated above Patient History Medical History Bilateral primary osteoarthritis of knee Breast cancer (~2018) Cataracts, bilateral (2013) Chickenpox (1947) Chronic pain of right knee (10/19/16) Chronic venous insufficiency (09/20/17) Colon polyps (2014) Essential hypertension (09/05/15) Essential tremor (09/20/17) Foot pain (2014) Fractures Herpes (1977) History of adenomatous polyp of colon Hyperglycemia Hyperlipidemia, unspecified (08/31/04) Iron deficiency anemia, unspecified (04/13/02) Irregular menstrual cycle (1958) Knee pain (~01/2017) Large mass of left breast Measles Menopause present (09/11/02) Migraines (1958) Morbid obesity with BMI of 40.0-44.9, adult [place] Obesity (BMI 30-39.9) Ovarian cyst (1975) Painful menstrual periods (1958) Peripheral edema (12/30/03) Shoulder fracture, left (05/2020) Shoulder fracture, right (2018) Shoulder pain Status post hysteroscopy (12/22/18) Stress incontinence (~2016) Stress incontinence of urine (10/19/16) Tinnitus of both ears (2012) Vitamin B12 deficiency (04/19/02) Surgical History Anesthesia History of cataract removal with insertion of prosthetic lens (2012) History of elective History of hysteroscopy (12/22/18) History of lumpectomy of left breast (06/27/18) History of tonsillectomy (1966) History of total right knee replacement (10/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 Grandmother Cancer Grandfather No problems noted. Grandmother No problems noted. 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 Well-developed patient, in mild distress. HEAD: Atraumatic. Normocephalic. EYES: Pupils equal round and reactive. Extraocular motions intact. No scleral icterus. No injection or drainage. ENT: Nose without bleeding, purulent drainage. Throat without erythema, tonsillar hypertrophy or exudate. Airway patent. NECK: Trachea midline. Non tender CARDIOVASCULAR: Regular rate and rhythm without murmurs, gallops, or rubs. RESPIRATORY: Clear to auscultation. Breath sounds equal bilaterally. No wheezes, rales, or rhonchi. GASTROINTESTINAL: Abdomen soft, tender in the right upper quadrant, nondistended. EXTREMITIES: No edema or joint tenderness. BACK: Nontender without deformity or crepitance. No flank tenderness. NEURO: AOx3. SKIN: No rash or erythema of visible areas Initial Vital Signs Initial Vital Signs: Vital Signs Temperature 100.1 F H 04/20/23 12:14 Pulse Rate 80 04/20/23 12:14 Respiratory Rate 20 04/20/23 12:14 Blood Pressure 127/66 04/20/23 12:14 Pulse Oximetry 95 04/20/23 12:14 Oxygen Delivery Method Room Air 04/20/23 12:14 Course Orders Ordered: Discontinued Medications Diphenhydramine HCl (Diphenhydramine 50 Mg/Ml Vial) 25 mg IV NOW ONE Stop: 04/20/23 15:18 Last Admin: 04/20/23 15:26 Dose: 25 mg Documented By: [facility] Famotidine (Famotidine 20 Mg/2 Ml Vial) 20 mg IV NOW ONE Stop: 04/20/23 15:20 Last Admin: 04/20/23 15:26 Dose: 20 mg Documented By: [facility] Sodium Chloride (Normal Saline 0.9%) 1,000 mls @ 1,000 mls/hr IV BOLUS ONE Stop: 04/20/23 16:16 Last Infusion: 04/20/23 17:09 Dose: 0 mls/hr Documented By: Admin: 04/20/23 15:25 Dose: 1,000 mls/hr Documented By: FAHAD Methylprednisolone (Methylprednisolone 125 Mg/2 Ml Vial) 125 mg IV NOW ONE Stop: 04/20/23 15:18 Last Admin: 04/20/23 15:26 Dose: 125 mg Documented By: FAHAD Ondansetron HCl (Ondansetron 4 Mg Odt) 4 mg PO NOW PRN PRN Reason: Nausea And Vomiting Ondansetron HCl (Ondansetron 4 Mg/2 Ml Inj) 4 mg IV NOW PRN PRN Reason: Nausea And Vomiting Last Admin: 04/20/23 15:26 Dose: 4 mg Documented By: FAHAD Vital Signs Vital signs: Vital Signs - 8 hr 04/20/23 12:14 04/20/23 14:39 04/20/23 14:48 Temperature 100.1 F H Pulse Rate 80 74 70 Respiratory Rate 20 Blood Pressure 127/66 Pulse Oximetry 95 94 94 Oxygen Delivery Method Room Air 04/20/23 14:48 04/20/23 15:00 Temperature 98.4 F Pulse Rate Respiratory Rate Blood Pressure 120/62 Pulse Oximetry Oxygen Delivery Method Medical Decision Making Lab Data 04/20/23 14:48 04/20/23 14:48 Labs: Lab Results 04/20/23 04/20/23 04/20/23 Range/Units 12:20 14:42 14:48 WBC (4.5-11.0) X10^3/uL RBC (4.0-5.2) X10^6/uL Hgb (12.0-16.0) g/dL Hct (36-46) % MCV (80-100) fL MCH (26-34) PG MCHC (30-36) % RDW (11.6-14.8) % Plt Count (150-400) X10^3/uL Neut % (Auto) Lymph % (Auto) [place] % (Auto) Eos % (Auto) Baso % (Auto) Lymph # (Auto) [place] # (Auto) Baso # (Auto) Total Counted Seg Neutrophils % (38-70) % Band Neutrophils % (3-7) % Lymphocytes % (Manual) (25-45) % Monocytes % (Manual) (2-11) % Neutrophils # (Manual) (6490-3994) /uL RBC Morphology PT 13.2 H (10.1-12.7) SECONDS INR 1.2 (0.9-1.3) Sodium (137-145) mmol/L Potassium (3.4-5.1) mmol/L Chloride (98-107) mmol/L Carbon Dioxide (22-32) mmol/L BUN (7-17) mg/dL Creatinine (0.52-1.04) mg/dL Estimated GFR (>60) mL/min BUN/Creatinine Ratio (6-22) Glucose (80-110) mg/dL Calcium (8.4-10.2) mg/dL Total Bilirubin (0.2-1.3) mg/dL AST (14-36) IU/L ALT (<35) IU/L Alkaline Phosphatase (38-126) U/L Total Protein (6.3-8.2) g/dL Albumin (3.5-5.0) g/dL Globulin (1.7-4.1) g/dL Albumin/Globulin Ratio (1.0-2.8) Lipase (23-300) U/L Urine Color Yellow Urine Appearance Cloudy Urine pH 6.5 (4.5-8.0) Ur Specific [place] <=1.005 (1.000-1.035) Urine Protein 2+ H (Negative) Urine Glucose (UA) Negative (Negative) g/dL Urine Ketones Negative (NEGATIVE) Urine Occult Blood 2+ H (Negative) Urine Nitrate Positive H (Negative) Urine Bilirubin Negative (NEGATIVE) Urine Urobilinogen 0.2 (0.2) E.U./dL Ur Leukocyte Esterase 3+ H (NEGATIVE) Urine RBC 30-100/hpf H (0-5/HPF) Urine WBC >100/hpf H (0-5/HPF) Ur Squamous Epith Cells 1-5 /hpf (0-5/HPF) Urine Bacteria Many (>30) H (None) Ur Culture Indicated? Specimen cultured SARS-CoV-2 (PCR) Negative (Negative) Influenza A (RT-PCR) Flu a negative (NEGATIVE) Influenza B (RT-PCR) Flu b negative (NEGATIVE) RSV (PCR) Negative (Negative) 04/20/23 04/20/23 Range/Units 14:48 14:48 WBC 4.5 (4.5-11.0) X10^3/uL RBC 3.83 L (4.0-5.2) X10^6/uL Hgb 12.9 (12.0-16.0) g/dL Hct 37.5 (36-46) % MCV 97.9 (80-100) fL MCH 33.6 (26-34) PG MCHC 34.3 (30-36) % RDW 15.5 H (11.6-14.8) % Plt Count 176 (150-400) X10^3/uL Neut % (Auto) Not Reportable Lymph % (Auto) Not Reportable [place] % (Auto) Not Reportable Eos % (Auto) Not Reportable Baso % (Auto) Not Reportable Lymph # (Auto) Not Reportable [place] # (Auto) Not Reportable Baso # (Auto) Not Reportable Total Counted 100 Seg Neutrophils % 66.0 (38-70) % Band Neutrophils % 16.0 H (3-7) % Lymphocytes % (Manual) 12.0 L (25-45) % Monocytes % (Manual) 6.0 (2-11) % Neutrophils # (Manual) 3690 (6734-7773) /uL RBC Morphology Normal morphology PT (10.1-12.7) SECONDS INR (0.9-1.3) Sodium 132 L (137-145) mmol/L Potassium 3.9 (3.4-5.1) mmol/L Chloride 101 (98-107) mmol/L Carbon Dioxide 23 (22-32) mmol/L BUN 10 (7-17) mg/dL Creatinine 0.99 (0.52-1.04) mg/dL Estimated GFR 59 L (>60) mL/min BUN/Creatinine Ratio 10.1 (6-22) Glucose 146 H (80-110) mg/dL Calcium 8.3 L (8.4-10.2) mg/dL Total Bilirubin 1.2 (0.2-1.3) mg/dL AST 67 H (14-36) IU/L ALT 39 H (<35) IU/L Alkaline Phosphatase 153 H (38-126) U/L Total Protein 7.1 (6.3-8.2) g/dL Albumin 3.6 (3.5-5.0) g/dL Globulin 3.5 (1.7-4.1) g/dL Albumin/Globulin Ratio 1.0 (1.0-2.8) Lipase 30 (23-300) U/L Urine Color Urine Appearance Urine pH (4.5-8.0) Ur Specific [place] (1.000-1.035) Urine Protein (Negative) Urine Glucose (UA) (Negative) g/dL Urine Ketones (NEGATIVE) Urine Occult Blood (Negative) Urine Nitrate (Negative) Urine Bilirubin (NEGATIVE) Urine Urobilinogen (0.2) E.U./dL Ur Leukocyte Esterase (NEGATIVE) Urine RBC (0-5/HPF) Urine WBC (0-5/HPF) Ur Squamous Epith Cells (0-5/HPF) Urine Bacteria (None) Ur Culture Indicated? SARS-CoV-2 (PCR) (Negative) Influenza A (RT-PCR) (NEGATIVE) Influenza B (RT-PCR) (NEGATIVE) RSV (PCR) (Negative) MDM Narrative Medical decision making narrative: CC: 77-year-old with chest and upper abdominal discomfort, the sensation that food becomes stuck and generally unwell, no appetite Complicating co-morbidities: Breast cancer, Mets to liver, renal cancer Data collected from: Patient Medical records reviewed: Prior notes reviewed in our EMR Differential considered, but not limited to: Mass versus GERD versus obstructive process versus other Exam documented above, pertinent findings include: Right upper quadrant pain on palpation, heart rate regular, lungs clear, abdomen otherwise soft Lab Test results independently reviewed as above. Pertinent findings: No leukocytosis or left shift, no signs of anemia, LFTs elevated Independently reviewed EKG as above Imaging studies independently reviewed: CT of the chest abdomen and pelvis demonstrates interval worsening of metastatic disease to the liver, no pulmonary metastases, no dilated loops of bowel, no ascites, no obstructive processes obvious Re-evaluations: Patient resting comfortably in largely asymptomatic for duration of visit Discussion: Patient with vague description of chest and upper abdominal discomfort in the sensation that food has become stuck. She is able to swallow, she is able to eat, she denies any shortness of breath. She has no exertional symptoms, no exercise intolerance, negative cardiac markers, nonischemic EKG. Advanced imaging obtained to rule out mass effect from possible metastatic involvement or lymphadenopathy, no significant abnormal findings noted, she is resting comfortably, tolerating orals and appropriate for discharge Disposition: see below, along with detailed discharge instructions that have been reviewed with patient as well as indications for ED re-evaluation and additional outpatient follow up Discharge Plan Departure Patient Disposition: Home Clinical Impression: Acute UTI, Dysphagia Instructions: DI for Urinary Tract Infection (UTI) Activity Restrictions/Additional Instructions: *You have been diagnosed with [UTI, trouble swallowing. As we discussed your CT scan demonstrates no evidence of any obstruction or mass in or around your esophagus.] *What to do: *Please continue to take your regular medications as directed. [ x] New medication prescriptions sent to your pharmacy: [facility] [ ] New medication written as a paper prescription [ ] No new medications given *Please follow up with your primary care provider in 2-3 days, call for an appointment. Let them know you were seen in the Emergency Department and that we ask that you be seen in follow up. We will electronically transmit a record of today's note if your PCP is in our system * as we discussed, I have included the contact information for Dr. Peña at [facility]. Please let them know you were seen in the emergency department and we would like you seen in follow-up *Return to Emergency Department if you should have any new, worsening or concerning symptoms, such as [fever greater than 101 F, shaking chills, worsening pain, persistent vomiting or other bothersome symptoms] Prescriptions: New cephalexin 500 mg capsule 500 mg PO Q6H 7 Days Qty: 28 0RF pantoprazole [Protonix] 40 mg tablet,delayed release (DR/EC) 40 mg PO DAILY Qty: 30 0RF ondansetron 4 mg tablet,disintegrating 4 mg PO TID-QID PRN (Reason: nausea and vomiting) Qty: 10 0RF No Action benzonatate 100 mg capsule 100 mg PO TID PRN (Reason: cough) Qty: 20 0RF cefdinir 300 mg capsule 300 mg PO BID Qty: 14 0RF acyclovir 200 mg capsule 200 mg PO QID PRN (Reason: Herpes flare) Qty: 60 1RF cholecalciferol (vitamin D3) 25 mcg (1,000 unit) capsule 10,000 unit PO DAILY magnesium glycinate-mag oxide 120 mg magnesium capsule 120 mg PO DAILY melatonin-pyridoxine (vit B6) 5-1 mg tablet 1 tab PO BEDTIME PRN (Reason: Sleep) methylsulfonylmethane 1,000 mg tablet 1,000 mg PO BID zinc amino acid chelate 50 mg tablet 50 mg PO DAILY Modified [place] Pectin 1.5 mg PO DAILY Vitamin B12 See Rx Instructions .ROUTE .COMPLEX Rx Instructions: 1 dropperful PO DAILY [place]brance 100 mg capsule 125 mg PO DAILY Patient Comments: 06/14/22 Pt states currently not taking prior to surgery 06/23/22 but plans to restart after surgery Rx Instructions: administer on days 1 through 21 of a 28-day treatment cycle anastrozole 1 mg tablet 1 mg PO DAILY acetaminophen 325 mg Tablet 650 mg PO Q6HR PRN (Reason: fever or pain) Qty: 240 0RF aspirin 81 mg Tablet,Delayed Release (Dr/Ec) 81 mg PO BID Qty: 90 0RF docusate sodium 100 mg Capsule 100 mg PO BID PRN (Reason: constipation) Qty: 60 2RF ibuprofen 400 mg Tablet 400 mg PO Q4HR PRN (Reason: fever or pain) Qty: 120 0RF oxycodone 5 mg Tablet 5 mg PO Q3HR PRN (Reason: Pain, Moderate (4-6)) Qty: 60 0RF Referrals: Taco Garcia MD [Primary Care Provider] - Stand Alone Forms: Patient Portal/API
[2023-04-20] MEDS: SODIUM CHLORIDE 0.9% 1,000 ML 1000 ML IV (15:25)
[2023-04-20] MEDS: diphenhydrAMINE 50 MG/ML VIAL 25 MG IV (15:26)
[2023-04-20] MEDS: FAMOTIDINE 20 MG/2 ML VIAL IV (15:26)
[2023-04-20] MEDS: methylPREDNISolone 125 MG/2 ML VIAL IV (15:26)
[2023-04-20] MEDS: ONDANSETRON 4 MG/2 ML INJ IV (15:26)
--- NOTE | 2023-04-20 15:42 | PC.NURSE ---
Patient reports feeling generally punky states on tuesday she had some sharp grabbing pain in her lower abd and vaginally. Lasted some of that day and let up. Patient denies burning or urgency today.
== END 2023-04-20 18:16 | disposition home or self-care (01) ==
PROVIDERS: Emergency Provider Emergency Medicine; PCP Family Medicine
DX: N39.0 Urinary tract infection, site not specified (principal); R13.10 Dysphagia, unspecified; R10.10 Upper abdominal pain, unspecified; R07.9 Chest pain, unspecified; Z79.899 Other long term (current) drug therapy; Z20.822 Contact with and (suspected) exposure to COVID-19
CPT/HCPCS: 0241U; 71260; 74177; 80053; 81001; 83690; 85007; 85025; 85610; 87077; 87086; 87186; 93005; 96361; 96374; 96375; 99284; J1200; J2405; J2930

== ENCOUNTER 2023-05-10 07:57 | Outpatient (CLI) | payer MEDICARE, OTHER, SELFPAY ==
[2022-06-23 12:21] VITALS: BMI 35.0
[2023-05-10] VITALS (15 sets, daily range): BP systolic 127–156; BP diastolic 65–87; PULSE 54–140; RESP 13–19; TEMP 36.2–36.3; O2SAT 21–98; BMI 41.5
--- NOTE | 2023-05-10 | DI.US.S_ITS ---
PROCEDURE: US BIOPSY LIVER Ultrasound-guided liver biopsy with sedation analgesia for approximately 15 minutes. INDICATIONS: breast cancer TECHNIQUE: The indications, alternatives, benefits, risks, and complications of the procedure were explained to the patient. Written informed consent was obtained and placed in the chart. Continuous EKG and hemodynamic monitoring was started by trained personnel. Real-time sonography was utilized to choose the site for percutaneous hepatic biopsy. The skin was prepped and draped in the usual sterile fashion. 1% lidocaine was infiltrated down to the hepatic capsule. A coaxial needle was then advanced into the liver under direct sonographic visualization. A biopsy apparatus was then utilized, and core biopsies were obtained. The needle was then withdrawn; a bandage and overlying weight were applied to the biopsy site. COMPARISON: [facility], CT, CT CHEST ABD PEL W CON, 04/20/2023, 16:05. [facility], RG, CT ABDOMEN/PELVIS WITH CONTRAST, 04/08/2023, 12:21. FINDINGS: Multiple hypoechoic liver lesions. A lesion in the left lobe is targeted. Biopsy site(s): 18 gauge Needle: CamioCam biopsy needle set. Number of passes: 5. Left lobe of the liver far lateral. 2 confluent lesions measuring 3.6 x 2 cm. Medications: 1% lidocaine for local anaesthesia. IV Versed and Fentanyl for conscious sedation for approximately 15 minutes (see nursing record). Complications: None. Gel-Foam utilized. Procedure was well tolerated by the patient. IMPRESSION: Successful ultrasound-guided left lobe lesion liver biopsy, with pathology results pending. Dictated by: Osmani Baird M.D. on 05/10/2023 at 14:16 Approved by: Osmani Baird M.D. on 05/10/2023 at 14:21
--- NOTE | 2023-05-10 | PATH_ITS ---
[facility] Accession Number: [id number] No. of containers..01 Tissue . 01 Material submitted: . liver - LEFT LIVER LOBE [id number] ANTERIOR/LATERAL . 01 Diagnosis: Left Liver, Anterior/Lateral Lobe, Core Needle Biopsies: Metastatic adenocarcinoma, with an immunophenotype consistent with the patient's known history of metastatic breast carcinoma. Negative for HER2 expression by immunohistochemistry (Score 1+). V 05/18/2023 1007 Local . 01 Comment: Dr. Stone also reviewed this case and agrees with the interpretation. . 01 Electronically signed: . Cande Dey MD, Pathologist NPI- [id number] . 01 Gross description: . The specimen is received in formalin labeled with the patient's name, and left liver ANT/LAT and consists of five he needle core biopsies, ranging in length from 0.9 to 2.1 cm and averaging 0.1 cm in diameter. Submitted entirely in cassette A. ([id number]) /[facility] 05/12/2023 1643 Local . 01 Microscopic: . Immunohistochemical stains were performed to characterize cells of interest. All control stains showed appropriate reactivity. . PAX8: Negative. GATA3: Uniformly positive. Villin: Negative. CDX2: Negative. Estrogen receptor (SP1): Positive, greater than 95%, strong. Progesterone receptor (1E2): Negative, less than 1%. HER2 (4B5): Negative, Score 1+. . Interpretation: This is immunophenotype is compatible with the patient's known history of metastatic breast carcinoma. The expression of GATA3 and estrogen receptor with lack of PAX8 mitigates against renal carcinoma. The absence of CDX2 and villin expression mitigates against a biliary adenocarcinoma. . TECHNICAL NOTE: Cold Ischemia and Fixation Times: Meets requirements in the latest version of the ASCO/CAP guidelines. The scoring criteria for breast biomarkers by immunohistochemistry is based on the current ASCO/CAP guidelines (Gregorio et al, Arch Pathol Lab Med 2010: 134(6): 907-922 / Jack Mike, Arch Pathol Lab Med 2014: 138(2): 241-256). Deparaffinized sections of formalin fixed tissue (along with appropriate positive controls) are incubated with the above antibody(s). Using the automated [employer] stainer, tissue is incubated with the designated antibody* which is then localized by a non-biotin, dual polymer detection system. The external controls are reviewed for appropriate reactivity and found to be adequate. Results on the target cell population are indicated above. These tests have not been validated on decalcified tissue. * This test was developed and its performance characteristics determined by [facility]. It has not been cleared or approved by the U.S. Food and Drug Administration. The FDA has determined that such clearance or approval is not necessary. This test is used for clinical purposes. It should not be regarded as investigational or for research. . 01 Pathologist provided ICD-10: C78.7 . 01 CPT . 591088, L37811, [id number], 958199, 184490, 443605 Specimen Comment: A courtesy copy of this report has been sent to [facility] Performed at: 01 [facility] [address] [place] [address], [place], [place] [id number] MD Case Jose MD Phone: [phone]
[2023-05-10 09:33] LABS: Add Manual Diff / Slide Review NO; Basophils Absolute Auto 0 /uL (0-100); Basophils Percent Auto 1.6 % (0-2); Eosinophils Absolute Auto 0 /uL (0-450); Eosinophils Percent Auto 0.8 % (2-4); Hematocrit 35.3 % (36-46); Hemoglobin 11.9 g/dL (12.0-16.0); Lymphocytes Absolute Auto 700 /uL (1100-4500); Lymphocytes Percent Auto 29.1 % (25-40); Mean Corpuscular HGB Conc 33.8 % (30-36); Mean Corpuscular Hemoglobin 33.2 PG (26-34); Mean Corpuscular Volume 98.1 fL (80-100); Monocytes Absolute Auto 100 /uL (0-900); Monocytes Percent Auto 5.7 % (3-14); Neutrophils Absolute Auto 1500 /uL (1500-7000); Neutrophils Percent Auto 62.8 % (50-75); Platelet Count 164 X10^3/uL (150-400); Red Cell Distribution Width 16.5 % (11.6-14.8); White Blood Cell Count 2.3 X10^3/uL (4.5-11.0)
[2023-05-10 09:34] LABS: Prothrombin Time 11.7 SECONDS (10.1-12.7)
[2023-05-10] MEDS: fentaNYL 100 MCG/2 ML INJ IV (10:23)
[2023-05-10] MEDS: MIDAZOLAM 2 MG/2 ML VIAL IV (10:24)
--- NOTE | 2023-05-10 13:15 | SUR.PHASEII ---
Pt up and to bathroom with out difficulty.
--- NOTE | 2023-05-10 13:18 | SUR.PHASEII ---
1100 - received pt from DI after liver bx. See vital sign record. biopsy site dry and intact. sandbag in place. Pt instructed will remain on bedrest x 2 hours and will discharge in 4 hours. 1200 - Lunch served. vss remain stable. puncture site remains dry and intact. no swelling noted. Rests quietly. SR up x 2 with call light in reach.
--- NOTE | 2023-05-10 14:01 | SUR.PHASEII ---
1400. rests quietly. No complaints voiced. VSS. Puncture site remains dry and intact.
--- NOTE | 2023-05-10 15:34 | SUR.PHASEII ---
1515 orthostatics done - lying 135/82, hr 72, standing 127/76 hr 85.
== END 2023-05-10 15:20 | disposition home or self-care (01) ==
PROVIDERS: PCP Family Medicine; Referring Provider Internal Medicine Hematology & Oncology; Visit Provider Internal Medicine Hematology & Oncology
PROC: BF25ZZZ Computerized Tomography (CT Scan) of Liver (ICD-10-PCS; CPT 47000; principal; 2023-05-10 09:00)
DX: K76.9 Liver disease, unspecified (principal); C50.919 Malignant neoplasm of unspecified site of unspecified female breast; Z17.0 Estrogen receptor positive status [ER+]
CPT/HCPCS: 36415; 47000; 76942; 85025; 85610; J2250; J3010

== ENCOUNTER → 2023-09-15 08:39 | Outpatient (CLI) | payer MEDICARE, OTHER, SELFPAY ==
[2022-06-23 12:21] VITALS: BMI 35.0
--- NOTE | 2023-09-15 | DI.NM.S_ITS ---
PROCEDURE: [place] BONE SCAN WHOLE BODY RADIOPHARMACEUTICAL: 18 mCi Tc-99m MDP IV. INDICATIONS: BREAST CANCER TECHNIQUE: Delayed whole-body scintigrams were obtained approximately 3-4 hours after intravenous injection of radiotracer. Anterior and posterior views were acquired from vertex to feet. COMPARISON: CT, CT CHEST ABD PEL W CON, 04/20/2023, 16:05. [facility], [place], [place] BONE SCAN WHOLE BODY, 04/04/2023, 14:13. FINDINGS: Physiologic uptake is noted within the kidneys and bladder. Photopenia is present within the knees consistent with arthroplasty. There is persistent uptake within the small bones of the feet as well as shoulders bilaterally. Areas of uptake within the spine most prominent at T12 present. Uptake in the right humerus appears unchanged. There is a new focus of uptake overlying the region of the right axilla, which overlies the soft tissues. 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 Focus of increased uptake overlying the axillary soft tissues on the right. It is unclear as to the origin of the uptake or etiology although metastatic focus cannot be excluded. In comparison to CT, no bony abnormality is identified within this region. Several nodular areas within the right breast are present although indeterminate on CT. Recommend additional follow-up of this region. Dictated by: Jo Ann Jimenez M.D. on 09/15/2023 at 15:17 Approved by: Jo Ann Jimenez M.D. on 09/15/2023 at 15:24
== END ==
LOC: NUCM 08:40
PROVIDERS: PCP Family Medicine; Referring Provider Internal Medicine Hematology & Oncology; Visit Provider Internal Medicine Hematology & Oncology
DX: C50.919 Malignant neoplasm of unspecified site of unspecified female breast (principal); C78.7 Secondary malignant neoplasm of liver and intrahepatic bile duct; C79.51 Secondary malignant neoplasm of bone
CPT/HCPCS: 78306; A9503

== ENCOUNTER → 2023-10-10 14:23 | Outpatient (CLI) | payer MEDICARE, OTHER, SELFPAY ==
[2022-06-23 12:21] VITALS: BMI 35.0
[2023-10-10 15:50] LABS: Appearance Urine UA CLEAR; Bilirubin Urine UA NEGATIVE (NEGATIVE); Color Urine UA YELLOW; Glucose Urine UA NEGATIVE (Negative); Ketones Urine UA NEGATIVE (NEGATIVE); Leukocyte Esterase Urine UA 2+ (NEGATIVE); Nitrite Urine UA POSITIVE (Negative); Occult Blood Urine UA 1+ (Negative); Protein Urine UA 1+ (Negative); Urobilinogen Urine UA 0.2 E.U./dL (0.2)
[2023-10-10 15:51] LABS: pH Urine UA 5.5 (4.5-8.0)
[2023-10-10 15:53] LABS: Bacteria Urine Many (>30); Culture Indicated Urine Specimen Cultured; RBC Urine None Seen (0-5/HPF); Squamous Epithelial Cell Urine 5-10 /HPF (0-5/HPF); WBC Urine 5-10/HPF (0-5/HPF)
[2023-10-10 15:54] LABS: Urine Volume Low Vol <10mL unspun
== END ==
PROVIDERS: PCP Family Medicine; Visit Provider Family Medicine
DX: R30.0 Dysuria (principal)
CPT/HCPCS: 81001; 87077; 87086; 87186